=== PATIENT | male | born 1950 | race Caucasian/White ===

== ENCOUNTER 2019-02-08 12:02 | Inpatient (IN) | payer MEDICARE ==
[2019-02-08] MEDS ORDERED: SODIUM CHLORIDE 0.9% 1,000 ML IV ONE (14:36)
[2019-02-08] MEDS ORDERED: ALPRAZolam 0.25 MG TAB ONE (14:43)
[2019-02-08] MEDS ORDERED: ASPIRIN 325 MG TAB ONE (14:43)
[2019-02-08] MEDS ORDERED: ALPRAZolam 0.5 MG TAB PO PRN (14:47)
[2019-02-08] MEDS ORDERED: NITROGLYCERIN SL TABS 0.4 MG TAB SUBLINGUAL PRN (14:47)
[2019-02-08] MEDS ORDERED: ASPIRIN 325 MG TAB PO STA (14:47)
[2019-02-08] MEDS ORDERED: ATORVASTATIN 80 MG TAB PO STA (14:47)
[2019-02-08] MEDS ORDERED: ALPRAZolam 0.25 MG TAB PO PRN (14:47)
[2019-02-08 14:58] LABS: Glucose,Whole Blood 161 mg/dL (75-99)
[2019-02-08 15:13] LABS: INR 0.9 (<1.2); Prothrombin Time 10.1 sec (9.0-12.0)
[2019-02-08 15:18] LABS: Potassium 4.5 mmol/L (3.5-5.1)
[2019-02-08 15:22] LABS: Basophils # (A) 0.1 k/uL (0-0.2); Basophils % (A) 1 %; Eosinophils # (A) 0.1 k/uL (0-0.7); Eosinophils % (A) 2 %; HCT 47.2 % (39.0-53.0); HGB 15.2 gm/dL (13.0-17.5); Lymphocytes # (A) 1.7 k/uL (1.0-4.8); Lymphocytes % (A) 21 %; MCHC 32.3 g/dL (31.0-37.0); MCV 92.7 fL (80.0-100.0); Mean Platelet Volume 6.4; Monocytes # (A) 0.4 k/uL (0-1.0); Monocytes % (A) 5 %; Neutrophils # (A) 5.6 k/uL (1.3-7.7); Neutrophils % (A) 69 %; Platelet Count 294 k/uL (150-450); RBC 5.09 m/uL (4.30-5.90); RDW 12.6 % (11.5-15.5); WBC 8.1 k/uL (3.8-10.6)
[2019-02-08] MEDS ORDERED: LIDOCAINE 1% INJ 10MG/ML (20 ML MDV) ONE (15:47)
[2019-02-08] MEDS ORDERED: fentaNYL (PF) 50 MCG/ML 2 ML AMP ONE (15:47)
[2019-02-08] MEDS: MIDAZOLAM (PF) 2 MG/2 ML VIAL IV ONE ×2 (15:49→15:59)
[2019-02-08] MEDS ORDERED: fentaNYL (PF) 50 MCG/ML 2 ML AMP IV ONE (15:50)
[2019-02-08] MEDS ORDERED: LIDOCAINE 1% INJ 10MG/ML (20 ML MDV) SQ ONE (15:55)
[2019-02-08] MEDS ORDERED: IOPAMIDOL-370 50ML BTL INJ ONE (16:14)
[2019-02-08] MEDS ORDERED: IOPAMIDOL-370 125ML BTL INJ ONE (16:14)
--- NOTE | 2019-02-08 16:59 | CC ---
CARDIAC CATHETERIZATION REPORT Mr. Mi is a 68-year-old gentleman who was seen in the office. He has a history of hypertension, diabetes, hyperlipidemia. The patient has been having increasingly frequent exertional stress discomfort lately. He has been getting chest pain and shortness of breath by walking less than a block. While he was in the office and having echocardiogram, he had some episodes of resting pain, which got relieved by itself. In view of the progressively frequent exertional chest discomfort and resting pain, the patient was advised urgent cardiac catheterization. There is no definite previous history of myocardial infarction. Echocardiogram was suggestive of inferior apical hypokinesia with ejection fraction of 40%. DESCRIPTION OF PROCEDURE: The right groin was prepped and draped in the usual manner and the skin was infiltrated with 2% Xylocaine. The right femoral artery was entered using Seldinger technique. A #6-Green[place] sheath was placed in using micropuncture needle. Selective coronary angiography was then performed in multiple projections and the left ventriculography was performed in 30-degree ABEBE projection. Patient tolerated the procedure well. Sheath was removed and good hemostasis was achieved with the manual compression. Moderate sedation was used. Total sedation time is 25 minutes. His left ventricular end-diastolic pressure was 24-28 mmHg prior to angiography. Patient was given intraventricular nitroglycerin and subsequently we will and left ventriculography was performed. After the angiogram, the end-diastolic pressure was 12-14 mmHg. No gradient is noted across the aortic valve. CORONARY ANGIOGRAPHY: The patient's coronary arteries are significantly calcified. LEFT MAIN: Left main coronary artery has a distal 70% stenosis. LEFT ANTERIOR DESCENDING CORONARY ARTERY: LAD is diffusely diseased with a proximal long area of 70% stenosis after the origin of small size diagonal branch. The LAD has a 99% stenosis. Distal to that, the LAD is a good caliber blood vessel and is bypassable. CIRCUMFLEX CORONARY ARTERY: Circumflex has a ostial stenosis of 99%. Then it gives rise to a good size obtuse marginal branch. The obtuse marginal branch in its midportion has about 70% stenosis. RIGHT CORONARY ARTERY: The right coronary artery is a good caliber blood vessel and in its proximal and midportion it is a diseased. Distal RCA before its bifurcation has a 99% stenosis. There is slow filling of the retrograde filling of the LAD is noted. LEFT VENTRICULOGRAM: Left ventriculography was performed in 30-degree ABEBE projection which reveals mild degree of anterior apical hypokinesia with ejection fraction of 45%. No significant mitral regurgitation is noted. FINAL IMPRESSION: This study reveals severe triple-vessel disease. The left main coronary artery has a distal 70% stenosis. 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 There is a 99% ostial stenosis of the circumflex coronary artery. Obtuse marginal branch has 70% stenosis. The mid to distal RCA has a 90% stenosis. Left ventriculography reveals mild anterior apical hypokinesia with ejection fraction of 45%. RECOMMENDATIONS: We will get a surgical opinion for urgent coronary artery bypass surgery. MMODL / IJN: [id number] /
[2019-02-08] MEDS ORDERED: HYDROcodone/APAP 5-325MG 1 EACH TAB PO PRN (17:03)
[2019-02-08] MEDS ORDERED: MD COMMUNICATION TO PHARMACY 1 EACH MISC PO ONE (17:09)
--- NOTE | 2019-02-08 17:09 | CONS ---
CONSULTATION Mr. Mi is a 68-year-old gentleman who was seen in the office today because of the symptoms for cardiac evaluation. This patient has a history of hypertension, diabetes, and hyperlipidemia for many years. Since last May, patient has been having exertional chest discomfort and it is gradually occurring with minimal activities. At present, he gets chest discomfort and shortness of breath by walking less than 1 block. While in the office, he had an episode of resting pain. Echocardiogram shows evidence of inferior apical hypokinesia. In view of that, the patient was advised urgent cardiac catheterization. Patient's EKG does not show any definite previous history of myocardial infarction. The patient has a history of hypertension, diabetes and hyperlipidemia. PAST MEDICAL HISTORY: No history of any major surgeries. REVIEW OF THE SYSTEM: HEENT: Head and ENT unremarkable. RESPIRATORY SYSTEM: Patient has a history of prior smoking, quit many years ago. Denies any history of recurrent bronchitis or asthma. GI denies any history of peptic ulcer disease, any blood in the stool, black stool. unremarkable. 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 PHYSICAL EXAMINATION: GENERAL: At present reveals a 68-year-old obesely built gentleman who does not appear to be in any acute distress. VITAL SIGNS: Patient's blood pressure is 150/80 mmHg. HEENT: Head and ENT examination is negative. NECK is supple. There is no increase in jugular venous pressure. Both the carotid pulses are felt. There is no bruit. CHEST is symmetrical. HEART: The PMI is not felt. First and second heart sounds are normal. There is no evidence of any murmur. LUNGS are clinically clear to auscultation and percussion. ABDOMEN is negative. EXTREMITIES: Peripheral pulsations are 2+. EKG shows normal sinus rhythm with minimal ST depression noted in V5 and V6. IMPRESSION: 1. This patient has a class 3 to class 4 angina with minimal activities and symptoms of shortness of breath, rule out underlying severe coronary artery disease. 2. History of hypertension. 3. Diabetes. 4. Hyperlipidemia. RECOMMENDATIONS: Patient was advised urgent cardiac catheterization. Thank you for this consultation. MMODL / IJN: [id number] /
[2019-02-08] MEDS: SODIUM CHLORIDE 0.9% 1,000 ML IV SCH ×2 (17:34→23:52)
[2019-02-08 17:52] LABS: Glucose,Whole Blood 99 mg/dL (75-99)
--- NOTE | 2019-02-08 18:00 | US ---
EXAMINATION TYPE: US carotid duplex BILAT DATE OF EXAM: 02/08/2019 COMPARISON: NONE CLINICAL HISTORY: Pre-Op Cardiac Surgery. EXAM MEASUREMENTS: RIGHT: Peak Systolic Velocity (PSV) cm/sec ----- Right CCA: 66.2 ----- Right ICA: 79.0 ----- Right ECA: 99.5 ICA/CCA ratio: 1.2 RIGHT: End Diastole cm/sec ----- Right CCA: 13.0 ----- Right ICA: 25.2 ----- Right ECA: 0.0 LEFT: Peak Systolic Velocity (PSV) cm/sec ----- Left CCA: 96.9 ----- Left ICA: 71.1 ----- Left ECA: 103.4 ICA/CCA ratio: 0.7 LEFT: End Diastole cm/sec ----- Left CCA: 15.4 ----- Left ICA: 15.4 ----- Left ECA: 0.0 VERTEBRALS (direction of flow): Right Vertebral: Antegrade Left Vertebral: Antegrade Rhythm: Normal Mild to moderate diffuse plaque common carotid arteries is present bilaterally with more prominent fo marcio moderate to severe plaque at bilateral carotid bulb levels. Velocity measurements and ratios in v isualized portion of both internal carotid arteries is within normal limits. IMPRESSION: Moderate diffuse atherosclerotic change right greater than left without significant sten osis seen in either internal carotid artery. Criteria for Assigning % of Stenosis / Diameter reduction (Estimation based on the indirect measurements of the internal carotid artery velocities (ICA PSV). 1. Normal (no stenosis)=ICA PSV < 125 cm/s: ratio < 2.0: ICA EDV<40 cm/s. 2. Less than 50% stenosis=ICA PSV < 125 cm/s: ratio < 2.0: ICA EDV<40 cm/s. 3. 50 to 69% stenosis=ICA PSV of 125 to 230 cm/s: ration 2.0 ? 4.0: ICA EDV 40-100 cm/s. 4. Greater than 70% stenosis to near occlusion= ICA PSV > 230 cm/s: ratio > 4.0: ICA EDV > 100 cm/s. 5. Near occlusion= ICA PSV velocities may be low or undetectable: variable ratio and ICA EDV. 6. Total occlusion=unable to detect flow.
[2019-02-08] MEDS: NITROGLYCERIN OINT 1 INCH/GM PACKET TOPICAL SCH ×2 (18:54→23:47)
[2019-02-08 20:14] LABS: Appearance,Urine Clear (Clear); Bilirubin,Urine Negative (Negative); Blood,Urine Negative (Negative); Color,Urine Light Yellow; Glucose,Urine (UA) Negative (Negative); Ketones,Urine Negative (Negative); Leukocyte Esterase,Urine Negative (Negative); Nitrite,Urine Negative (Negative); PH, Urine 6.5 (5.0-8.0); Protein,Urine Negative (Negative); Urobilinogen,Urine <2.0 mg/dL (<2.0)
[2019-02-08 20:41] LABS: Glucose,Whole Blood 100 mg/dL (75-99)
[2019-02-08] MEDS: INSULIN ASPART (NovoLOG) 100 UNIT/ML VIAL SQ SCH (21:09)
[2019-02-08] MEDS: METOPROLOL TARTRATE 25 MG TAB PO SCH (21:16)
[2019-02-08] MEDS: ATORVASTATIN 80 MG TAB PO SCH (21:16)
[2019-02-08] MEDS: MUPIROCIN 2% OINT 22 GM TUBE NASAL SCH (21:18)
[2019-02-09 05:16] LABS: Basophils # (A) 0.1 k/uL (0-0.2); Basophils % (A) 1 %; Eosinophils # (A) 0.3 k/uL (0-0.7); Eosinophils % (A) 5 %; HCT 40.2 % (39.0-53.0); HGB 12.8 gm/dL (13.0-17.5); Lymphocytes # (A) 1.7 k/uL (1.0-4.8); Lymphocytes % (A) 28 %; MCH 29.3 pg (25.0-35.0); MCHC 31.8 g/dL (31.0-37.0); MCV 92.3 fL (80.0-100.0); Mean Platelet Volume 6.8; Monocytes # (A) 0.5 k/uL (0-1.0); Monocytes % (A) 8 %; Neutrophils # (A) 3.4 k/uL (1.3-7.7); Neutrophils % (A) 55 %; Platelet Count 266 k/uL (150-450); RBC 4.36 m/uL (4.30-5.90); RDW 13.3 % (11.5-15.5); WBC 6.2 k/uL (3.8-10.6)
[2019-02-09 05:24] LABS: Partial Thromboplastin Time 24.8 sec (22.0-30.0); Prothrombin Time 10.5 sec (9.0-12.0)
[2019-02-09 05:33] LABS: Potassium 4.5 mmol/L (3.5-5.1); Sodium 139 mmol/L (137-145)
[2019-02-09 05:36] LABS: ALT 44 U/L (21-72); AST 29 U/L (17-59); Albumin 3.9 g/dL (3.5-5.0); Alkaline Phosphatase 56 U/L (38-126); Anion Gap 8 mmol/L; Blood Urea Nitrogen 18 mg/dL (9-20); Carbon Dioxide 24 mmol/L (22-30); Chloride 107 mmol/L (98-107); Cholesterol 135 mg/dL (<200); Glucose 86 mg/dL (74-99); HDL Cholesterol 47 mg/dL (40-60); LDL Cholesterol,Calculated 65 mg/dL (0-99); Magnesium 2.2 mg/dL (1.6-2.3); Total Bilirubin 0.6 mg/dL (0.2-1.3); Total Protein 6.3 g/dL (6.3-8.2); Triglycerides 117 mg/dL (<150)
--- NOTE | 2019-02-09 06:06 | XR ---
EXAMINATION TYPE: XR chest 2V DATE OF EXAM: 02/09/2019 HISTORY: chest pain. REFERENCE: NONE. FINDINGS: The lungs are clear. Pleural space are clear. The heart is not enlarged. IMPRESSION: NO ACTIVE CARDIOPULMONARY ABNORMALITY.
[2019-02-09 06:32] LABS: Glucose,Whole Blood 88 mg/dL (75-99)
[2019-02-09] MEDS: INSULIN ASPART (NovoLOG) 100 UNIT/ML VIAL SQ SCH ×4 (06:36→21:26)
--- NOTE | 2019-02-09 07:00 | P.PN ---
Subjective Progress Note Date: 02/09/19 Principal diagnosis: Unstable angina This is a pleasant 68-year-old gentleman who was seen by Dr. Malloy in the office yesterday where he was experiencing chest discomfort concerning for angina. Subsequently he underwent a heart catheterization yesterday which revealed severe triple-vessel coronary artery disease was extremely calcified right and left coronary systems. The patient was referred for coronary artery bypass grafting and he is going to undergo CABG this coming to stay. On follow-up with him today, 02/09/2019, he seems to be asymptomatic from a cardiovascular standpoint overview. He is on anti-ischemic medications including aspirin, statin, and metoprolol. He has been maintaining normal sinus mechanism. An echocardiogram is in process to be done and will follow-up with that. Objective - Vital Signs Vital signs: Vital Signs Temp 97.8 F 02/09/19 04:01 Pulse 70 02/09/19 06:00 Resp 14 02/09/19 06:00 BP 111/68 02/09/19 06:00 Pulse Ox 95 02/09/19 06:00 Intake & Output 02/08/19 02/08/19 02/09/19 06:59 18:59 06:59 Intake Total 550 1200 Output Total 950 Balance 550 250 Weight 80 kg 78.7 kg Intake: IV 350 1200 Sodium Chloride 0.9% 1, 200 1200 000 ml @ 100 mls/hr IV . Q10H ALFONSO Rx#:[id number] Oral 200 Output: Urine 950 - Constitutional General appearance: Present: no acute distress - Respiratory Respiratory: bilateral: CTA - Cardiovascular Rhythm: regular Heart sounds: normal: S1, S2 - Labs CBC & Chem 7: 02/09/19 04:28 02/09/19 04:28 Labs: Abnormal Lab Results - Last 24 Hours (Table) 02/08/19 02/08/19 02/08/19 Range/Units 14:55 15:00 18:40 Hgb (13.0-17.5) gm/dL Glucose 177 H (74-99) mg/dL POC Glucose (mg/dL) 161 H (75-99) mg/dL Troponin I 0.077 H* (0.000-0.034) ng/mL Ur Specific [place] (1.001-1.035) 02/08/19 02/08/19 02/09/19 Range/Units 20:00 20:40 00:02 Hgb (13.0-17.5) gm/dL Glucose (74-99) mg/dL POC Glucose (mg/dL) 100 H (75-99) mg/dL Troponin I 0.079 H* (0.000-0.034) ng/mL Ur Specific [place] 1.050 H (1.001-1.035) 02/09/19 Range/Units 04:28 Hgb 12.8 L (13.0-17.5) gm/dL Glucose (74-99) mg/dL POC Glucose (mg/dL) (75-99) mg/dL Troponin I (0.000-0.034) ng/mL Ur Specific [place] (1.001-1.035) Microbiology - Last 24 Hours (Table) 02/08/19 20:00 Urine Culture - Preliminary Urine,Clean Catch 02/08/19 19:00 Nasal Screen MRSA/MSSA - Preliminary Nasal Swab Assessment and Plan Assessment: Assessment #1 unstable angina #2 severe triple-vessel coronary artery disease Plan #1 continue the current medical regimen #2 the patient is going to undergo open-heart this coming Monday #3 follow-up on the echocardiogram
[2019-02-09] MEDS: METOPROLOL TARTRATE 25 MG TAB PO SCH ×3 (08:57→21:26)
[2019-02-09] MEDS: ASPIRIN 81 MG PO SCH (08:57)
[2019-02-09] MEDS: MUPIROCIN 2% OINT 22 GM TUBE NASAL SCH ×2 (08:57→21:26)
[2019-02-09] MEDS: SODIUM CHLORIDE 0.9% 1,000 ML IV SCH ×2 (08:58→18:14)
[2019-02-09] MEDS: NITROGLYCERIN OINT 1 INCH/GM PACKET TOPICAL SCH ×3 (09:07→23:21)
[2019-02-09 11:50] LABS: Hepatitis A Antibody IgM Non-Reactive (Non-Reactive); Hepatitis B Core IgM Non-Reactive (Non-Reactive)
[2019-02-09 12:17] LABS: Glucose,Whole Blood 163 mg/dL (75-99)
--- NOTE | 2019-02-09 13:26 | P.GSCN ---
History of Present Illness Consult date: 02/09/19 Reason for Consult: Severe triple vessel coronary artery disease, surgical recommendations Requesting physician: Margie Malloy History of present illness: This is a 68-year-old active gentleman who previously followed with Dr. Kelvin Aguilar on an outpatient basis. He has a previous medical history of hypertension, hyperlipidemia, diabetes mellitus, and previous tobacco dependence. He has apparently been having exertional dyspnea and intermittent chest pressure for the previous several months. He presented several times to his primary care physician's office without relief. Eventually he made an appointment with [facility], an echocardiogram was completed in the office demonstrating inferior apical hypokinesia with ejection fraction 40%. He did have an episode of pain at rest while in the cardiology office. EKG was completed demonstrating no acute ischemia, however due to the patient's p rogressive symptoms and echocardiogram results the patient was sent as a direct admit to the hospital with recommendation for heart catheterization. Troponins were drawn and were positive ruling the patient in for non-STEMI. The catheterization was completed yesterday by Dr. Malloy and demonstrated a distal left main stenosis 70%, proximal LAD stenosis 70%, ostial circumflex stenosis 99% with a mid obtuse marginal branch 70%, and distal RCA stenosis 99%. LV gram was completed which revealed mild anterior apical hypokinesia with ejection fraction 45%. Dr. Coon from cardiothoracic surgery was consulted regarding surgical revascularization. Review of Systems Review of systems was completed and was negative except as noted. - Cardiovascular Reports chest pain, Reports dyspnea on exertion Past Medical History Past Medical History: Chest Pain / Angina, Diabetes Mellitus, Hyperlipidemia, Hypertension History of Any Multi-Drug Resistant Organisms: None Reported Past Surgical History: Tonsillectomy Additional Past Surgical History / Comment(s): left hand finger sewed pm 55 yrs ago Past Anesthesia/Blood Transfusion Reactions: No Reported Reaction Past Psychological History: No Psychological Hx Reported Smoking Status: Former smoker Past Alcohol Use History: Occasional Past Drug Use History: None Reported - Past Family History Father Family Medical History: Myocardial Infarction ([place]) Mother Family Medical History: Coronary Artery Disease (CAD), Dementia Medications and Allergies Home Medications Medication Instructions Recorded Confirmed Type Aspirin 81 mg PO DAILY 02/08/19 02/08/19 History Lisinopril 40 mg PO DAILY 02/08/19 02/08/19 History Multivitamins, Thera [Multivitamin 1 tab PO DAILY 02/08/19 02/08/19 History (formulary)] Simvastatin [Zocor] 20 mg PO HS 02/08/19 02/08/19 History amLODIPine [Norvasc] 10 mg PO DAILY 02/08/19 02/08/19 History glipiZIDE [Glucotrol] 10 mg PO AC-BID 02/08/19 02/08/19 History metFORMIN HCL [Glucophage] 850 mg PO BID 02/08/19 02/08/19 History Allergies Allergy/AdvReac Type Severity Reaction Status Date / Time No Known Allergies Allergy Verified 02/08/19 14:37 Surgical - Exam Vital Signs Temp Pulse Resp BP Pulse Ox 98.1 F 98 16 179/88 99 02/08/19 15:12 02/08/19 15:12 02/08/19 15:12 02/08/19 15:12 02/08/19 15:12 - General well developed, well nourished, no distress, no pain - Eyes PERRL, normal ocular movement - ENT no hearing loss - Neck no masses, no bruits, trachea midline - Respiratory Lungs sounds clear bilaterally. Respirations even, nonlabored. Currently on room air with oxygen saturation 96%. No chest wall deformities. - Cardiovascular S1, S2 present. Regular rate and rhythm, sinus rhythm on telemetry. Palpable peripheral pulses bilaterally. No edema present. No calf pain or tenderness noted. Small irregular spider veins noted to bilateral lower extremities. Negative Ge's test to left radial artery. - Abdomen Abdomen: soft, non tender, bowel sounds - Genitourinary Deferred - Rectum Deferred - Integumentary no rash, no growths, no abnormal pigmentation - Neurologic normal coordination, normal sensation - Musculoskeletal normal gait, normal posture - Psychiatric oriented to time, oriented to person, oriented to place, speech is normal, memory intact Results - Labs 02/09/19 04:28 02/09/19 04:28 Abnormal Lab Results - Last 24 Hours (Table) 02/08/19 02/08/19 02/08/19 Range/Units 14:55 15:00 18:40 Hgb (13.0-17.5) gm/dL Glucose 177 H (74-99) mg/dL POC Glucose (mg/dL) 161 H (75-99) mg/dL Troponin I 0.077 H* (0.000-0.034) ng/mL Ur Specific [place] (1.001-1.035) 02/08/19 02/08/19 02/09/19 Range/Units 20:00 20:40 00:02 Hgb (13.0-17.5) gm/dL Glucose (74-99) mg/dL POC Glucose (mg/dL) 100 H (75-99) mg/dL Troponin I 0.079 H* (0.000-0.034) ng/mL Ur Specific [place] 1.050 H (1.001-1.035) 02/09/19 02/09/19 Range/Units 04:28 12:15 Hgb 12.8 L (13.0-17.5) gm/dL Glucose (74-99) mg/dL POC Glucose (mg/dL) 163 H (75-99) mg/dL Troponin I (0.000-0.034) ng/mL Ur Specific [place] (1.001-1.035) Microbiology - Last 24 Hours (Table) 02/08/19 20:00 Urine Culture - Preliminary Urine,Clean Catch 02/08/19 19:00 Nasal Screen MRSA/MSSA - Preliminary Nasal Swab Diabetes panel 02/08/19 02/09/19 Range/Units 15:00 04:28 Sodium 141 139 (137-145) mmol/L Potassium 4.5 4.5 (3.5-5.1) mmol/L Chloride 105 107 (98-107) mmol/L Carbon Dioxide 23 24 (22-30) mmol/L BUN 20 18 (9-20) mg/dL Creatinine 1.04 0.95 (0.66-1.25) mg/dL Glucose 177 H 86 (74-99) mg/dL Calcium 10.0 9.0 (8.4-10.2) mg/dL AST 29 (17-59) U/L ALT 44 (21-72) U/L Alkaline Phosphatase 56 (38-126) U/L Total Protein 6.3 (6.3-8.2) g/dL Albumin 3.9 (3.5-5.0) g/dL Triglycerides 117 (<150) mg/dL HDL Cholesterol 47 (40-60) mg/dL Thyroid panel 02/09/19 Range/Units 04:28 TSH 2.510 (0.465-4.680) mIU/L Calcium panel 02/08/19 02/09/19 Range/Units 15:00 04:28 Calcium 10.0 9.0 (8.4-10.2) mg/dL Albumin 3.9 (3.5-5.0) g/dL Pituitary panel 02/08/19 02/09/19 Range/Units 15:00 04:28 Sodium 141 139 (137-145) mmol/L Potassium 4.5 4.5 (3.5-5.1) mmol/L Chloride 105 107 (98-107) mmol/L Carbon Dioxide 23 24 (22-30) mmol/L BUN 20 18 (9-20) mg/dL Creatinine 1.04 0.95 (0.66-1.25) mg/dL Glucose 177 H 86 (74-99) mg/dL Calcium 10.0 9.0 (8.4-10.2) mg/dL TSH 2.510 (0.465-4.680) mIU/L Adrenal panel 02/08/19 02/09/19 Range/Units 15:00 04:28 Sodium 141 139 (137-145) mmol/L Potassium 4.5 4.5 (3.5-5.1) mmol/L Chloride 105 107 (98-107) mmol/L Carbon Dioxide 23 24 (22-30) mmol/L BUN 20 18 (9-20) mg/dL Creatinine 1.04 0.95 (0.66-1.25) mg/dL Glucose 177 H 86 (74-99) mg/dL Calcium 10.0 9.0 (8.4-10.2) mg/dL Total Bilirubin 0.6 (0.2-1.3) mg/dL AST 29 (17-59) U/L ALT 44 (21-72) U/L Alkaline Phosphatase 56 (38-126) U/L Total Protein 6.3 (6.3-8.2) g/dL Albumin 3.9 (3.5-5.0) g/dL - Imaging Chest x-ray: report reviewed, image reviewed EKG: image reviewed Additional studies: Echocardiogram, vein mapping, pulmonary function test, carotid Dopplers reviewed as well as heart catheterization Assessment and Plan Assessment: 1. Severe triple-vessel coronary artery disease with left main disease 2. Non-STEMI 3. Hypertension 4. Hyperlipidemia 5. Type 2 diabetes mellitus 6. Previous tobacco dependence Plan: The patient was seen and examined at the bedside yesterday and today with Dr. Coon. Preoperative testing was initiated yesterday and mostly complete this morning, results reviewed with Dr. Coon. Our recommendation is for coronary artery bypass surgery. The usual perioperative course was discussed in detail with the patient and his family, risks and benefits were reviewed, all questions were answered, and the patient does consent to surgery. At this time our plan is for urgent coronary artery bypass graft surgery with left internal mammary artery, endovascular vein harvest, left radial artery harvest, and intraoperative transesophageal echocardiogram on 02/12/2019. This is acceptable to the patient and Dr. Malloy. We will perform 5 m walk test and calculate STS risk score and discuss with the patient. We recommend continuing to maximize medical therapy with aspirin, statin, beta nayeli therapy. We will continue to reinforce preoperative teaching. Medical management of other comorbidities per primary care service, cardiology. More recommendations to follow. Thank you Dr. Malloy for this consult. We look forward to working with you in the care of your patient. Time with Patient: Greater than 30
[2019-02-09 14:51] LABS: Hemoglobin A1C 7.1 % (4.0-6.0)
--- NOTE | 2019-02-09 15:12 | P.CNPUL ---
History of Present Illness Consult date: 02/09/19 Chief complaint: Awaiting thoracotomy and bypass surgery, coronary artery disease History of present illness: 68-year-old male patient a primary of Dr. Cuellar is known to have history of diabetes, hypertension and hyperlipidemia and a previous smoker. He has been going to his primary care physician because of chest pain and shortness of larry th for several months. Eventually was seen by cardiology and an echocardiogram was done and it showed inferior apical hypokinesis with an ejection fraction of 40%. EKG showed no acute ischemic changes. The patient had a cardiac catheterization for these symptoms and the patient was noted to have some limited elevation of the troponin consistent with non-STEMI. The cardiac catheterization was done and showed distal left main stenosis 70%, proximal LAD stenosis 70%, ostial circumflex stenosis 99% and a mid up to his marginal branch 70% lesion in addition to distal RCA stenosis of 99%. LV angiogram revealed mild anterior and apical hypokinesis with an ejection fraction of 45%. The patient is currently awaiting cardiac bypass surgery and the patient will be undergoing his surgery on Monday. This will be done next week. The patient is currently free of any chest pain. His resting comfortably in bed. He is taking aspirin.. He has no shortness of breath. No cough sputum production chest tightness or wheezing. His preop FEV1 is no other of 75% of predicted. The patient's chest x-ray shows no acute abnormalities in the lungs in the process of clear. Review of Systems Constitutional: Denies chills, Denies fever Eyes: denies as per HPI, denies blurred vision, denies bulging eye, denies decreased vision, denies diplopia, denies discharge, denies dry eye, denies irritation, denies itching, denies pain, denies photophobia, denies loss of peripheral vision, denies loss of vision, denies tunnel vision/blind spots Ears: deny: decreased hearing, ear discharge, earache, tinnitus Ears, nose, mouth and throat: Denies headache, Denies sore throat Cardiovascular: Reports chest pain, Reports dyspnea on exertion Respiratory: Reports dyspnea Gastrointestinal: Denies abdominal pain, Denies diarrhea, Denies nausea, Denies vomiting Genitourinary: Reports as per HPI Musculoskeletal: Reports as per HPI Musculoskeletal: absent: ankle pain, ankle stiffness, ankle swelling, as per HPI, elbow pain, elbow stiffness, elbow swelling, foot pain, foot stiffness, foot swelling, hand pain, hand stiffness, hand swelling, hip pain, hip stiffness, hip swelling, knee pain, knee stiffness, knee swelling, shoulder pain, shoulder stiffness, shoulder swelling, wrist pain, wrist stiffness, wrist swelling Integumentary: Reports as per HPI Neurological: Reports as per HPI Psychiatric: Reports as per HPI Endocrine: Reports as per HPI Hematologic/Lymphatic: Reports as per HPI Allergic/Immunologic: Reports as per HPI Past Medical History Past Medical History: Chest Pain / Angina, Diabetes Mellitus, Hyperlipidemia, Hypertension Additional Past Medical History / Comment(s): Multivessel coronary artery disease History of Any Multi-Drug Resistant Organisms: None Reported Past Surgical History: Tonsillectomy Additional Past Surgical History / Comment(s): left hand finger sewed pm 55 yrs ago Past Anesthesia/Blood Transfusion Reactions: No Reported Reaction Past Psychological History: No Psychological Hx Reported Smoking Status: Former smoker Past Alcohol Use History: Occasional Past Drug Use History: None Reported - Past Family History Father Family Medical History: Myocardial Infarction (HI) Mother Family Medical History: Coronary Artery Disease (CAD), Dementia Medications and Allergies Home Medications Medication Instructions Recorded Confirmed Type Aspirin 81 mg PO DAILY 02/08/19 02/08/19 History Lisinopril 40 mg PO DAILY 02/08/19 02/08/19 History Multivitamins, Thera [Multivitamin 1 tab PO DAILY 02/08/19 02/08/19 History (formulary)] Simvastatin [Zocor] 20 mg PO HS 02/08/19 02/08/19 History amLODIPine [Norvasc] 10 mg PO DAILY 02/08/19 02/08/19 History glipiZIDE [Glucotrol] 10 mg PO AC-BID 02/08/19 02/08/19 History metFORMIN HCL [Glucophage] 850 mg PO BID 02/08/19 02/08/19 History Allergies Allergy/AdvReac Type Severity Reaction Status Date / Time No Known Allergies Allergy Verified 02/08/19 14:37 Physical Exam Vitals: Vital Signs Temp Pulse Pulse Resp BP BP BP 02/09/19 14:00 70 21 122/69 02/09/19 13:00 74 18 126/75 02/09/19 12:00 98.1 F 67 20 127/67 02/09/19 11:00 68 25 H 124/82 02/09/19 10:00 78 16 115/73 02/09/19 09:00 71 13 112/64 02/09/19 08:00 98.0 F 73 35 H 108/65 02/09/19 07:00 68 14 118/70 02/09/19 06:00 70 14 111/68 02/09/19 05:00 71 10 L 108/67 02/09/19 04:01 97.8 F 70 18 114/70 02/09/19 03:00 71 13 117/70 02/09/19 02:00 67 15 110/65 02/09/19 01:00 64 13 119/76 02/09/19 00:00 65 13 123/79 02/08/19 23:00 71 5 L 124/73 02/08/19 22:00 75 18 122/75 02/08/19 21:00 79 10 L 125/78 02/08/19 20:00 97.9 F 80 7 L 129/77 02/08/19 19:00 86 8 L 128/74 02/08/19 18:30 84 8 L 128/74 02/08/19 18:00 86 16 126/77 02/08/19 17:30 87 6 L 126/77 02/08/19 17:00 98.1 F 87 7 L 134/77 02/08/19 16:54 82 35 H 02/08/19 15:12 98.1 F 98 16 179/88 172/86 Pulse Ox 02/09/19 14:00 96 02/09/19 13:00 96 02/09/19 12:00 96 02/09/19 11:00 96 02/09/19 10:00 96 02/09/19 09:00 95 02/09/19 08:00 95 02/09/19 07:00 94 L 02/09/19 06:00 95 02/09/19 05:00 94 L 02/09/19 04:01 95 02/09/19 03:00 94 L 02/09/19 02:00 94 L 02/09/19 01:00 95 02/09/19 00:00 95 02/08/19 23:00 95 02/08/19 22:00 95 02/08/19 21:00 95 02/08/19 20:00 96 02/08/19 19:00 96 02/08/19 18:30 96 02/08/19 18:00 96 02/08/19 17:30 97 02/08/19 17:00 98 02/08/19 16:54 02/08/19 15:12 99 Intake and Output 02/09/19 02/09/19 02/09/19 06:59 14:59 22:59 Intake Total 800 1200 Output Total 250 850 Balance 550 350 Intake: IV 800 700 Sodium Chloride 0.9% 1, 800 700 000 ml @ 100 mls/hr IV . Q10H ALFONSO Rx#:[id number] Oral 500 Output: Urine 250 850 Other: # Bowel Movements 1 Weight 78.7 kg - General well developed, well nourished, no distress, no pain - Eyes PERRL, normal ocular movement - ENT no hearing loss - Neck no masses, no bruits, trachea midline - Respiratory Lungs sounds clear bilaterally. Respirations even, nonlabored. Currently on room air with oxygen saturation 96%. No chest wall deformities. - Cardiovascular S1, S2 present. Regular rate and rhythm, sinus rhythm on telemetry. Palpable peripheral pulses bilaterally. No edema present. No calf pain or tenderness noted. Small irregular spider veins noted to bilateral lower extremities. Negative Ge's test to left radial artery. - Abdomen Abdomen: soft, non tender, bowel sounds - Genitourinary Deferred - Rectum Deferred - Integumentary no rash, no growths, no abnormal pigmentation - Neurologic Results - Laboratory Findings CBC and BMP: 02/09/19 04:28 02/09/19 04:28 PT/INR, D-dimer PT 10.5 sec (9.0-12.0) 02/09/19 04:28 INR 1.0 (<1.2) 02/09/19 04:28 Abnormal lab findings: Abnormal Labs 02/08/19 02/08/19 02/08/19 14:55 15:00 18:40 Hgb Glucose 177 H POC Glucose (mg/dL) 161 H Hemoglobin A1c Troponin I 0.077 H* Ur Specific [place] 02/08/19 02/08/19 02/09/19 20:00 20:40 00:02 Hgb Glucose POC Glucose (mg/dL) 100 H Hemoglobin A1c Troponin I 0.079 H* Ur Specific [place] 1.050 H 02/09/19 02/09/19 02/09/19 04:28 04:28 12:15 Hgb 12.8 L Glucose POC Glucose (mg/dL) 163 H Hemoglobin A1c 7.1 H Troponin I Ur Specific [place] - Diagnostic Findings Chest x-ray: image reviewed Assessment and Plan Plan: 1 multivessel coronary artery disease with triple-vessel involvement, symptomatic and the patient is awaiting cardiac bypass surgery 2 chest pain with an acute non-STEMI 3 hypertension 4 hyperlipidemia 5 diabetes mellitus type 2 6 moderate diffuse atherosclerotic changes in the carotid arteries right more than left without any significant stenosis in the either internal carotid arteries. Plan Proceed with cardiac bypass surgery next week. No pulmonate contraindication. FEV1 is in the order of 75% of predicted. Chest x-ray is within normal limits. Provide the patient incentive spirometer. He is a previous smoker. Continue aspirin. We'll continue to follow and I do not foresee any pulmonary complications following bypass surgery. We'll continue to follow this patient, manage the mechanical ventilator and off for any advice or interventions should there be any pulmonary issues postop. Would also assist with the critical care management this patient following the bypass surgery. Continue 0.9 saline at the rate of 100 mL an hour. He is on room air oxygen. This tolerating his diet. No other significant events or issues for now.
[2019-02-09 17:10] LABS: Glucose,Whole Blood 161 mg/dL (75-99)
--- NOTE | 2019-02-09 17:38 | ECHOF ---
Referral Reason:triple vessel dx MEASUREMENTS -------- HEIGHT: 165.1 cm WEIGHT: 79.8 kg BP: RVIDd: 3.5 cm (< 3.3) IVSd: 1.3 cm (0.6 - 1.1) LVIDd: 3.9 cm (3.9 - 5.3) LVPWd: 1.3 cm (0.6 - 1.1) IVSs: 1.5 cm LVIDs: 2.9 cm LVPWs: 1.4 cm LA Diam: 2.9 cm (2.7 - 3.8) Ao Diam: 3.1 cm (2.0 - 3.7) AV Cusp: 1.7 cm (1.5 - 2.6) LA Diam: 3.5 cm (2.7 - 3.8) MV EXCURSION: 17.701 mm (> 18.000) MV EF SLOPE: 58 mm/s (70 - 150) EPSS: 0.7 cm MV E Scotty: 0.65 m/s MV DecT: 325 ms MV A Scotty: 1.19 m/s MV E/A Ratio: 0.55 RAP: 5.00 mmHg RVSP: 10.09 mmHg FINDINGS -------- Sinus rhythm. This was a technically adequate study. The left ventricular size is normal. There is mild concentric left ventricular hypertrophy. Overa ll left ventricular systolic function is mildly impaired with, an EF between 45 - 50 %. The right ventricle is normal in size. The left atrial size is normal. The right atrial size is normal. Interatrial and interventricular septum intact. There is mild aortic valve sclerosis. Mild mitral annular calcification present. Mild mitral regurgitation is present. Mild tricuspid regurgitation present. There is no evidence of pulmonary hypertension. The right v entricular systolic pressure, as measured by Doppler, is 10.09mmHg. There is no pulmonic regurgitation present. The aortic root size is normal. There is no pericardial effusion. CONCLUSIONS -------- 1. The left ventricular size is normal. 2. There is mild concentric left ventricular hypertrophy. 3. Overall left ventricular systolic function is mildly impaired with, an EF between 45 - 50 %. 4. The right ventricle is normal in size. 5. The left atrial size is normal. 6. The right atrial size is normal. 7. Interatrial and interventricular septum intact. 8. There is mild aortic valve sclerosis. 9. Mild mitral annular calcification present. 10. Mild mitral regurgitation is present. 11. Mild tricuspid regurgitation present. 12. There is no evidence of pulmonary hypertension. 13. The right ventricular systolic pressure, as measured by Doppler, is 10.09mmHg. 14. There is no pulmonic regurgitation present. 15. The aortic root size is normal. 16. There is no pericardial effusion. CASE CHECKER: Lynne Howard RDCS
[2019-02-09 21:05] LABS: Glucose,Whole Blood 152 mg/dL (75-99)
[2019-02-09] MEDS: ATORVASTATIN 80 MG TAB PO SCH (21:25)
[2019-02-10 07:04] LABS: Glucose,Whole Blood 109 mg/dL (75-99)
--- NOTE | 2019-02-10 07:18 | P.PN ---
Subjective Progress Note Date: 02/10/19 Principal diagnosis: Unstable angina This is a pleasant 68-year-old gentleman who was seen by Dr. Malloy in the office yesterday where he was experiencing chest discomfort concerning for angina. Subsequently he underwent a heart catheterization yesterday which revealed severe triple-vessel coronary artery disease was extremely calcified right and left coronary systems. The patient was referred for coronary artery bypass grafting and he is going to undergo CABG this coming to stay. On follow-up with him today, 02/10/2019, he seems to be asymptomatic from a cardiovascular standpoint overview. He is on anti-ischemic medications including aspirin, statin, and metoprolol. He has been maintaining normal sinus mechanism. The echocardiogram revealed mildly impaired LV function was EF between 45-50% without any significant valvular abnormalities. Objective - Vital Signs Vital signs: Vital Signs Temp 97.6 F 02/10/19 04:00 Pulse 77 02/10/19 06:00 Resp 26 H 02/10/19 06:00 BP 133/75 02/10/19 06:00 Pulse Ox 93 L 02/10/19 06:00 Intake & Output 02/09/19 02/10/19 02/10/19 18:59 06:59 18:59 Intake Total 1850 1200 Output Total 900 900 Balance 950 300 Weight 79.1 kg Intake: IV 1100 1200 Sodium Chloride 0.9% 1, 1100 1200 000 ml @ 100 mls/hr IV . Q10H ALFONSO Rx#:[id number] Oral 750 Output: Urine 900 900 Other: # Bowel Movements 1 - Constitutional General appearance: Present: no acute distress - Respiratory Respiratory: bilateral: CTA - Cardiovascular Rhythm: regular Heart sounds: normal: S1, S2 - Labs CBC & Chem 7: 02/09/19 04:28 02/09/19 04:28 Labs: Abnormal Lab Results - Last 24 Hours (Table) 02/09/19 02/09/19 02/09/19 Range/Units 04:28 12:15 17:09 POC Glucose (mg/dL) 163 H 161 H (75-99) mg/dL Hemoglobin A1c 7.1 H (4.0-6.0) % 02/09/19 02/10/19 Range/Units 21:03 07:03 POC Glucose (mg/dL) 152 H 109 H (75-99) mg/dL Hemoglobin A1c (4.0-6.0) % [facility] - Last 24 Hours (Table) 02/08/19 19:00 Nasal Screen MRSA/MSSA - Final Nasal Swab 02/08/19 20:00 Urine Culture - Final Urine,Clean Catch Assessment and Plan Assessment: Assessment #1 unstable angina #2 severe triple-vessel coronary artery disease #3 mildly impaired LV function Plan #1 continue the current medical regimen #2 the patient is going to undergo open-heart this coming Monday #3 follow-up with the patient
[2019-02-10] MEDS: INSULIN ASPART (NovoLOG) 100 UNIT/ML VIAL SQ SCH ×4 (07:43→21:00)
[2019-02-10] MEDS: METOPROLOL TARTRATE 25 MG TAB PO SCH ×3 (08:40→21:01)
[2019-02-10] MEDS: ASPIRIN 81 MG PO SCH (08:40)
[2019-02-10] MEDS: NITROGLYCERIN OINT 1 INCH/GM PACKET TOPICAL SCH ×3 (08:40→23:50)
[2019-02-10] MEDS: MUPIROCIN 2% OINT 22 GM TUBE NASAL SCH ×2 (08:40→22:33)
[2019-02-10 11:41] LABS: Glucose,Whole Blood 180 mg/dL (75-99)
--- NOTE | 2019-02-10 12:39 | P.PN ---
Subjective Progress Note Date: 02/10/19 Principal diagnosis: Severe triple-vessel coronary artery disease, non-STEMI. Previous medical history of hypertension, hyperlipidemia, uncontrolled type 2 diabetes mellitus with hemoglobin A1c 7.1%, and previous tobacco dependence with FEV1 75% of predicted. The patient is currently sitting up in bed in no acute distress. Did have an episode of chest pressure this morning with activity which resolved with rest. Denies shortness of breath. No new questions at this time. Objective - Vital Signs Vital signs: Vital Signs Temp 97.8 F 02/10/19 12:00 Pulse 67 02/10/19 12:00 Resp 18 02/10/19 12:00 BP 124/80 02/10/19 12:00 Pulse Ox 97 02/10/19 12:00 Intake & Output 02/09/19 02/10/19 02/10/19 18:59 06:59 18:59 Intake Total 1850 1200 1650 Output Total 010 869 7072 Balance 950 300 300 Weight 79.1 kg Intake: IV 1100 1200 600 Sodium Chloride 0.9% 1, 1100 1200 600 000 ml @ 100 mls/hr IV . Q10H ALFONSO Rx#:[id number] Oral 750 1050 Output: Urine 172 [id number] [id number] Other: # Bowel Movements 1 - Constitutional General appearance: Present: cooperative, no acute distress - Respiratory Details: Lungs sounds clear bilaterally. Respirations even, nonlabored. Currently on room air with oxygen saturation 93%. Able to achieve 2000 mL on his incentive spirometry. Strong cough. - Cardiovascular Details: S1, S2 present. Regular rate and rhythm, sinus rhythm on telemetry. Palpable peripheral pulses bilaterally. No edema present. No calf pain or tenderness noted. - Gastrointestinal Gastrointestinal Comment(s): Abdomen soft, nontender, nondistended. Active bowel sounds 4 quadrants. Tolerating diet. - Genitourinary Genitourinary Comment(s): Continues to void clear, yellow urine. - Integumentary Integumentary Comment(s): Skin is warm and dry with evidence of good perfusion. - Neurologic Neurologic: Present: CNII-XII intact - Musculoskeletal Musculoskeletal: Present: gait normal, strength equal bilaterally - Psychiatric Psychiatric: Present: A&O x's 3, appropriate affect, intact judgment & insight - Allied health notes Allied health notes reviewed: nursing - Labs CBC & Chem 7: 02/09/19 04:28 02/09/19 04:28 Labs: Abnormal Lab Results - Last 24 Hours (Table) 02/09/19 02/09/19 02/09/19 Range/Units 04:28 17:09 21:03 POC Glucose (mg/dL) 161 H 152 H (75-99) mg/dL Hemoglobin A1c 7.1 H (4.0-6.0) % 02/10/19 02/10/19 Range/Units 07:03 11:39 POC Glucose (mg/dL) 109 H 180 H (75-99) mg/dL Hemoglobin A1c (4.0-6.0) % Microbiology - Last 24 Hours (Table) 02/08/19 19:00 Nasal Screen MRSA/MSSA - Final Nasal Swab 02/08/19 20:00 Urine Culture - Final Urine,Clean Catch - Imaging and Cardiology Chest x-ray: report reviewed, image reviewed Assessment and Plan Assessment: 1. Severe triple-vessel coronary artery disease with left main disease 2. Non-STEMI 3. Hypertension 4. Hyperlipidemia 5. Uncontrolled type 2 diabetes mellitus with preoperative hemoglobin A1c 7.1% 6. Previous tobacco dependence with FEV1 75% of predicted Plan: 1. Continue aspirin, statin, beta nayeli therapy. 2. Encourage incentive spirometry use 10 times every hour while awake. 3. Ambulate as tolerated. 4. Continue to reinforce preoperative teaching. 5. Our plan is for urgent coronary artery bypass graft surgery with left internal mammary artery, endovascular vein harvest, left radial artery harvest, and intraoperative transesophageal echocardiogram on 02/12/2019 6. Medical management by the comorbidities per primary care service, cardiology 7. More recommendations to follow Time with Patient: Greater than 30
[2019-02-10] MEDS: SODIUM CHLORIDE 0.9% 1,000 ML IV SCH ×2 (14:05→21:08)
--- NOTE | 2019-02-10 14:05 | P.CONS ---
History of Present Illness - Reason for Consult Consult date: 02/10/19 Medical management of diabetes, hypertension and hyperlipidemia - Chief Complaint Triple-vessel coronary artery disease/ CABG - History of Present Illness 68-year-old male patient a primary of Dr. Cuellar is known to have history of diabetes, hypertension and hyperlipidemia and a previous smoker. He has been going to his primary care physician because of chest pain and shortness of breath for several months. Eventually was seen by cardiology and an echocardiogram was done and it showed inferior apical hypokinesis with an ejection fraction of 40%. EKG showed no acute ischemic changes. The patient had a cardiac catheterization for these symptoms and the patient was noted to have some limited elevation of the troponin consistent with non-STEMI. The cardiac catheterization was done and showed distal left main stenosis 70%, proximal LAD stenosis 70%, ostial circumflex stenosis 99% and a mid up to his marginal branch 70% lesion in addition to distal RCA stenosis of 99%. LV angiogram revealed mild anterior and apical hypokinesis with an ejection fraction of 45%. The patient is currently awaiting cardiac bypass surgery and the patient will be undergoing his surgery on Monday. This will be done next week. The patient is currently free of any chest pain. His resting comfortably in bed. He is taking aspirin.. He has no shortness of breath. No cough sputum production chest tightness or wheezing. His preop FEV1 is no other of 75% of predicted. The patient's chest x-ray shows no acute abnormalities in the lungs in the process of clear. Review of Systems Constitutional: Denies chills, Denies fever Eyes: denies as per HPI, denies blurred vision, denies bulging eye, denies decreased vision, denies diplopia, denies discharge, denies dry eye, denies irritation, denies itching, denies pain, denies photophobia, denies loss of peripheral vision, denies loss of vision, denies tunnel vision/blind spots Ears: deny: decreased hearing, ear discharge, earache, tinnitus Ears, nose, mouth and throat: Denies headache, Denies sore throat Cardiovascular: Reports chest pain, Reports dyspnea on exertion Respiratory: Reports dyspnea Gastrointestinal: Denies abdominal pain, Denies diarrhea, Denies nausea, Denies vomiting Genitourinary: Reports as per HPI Musculoskeletal: Reports as per HPI Musculoskeletal: absent: ankle pain, ankle stiffness, ankle swelling, as per HPI, elbow pain, elbow stiffness, elbow swelling, foot pain, foot stiffness, foot swelling, hand pain, hand stiffness, hand swelling, hip pain, hip stiffness, hip swelling, knee pain, knee stiffness, knee swelling, shoulder pain, shoulder stiffness, shoulder swelling, wrist pain, wrist stiffness, wrist swelling Integumentary: Reports as per HPI Neurological: Reports as per HPI Psychiatric: Reports as per HPI Endocrine: Reports as per HPI Hematologic/Lymphatic: Reports as per HPI Allergic/Immunologic: Reports as per HPI Past Medical History Past Medical History: Chest Pain / Angina, Diabetes Mellitus, Hyperlipidemia, Hypertension Additional Past Medical History / Comment(s): Multivessel coronary artery disease History of Any Multi-Drug Resistant Organisms: None Reported Past Surgical History: Tonsillectomy Additional Past Surgical History / Comment(s): left hand finger sewed pm 55 yrs ago Past Anesthesia/Blood Transfusion Reactions: No Reported Reaction Past Psychological History: No Psychological Hx Reported Smoking Status: Former smoker Past Alcohol Use History: Occasional Past Drug Use History: None Reported - Past Family History Father Family Medical History: Myocardial Infarction ([place]) Mother Family Medical History: Coronary Artery Disease (CAD), Dementia Medications and Allergies Home Medications Medication Instructions Recorded Confirmed Type Aspirin 81 mg PO DAILY 02/08/19 02/08/19 History Lisinopril 40 mg PO DAILY 02/08/19 02/08/19 History Multivitamins, Thera [Multivitamin 1 tab PO DAILY 02/08/19 02/08/19 History (formulary)] Simvastatin [Zocor] 20 mg PO HS 02/08/19 02/08/19 History amLODIPine [Norvasc] 10 mg PO DAILY 02/08/19 02/08/19 History glipiZIDE [Glucotrol] 10 mg PO AC-BID 02/08/19 02/08/19 History metFORMIN HCL [Glucophage] 850 mg PO BID 02/08/19 02/08/19 History Allergies Allergy/AdvReac Type Severity Reaction Status Date / Time No Known Allergies Allergy Verified 02/08/19 14:37 Physical Exam Vitals: Vital Signs Temp Pulse Resp BP Pulse Ox 02/10/19 10:00 70 18 140/76 95 02/10/19 09:00 73 14 142/75 96 02/10/19 08:00 97.7 F 71 15 132/80 94 L 02/10/19 07:00 67 12 133/75 92 L 02/10/19 06:00 77 26 H 133/75 93 L 02/10/19 05:00 68 20 154/90 93 L 02/10/19 04:00 97.6 F 67 16 113/67 94 L 02/10/19 03:00 61 14 118/66 94 L 02/10/19 02:00 60 14 127/78 94 L 02/10/19 01:00 60 19 120/77 94 L 02/10/19 00:06 59 L 14 120/77 94 L 02/10/19 00:00 98.1 F 59 L 12 128/86 94 L 02/09/19 23:00 65 15 130/73 93 L 02/09/19 22:00 67 14 129/74 94 L 02/09/19 21:00 67 10 L 132/78 94 L 02/09/19 20:00 98.1 F 67 17 121/75 95 02/09/19 19:00 69 11 L 123/67 94 L 02/09/19 18:00 67 14 94 L 02/09/19 17:00 68 12 110/71 95 02/09/19 16:00 67 14 119/72 95 02/09/19 15:00 70 16 116/74 94 L 02/09/19 14:00 70 21 122/69 96 02/09/19 13:00 74 18 126/75 96 02/09/19 12:00 98.1 F 67 20 127/67 96 Intake and Output 02/09/19 02/10/19 02/10/19 22:59 06:59 14:59 Intake Total 9603 424 9915 Output Total 925 275 850 Balance 125 525 400 Intake: IV 800 800 400 Sodium Chloride 0.9% 1, 800 800 400 000 ml @ 100 mls/hr IV . Q10H [facility] Rx#:[id number] Oral 250 850 Output: Urine 925 275 850 Other: Weight 79.1 kg PHYSICAL EXAMINATION: GENERAL: The patient is alert and oriented x3, not in any acute distress. Well developed, well nourished. HEENT: Pupils are round and equally reacting to light. EOMI. No scleral icterus. No conjunctival pallor. Normocephalic, atraumatic. No pharyngeal erythema. No thyromegaly. CARDIOVASCULAR: S1 and S2 present. No murmurs, rubs, or gallops. PULMONARY: Chest is clear to auscultation, no wheezing or crackles. ABDOMEN: Soft, nontender, nondistended, normoactive bowel sounds. No palpable organomegaly. MUSCULOSKELETAL: No joint swelling or deformity. EXTREMITIES: No cyanosis, clubbing, or pedal edema. NEUROLOGICAL: Gross neurological examination did not reveal any focal deficits. SKIN: No rashes. Results CBC & Chem 7: 02/09/19 04:28 02/09/19 04:28 Labs: Abnormal Lab Results - Last 24 Hours (Table) 02/09/19 02/09/19 02/09/19 Range/Units 04:28 12:15 17:09 POC Glucose (mg/dL) 163 H 161 H (75-99) mg/dL Hemoglobin A1c 7.1 H (4.0-6.0) % 02/09/19 02/10/19 Range/Units 21:03 07:03 POC Glucose (mg/dL) 152 H 109 H (75-99) mg/dL Hemoglobin A1c (4.0-6.0) % Microbiology - Last 24 Hours (Table) 02/08/19 19:00 Nasal Screen MRSA/MSSA - Final Nasal Swab 02/08/19 20:00 Urine Culture - Final Urine,Clean Catch Assessment and Plan Assessment: 1. Chest pain/unstable angina - Patient is status post cardiac catheterization showing severe triple-vessel coronary artery disease - Cardiothoracic surgery is consulted for CABG scheduled possibly for Monday - Patient remains on aspirin, statins, beta blockers and IV heparin per protocol 2. Diabetes mellitus; we will monitor Accu-Cheks closely with insulin sliding scale protocol 3. Hypertension; stable on metoprolol 25 mg 3 times a day 4. Hyperlipidemia; continue with Lipitor; statin therapy has been escalated appropriately to 80 mg by mouth daily at bedtime 5. DVT prophylaxis; systemic anticoagulation with heparin CODE STATUS; full code Time with Patient: Greater than 30
[2019-02-10 17:02] LABS: Glucose,Whole Blood 152 mg/dL (75-99)
[2019-02-10 20:54] LABS: Glucose,Whole Blood 168 mg/dL (75-99)
[2019-02-10] MEDS: ATORVASTATIN 80 MG TAB PO SCH (21:01)
[2019-02-11 06:46] LABS: Glucose,Whole Blood 126 mg/dL (75-99)
[2019-02-11] MEDS: INSULIN ASPART (NovoLOG) 100 UNIT/ML VIAL SQ SCH ×4 (06:47→20:46)
[2019-02-11] MEDS: SODIUM CHLORIDE 0.9% 1,000 ML IV SCH ×3 (06:48→20:48)
--- NOTE | 2019-02-11 07:48 | P.PN ---
Subjective Progress Note Date: 02/11/19 Principal diagnosis: Unstable angina This is a pleasant 68-year-old gentleman who was seen by Dr. Malloy in the office yesterday where he was experiencing chest discomfort concerning for angina. Subsequently he underwent a heart catheterization yesterday which revealed severe triple-vessel coronary artery disease was extremely calcified right and left coronary systems. The patient was referred for coronary artery bypass grafting and he is going to undergo CABG this coming to stay. On follow-up with him today, 02/11/2019, he seems to be asymptomatic from a cardiovascular standpoint overview. He is on anti-ischemic medications including aspirin, statin, and metoprolol. He has been maintaining normal sinus mechanism. The echocardiogram revealed mildly impaired LV function was EF between 45-50% without any significant valvular abnormalities. Objective - Vital Signs Vital signs: Vital Signs Temp 97.6 F 02/11/19 04:00 Pulse 65 02/11/19 07:00 Resp 16 02/11/19 07:00 BP 141/75 02/11/19 07:00 Pulse Ox 96 02/11/19 07:00 Intake & Output 02/10/19 02/11/19 02/11/19 18:59 06:59 18:59 Intake Total 2450 1200 100 Output Total 1650 1925 350 Balance 800 -725 -250 Weight 77.2 kg Intake: IV 900 1200 100 Sodium Chloride 0.9% 1, 900 1200 100 000 ml @ 100 mls/hr IV . Q10H [facility] Rx#:[id number] Oral 1550 Output: Urine 1650 1925 350 - Constitutional General appearance: Present: no acute distress - Respiratory Respiratory: bilateral: CTA - Cardiovascular Rhythm: regular Heart sounds: normal: S1, S2 - Labs CBC & Chem 7: 02/09/19 04:28 02/09/19 04:28 Labs: Abnormal Lab Results - Last 24 Hours (Table) 02/10/19 02/10/19 02/10/19 Range/Units 11:39 17:01 20:52 POC Glucose (mg/dL) 180 H 152 H 168 H (75-99) mg/dL 02/11/19 Range/Units 06:44 POC Glucose (mg/dL) 126 H (75-99) mg/dL Assessment and Plan Assessment: Assessment #1 unstable angina #2 severe triple-vessel coronary artery disease #3 mildly impaired LV function Plan #1 continue the current medical regimen #2 the patient is going to undergo open-heart this coming Monday #3 follow-up with the patient
[2019-02-11] MEDS: MUPIROCIN 2% OINT 22 GM TUBE NASAL SCH ×2 (09:20→20:50)
[2019-02-11] MEDS: NITROGLYCERIN OINT 1 INCH/GM PACKET TOPICAL SCH ×3 (09:20→23:05)
[2019-02-11] MEDS: ASPIRIN 81 MG PO SCH (09:20)
[2019-02-11] MEDS: METOPROLOL TARTRATE 25 MG TAB PO SCH ×3 (09:20→20:46)
[2019-02-11 11:45] LABS: Glucose,Whole Blood 192 mg/dL (75-99)
--- NOTE | 2019-02-11 12:34 | P.PN ---
Subjective Progress Note Date: 02/11/19 Principal diagnosis: Acute non-ST elevation myocardial infarction and significant coronary artery disease, awaiting bypass surgery. 68-year-old male patient a primary of Dr. Cuellar is known to have history of diabetes, hypertension and hyperlipidemia and a previous smoker. He has been going to his primary care physician because of chest pain and shortness of breath for several months. Eventually was seen by cardiology and an echocardiogram was done and it showed inferior apical hypokinesis with an ejection fraction of 40%. EKG showed no acute ischemic changes. The patient had a cardiac catheterization for these symptoms and the patient was noted to have some limited elevation of the troponin consistent with non-STEMI. The cardiac catheterization was done and showed distal left main stenosis 70%, proximal LAD stenosis 70%, ostial circumflex stenosis 99% and a mid up to his marginal branch 70% lesion in addition to distal RCA stenosis of 99%. LV angiogram revealed mild anterior and apical hypokinesis with an ejection fraction of 45%. The patient is currently awaiting cardiac bypass surgery and the patient will be undergoing his surgery on Monday. This will be done next week. The patient is currently free of any chest pain. His resting comfortably in bed. He is taking aspirin.. He has no shortness of breath. No cough sputum production chest tightness or wheezing. His preop FEV1 is no other of 75% of predicted. The patient's chest x-ray shows no acute abnormalities in the lungs in the process of clear. Reevaluated today on 02/11/2019, patient is doing well, asymptomatic, denies any cough no wheezing no shortness of breath, no chest pain, no nausea no vomiting no abdominal pain, patient is scheduled for surgery tomorrow morning. Patient was already cleared by Dr. Harrington for surgery from the pulmonary perspective. FEV1 is 75% of the predicted. Objective - Vital Signs Vital signs: Vital Signs Temp 98.1 F 02/11/19 12:00 Pulse 61 02/11/19 12:00 Resp 18 02/11/19 12:00 BP 143/85 02/11/19 12:00 Pulse Ox 96 02/11/19 12:00 Intake & Output 02/10/19 02/11/19 02/11/19 18:59 06:59 18:59 Intake Total 2450 1200 600 Output Total 1650 1925 850 Balance 800 -725 -250 Weight 77.2 kg Intake: IV 900 1200 600 Sodium Chloride 0.9% 1, 900 1200 600 000 ml @ 100 mls/hr IV . Q10H [facility] Rx#:[id number] Oral 1550 Output: Urine 1650 1925 850 Other: Voiding Method Urinal - Exam Physical Exam: Revealed a 68-year-old white male in no distress. Head: Atraumatic, normocephalic. HEENT:[Neck is supple.] [No neck masses.] [No thyromegaly.] [No JVD.] Chest: [Clear throughout, no crackles, no rhonchi, no wheezes.] Cardiac Exam: [Normal S1 and S2, no S3 gallop, no murmur.] Abdomen: [Soft, nontender, no megaly, no rebound, no guarding, normal bowel sounds.] Extremities: [No clubbing, no edema, no cyanosis.] Neurological Exam: [No focal neurologic deficit.] - Labs CBC & Chem 7: 02/09/19 04:28 02/09/19 04:28 Labs: Abnormal Lab Results - Last 24 Hours (Table) 02/10/19 02/10/19 02/11/19 Range/Units 17:01 20:52 04:43 POC Glucose (mg/dL) 152 H 168 H (75-99) mg/dL Crossmatch See Detail 02/11/19 02/11/19 Range/Units 06:44 11:43 POC Glucose (mg/dL) 126 H 192 H (75-99) mg/dL Crossmatch Assessment and Plan Assessment: 1 multivessel coronary artery disease with triple-vessel involvement, symptomatic and the patient is awaiting cardiac bypass surgery 2 chest pain with an acute non-STEMI 3 hypertension 4 hyperlipidemia 5 diabetes mellitus type 2 6 moderate diffuse atherosclerotic changes in the carotid arteries right more than left without any significant stenosis in the either internal carotid arteries. Recommendation: Fully agree with the present treatment plan, patient is scheduled for surgery tomorrow, we'll continue to follow. In the meantime the patient was instructed on the use of his incentive spirometry, no pulmonary contraindication to surgery as scheduled. We'll continue to follow Time with Patient: Less than 30
--- NOTE | 2019-02-11 16:15 | P.PN ---
Subjective Progress Note Date: 02/11/19 Principal diagnosis: Severe triple-vessel coronary artery disease, non-STEMI. Previous medical history of hypertension, hyperlipidemia, uncontrolled type 2 diabetes mellitus with hemoglobin A1c 7.1%, and previous tobacco dependence with FEV1 75% of predicted. The patient is currently sitting up in bed in no acute distress. Denies any episodes of chest pain last night, denies shortness of breath. No new questions at this time. Objective - Vital Signs Vital signs: Vital Signs Temp 98.1 F 02/11/19 12:00 Pulse 75 02/11/19 13:00 Resp 20 02/11/19 13:00 BP 136/82 02/11/19 13:00 Pulse Ox 96 02/11/19 13:00 Intake & Output 02/10/19 02/11/19 02/11/19 18:59 06:59 18:59 Intake Total 2450 1200 700 Output Total 1650 1925 850 Balance 800 -725 -150 Weight 77.2 kg Intake: IV 900 1200 700 Sodium Chloride 0.9% 1, 900 1200 700 000 ml @ 100 mls/hr IV . Q10H [facility] Rx#:[id number] Oral 1550 Output: Urine 1650 1925 850 Other: Voiding Method Urinal - Constitutional General appearance: Present: cooperative, no acute distress - Respiratory Details: Lungs sounds clear bilaterally. Respirations even, nonlabored. Currently on room air with oxygen saturation 96%. Able to achieve 2000 mL on his incentive spirometry. Strong cough. - Cardiovascular Details: S1, S2 present. Regular rate and rhythm, sinus rhythm on telemetry. Palpable peripheral pulses bilaterally. No edema present. No calf pain or tenderness noted. - Gastrointestinal Gastrointestinal Comment(s): Abdomen soft, nontender, nondistended. Active bowel sounds 4 quadrants. Tolerating diet. - Genitourinary Genitourinary Comment(s): Continues to void clear, yellow urine. - Integumentary Integumentary Comment(s): Skin is warm and dry with evidence of good perfusion. - Neurologic Neurologic: Present: CNII-XII intact - Musculoskeletal Musculoskeletal: Present: gait normal, strength equal bilaterally - Psychiatric Psychiatric: Present: A&O x's 3, appropriate affect, intact judgment & insight - Allied health notes Allied health notes reviewed: nursing - Labs CBC & Chem 7: 02/09/19 04:28 02/09/19 04:28 Labs: Abnormal Lab Results - Last 24 Hours (Table) 02/10/19 02/10/19 02/11/19 Range/Units 17:01 20:52 04:43 POC Glucose (mg/dL) 152 H 168 H (75-99) mg/dL Crossmatch See Detail 02/11/19 02/11/19 Range/Units 06:44 11:43 POC Glucose (mg/dL) 126 H 192 H (75-99) mg/dL Crossmatch - Imaging and Cardiology Chest x-ray: image reviewed Assessment and Plan Assessment: 1. Severe triple-vessel coronary artery disease with left main disease 2. Non-STEMI 3. Hypertension 4. Hyperlipidemia 5. Uncontrolled type 2 diabetes mellitus with preoperative hemoglobin A1c 7.1% 6. Previous tobacco dependence with FEV1 75% of predicted Plan: 1. Continue aspirin, statin, beta nayeli therapy. 2. Encourage incentive spirometry use 10 times every hour while awake. 3. Ambulate as tolerated. 4. Continue to reinforce preoperative teaching. 5. Our plan is for urgent coronary artery bypass graft surgery with left internal mammary artery, endovascular vein harvest, left radial artery harvest, and intraoperative transesophageal echocardiogram on 02/12/2019 6. 5 m walk test completed,#1 3.95 seconds, #2 5.06 seconds, #3 4.22 seconds 7. Medical management by the comorbidities per primary care service, cardiology 8. More recommendations to follow Time with Patient: Greater than 30
[2019-02-11 17:02] LABS: Glucose,Whole Blood 247 mg/dL (75-99)
[2019-02-11 20:42] LABS: Glucose,Whole Blood 156 mg/dL (75-99)
[2019-02-11] MEDS: ATORVASTATIN 80 MG TAB PO SCH (20:46)
--- NOTE | 2019-02-11 21:08 | PN ---
PROGRESS NOTE DATE OF SERVICE: 02/11/2019 This 68-year-old gentleman who was admitted with previous coronary artery disease also had multiple medical issues, including hypertension, diabetes and hyperlipidemia. The patient is being closely monitored. The patient is being planned for CABG tomorrow. No chest pain. No palpitations. No fever. On exam, alert and oriented x3. Pulse 68, blood pressure 139/80, respiration 12, temperature 97.2, pulse ox 96% on room air. HEENT: Conjunctivae normal. NECK: No jugular venous distention. CARDIOVASCULAR SYSTEM: S1, S2 muffled. RESPIRATORY SYSTEM: Breath sounds diminished at the bases. Bilateral scattered rhonchi and crackles. ABDOMEN: Soft, non-tender. LEGS: No edema. No swelling. NERVOUS SYSTEM: No focal deficit. LABS: WBC 6.2, hemoglobin 12.8. Accu-Cheks noted. Troponin is noted. ASSESSMENT: 1. Coronary artery disease, status post cardiac catheterization; three-vessel coronary artery disease. 2. Diabetes mellitus, type 2. 3. Hypertension. 4. Hyperlipidemia. 5. History of tonsillectomy. 6. Remote history of nicotine dependence. RECOMMENDATIONS AND DISCUSSION: In this 68-year-old gentleman who presented with multiple medical issues, I would recommend to continue current management, continue symptomatic treatment. Currently hemoglobin A1c is 7.1. The patient was taking a combination of glipizide and metformin. The patient will need insulin for better diabetic control. He is on NovoLog protocol at this time. Insulin drip is also initiated. Postoperatively patient may be transitioned to three-shot protocol and we will continue to monitor. Otherwise, continue the rest of medications. Further recommendations to follow. MMODL / IJN: [id number] /
[2019-02-12] MEDS: METOPROLOL TARTRATE 25 MG TAB PO SCH (04:49)
[2019-02-12] MEDS: ASPIRIN 81 MG PO SCH (04:51)
[2019-02-12] MEDS: NITROGLYCERIN OINT 1 INCH/GM PACKET TOPICAL SCH (04:51)
[2019-02-12] MEDS ORDERED: NITROGLYCERIN-D5W PMX 25 MG/250 ML BTL IV ONE (05:00)
[2019-02-12] MEDS ORDERED: NOREPINEPHRINE 4 MG in SODIUM CHLORIDE 0.9% 250 ML IV SCH (05:00)
[2019-02-12] MEDS ORDERED: PHENYLEPHRINE 10 MG/ML VIAL IV ONE (05:00)
[2019-02-12] MEDS ORDERED: PROTAMINE SULFATE 10 MG/ML 25 ML VIAL IV ONE ×2 (05:00→07:44)
[2019-02-12] MEDS ORDERED: ceFAZolin 1,000 MG in SODIUM CHLORIDE 0.9% IRRIGATIO 1,000 ML IRRIGATION ONE (05:00)
[2019-02-12] MEDS ORDERED: LACTATED RINGERS 1,000 ML IV SCH ×2 (05:00→14:51)
[2019-02-12] MEDS ORDERED: ALBUMIN HUMAN 5% 500 ML in EMPTY BAG 1 BAG IVPB ONE ×6 (05:00)
[2019-02-12] MEDS ORDERED: ALBUMIN HUMAN 25% 50 ML in EMPTY BAG 1 BAG IVPB ONE (05:00)
[2019-02-12] MEDS ORDERED: HEPARIN SODIUM,PORCINE 5,000 UNIT in SODIUM CHLORIDE 0.9% 500 ML 500 ML IV ONE (05:00)
[2019-02-12] MEDS ORDERED: DEXTROSE 5% IN WATER 1,000 ML with POTASSIUM CHLORIDE 110 MEQ, MAGNESIUM SULFATE 16 MEQ... IV SCH ×5 (05:00)
[2019-02-12] MEDS ORDERED: MAGNESIUM SULFATE SYG 4.06 MEQ/ML SYRINGE IV ONE (05:00)
[2019-02-12] MEDS ORDERED: DILTIAZEM 125 MG in SODIUM CHLORIDE 0.9% 100 ML IV SCH (05:00)
[2019-02-12] MEDS ORDERED: ASPIRIN 325 MG TAB PO ONE (05:00)
[2019-02-12] MEDS ORDERED: ATORVASTATIN 10 MG TAB PO ONE (05:00)
[2019-02-12] MEDS ORDERED: METOPROLOL TARTRATE 12.5 MG TAB PO ONE (05:00)
[2019-02-12] MEDS ORDERED: TRANEXAMIC ACID 2,000 MG in SODIUM CHLORIDE 0.9% 80 ML IV ONE (05:00)
[2019-02-12] MEDS ORDERED: PROTAMINE SULFATE 250 MG in EMPTY BAG 1 BAG IV ONE (05:00)
[2019-02-12] MEDS ORDERED: CHLORHEXIDINE GLUCONATE 15 ML CUP MUCOUS MEM ONE (05:00)
[2019-02-12] MEDS ORDERED: HEPARIN SODIUM 1,000 UN/ML (10ML VL) IV ONE (05:00)
[2019-02-12] MEDS ORDERED: PROPOFOL 1,000 MG in EMPTY BAG 1 BAG IV PRN (05:00)
[2019-02-12] MEDS ORDERED: ceFAZolin 2,000 MG in SODIUM CHLORIDE 0.9% 30 ML IVPB ONE (05:00)
[2019-02-12] MEDS ORDERED: DEXTROSE 5% IN WATER 1,000 ML with POTASSIUM CHLORIDE 25 MEQ, SODIUM CHLORIDE 2.5MEQ/ML... IV SCH ×6 (05:00)
[2019-02-12] MEDS ORDERED: CALCIUM CHLORIDE 100 MG/ML 10 ML SYRINGE IVP ONE (05:00)
[2019-02-12] MEDS ORDERED: INSULIN REGULAR 100 UNIT in SODIUM CHLORIDE 0.9% 100 ML IV SCH (05:00)
[2019-02-12] MEDS ORDERED: MANNITOL 25% 12.5 GM/50 ML VIAL IV ONE ×2 (05:00)
[2019-02-12] MEDS ORDERED: PAPAVERINE 360 MG in SODIUM CHLORIDE 0.9% 90 ML IV ONE (05:00)
[2019-02-12] MEDS ORDERED: ceFAZolin 2 GM in SODIUM CHLORIDE 0.9% 30 ML IVPB ONE (05:00)
[2019-02-12] MEDS ORDERED: CLEVIDIPINE BUTYRATE 25 MG in EMPTY BAG 1 BAG IV SCH (05:00)
[2019-02-12] MEDS ORDERED: SODIUM BICARB 8.4% 50 ML SYR (1 MEQ/ML) IV ONE (05:00)
[2019-02-12] MEDS ORDERED: PHENYLEPHRINE 40 MG in SODIUM CHLORIDE 0.9% 250 ML IV ONE (05:00)
[2019-02-12 05:59] LABS: Glucose,Whole Blood 131 mg/dL (75-99)
[2019-02-12] MEDS: INSULIN ASPART (NovoLOG) 100 UNIT/ML VIAL SQ SCH (06:03)
--- NOTE | 2019-02-12 07:39 | P.PN ---
Subjective Progress Note Date: 02/12/19 Principal diagnosis: Unstable angina This is a pleasant 68-year-old gentleman who was seen by Dr. Malloy in the office yesterday where he was experiencing chest discomfort concerning for angina. Subsequently he underwent a heart catheterization yesterday which revealed severe triple-vessel coronary artery disease was extremely calcified right and left coronary systems. The patient was referred for coronary artery bypass grafting and he is going to undergo CABG this coming to stay. On follow-up with the patient today, February 122018, the patient did have some chest discomfort while he was taking a shower before surgery today. Currently is chest pain-free. Hemodynamically he continues to be stable. He was seen today at the preop area. He is going to undergo coronary artery that was grafting later on today. Objective - Vital Signs Vital signs: Vital Signs Temp 98 F 02/12/19 05:00 Pulse 68 02/12/19 06:00 Resp 24 02/12/19 06:00 BP 148/77 02/12/19 06:00 Pulse Ox 98 02/12/19 06:00 Intake & Output 02/11/19 02/12/19 02/12/19 18:59 06:59 18:59 Intake Total 1200 1100 Output Total 1100 1350 Balance 100 -250 Weight 77.8 kg Intake: IV 1200 1100 Sodium Chloride 0.9% 1, 1200 1100 000 ml @ 100 mls/hr IV . Q10H [facility] Rx#:[id number] Output: Urine 1100 1350 Other: Voiding Method Urinal Urinal - Constitutional General appearance: Present: no acute distress - Labs CBC & Chem 7: 02/09/19 04:28 02/09/19 04:28 Labs: Abnormal Lab Results - Last 24 Hours (Table) 02/11/19 02/11/19 02/11/19 Range/Units 04:43 11:43 17:01 POC Glucose (mg/dL) 192 H 247 H (75-99) mg/dL Crossmatch See Detail 02/11/19 02/12/19 Range/Units 20:41 05:58 POC Glucose (mg/dL) 156 H 131 H (75-99) mg/dL Crossmatch Assessment and Plan Assessment: Assessment #1 unstable angina #2 severe triple-vessel coronary artery disease #3 mildly impaired LV function Plan #1 continue the current medical regimen #2 the patient is going to undergo open-heart this coming Monday #3 follow-up with the patient
[2019-02-12] MEDS ORDERED: ALBUMIN HUMAN 5% (12.5gm) 250 ML BOTTLE IVPB ONE (07:44)
[2019-02-12] MEDS ORDERED: HEPARIN SODIUM,PORCINE 10,000 UNIT/ML 1 ML VIAL ONE (07:44)
[2019-02-12] MEDS ORDERED: CALCIUM CHLORIDE 100 MG/ML 10 ML SYRINGE ONE (07:44)
[2019-02-12] MEDS ORDERED: fentaNYL (PF) 50 MCG/ML 50 ML VIAL ONE (07:44)
[2019-02-12] MEDS ORDERED: ePHEDrine SULFATE/0.9% NACL/PF 50 MG/5 ML SYRINGE IV ONE (07:44)
[2019-02-12] MEDS ORDERED: MIDAZOLAM 2 MG/2 ML VIAL ONE (07:44)
[2019-02-12] MEDS ORDERED: SODIUM CHLORIDE 0.9% 250 ML BAG ONE (07:44)
[2019-02-12] MEDS ORDERED: MAGNESIUM SULFATE 4 MEQ/ML 10ML VIAL ONE (07:44)
[2019-02-12] MEDS ORDERED: fentaNYL (PF) 50 MCG/ML 2 ML AMP ONE (07:44)
[2019-02-12] MEDS ORDERED: PHENYLEPHRINE-0.9% NACL SYG 1 MG/10 ML SYRINGE ONE (07:44)
[2019-02-12] MEDS ORDERED: INSULIN REGULAR 100 UNIT/ML VIAL ONE (07:44)
[2019-02-12] MEDS ORDERED: LIDOCAINE 1% INJ 10MG/ML (20 ML MDV) ONE (07:44)
[2019-02-12] MEDS ORDERED: LACTATED RINGERS 1,000 ML BAG IV ONE (07:44)
[2019-02-12] MEDS ORDERED: PROPOFOL 10 MG/ML 20 ML VIAL IV ONE (07:44)
[2019-02-12] MEDS ORDERED: ELECTROLYTE-R (PH 7.4) 1,000 ML IV.SOLN IV ONE (07:44)
[2019-02-12] MEDS ORDERED: VECURONIUM 10 MG VIAL IV ONE (07:44)
[2019-02-12] MEDS ORDERED: TRANEXAMIC ACID 1,000 MG/10 ML VIAL ONE (07:44)
[2019-02-12 08:50] LABS: ABG Base Excess -1.4 mmol/L; ABG HCO3 24 mmol/L (21-25); ABG Oxygen Saturation 99.6 % (94-97); ABG PCO2 39 mmHg (35-45); ABG PH 7.38 (7.35-7.45); ABG PO2 192 mmHg (83-108); ABG Potassium Whole Blood 3.9 mmol/L (3.4-4.5); ABG Sodium Whole Blood 140 mmol/L (135-146); ABG TCO2 25 mmol/L (19-24)
[2019-02-12 11:31] LABS: ABG Base Excess -2.1 mmol/L; ABG HCO3 24 mmol/L (21-25); ABG Oxygen Saturation 99.6 % (94-97); ABG PCO2 44 mmHg (35-45); ABG PH 7.34 (7.35-7.45); ABG PO2 193 mmHg (83-108); ABG Potassium Whole Blood 4.2 mmol/L (3.4-4.5); ABG Sodium Whole Blood 140 mmol/L (135-146); ABG TCO2 25 mmol/L (19-24)
[2019-02-12 12:19] LABS: ABG Base Excess -2.7 mmol/L; ABG HCO3 23 mmol/L (21-25); ABG PCO2 43 mmHg (35-45); ABG PH 7.34 (7.35-7.45); ABG PO2 270 mmHg (83-108); ABG Potassium Whole Blood 5.1 mmol/L (3.4-4.5); ABG Sodium Whole Blood 135 mmol/L (135-146); ABG TCO2 24 mmol/L (19-24)
[2019-02-12 12:50] LABS: ABG Base Excess -2.5 mmol/L; ABG HCO3 23 mmol/L (21-25); ABG Oxygen Saturation 99.8 % (94-97); ABG PCO2 41 mmHg (35-45); ABG PH 7.36 (7.35-7.45); ABG PO2 227 mmHg (83-108); ABG Potassium Whole Blood 4.2 mmol/L (3.4-4.5); ABG Sodium Whole Blood 138 mmol/L (135-146); ABG TCO2 24 mmol/L (19-24)
[2019-02-12 12:53] LABS: ABG Base Excess -2.6 mmol/L; ABG HCO3 23 mmol/L (21-25); ABG Oxygen Saturation 83.5 % (94-97); ABG PCO2 44 mmHg (35-45); ABG PH 7.33 (7.35-7.45); ABG Potassium Whole Blood 4.1 mmol/L (3.4-4.5); ABG Sodium Whole Blood 138 mmol/L (135-146); ABG TCO2 25 mmol/L (19-24)
[2019-02-12 13:28] LABS: ABG Base Excess -2.2 mmol/L; ABG HCO3 23 mmol/L (21-25); ABG PCO2 41 mmHg (35-45); ABG PH 7.36 (7.35-7.45); ABG Potassium Whole Blood 4.3 mmol/L (3.4-4.5); ABG Sodium Whole Blood 139 mmol/L (135-146); ABG TCO2 24 mmol/L (19-24)
[2019-02-12 13:56] LABS: ABG Base Excess -2.5 mmol/L; ABG HCO3 23 mmol/L (21-25); ABG Oxygen Saturation 99.7 % (94-97); ABG PCO2 42 mmHg (35-45); ABG PH 7.34 (7.35-7.45); ABG PO2 208 mmHg (83-108); ABG Sodium Whole Blood 139 mmol/L (135-146); ABG TCO2 24 mmol/L (19-24)
[2019-02-12 14:33] LABS: ABG PO2 47 mmHg (83-108)
[2019-02-12 14:34] LABS: ABG PO2 >420 mmHg (83-108)
[2019-02-12] MEDS ORDERED: MIDAZOLAM (PF) 2 MG/2 ML VIAL IV PRN (14:51)
[2019-02-12 15:39] LABS: Glucose,Whole Blood 109 mg/dL (75-99)
[2019-02-12] MEDS: NITROGLYCERIN-D5W PMX 50 MG in DEXTROSE/WATER 1 250ML.BAG IV SCH (15:45)
[2019-02-12] MEDS: ALBUMIN HUMAN 5% 250 ML in EMPTY BAG 1 BAG IVPB PRN ×4 (15:50→23:09)
[2019-02-12] MEDS ORDERED: METOCLOPRAMIDE 5 MG/ML 2 ML VIAL IVP PRN (15:52)
[2019-02-12] MEDS ORDERED: BENZOCAINE/MENTHOL LOZENG 1 EACH LOZENGE MUCOUS MEM PRN (15:52)
[2019-02-12] MEDS ORDERED: ONDANSETRON 4 MG/2 ML VIAL IVP PRN (15:52)
[2019-02-12] MEDS ORDERED: Phosphorus Replacement Protoco 1 EACH MISC MISCELLANE PRN (15:52)
[2019-02-12] MEDS ORDERED: PROPOFOL 1,000 MG in EMPTY BAG 1 BAG IV SCH (15:52)
[2019-02-12] MEDS ORDERED: Potassium Replacement Protocol 1 EACH MISC MISCELLANE PRN (15:52)
[2019-02-12] MEDS ORDERED: IPRATROPIUM-ALBUTEROL 3 ML NEB INHALATION PRN (15:52)
[2019-02-12] MEDS ORDERED: AMIODARONE 300 MG in DEXTROSE 5% IN WATER 250 ML IV PRN ×2 (15:52)
[2019-02-12] MEDS ORDERED: DEXTROSE 5% IN WATER 100 ML with AMIODARONE 150 MG IV PRN (15:52)
[2019-02-12] MEDS ORDERED: AMIODARONE 360 MG in DEXTROSE 5% IN WATER 200 ML IV PRN ×2 (15:52)
[2019-02-12] MEDS ORDERED: Magnesium Replacement Protocol 1 EACH MISC MISCELLANE PRN (15:52)
[2019-02-12 16:04] LABS: ABG Base Excess -1.6 mmol/L; ABG HCO3 24 mmol/L (21-25); ABG Oxygen Saturation 99.6 % (94-97); ABG PCO2 41 mmHg (35-45); ABG PH 7.37 (7.35-7.45); ABG PO2 393 mmHg (83-108); ABG TCO2 25 mmol/L (19-24)
[2019-02-12] MEDS: LACTATED RINGERS 1,000 ML IV SCH (16:15)
[2019-02-12 16:18] LABS: Basophils % (A) 0 %; Eosinophils # (A) 0.2 k/uL (0-0.7); Eosinophils % (A) 3 %; HGB 10.3 gm/dL (13.0-17.5); Lymphocytes # (A) 1.1 k/uL (1.0-4.8); Lymphocytes % (A) 17 %; MCH 30.9 pg (25.0-35.0); MCHC 33.2 g/dL (31.0-37.0); MCV 93.2 fL (80.0-100.0); Mean Platelet Volume 6.5; Monocytes # (A) 0.3 k/uL (0-1.0); Monocytes % (A) 5 %; Neutrophils # (A) 4.7 k/uL (1.3-7.7); Neutrophils % (A) 75 %; Platelet Count 148 k/uL (150-450); RBC 3.32 m/uL (4.30-5.90); RDW 12.9 % (11.5-15.5); WBC 6.4 k/uL (3.8-10.6)
[2019-02-12] MEDS: IPRATROPIUM-ALBUTEROL 3 ML NEB INHALATION SCH ×2 (16:18→19:29)
[2019-02-12 16:22] LABS: INR 1.2 (<1.2); Partial Thromboplastin Time 30.4 sec (22.0-30.0)
[2019-02-12 16:24] LABS: Ionized Calcium 5.4 mg/dL (4.5-5.3)
--- NOTE | 2019-02-12 16:24 | XR ---
EXAMINATION TYPE: XR chest 1V portable DATE OF EXAM: 02/12/2019 Comparison: 02/09/2019 Clinical History: 68-year-old male Post Operative Cardiac Surgery Findings: ET tube is in position though low, 1.1 cm from the ivan. Pull back 2 cm and reassess at follow-up. NG tube courses below the diaphragm. Mediastinal drains are present as well as left basilar chest tub e. Some subcutaneous emphysema along the left chest wall. Heart upper limits of normal in size. Mild interstitial prominence. No consolidation or pleural effus ion. No appreciable pneumothorax. Median sternotomy wires and post-CABG clips. Right IJ [place] catheter with tip in the expected pro ximal right main pulmonary artery. Impression: 1. Low ET tube approximately 1.1 cm from the ivan. Pull back 2 cm and reassess at follow-up. 2. Possible mild pulmonary vascular congestion. Otherwise, no acute process seen.
--- NOTE | 2019-02-12 16:27 | P.PN ---
Subjective Progress Note Date: 02/12/19 Principal diagnosis: Coronary artery disease 68-year-old male patient a primary of Dr. Cuellar is known to have history of diabetes, hypertension and hyperlipidemia and a previous smoker. He has been going to his primary care physician because of chest pain and shortness of breat h for several months. Eventually was seen by cardiology and an echocardiogram was done and it showed inferior apical hypokinesis with an ejection fraction of 40%. EKG showed no acute ischemic changes. The patient had a cardiac catheterization for these symptoms and the patient was noted to have some limited elevation of the troponin consistent with non-STEMI. The cardiac catheterization was done and showed distal left main stenosis 70%, proximal LAD stenosis 70%, ostial circumflex stenosis 99% and a mid up to his marginal branch 70% lesion in addition to distal RCA stenosis of 99%. LV angiogram revealed mild anterior and apical hypokinesis with an ejection fraction of 45%. The patient is currently awaiting cardiac bypass surgery and the patient will be undergoing his surgery on Monday. This will be done next week. The patient is currently free of any chest pain. His resting comfortably in bed. He is taking aspirin.. He has no shortness of breath. No cough sputum production chest tightness or wheezing. His preop FEV1 is no other of 75% of predicted. The patient's chest x-ray shows no acute abnormalities in the lungs in the process of clear. 02/12/2019 The patient did undergo coronary artery bypass grafting surgery today utilizing a PLUMMER to the LAD, radial artery graft to the OM1, saphenous vein graft to the PDA. He is seen in the immediate postoperative period in the intensive care unit. He is intubated and on the mechanical ventilator. Current settings are SIMV mode at a rate of 12, tidal volume 500, FiO2 100% and a PEEP of 5. Arterial blood gases reveal a P O2 of 393, pCO2 41, pH 7.37. FiO2 decreased to 50%. Right-sided Martell-Ashu catheter in place. Cardiac output 3.4. Cardiac index 1.8. CVP 14. PA pressures 30/23. Mean 25. Currently sedated with propofol at 20 mcg/kg/m. Nitroglycerin drip at 5 mg/m. Insulin drip at 1 unit per hour. Lactated Ringer's at 50 MLS per hour. Chest x-ray reviewed. Endotracheal tube will be pulled back 1.5 cm. Chest tubes in place. Initial labs are pending. 2 units of packed red blood cells are available. One unit of platelets are available. Objective - Vital Signs Vital signs: Vital Signs Temp 98 F 02/12/19 05:00 Pulse 80 02/12/19 16:00 Resp 12 02/12/19 16:00 BP 148/77 02/12/19 06:00 Pulse Ox 100 02/12/19 16:00 Intake & Output 02/11/19 02/12/19 02/12/19 18:59 06:59 18:59 Intake Total 1200 1100 34 Output Total 1100 1350 2372 Balance 100 -250 -2338 Weight 77.8 kg Intake: IV 1200 1100 34 Sodium Chloride 0.9% 1, 1200 1100 000 ml @ 100 mls/hr IV . Q10H ALFONSO Rx#:[id number] Output: Urine 1100 1350 1172 Estimated Blood Loss 1200 Other: Voiding Method Urinal Urinal ABP, PAP, CO, CI - Last Documented Arterial Blood Pressure 134/65 Pulmonary Artery Pressure 30/23 Cardiac Output 3.4 Cardiac Index 1.8 - Exam GENERAL EXAM: Intubated, sedated, comfortable in no apparent distress. HEAD: Normocephalic. EYES: Sluggish reaction of pupils, equal size. NOSE: Clear with pink turbinates. THROAT: No tracheal gastric tube secured in place No erythema or exudates. NECK: No masses, no JVD. CHEST: Sternal dressing dry and intact. Heart however in place. Chest tubes in place. LUNGS: Equal air entry with faint crackles in posterior bases left greater than right. CVS: S1 and S2 normal with no audible murmur, regular rhythm. ABDOMEN: Soft. SPINE: No scoliosis or deformity SKIN: No rashes CENTRAL NERVOUS SYSTEM: Sedated. EXTREMITIES: ARIANE in place to the left lower extremity. SCDs in place. There is trace peripheral edema. No clubbing, no cyanosis. Peripheral pulses are intact . - Labs CBC & Chem 7: 02/09/19 04:28 02/09/19 04:28 Labs: Abnormal Lab Results - Last 24 Hours (Table) 02/11/19 02/11/19 02/11/19 Range/Units 04:43 17:01 20:41 ABG pH (7.35-7.45) ABG pO2 (83-108) mmHg ABG Total CO2 (19-24) mmol/L ABG O2 Saturation (94-97) % ABG Hematocrit (34.0-46.0) % ABG Potassium (3.4-4.5) mmol/L ABG Ionized Calcium (4.5-5.3) mg/dL ABG Glucose (75-99) mg/dL ABG Lactic Acid (0.5-1.6) mmol/L Hemoglobin (13.0-17.5) gm/dL POC Glucose (mg/dL) 247 H 156 H (75-99) mg/dL Arterial Blood Potassium (3.4-4.5) mmol/L Arterial Blood Glucose (75-99) mg/dL Crossmatch See Detail 02/12/19 02/12/19 02/12/19 Range/Units 05:58 08:50 11:31 ABG pH 7.34 L (7.35-7.45) ABG pO2 192 H 193 H (83-108) mmHg ABG Total CO2 25 H 25 H (19-24) mmol/L ABG O2 Saturation 99.6 H 99.6 H (94-97) % ABG Hematocrit (34.0-46.0) % ABG Potassium (3.4-4.5) mmol/L ABG Ionized Calcium (4.5-5.3) mg/dL ABG Glucose 142 H 162 H (75-99) mg/dL ABG Lactic Acid (0.5-1.6) mmol/L Hemoglobin 11.9 L (13.0-17.5) gm/dL POC Glucose (mg/dL) 131 H (75-99) mg/dL Arterial Blood Potassium (3.4-4.5) mmol/L Arterial Blood Glucose 142 H 162 H (75-99) mg/dL Crossmatch 02/12/19 02/12/19 02/12/19 Range/Units 12:19 12:50 12:53 ABG pH 7.34 L 7.33 L (7.35-7.45) ABG pO2 270 H 227 H 47 L* (83-108) mmHg ABG Total CO2 25 H (19-24) mmol/L ABG O2 Saturation 100.0 H 99.8 H 83.5 L (94-97) % ABG Hematocrit 28 L 29 L 28 L (34.0-46.0) % ABG Potassium 5.1 H (3.4-4.5) mmol/L ABG Ionized Calcium 4.1 L 4.3 L 4.1 L (4.5-5.3) mg/dL ABG Glucose 236 H 198 H 198 H (75-99) mg/dL ABG Lactic Acid (0.5-1.6) mmol/L Hemoglobin 9.1 L 9.4 L 9.1 L (13.0-17.5) gm/dL POC Glucose (mg/dL) (75-99) mg/dL Arterial Blood Potassium 5.1 H (3.4-4.5) mmol/L Arterial Blood Glucose 236 H 198 H 198 H (75-99) mg/dL Crossmatch 02/12/19 02/12/19 02/12/19 Range/Units 13:29 13:56 15:35 ABG pH 7.34 L (7.35-7.45) ABG pO2 >420 H 208 H (83-108) mmHg ABG Total CO2 (19-24) mmol/L ABG O2 Saturation 100.0 H 99.7 H (94-97) % ABG Hematocrit 28 L 27 L (34.0-46.0) % ABG Potassium (3.4-4.5) mmol/L ABG Ionized Calcium 4.3 L 4.4 L (4.5-5.3) mg/dL ABG Glucose 217 H 190 H (75-99) mg/dL ABG Lactic Acid 1.8 H 2.0 H (0.5-1.6) mmol/L Hemoglobin 9.2 L 8.7 L (13.0-17.5) gm/dL POC Glucose (mg/dL) 109 H (75-99) mg/dL Arterial Blood Potassium (3.4-4.5) mmol/L Arterial Blood Glucose 217 H 190 H (75-99) mg/dL Crossmatch 02/12/19 Range/Units 16:02 ABG pH (7.35-7.45) ABG pO2 393 H (83-108) mmHg ABG Total CO2 25 H (19-24) mmol/L ABG O2 Saturation 99.6 H (94-97) % ABG Hematocrit (34.0-46.0) % ABG Potassium (3.4-4.5) mmol/L ABG Ionized Calcium (4.5-5.3) mg/dL ABG Glucose (75-99) mg/dL ABG Lactic Acid (0.5-1.6) mmol/L Hemoglobin (13.0-17.5) gm/dL POC Glucose (mg/dL) (75-99) mg/dL Arterial Blood Potassium (3.4-4.5) mmol/L Arterial Blood Glucose (75-99) mg/dL Crossmatch Assessment and Plan Assessment: Impression: #1 Coronary artery disease status post coronary artery bypass grafting utilizing a PLUMMER to the LAD, left radial artery to the OM1, saphenous vein graft to the PDA. Postoperative day #0. #2 Mechanical ventilator support as an expected outcome of surgery. #3 Diabetes mellitus. #4 Hypertension, history of. #5 Hyperlipidemia. #6 Previous history of chronic tobacco dependence. Plan: The patient was seen and evaluated by Dr. Chahal. Chest x-ray, ABGs reviewed. Endotracheal tube will be repositioned. FiO2 decreased to 50%. Continue SIMV of 12, tidal volume 500, PEEP of 5. Plan for probable extubation within 6 hours. Continue the current medications. We will continue to monitor him here closely in the intensive care unit. We'll continue to follow and make further recommendations based on his clinical status. Critical care time 38 minutes. I, the cosigning physician, performed a history & physical examination of the patient. Lungs sounds with faint crackles in posterior bases left greater than right. Maintaining good O2 saturations in the 90s on 30% FiO2 per mechanical ventilator. I discussed the assessment and plan of care with my nurse practitioner, Ana Trujillo. I attest to the above note as dictated by her. Time with Patient: Greater than 30
[2019-02-12 16:31] LABS: ALT 34 U/L (21-72); AST 40 U/L (17-59); Albumin 2.5 g/dL (3.5-5.0); Alkaline Phosphatase 30 U/L (38-126); Anion Gap 3 mmol/L; Blood Urea Nitrogen 13 mg/dL (9-20); Calcium 8.5 mg/dL (8.4-10.2); Carbon Dioxide 24 mmol/L (22-30); Chloride 112 mmol/L (98-107); Glucose 103 mg/dL (74-99); Magnesium 2.6 mg/dL (1.6-2.3); Sodium 139 mmol/L (137-145); Total Bilirubin 0.5 mg/dL (0.2-1.3); Total Protein 4.2 g/dL (6.3-8.2)
[2019-02-12] MEDS ORDERED: CALCIUM GLUCONATE 2 GM in SODIUM CHLORIDE 0.9% 100 ML IVPB PRN (17:00)
[2019-02-12 17:06] LABS: Glucose,Whole Blood 81 mg/dL (75-99)
[2019-02-12] MEDS: CLEVIDIPINE BUTYRATE 25 MG in EMPTY BAG 1 BAG IV SCH ×2 (17:10→23:31)
[2019-02-12] MEDS: SODIUM CHLORIDE 0.9% 1,000 ML IV SCH (17:29)
[2019-02-12] MEDS: ceFAZolin IN SWFI 2 GM/20 ML SYRINGE IVP SCH (18:07)
[2019-02-12] MEDS: ACETAMINOPHEN IV (For NPO) 1,000 MG in EMPTY BAG 1 BAG IVPB SCH ×2 (18:09→23:11)
[2019-02-12 18:35] LABS: Glucose,Whole Blood 115 mg/dL (75-99)
[2019-02-12 18:57] LABS: Basophils % (A) 0 %; Eosinophils # (A) 0.1 k/uL (0-0.7); Eosinophils % (A) 1 %; HCT 32.7 % (39.0-53.0); HGB 10.9 gm/dL (13.0-17.5); Lymphocytes # (A) 0.8 k/uL (1.0-4.8); Lymphocytes % (A) 12 %; MCH 30.8 pg (25.0-35.0); MCHC 33.2 g/dL (31.0-37.0); MCV 92.7 fL (80.0-100.0); Mean Platelet Volume 7.2; Monocytes # (A) 0.5 k/uL (0-1.0); Monocytes % (A) 7 %; Neutrophils % (A) 77 %; Platelet Count 147 k/uL (150-450); RBC 3.53 m/uL (4.30-5.90); RDW 13.7 % (11.5-15.5); WBC 6.5 k/uL (3.8-10.6)
[2019-02-12 19:12] LABS: Glucose,Whole Blood 136 mg/dL (75-99)
[2019-02-12 20:07] LABS: Glucose,Whole Blood 191 mg/dL (75-99)
[2019-02-12] MEDS: MORPHINE SULFATE 2 MG/ML SYRINGE IVP PRN (21:18)
[2019-02-12 21:26] LABS: Glucose,Whole Blood 191 mg/dL (75-99)
[2019-02-12 21:29] LABS: Basophils % (A) 0 %; Eosinophils % (A) 1 %; HCT 33.7 % (39.0-53.0); HGB 11.6 gm/dL (13.0-17.5); Lymphocytes # (A) 0.9 k/uL (1.0-4.8); Lymphocytes % (A) 10 %; MCH 31.5 pg (25.0-35.0); MCHC 34.4 g/dL (31.0-37.0); MCV 91.7 fL (80.0-100.0); Mean Platelet Volume 7.1; Monocytes # (A) 0.6 k/uL (0-1.0); Monocytes % (A) 6 %; Neutrophils % (A) 83 %; Platelet Count 165 k/uL (150-450); RBC 3.68 m/uL (4.30-5.90); RDW 13.2 % (11.5-15.5); WBC 9.7 k/uL (3.8-10.6)
[2019-02-12] MEDS: CLOPIDOGREL 75 MG TAB PO SCH (21:32)
[2019-02-12] MEDS: METOPROLOL TARTRATE 12.5 MG TAB PO SCH (21:32)
[2019-02-12] MEDS: ASPIRIN 325 MG TAB PO SCH (21:32)
[2019-02-12] MEDS: MUPIROCIN 2% OINT 22 GM TUBE NASAL SCH (22:09)
[2019-02-12 22:22] LABS: Glucose,Whole Blood 171 mg/dL (75-99)
--- NOTE | 2019-02-12 22:24 | PN ---
PROGRESS NOTE DATE OF SERVICE: 02/12/2019 This 68-year-old gentleman who was admitted with CAD underwent CABG. The patient underwent CABG using PLUMMER to LAD, left radial artery to OM1 and SVG to PDA. The patient is mechanically ventilated postoperatively as expected. The patient is being closely monitored at this time. On exam, pulse 89, blood pressure 148/64, respiration 12, temperature normal, pulse ox 96% on 50% FiO2, 5 of PEEP. Vent settings noted. HEENT: Conjunctivae normal. Oral mucosa moist. NECK: No jugular venous distention. No carotid bruit. No lymph node enlargement. CARDIOVASCULAR SYSTEM: S1, S2 muffled. RESPIRATORY SYSTEM: Breath sounds diminished at the bases. A few scattered rhonchi. ABDOMEN: Soft. NERVOUS SYSTEM: Patient is sedated. LABS: WBC 6.5, hemoglobin 10.9. ASSESSMENT: 1. Coronary artery disease, status post coronary artery bypass grafting for 3-vessel coronary artery disease, status post PLUMMER to LAD, left radial artery to the OM1, SVG to PDA. 2. Diabetes mellitus, type 2. 3. Hypertension. 4. Hyperlipidemia. 5. History of tonsillectomy. 6. Remote history of nicotine dependence. RECOMMENDATIONS AND DISCUSSION: I recommend to continue current medications, continue with the monitoring, symptomatic treatment. Continue with the mechanical ventilation, as expected. Monitor blood sugars closely. The patient is currently on 1 unit of insulin drip, which may be titrated for blood sugar control. Otherwise, we will closely monitor. Once the patient is p.o., 3- shot regimen may be used. We will follow the patient closely. Further recommendations to follow. MMODL / IJN: [id number] /
[2019-02-12 23:00] LABS: Glucose,Whole Blood 159 mg/dL (75-99)
[2019-02-12] MEDS: HEPARIN SODIUM,PORCINE 5,000 UNIT/ML 1 ML VIAL SQ SCH (23:24)
--- NOTE | 2019-02-12 23:55 | OP ---
OPERATIVE REPORT DATE OF SERVICE: 02/12/2019. SURGEON: Dr. Carolina Coon. PEN OR PENCIL ASSEMBLY MACHINE OPERATOR: Jayme Lomeli and Elroy Biggs PREOPERATIVE DIAGNOSIS: [id number] myocardial infarction, preserved left ventricular function, triple- vessel coronary disease, hypertension, diabetes, hyperlipidemia. POSTOPERATIVE DIAGNOSIS: [id number] myocardial infarction, preserved left ventricular function, triple- vessel coronary disease, hypertension, diabetes, hyperlipidemia with diffuse coronary artery disease. PROCEDURE: 1. Triple coronary artery bypass grafting using the left internal mammary artery to the left anterior descending artery, the left radial artery from the aorta to the first obtuse marginal artery, reverse saphenous vein graft from the aorta to the posterior descending artery. 2. Endoscopic harvesting of the left radial artery. 3. Endoscopic harvesting of the left greater saphenous vein. 4. Intraoperative transesophageal echocardiogram and epiaortic scanning. 5. Intraoperative graft flow measurements using the Go Dishim system. INDICATION FOR SURGERY: Patient is a 68-year-old gentleman with the above risk factors, who presented to the cardiology office with history of very accelerated and recent onset unstable angina. Patient was sent into the hospital where he underwent cardiac catheterization that showed diffuse triple-vessel coronary artery disease. The patient is brought in at this point as an inpatient for coronary artery bypass grafting. The SDS risk was discussed with him. He understood it and agreed to proceed. DESCRIPTION OF THE PROCEDURE: The patient in supine position. Right internal jugular Raleigh-Ashu catheter and right radial arterial line were placed. The patient had normal PA pressure and good cardiac index. Subsequently general endotracheal anesthesia was induced uneventfully. Li catheter was inserted. The patient received 2 g of cefazolin intravenously. The chest, abdomen, both lower extremities and left upper extremities were prepped and draped using ChloraPrep. Ioban was used to cover the skin. Transesophageal echocardiogram confirmed the presence of a preserved systolic function and no significant valvular abnormality. There was mild aortic valve regurgitation. Midline sternotomy was performed and the bone was reasonably dense. The left hemisternum was elevated and the left internal mammary artery was harvested in a somewhat skeletonized fashion. The left pleura was intentionally opened in this process and was drained with a 19-[place] Maciel drain. I made a small opening in the right pleura at the end of the case to decompress potential pneumothorax and the right pleura was not drained. In the same setting the left radial artery was harvested endoscopically after initially exposing it at the wrist and performing a clamping trial that revealed preserved O2 saturation approach signal in the left index finger. The radial artery had an early bifurcation and we took it up to the 2/3 proximal forearm and preserved the recurrent branch. The forearm incision was closed over a drain. The radial artery was of good quality around 3 mm in diameter and it was prepared by incising the fascia all along its volar aspect and clipping all the branches. We had enough length to reach the obtuse marginal artery with that. Also in the same setting and after administration of 2500 units of heparin, the left greater saphenous vein was harvested endoscopically from groin to mid lower leg level. The branches were tied. The leg incisions were closed over a drain. The vein appeared to be of reasonable quality around 3.5 mm in diameter. Mediastinal fat was transected between 2 ties and epiaortic scanning revealed normal ascending aorta. Some concentric intimal thickening but no protruding atheroma. The pericardium was opened in an inverted T-fashion and a pericardial cradle was created. Findings included normal soft aorta and a normal-sized heart with evidence of diffuse calcific coronary artery disease. After systemic heparinization, after placement of respective pledgeted pursestring, aortic cannulation with a 21-[place] soft flow cannula and right atrial appendage cannulation with a 3-stage 29-[place] cannula was performed. Antegrade as well as retrograde cardioplegia catheters were placed. Cardiopulmonary bypass was initiated. The patient's temperature was allowed to drift down to 34 degrees Celsius. With the heart warm and empty and beating, we looked at the target. The coronaries had diffuse disease as mentioned above. There was a soft spot anteriorly in the mid aspect of the left anterior descending artery. The proximal obtuse marginal artery was actually soft, but distally it was calcific diffusely diseased. We found the posterior descending artery which also had diffuse disease in it. The left ventricular branches were small and multiple non-bypassable. Aorta was clamped and during aortic clamping myocardial protection was achieved. An initial dose of antegrade cold blood cardioplegia with adequate arrest at 200 mL followed by retrograde cold blood cardioplegia. All subsequent doses were given retrograde at 15 minute interval. The first distal anastomosis was between reverse saphenous vein graft segment and the proximal posterior descending artery which was opened was around 1.5 mm in diameter using Prolene 7-0 in continuous fashion. The second distal anastomosis was between the left radial artery and the proximal aspect of the first obtuse marginal artery which was around 1.75 mm in diameter with somewhat thickened wall, using Prolene 7-0 in continuous fashion. The third and last distal anastomosis was between the left internal mammary artery and the mid aspect of the left anterior descending artery which was around 1.5 mm in diameter with thickened wall, using Prolene 7-0 in continuous fashion. Rewarming was started at this point, and we punched out 2 buttons of 4 mm each of the ascending aorta and the 2 proximal anastomosis of the radial artery and the vein graft completed using running Prolene. The patient was given lidocaine and magnesium. De- airing maneuvers were followed. The aorta was unclamped. We initially had to initiate V-pacing as the patient did not have conduction, however, that resolved eventually. We had placed 2 monopolar atrial pacing wires to the respective pursing of the right atrium and 1 bipolar ventricular pacing wire was driven via the inferior aspect of the right ventricle. After period of reperfusion and satisfied with the quality of the anastomosis, we were able to wean off cardioplegia bypass without the need of any inotropic or vasopressor support. We had used nitroglycerin as anti spastic for the radial artery. Echo showed preserved function. Graft flow measurements performed at this point revealed excellent flows in all 3 grafts. With that test was then full dose protamine was given. Decannulation followed. The antegrade cardioplegia site and the venous cannulation site were reinforced with a running Prolene. Next two 19-[place] Maciel drains were placed, 1 in the posterior pericardium, 1 substernally. The pericardial fat was loosely approximated over the heart and all the grafts. After ensuring adequate hemostasis and hemodynamic and after correct sponge, instrument, and needle count, the sternum was closed using 5 [id number] pionneer cable after interposing fibrillar between the sternal edges. Thorough irrigation of cefazolin followed. The rest of the closure proceeded in layers. Skin glue was applied. Patient did not receive any blood bank product but received 550 mL of Cell Saver blood. He was transferred to the ICU in stable condition on low-dose nitroglycerin with excellent hemodynamics and a cardiac index of 2.8. MMODL / IJN: [id number] / [facility]
[2019-02-13] MEDS: MORPHINE SULFATE 2 MG/ML SYRINGE IVP PRN (00:04)
[2019-02-13 00:16] LABS: Glucose,Whole Blood 130 mg/dL (75-99)
[2019-02-13 01:11] LABS: Glucose,Whole Blood 114 mg/dL (75-99)
[2019-02-13] MEDS: IPRATROPIUM-ALBUTEROL 3 ML NEB INHALATION SCH ×5 (01:28→20:09)
[2019-02-13] MEDS ORDERED: DEXMEDETOMIDINE/0.9% NACL(PMX) 400 MCG in EMPTY BAG 1 BAG IV SCH (01:30)
[2019-02-13 02:14] LABS: Glucose,Whole Blood 123 mg/dL (75-99)
[2019-02-13] MEDS: ceFAZolin IN SWFI 2 GM/20 ML SYRINGE IVP SCH ×2 (02:17→11:00)
[2019-02-13 03:20] LABS: Glucose,Whole Blood 142 mg/dL (75-99)
[2019-02-13 04:21] LABS: Glucose,Whole Blood 160 mg/dL (75-99)
[2019-02-13 04:32] LABS: Basophils % (A) 0 %; Eosinophils % (A) 0 %; HCT 28.4 % (39.0-53.0); Lymphocytes # (A) 0.6 k/uL (1.0-4.8); Lymphocytes % (A) 11 %; MCH 30.6 pg (25.0-35.0); MCHC 32.9 g/dL (31.0-37.0); MCV 93.1 fL (80.0-100.0); Mean Platelet Volume 7.3; Monocytes # (A) 0.4 k/uL (0-1.0); Monocytes % (A) 8 %; Neutrophils # (A) 4.2 k/uL (1.3-7.7); Neutrophils % (A) 78 %; Platelet Count 136 k/uL (150-450); RBC 3.05 m/uL (4.30-5.90); WBC 5.4 k/uL (3.8-10.6)
[2019-02-13 04:36] LABS: HGB 9.3 gm/dL (13.0-17.5)
[2019-02-13 04:41] LABS: Ionized Calcium 4.9 mg/dL (4.5-5.3)
[2019-02-13 04:47] LABS: ALT 30 U/L (21-72); AST 37 U/L (17-59); Albumin 3.3 g/dL (3.5-5.0); Alkaline Phosphatase 34 U/L (38-126); Anion Gap 8 mmol/L; Blood Urea Nitrogen 14 mg/dL (9-20); Calcium 8.2 mg/dL (8.4-10.2); Carbon Dioxide 22 mmol/L (22-30); Chloride 110 mmol/L (98-107); Glucose 146 mg/dL (74-99); Potassium 4.4 mmol/L (3.5-5.1); Sodium 140 mmol/L (137-145); Total Bilirubin 0.5 mg/dL (0.2-1.3); Total Protein 4.9 g/dL (6.3-8.2)
[2019-02-13 05:16] LABS: Glucose,Whole Blood 163 mg/dL (75-99)
[2019-02-13] MEDS: ALBUMIN HUMAN 5% 250 ML in EMPTY BAG 1 BAG IVPB PRN ×4 (06:00→12:27)
[2019-02-13 06:28] LABS: Glucose,Whole Blood 144 mg/dL (75-99)
[2019-02-13] MEDS: NITROGLYCERIN-D5W PMX 50 MG in DEXTROSE/WATER 1 250ML.BAG IV SCH ×2 (06:38→23:37)
[2019-02-13 07:27] LABS: Glucose,Whole Blood 119 mg/dL (75-99)
--- NOTE | 2019-02-13 08:04 | P.PN ---
Subjective Progress Note Date: 02/13/19 Principal diagnosis: Unstable angina This is a pleasant 68-year-old gentleman who was seen by Dr. Malloy in the office yesterday where he was experiencing chest discomfort concerning for angina. Subsequently he underwent a heart catheterization yesterday which revealed severe triple-vessel coronary artery disease was extremely calcified right and left coronary systems. The patient was referred for coronary artery bypass grafting and he is going to undergo CABG this coming to stay. On follow-up with the patient today, February [id number], the patient did undergo coronary artery bypass grafting 3 yesterday where he received PLUMMER to LAD, left radial artery to OM, and SVG to PDA. This is his post op day #1. He was extubated last night. Hemodynamically he is stable. He has been maintaining normal sinus mechanism. He has been making good urine. And he is on dual anti platelet therapy along with a statin. I would suggest increasing the dose of Lipitor to 80 mg by mouth daily. Objective - Vital Signs Vital signs: Vital Signs Temp 36.5 F L 02/12/19 19:00 Pulse 76 02/13/19 07:00 Resp 14 02/13/19 07:00 BP 103/64 02/13/19 07:00 Pulse Ox 98 02/13/19 07:00 Intake & Output 02/12/19 02/13/19 02/13/19 18:59 06:59 18:59 Intake Total 962.310 6755.466 346.083 Output Total 3332 1328 55 Balance -2452.807 500.466 291.083 Weight 87.4 kg Intake: IV 865.5 1666.0 340.5 ACETAMINOPHEN IV (For NPO 100 100 ) 1,000 mg In Empty Bag 1 bag @ 400 mls/hr IVPB Q6HR [facility] Rx#:[id number] Albumin Human 5% 250 ml 500 500 250 In Empty Bag 1 bag @ 250 mls/hr IVPB Q1HR PRN Rx#: [id number] CO/CI Injectate 50 340 30 Lactated Ringers 1,000 ml 150 600 50 @ 20 mls/hr IV .Q24H ALFONSO Rx#:[id number] Nitro 1.5 Nitroglycerin-D5w Pmx 50 4.5 18.0 mg In Dextrose/Water 1 250ml.bag @ 5 MCG/MIN 1.5 mls/hr IV .Q24H AL[facility]ONSO Rx#: [id number] Pressure Bag 27 108 9 Intake, IV Titration 13.693 162.466 5.583 Amount Clevidipine Butyrate 25 2.267 89.533 mg In Empty Bag 1 bag @ 1 MG/HR 2 mls/hr IV .Q24H AL[facility]SO Rx#:[id number] Insulin Regular 100 unit 0.067 50.608 5.583 In Sodium Chloride 0.9% 100 ml @ Titrate IV .Q0M AL[facility]SO Rx#:[id number] Nitroglycerin-D5w Pmx 50 22.325 mg In Dextrose/Water 1 250ml.bag @ 5 MCG/MIN 1.5 mls/hr IV .Q24H [facility]SO Rx#: [id number] Propofol 1,000 mg In 11.359 Empty Bag 1 bag @ Titrate IV .Q0M ALFONSO Rx#: [id number] Output: Chest Tube Drainage 300 279 30 Bilateral Mediastinal 120 137 20 Chest Tube Left Lateral 180 142 10 Chest Gastric Drainage 325 Drainage 70 Left Calf 30 Left Wrist 40 Urine 1832 654 25 Estimated Blood Loss 1200 Other: Voiding Method Urinal Indwelling Catheter ABP, PAP, CO, CI - Last Documented Arterial Blood Pressure 100/43 Pulmonary Artery Pressure 16/8 Cardiac Output 3.6 Cardiac Index 1.9 - Constitutional General appearance: Present: no acute distress - Respiratory Respiratory: bilateral: CTA - Cardiovascular Rhythm: regular Heart sounds: normal: S1, S2 - Labs CBC & Chem 7: 02/13/19 04:18 02/13/19 04:18 Labs: Abnormal Lab Results - Last 24 Hours (Table) 02/11/19 02/12/19 02/12/19 Range/Units 04:43 08:50 11:31 RBC (4.30-5.90) m/uL Hgb (13.0-17.5) gm/dL Hct (39.0-53.0) % Plt Count (150-450) k/uL Neutrophils # (1.3-7.7) k/uL Lymphocytes # (1.0-4.8) k/uL INR (<1.2) APTT (22.0-30.0) sec ABG pH 7.34 L (7.35-7.45) ABG pO2 192 H 193 H (83-108) mmHg ABG Total CO2 25 H 25 H (19-24) mmol/L ABG O2 Saturation 99.6 H 99.6 H (94-97) % ABG Hematocrit (34.0-46.0) % ABG Potassium (3.4-4.5) mmol/L ABG Ionized Calcium (4.5-5.3) mg/dL ABG Glucose 142 H 162 H (75-99) mg/dL ABG Lactic Acid (0.5-1.6) mmol/L Hemoglobin 11.9 L (13.0-17.5) gm/dL Chloride (98-107) mmol/L Glucose (74-99) mg/dL POC Glucose (mg/dL) (75-99) mg/dL Calcium (8.4-10.2) mg/dL Ionized Calcium Aleyda (4.5-5.3) mg/dL Magnesium (1.6-2.3) mg/dL Alkaline Phosphatase (38-126) U/L Total Protein (6.3-8.2) g/dL Albumin (3.5-5.0) g/dL Arterial Blood Potassium (3.4-4.5) mmol/L Arterial Blood Glucose 142 H 162 H (75-99) mg/dL Crossmatch See Detail 02/12/19 02/12/19 02/12/19 Range/Units 12:19 12:50 12:53 RBC (4.30-5.90) m/uL Hgb (13.0-17.5) gm/dL Hct (39.0-53.0) % Plt Count (150-450) k/uL Neutrophils # (1.3-7.7) k/uL Lymphocytes # (1.0-4.8) k/uL INR (<1.2) APTT (22.0-30.0) sec ABG pH 7.34 L 7.33 L (7.35-7.45) ABG pO2 270 H 227 H 47 L* (83-108) mmHg ABG Total CO2 25 H (19-24) mmol/L ABG O2 Saturation 100.0 H 99.8 H 83.5 L (94-97) % ABG Hematocrit 28 L 29 L 28 L (34.0-46.0) % ABG Potassium 5.1 H (3.4-4.5) mmol/L ABG Ionized Calcium 4.1 L 4.3 L 4.1 L (4.5-5.3) mg/dL ABG Glucose 236 H 198 H 198 H (75-99) mg/dL ABG Lactic Acid (0.5-1.6) mmol/L Hemoglobin 9.1 L 9.4 L 9.1 L (13.0-17.5) gm/dL Chloride (98-107) mmol/L Glucose (74-99) mg/dL POC Glucose (mg/dL) (75-99) mg/dL Calcium (8.4-10.2) mg/dL Ionized Calcium Aleyda (4.5-5.3) mg/dL Magnesium (1.6-2.3) mg/dL Alkaline Phosphatase (38-126) U/L Total Protein (6.3-8.2) g/dL Albumin (3.5-5.0) g/dL Arterial Blood Potassium 5.1 H (3.4-4.5) mmol/L Arterial Blood Glucose 236 H 198 H 198 H (75-99) mg/dL Crossmatch 02/12/19 02/12/19 02/12/19 Range/Units 13:29 13:56 15:30 RBC 3.32 L (4.30-5.90) m/uL Hgb 10.3 L (13.0-17.5) gm/dL Hct 31.0 L (39.0-53.0) % Plt Count 148 L (150-450) k/uL Neutrophils # (1.3-7.7) k/uL Lymphocytes # (1.0-4.8) k/uL INR (<1.2) APTT (22.0-30.0) sec ABG pH 7.34 L (7.35-7.45) ABG pO2 >420 H 208 H (83-108) mmHg ABG Total CO2 (19-24) mmol/L ABG O2 Saturation 100.0 H 99.7 H (94-97) % ABG Hematocrit 28 L 27 L (34.0-46.0) % ABG Potassium (3.4-4.5) mmol/L ABG Ionized Calcium 4.3 L 4.4 L (4.5-5.3) mg/dL ABG Glucose 217 H 190 H (75-99) mg/dL ABG Lactic Acid 1.8 H 2.0 H (0.5-1.6) mmol/L Hemoglobin 9.2 L 8.7 L (13.0-17.5) gm/dL Chloride (98-107) mmol/L Glucose (74-99) mg/dL POC Glucose (mg/dL) (75-99) mg/dL Calcium (8.4-10.2) mg/dL Ionized Calcium Aleyda (4.5-5.3) mg/dL Magnesium (1.6-2.3) mg/dL Alkaline Phosphatase (38-126) U/L Total Protein (6.3-8.2) g/dL Albumin (3.5-5.0) g/dL Arterial Blood Potassium (3.4-4.5) mmol/L Arterial Blood Glucose 217 H 190 H (75-99) mg/dL Crossmatch 02/12/19 02/12/19 02/12/19 Range/Units 15:30 15:30 15:35 RBC (4.30-5.90) m/uL Hgb (13.0-17.5) gm/dL Hct (39.0-53.0) % Plt Count (150-450) k/uL Neutrophils # (1.3-7.7) k/uL Lymphocytes # (1.0-4.8) k/uL INR 1.2 H (<1.2) APTT 30.4 H (22.0-30.0) sec ABG pH (7.35-7.45) ABG pO2 (83-108) mmHg ABG Total CO2 (19-24) mmol/L ABG O2 Saturation (94-97) % ABG Hematocrit (34.0-46.0) % ABG Potassium (3.4-4.5) mmol/L ABG Ionized Calcium (4.5-5.3) mg/dL ABG Glucose (75-99) mg/dL ABG Lactic Acid (0.5-1.6) mmol/L Hemoglobin (13.0-17.5) gm/dL Chloride 112 H (98-107) mmol/L Glucose 103 H (74-99) mg/dL POC Glucose (mg/dL) 109 H (75-99) mg/dL Calcium (8.4-10.2) mg/dL Ionized Calcium Aleyda 5.4 H (4.5-5.3) mg/dL Magnesium 2.6 H (1.6-2.3) mg/dL Alkaline Phosphatase 30 L (38-126) U/L Total Protein 4.2 L (6.3-8.2) g/dL Albumin 2.5 L (3.5-5.0) g/dL Arterial Blood Potassium (3.4-4.5) mmol/L Arterial Blood Glucose (75-99) mg/dL Crossmatch 02/12/19 02/12/19 02/12/19 Range/Units 16:02 18:14 18:26 RBC 3.53 L (4.30-5.90) m/uL Hgb 10.9 L (13.0-17.5) gm/dL Hct 32.7 L (39.0-53.0) % Plt Count 147 L (150-450) k/uL Neutrophils # (1.3-7.7) k/uL Lymphocytes # 0.8 L (1.0-4.8) k/uL INR (<1.2) APTT (22.0-30.0) sec ABG pH (7.35-7.45) ABG pO2 393 H (83-108) mmHg ABG Total CO2 25 H (19-24) mmol/L ABG O2 Saturation 99.6 H (94-97) % ABG Hematocrit (34.0-46.0) % ABG Potassium (3.4-4.5) mmol/L ABG Ionized Calcium (4.5-5.3) mg/dL ABG Glucose (75-99) mg/dL ABG Lactic Acid (0.5-1.6) mmol/L Hemoglobin (13.0-17.5) gm/dL Chloride (98-107) mmol/L Glucose (74-99) mg/dL POC Glucose (mg/dL) 115 H (75-99) mg/dL Calcium (8.4-10.2) mg/dL Ionized Calcium Aleyda (4.5-5.3) mg/dL Magnesium (1.6-2.3) mg/dL Alkaline Phosphatase (38-126) U/L Total Protein (6.3-8.2) g/dL Albumin (3.5-5.0) g/dL Arterial Blood Potassium (3.4-4.5) mmol/L Arterial Blood Glucose (75-99) mg/dL Crossmatch 02/12/19 02/12/19 02/12/19 Range/Units 19:08 20:04 20:57 RBC 3.68 L (4.30-5.90) m/uL Hgb 11.6 L (13.0-17.5) gm/dL Hct 33.7 L (39.0-53.0) % Plt Count (150-450) k/uL Neutrophils # 8.0 H (1.3-7.7) k/uL Lymphocytes # 0.9 L (1.0-4.8) k/uL INR (<1.2) APTT (22.0-30.0) sec ABG pH (7.35-7.45) ABG pO2 (83-108) mmHg ABG Total CO2 (19-24) mmol/L ABG O2 Saturation (94-97) % ABG Hematocrit (34.0-46.0) % ABG Potassium (3.4-4.5) mmol/L ABG Ionized Calcium (4.5-5.3) mg/dL ABG Glucose (75-99) mg/dL ABG Lactic Acid (0.5-1.6) mmol/L Hemoglobin (13.0-17.5) gm/dL Chloride (98-107) mmol/L Glucose (74-99) mg/dL POC Glucose (mg/dL) 136 H 191 H (75-99) mg/dL Calcium (8.4-10.2) mg/dL Ionized Calcium Aleyda (4.5-5.3) mg/dL Magnesium (1.6-2.3) mg/dL Alkaline Phosphatase (38-126) U/L Total Protein (6.3-8.2) g/dL Albumin (3.5-5.0) g/dL Arterial Blood Potassium (3.4-4.5) mmol/L Arterial Blood Glucose (75-99) mg/dL Crossmatch 02/12/19 02/12/19 02/12/19 Range/Units 20:58 22:07 22:55 RBC (4.30-5.90) m/uL Hgb (13.0-17.5) gm/dL Hct (39.0-53.0) % Plt Count (150-450) k/uL Neutrophils # (1.3-7.7) k/uL Lymphocytes # (1.0-4.8) k/uL INR (<1.2) APTT (22.0-30.0) sec ABG pH (7.35-7.45) ABG pO2 (83-108) mmHg ABG Total CO2 (19-24) mmol/L ABG O2 Saturation (94-97) % ABG Hematocrit (34.0-46.0) % ABG Potassium (3.4-4.5) mmol/L ABG Ionized Calcium (4.5-5.3) mg/dL ABG Glucose (75-99) mg/dL ABG Lactic Acid (0.5-1.6) mmol/L Hemoglobin (13.0-17.5) gm/dL Chloride (98-107) mmol/L Glucose (74-99) mg/dL POC Glucose (mg/dL) 191 H 171 H 159 H (75-99) mg/dL Calcium (8.4-10.2) mg/dL Ionized Calcium Aleyda (4.5-5.3) mg/dL Magnesium (1.6-2.3) mg/dL Alkaline Phosphatase (38-126) U/L Total Protein (6.3-8.2) g/dL Albumin (3.5-5.0) g/dL Arterial Blood Potassium (3.4-4.5) mmol/L Arterial Blood Glucose (75-99) mg/dL Crossmatch 02/13/19 02/13/19 02/13/19 Range/Units 00:11 01:10 02:12 RBC (4.30-5.90) m/uL Hgb (13.0-17.5) gm/dL Hct (39.0-53.0) % Plt Count (150-450) k/uL Neutrophils # (1.3-7.7) k/uL Lymphocytes # (1.0-4.8) k/uL INR (<1.2) APTT (22.0-30.0) sec ABG pH (7.35-7.45) ABG pO2 (83-108) mmHg ABG Total CO2 (19-24) mmol/L ABG O2 Saturation (94-97) % ABG Hematocrit (34.0-46.0) % ABG Potassium (3.4-4.5) mmol/L ABG Ionized Calcium (4.5-5.3) mg/dL ABG Glucose (75-99) mg/dL ABG Lactic Acid (0.5-1.6) mmol/L Hemoglobin (13.0-17.5) gm/dL Chloride (98-107) mmol/L Glucose (74-99) mg/dL POC Glucose (mg/dL) 130 H 114 H 123 H (75-99) mg/dL Calcium (8.4-10.2) mg/dL Ionized Calcium Aleyda (4.5-5.3) mg/dL Magnesium (1.6-2.3) mg/dL Alkaline Phosphatase (38-126) U/L Total Protein (6.3-8.2) g/dL Albumin (3.5-5.0) g/dL Arterial Blood Potassium (3.4-4.5) mmol/L Arterial Blood Glucose (75-99) mg/dL Crossmatch 02/13/19 02/13/19 02/13/19 Range/Units 03:16 04:16 04:18 RBC 3.05 L (4.30-5.90) m/uL Hgb 9.3 L D (13.0-17.5) gm/dL Hct 28.4 L (39.0-53.0) % Plt Count 136 L (150-450) k/uL Neutrophils # (1.3-7.7) k/uL Lymphocytes # 0.6 L (1.0-4.8) k/uL INR (<1.2) APTT (22.0-30.0) sec ABG pH (7.35-7.45) ABG pO2 (83-108) mmHg ABG Total CO2 (19-24) mmol/L ABG O2 Saturation (94-97) % ABG Hematocrit (34.0-46.0) % ABG Potassium (3.4-4.5) mmol/L ABG Ionized Calcium (4.5-5.3) mg/dL ABG Glucose (75-99) mg/dL ABG Lactic Acid (0.5-1.6) mmol/L Hemoglobin (13.0-17.5) gm/dL Chloride (98-107) mmol/L Glucose (74-99) mg/dL POC Glucose (mg/dL) 142 H 160 H (75-99) mg/dL Calcium (8.4-10.2) mg/dL Ionized Calcium Aleyda (4.5-5.3) mg/dL Magnesium (1.6-2.3) mg/dL Alkaline Phosphatase (38-126) U/L Total Protein (6.3-8.2) g/dL Albumin (3.5-5.0) g/dL Arterial Blood Potassium (3.4-4.5) mmol/L Arterial Blood Glucose (75-99) mg/dL Crossmatch 02/13/19 02/13/19 02/13/19 Range/Units 04:18 05:14 06:16 RBC (4.30-5.90) m/uL Hgb (13.0-17.5) gm/dL Hct (39.0-53.0) % Plt Count (150-450) k/uL Neutrophils # (1.3-7.7) k/uL Lymphocytes # (1.0-4.8) k/uL INR (<1.2) APTT (22.0-30.0) sec ABG pH (7.35-7.45) ABG pO2 (83-108) mmHg ABG Total CO2 (19-24) mmol/L ABG O2 Saturation (94-97) % ABG Hematocrit (34.0-46.0) % ABG Potassium (3.4-4.5) mmol/L ABG Ionized Calcium (4.5-5.3) mg/dL ABG Glucose (75-99) mg/dL ABG Lactic Acid (0.5-1.6) mmol/L Hemoglobin (13.0-17.5) gm/dL Chloride 110 H (98-107) mmol/L Glucose 146 H (74-99) mg/dL POC Glucose (mg/dL) 163 H 144 H (75-99) mg/dL Calcium 8.2 L (8.4-10.2) mg/dL Ionized Calcium Aleyda (4.5-5.3) mg/dL Magnesium (1.6-2.3) mg/dL Alkaline Phosphatase 34 L (38-126) U/L Total Protein 4.9 L (6.3-8.2) g/dL Albumin 3.3 L (3.5-5.0) g/dL Arterial Blood Potassium (3.4-4.5) mmol/L Arterial Blood Glucose (75-99) mg/dL Crossmatch 02/13/19 Range/Units 07:25 RBC (4.30-5.90) m/uL Hgb (13.0-17.5) gm/dL Hct (39.0-53.0) % Plt Count (150-450) k/uL Neutrophils # (1.3-7.7) k/uL Lymphocytes # (1.0-4.8) k/uL INR (<1.2) APTT (22.0-30.0) sec ABG pH (7.35-7.45) ABG pO2 (83-108) mmHg ABG Total CO2 (19-24) mmol/L ABG O2 Saturation (94-97) % ABG Hematocrit (34.0-46.0) % ABG Potassium (3.4-4.5) mmol/L ABG Ionized Calcium (4.5-5.3) mg/dL ABG Glucose (75-99) mg/dL ABG Lactic Acid (0.5-1.6) mmol/L Hemoglobin (13.0-17.5) gm/dL Chloride (98-107) mmol/L Glucose (74-99) mg/dL POC Glucose (mg/dL) 119 H (75-99) mg/dL Calcium (8.4-10.2) mg/dL Ionized Calcium Aleyda (4.5-5.3) mg/dL Magnesium (1.6-2.3) mg/dL Alkaline Phosphatase (38-126) U/L Total Protein (6.3-8.2) g/dL Albumin (3.5-5.0) g/dL Arterial Blood Potassium (3.4-4.5) mmol/L Arterial Blood Glucose (75-99) mg/dL Crossmatch Assessment and Plan Assessment: Assessment #1 unstable angina #2 severe triple-vessel coronary artery disease and status post CABG #3 mildly impaired LV function Plan #1 continue the current medical regimen #2 continue monitor the hemoglobin and kidney function #3 follow-up with the patient
--- NOTE | 2019-02-13 08:17 | XR ---
EXAMINATION TYPE: XR chest 1V portable DATE OF EXAM: 02/13/2019 COMPARISON: 02/12/2019 HISTORY: SOB, Follow Up FINDINGS: Endotracheal and NG tubes have been removed. De Beque-Ashu catheter, mediastinal drain and left-sided sherman st tube remain in place. No evidence of pneumothorax. No change in bibasilar opacities. Stable appearance of the cardio-mediastinal structures at this time. Pleural effusion unchanged. IMPRESSION: 1. Stable portable chest. Clinical correlation and follow up until resolution is recommended. Remov al of endotracheal and NG tubes as noted.
--- NOTE | 2019-02-13 08:30 | P.PN ---
Subjective Progress Note Date: 02/13/19 Principal diagnosis: Severe triple-vessel diffuse coronary artery disease, non-STEMI, preserved left ventricular dysfunction. Previous medical history of hypertension, hyperlipide jelena, uncontrolled type 2 diabetes mellitus with hemoglobin A1c 7.1%, and previous tobacco dependence with FEV1 75% of predicted. POD #1 triple coronary artery bypass grafting using the left internal mammary artery to the left anterior descending artery, left radial artery from the aorta to the first obtuse marginal artery, reverse saphenous vein graft from the aorta to the posterior descending artery. Endoscopic harvesting of the left radial artery. Endoscopic harvesting of the left greater saphenous vein from the groin to the mid lower leg level. Intraoperative transesophageal echocardiogram and epi-aortic scanning. Intraoperative graft flow measurements using the [employer] system. The patient's currently sitting up in a recliner in the intensive care unit in no acute distress. Was successfully extubated this morning at 2:31 AM. Does complain of post surgical pain but states it is well controlled on current medication regimen, denies shortness of breath. Remains in normal sinus rhythm. Hemodynamically stable on no inotropes or pressors. Currently on IV nitro to prevent arterial spasm. No new complaints. Objective - Vital Signs Vital signs: Vital Signs Temp 36.5 F L 02/12/19 19:00 Pulse 76 02/13/19 07:00 Resp 14 02/13/19 07:00 BP 103/64 02/13/19 07:00 Pulse Ox 98 02/13/19 07:00 Intake & Output 02/12/19 02/13/19 02/13/19 18:59 06:59 18:59 Intake Total 878.331 0492.466 346.083 Output Total 3332 1328 55 Balance -2452.807 500.466 291.083 Weight 87.4 kg Intake: IV 865.5 1666.0 340.5 ACETAMINOPHEN IV (For NPO 100 100 ) 1,000 mg In Empty Bag 1 bag @ 400 mls/hr IVPB Q6HR ALFONSO Rx#:[id number] Albumin Human 5% 250 ml 500 500 250 In Empty Bag 1 bag @ 250 mls/hr IVPB Q1HR PRN Rx#: [id number] CO/CI Injectate 50 340 30 Lactated Ringers 1,000 ml 150 600 50 @ 20 mls/hr IV .Q24H ALFONSO Rx#:[id number] Nitro 1.5 Nitroglycerin-D5w Pmx 50 4.5 18.0 mg In Dextrose/Water 1 250ml.bag @ 5 MCG/MIN 1.5 mls/hr IV .Q24H ALFONSO Rx#: [id number] Pressure Bag 27 108 9 Intake, IV Titration 13.693 162.466 5.583 Amount Clevidipine Butyrate 25 2.267 89.533 mg In Empty Bag 1 bag @ 1 MG/HR 2 mls/hr IV .Q24H ALFONSO Rx#:[id number] Insulin Regular 100 unit 0.067 50.608 5.583 In Sodium Chloride 0.9% 100 ml @ Titrate IV .Q0M ALFONSO Rx#:[id number] Nitroglycerin-D5w Pmx 50 22.325 mg In Dextrose/Water 1 250ml.bag @ 5 MCG/MIN 1.5 mls/hr IV .Q24H ALFONSO Rx#: [id number] Propofol 1,000 mg In 11.359 Empty Bag 1 bag @ Titrate IV .Q0M ALFONSO Rx#: [id number] Output: Chest Tube Drainage 300 279 30 Bilateral Mediastinal 120 137 20 Chest Tube Left Lateral 180 142 10 Chest Gastric Drainage 325 Drainage 70 Left Calf 30 Left Wrist 40 Urine 1832 654 25 Estimated Blood Loss 1200 Other: Voiding Method Urinal Indwelling Catheter ABP, PAP, CO, CI - Last Documented Arterial Blood Pressure 100/43 Pulmonary Artery Pressure 16/8 Cardiac Output 3.6 Cardiac Index 1.9 - Constitutional General appearance: Present: cooperative, no acute distress, obese - Respiratory Details: Lungs sounds diminished bilaterally. Respirations even, nonlabored. Currently on 3 L nasal cannula with oxygen saturation 98%. Able to achieve 1000 mL on his incentive spirometry. Strong cough. Mediastinal chest tube to continuous wall suction, 125 mL serosanguineous drainage overnight, 300 mL since surgery. Left pleural chest tube to continuous wall suction, 60 mL serosanguineous drainage overnight, 250 mL since surgery. No air leaks present. - Cardiovascular Details: S1, S2 present. Regular rate and rhythm, sinus rhythm on telemetry. Sternum stable. A/V epicardial epicardial pacemaker wires present, connected to generator, VVI mode with backup rate 60 bpm. Palpable peripheral pulses bilaterally. No edema present. No calf pain or tenderness noted. Right internal jugular [place]ordis, right radial arterial line present. Last CO/CI 4.0/2.1 on no inotropes or pressors. Heart hugger in place with patient demonstrating appropriate use. Antiembolism stockings, SCDs present. - Gastrointestinal Gastrointestinal Comment(s): Abdomen soft, nontender, nondistended. Hypoactive bowel sounds present 4 quadrants. Tolerating ice chips and clear liquids. Positive belching, negative flatus. - Genitourinary Genitourinary Comment(s): Li present draining clear, yellow urine. Output 25-45 mL per hour overnight. - Integumentary Integumentary Comment(s): Skin is warm and dry with evidence of good perfusion. Anterior chest incision well approximated and covered with dry intact dressing. Left radial arterial harvest site well approximated, ARIANE drain present with minimal drainage. Left lower extremity EVH site well approximated, ARIANE drain present with minimal drainage. - Neurologic Neurologic: Present: CNII-XII intact - Musculoskeletal Musculoskeletal: Present: strength equal bilaterally - Psychiatric Psychiatric: Present: A&O x's 3, appropriate affect, intact judgment & insight - Allied health notes Allied health notes reviewed: nursing - Labs CBC & Chem 7: 02/13/19 04:18 02/13/19 04:18 Labs: Abnormal Lab Results - Last 24 Hours (Table) 02/11/19 02/12/19 02/12/19 Range/Units 04:43 08:50 11:31 RBC (4.30-5.90) m/uL Hgb (13.0-17.5) gm/dL Hct (39.0-53.0) % Plt Count (150-450) k/uL Neutrophils # (1.3-7.7) k/uL Lymphocytes # (1.0-4.8) k/uL INR (<1.2) APTT (22.0-30.0) sec ABG pH 7.34 L (7.35-7.45) ABG pO2 192 H 193 H (83-108) mmHg ABG Total CO2 25 H 25 H (19-24) mmol/L ABG O2 Saturation 99.6 H 99.6 H (94-97) % ABG Hematocrit (34.0-46.0) % ABG Potassium (3.4-4.5) mmol/L ABG Ionized Calcium (4.5-5.3) mg/dL ABG Glucose 142 H 162 H (75-99) mg/dL ABG Lactic Acid (0.5-1.6) mmol/L Hemoglobin 11.9 L (13.0-17.5) gm/dL Chloride (98-107) mmol/L Glucose (74-99) mg/dL POC Glucose (mg/dL) (75-99) mg/dL Calcium (8.4-10.2) mg/dL Ionized Calcium Aleyda (4.5-5.3) mg/dL Magnesium (1.6-2.3) mg/dL Alkaline Phosphatase (38-126) U/L Total Protein (6.3-8.2) g/dL Albumin (3.5-5.0) g/dL Arterial Blood Potassium (3.4-4.5) mmol/L Arterial Blood Glucose 142 H 162 H (75-99) mg/dL Crossmatch See Detail 02/12/19 02/12/19 02/12/19 Range/Units 12:19 12:50 12:53 RBC (4.30-5.90) m/uL Hgb (13.0-17.5) gm/dL Hct (39.0-53.0) % Plt Count (150-450) k/uL Neutrophils # (1.3-7.7) k/uL Lymphocytes # (1.0-4.8) k/uL INR (<1.2) APTT (22.0-30.0) sec ABG pH 7.34 L 7.33 L (7.35-7.45) ABG pO2 270 H 227 H 47 L* (83-108) mmHg ABG Total CO2 25 H (19-24) mmol/L ABG O2 Saturation 100.0 H 99.8 H 83.5 L (94-97) % ABG Hematocrit 28 L 29 L 28 L (34.0-46.0) % ABG Potassium 5.1 H (3.4-4.5) mmol/L ABG Ionized Calcium 4.1 L 4.3 L 4.1 L (4.5-5.3) mg/dL ABG Glucose 236 H 198 H 198 H (75-99) mg/dL ABG Lactic Acid (0.5-1.6) mmol/L Hemoglobin 9.1 L 9.4 L 9.1 L (13.0-17.5) gm/dL Chloride (98-107) mmol/L Glucose (74-99) mg/dL POC Glucose (mg/dL) (75-99) mg/dL Calcium (8.4-10.2) mg/dL Ionized Calcium Aleyda (4.5-5.3) mg/dL Magnesium (1.6-2.3) mg/dL Alkaline Phosphatase (38-126) U/L Total Protein (6.3-8.2) g/dL Albumin (3.5-5.0) g/dL Arterial Blood Potassium 5.1 H (3.4-4.5) mmol/L Arterial Blood Glucose 236 H 198 H 198 H (75-99) mg/dL Crossmatch 02/12/19 02/12/19 02/12/19 Range/Units 13:29 13:56 15:30 RBC 3.32 L (4.30-5.90) m/uL Hgb 10.3 L (13.0-17.5) gm/dL Hct 31.0 L (39.0-53.0) % Plt Count 148 L (150-450) k/uL Neutrophils # (1.3-7.7) k/uL Lymphocytes # (1.0-4.8) k/uL INR (<1.2) APTT (22.0-30.0) sec ABG pH 7.34 L (7.35-7.45) ABG pO2 >420 H 208 H (83-108) mmHg ABG Total CO2 (19-24) mmol/L ABG O2 Saturation 100.0 H 99.7 H (94-97) % ABG Hematocrit 28 L 27 L (34.0-46.0) % ABG Potassium (3.4-4.5) mmol/L ABG Ionized Calcium 4.3 L 4.4 L (4.5-5.3) mg/dL ABG Glucose 217 H 190 H (75-99) mg/dL ABG Lactic Acid 1.8 H 2.0 H (0.5-1.6) mmol/L Hemoglobin 9.2 L 8.7 L (13.0-17.5) gm/dL Chloride (98-107) mmol/L Glucose (74-99) mg/dL POC Glucose (mg/dL) (75-99) mg/dL Calcium (8.4-10.2) mg/dL Ionized Calcium Aleyda (4.5-5.3) mg/dL Magnesium (1.6-2.3) mg/dL Alkaline Phosphatase (38-126) U/L Total Protein (6.3-8.2) g/dL Albumin (3.5-5.0) g/dL Arterial Blood Potassium (3.4-4.5) mmol/L Arterial Blood Glucose 217 H 190 H (75-99) mg/dL Crossmatch 02/12/19 02/12/19 02/12/19 Range/Units 15:30 15:30 15:35 RBC (4.30-5.90) m/uL Hgb (13.0-17.5) gm/dL Hct (39.0-53.0) % Plt Count (150-450) k/uL Neutrophils # (1.3-7.7) k/uL Lymphocytes # (1.0-4.8) k/uL INR 1.2 H (<1.2) APTT 30.4 H (22.0-30.0) sec ABG pH (7.35-7.45) ABG pO2 (83-108) mmHg ABG Total CO2 (19-24) mmol/L ABG O2 Saturation (94-97) % ABG Hematocrit (34.0-46.0) % ABG Potassium (3.4-4.5) mmol/L ABG Ionized Calcium (4.5-5.3) mg/dL ABG Glucose (75-99) mg/dL ABG Lactic Acid (0.5-1.6) mmol/L Hemoglobin (13.0-17.5) gm/dL Chloride 112 H (98-107) mmol/L Glucose 103 H (74-99) mg/dL POC Glucose (mg/dL) 109 H (75-99) mg/dL Calcium (8.4-10.2) mg/dL Ionized Calcium Aleyda 5.4 H (4.5-5.3) mg/dL Magnesium 2.6 H (1.6-2.3) mg/dL Alkaline Phosphatase 30 L (38-126) U/L Total Protein 4.2 L (6.3-8.2) g/dL Albumin 2.5 L (3.5-5.0) g/dL Arterial Blood Potassium (3.4-4.5) mmol/L Arterial Blood Glucose (75-99) mg/dL Crossmatch 02/12/19 02/12/19 02/12/19 Range/Units 16:02 18:14 18:26 RBC 3.53 L (4.30-5.90) m/uL Hgb 10.9 L (13.0-17.5) gm/dL Hct 32.7 L (39.0-53.0) % Plt Count 147 L (150-450) k/uL Neutrophils # (1.3-7.7) k/uL Lymphocytes # 0.8 L (1.0-4.8) k/uL INR (<1.2) APTT (22.0-30.0) sec ABG pH (7.35-7.45) ABG pO2 393 H (83-108) mmHg ABG Total CO2 25 H (19-24) mmol/L ABG O2 Saturation 99.6 H (94-97) % ABG Hematocrit (34.0-46.0) % ABG Potassium (3.4-4.5) mmol/L ABG Ionized Calcium (4.5-5.3) mg/dL ABG Glucose (75-99) mg/dL ABG Lactic Acid (0.5-1.6) mmol/L Hemoglobin (13.0-17.5) gm/dL Chloride (98-107) mmol/L Glucose (74-99) mg/dL POC Glucose (mg/dL) 115 H (75-99) mg/dL Calcium (8.4-10.2) mg/dL Ionized Calcium Aleyda (4.5-5.3) mg/dL Magnesium (1.6-2.3) mg/dL Alkaline Phosphatase (38-126) U/L Total Protein (6.3-8.2) g/dL Albumin (3.5-5.0) g/dL Arterial Blood Potassium (3.4-4.5) mmol/L Arterial Blood Glucose (75-99) mg/dL Crossmatch 02/12/19 02/12/19 02/12/19 Range/Units 19:08 20:04 20:57 RBC 3.68 L (4.30-5.90) m/uL Hgb 11.6 L (13.0-17.5) gm/dL Hct 33.7 L (39.0-53.0) % Plt Count (150-450) k/uL Neutrophils # 8.0 H (1.3-7.7) k/uL Lymphocytes # 0.9 L (1.0-4.8) k/uL INR (<1.2) APTT (22.0-30.0) sec ABG pH (7.35-7.45) ABG pO2 (83-108) mmHg ABG Total CO2 (19-24) mmol/L ABG O2 Saturation (94-97) % ABG Hematocrit (34.0-46.0) % ABG Potassium (3.4-4.5) mmol/L ABG Ionized Calcium (4.5-5.3) mg/dL ABG Glucose (75-99) mg/dL ABG Lactic Acid (0.5-1.6) mmol/L Hemoglobin (13.0-17.5) gm/dL Chloride (98-107) mmol/L Glucose (74-99) mg/dL POC Glucose (mg/dL) 136 H 191 H (75-99) mg/dL Calcium (8.4-10.2) mg/dL Ionized Calcium Aleyda (4.5-5.3) mg/dL Magnesium (1.6-2.3) mg/dL Alkaline Phosphatase (38-126) U/L Total Protein (6.3-8.2) g/dL Albumin (3.5-5.0) g/dL Arterial Blood Potassium (3.4-4.5) mmol/L Arterial Blood Glucose (75-99) mg/dL Crossmatch 02/12/19 02/12/19 02/12/19 Range/Units 20:58 22:07 22:55 RBC (4.30-5.90) m/uL Hgb (13.0-17.5) gm/dL Hct (39.0-53.0) % Plt Count (150-450) k/uL Neutrophils # (1.3-7.7) k/uL Lymphocytes # (1.0-4.8) k/uL INR (<1.2) APTT (22.0-30.0) sec ABG pH (7.35-7.45) ABG pO2 (83-108) mmHg ABG Total CO2 (19-24) mmol/L ABG O2 Saturation (94-97) % ABG Hematocrit (34.0-46.0) % ABG Potassium (3.4-4.5) mmol/L ABG Ionized Calcium (4.5-5.3) mg/dL ABG Glucose (75-99) mg/dL ABG Lactic Acid (0.5-1.6) mmol/L Hemoglobin (13.0-17.5) gm/dL Chloride (98-107) mmol/L Glucose (74-99) mg/dL POC Glucose (mg/dL) 191 H 171 H 159 H (75-99) mg/dL Calcium (8.4-10.2) mg/dL Ionized Calcium Aleyda (4.5-5.3) mg/dL Magnesium (1.6-2.3) mg/dL Alkaline Phosphatase (38-126) U/L Total Protein (6.3-8.2) g/dL Albumin (3.5-5.0) g/dL Arterial Blood Potassium (3.4-4.5) mmol/L Arterial Blood Glucose (75-99) mg/dL Crossmatch 02/13/19 02/13/19 02/13/19 Range/Units 00:11 01:10 02:12 RBC (4.30-5.90) m/uL Hgb (13.0-17.5) gm/dL Hct (39.0-53.0) % Plt Count (150-450) k/uL Neutrophils # (1.3-7.7) k/uL Lymphocytes # (1.0-4.8) k/uL INR (<1.2) APTT (22.0-30.0) sec ABG pH (7.35-7.45) ABG pO2 (83-108) mmHg ABG Total CO2 (19-24) mmol/L ABG O2 Saturation (94-97) % ABG Hematocrit (34.0-46.0) % ABG Potassium (3.4-4.5) mmol/L ABG Ionized Calcium (4.5-5.3) mg/dL ABG Glucose (75-99) mg/dL ABG Lactic Acid (0.5-1.6) mmol/L Hemoglobin (13.0-17.5) gm/dL Chloride (98-107) mmol/L Glucose (74-99) mg/dL POC Glucose (mg/dL) 130 H 114 H 123 H (75-99) mg/dL Calcium (8.4-10.2) mg/dL Ionized Calcium Aleyda (4.5-5.3) mg/dL Magnesium (1.6-2.3) mg/dL Alkaline Phosphatase (38-126) U/L Total Protein (6.3-8.2) g/dL Albumin (3.5-5.0) g/dL Arterial Blood Potassium (3.4-4.5) mmol/L Arterial Blood Glucose (75-99) mg/dL Crossmatch 02/13/19 02/13/19 02/13/19 Range/Units 03:16 04:16 04:18 RBC 3.05 L (4.30-5.90) m/uL Hgb 9.3 L D (13.0-17.5) gm/dL Hct 28.4 L (39.0-53.0) % Plt Count 136 L (150-450) k/uL Neutrophils # (1.3-7.7) k/uL Lymphocytes # 0.6 L (1.0-4.8) k/uL INR (<1.2) APTT (22.0-30.0) sec ABG pH (7.35-7.45) ABG pO2 (83-108) mmHg ABG Total CO2 (19-24) mmol/L ABG O2 Saturation (94-97) % ABG Hematocrit (34.0-46.0) % ABG Potassium (3.4-4.5) mmol/L ABG Ionized Calcium (4.5-5.3) mg/dL ABG Glucose (75-99) mg/dL ABG Lactic Acid (0.5-1.6) mmol/L Hemoglobin (13.0-17.5) gm/dL Chloride (98-107) mmol/L Glucose (74-99) mg/dL POC Glucose (mg/dL) 142 H 160 H (75-99) mg/dL Calcium (8.4-10.2) mg/dL Ionized Calcium Aleyda (4.5-5.3) mg/dL Magnesium (1.6-2.3) mg/dL Alkaline Phosphatase (38-126) U/L Total Protein (6.3-8.2) g/dL Albumin (3.5-5.0) g/dL Arterial Blood Potassium (3.4-4.5) mmol/L Arterial Blood Glucose (75-99) mg/dL Crossmatch 02/13/19 02/13/19 02/13/19 Range/Units 04:18 05:14 06:16 RBC (4.30-5.90) m/uL Hgb (13.0-17.5) gm/dL Hct (39.0-53.0) % Plt Count (150-450) k/uL Neutrophils # (1.3-7.7) k/uL Lymphocytes # (1.0-4.8) k/uL INR (<1.2) APTT (22.0-30.0) sec ABG pH (7.35-7.45) ABG pO2 (83-108) mmHg ABG Total CO2 (19-24) mmol/L ABG O2 Saturation (94-97) % ABG Hematocrit (34.0-46.0) % ABG Potassium (3.4-4.5) mmol/L ABG Ionized Calcium (4.5-5.3) mg/dL ABG Glucose (75-99) mg/dL ABG Lactic Acid (0.5-1.6) mmol/L Hemoglobin (13.0-17.5) gm/dL Chloride 110 H (98-107) mmol/L Glucose 146 H (74-99) mg/dL POC Glucose (mg/dL) 163 H 144 H (75-99) mg/dL Calcium 8.2 L (8.4-10.2) mg/dL Ionized Calcium Aleyda (4.5-5.3) mg/dL Magnesium (1.6-2.3) mg/dL Alkaline Phosphatase 34 L (38-126) U/L Total Protein 4.9 L (6.3-8.2) g/dL Albumin 3.3 L (3.5-5.0) g/dL Arterial Blood Potassium (3.4-4.5) mmol/L Arterial Blood Glucose (75-99) mg/dL Crossmatch 05/08/19 Range/Units 07:25 RBC (4.30-5.90) m/uL Hgb (13.0-17.5) gm/dL Hct (39.0-53.0) % Plt Count (150-450) k/uL Neutrophils # (1.3-7.7) k/uL Lymphocytes # (1.0-4.8) k/uL INR (<1.2) APTT (22.0-30.0) sec ABG pH (7.35-7.45) ABG pO2 (83-108) mmHg ABG Total CO2 (19-24) mmol/L ABG O2 Saturation (94-97) % ABG Hematocrit (34.0-46.0) % ABG Potassium (3.4-4.5) mmol/L ABG Ionized Calcium (4.5-5.3) mg/dL ABG Glucose (75-99) mg/dL ABG Lactic Acid (0.5-1.6) mmol/L Hemoglobin (13.0-17.5) gm/dL Chloride (98-107) mmol/L Glucose (74-99) mg/dL POC Glucose (mg/dL) 119 H (75-99) mg/dL Calcium (8.4-10.2) mg/dL Ionized Calcium Aleyda (4.5-5.3) mg/dL Magnesium (1.6-2.3) mg/dL Alkaline Phosphatase (38-126) U/L Total Protein (6.3-8.2) g/dL Albumin (3.5-5.0) g/dL Arterial Blood Potassium (3.4-4.5) mmol/L Arterial Blood Glucose (75-99) mg/dL Crossmatch - Imaging and Cardiology Chest x-ray: report reviewed, image reviewed Assessment and Plan Assessment: 1. Severe diffusely calcified triple-vessel coronary artery disease with left main disease, status post coronary artery bypass surgery 2. Non-STEMI 3. Hypertension 4. Hyperlipidemia 5. Uncontrolled type 2 diabetes mellitus with preoperative hemoglobin A1c 7.1% 6. Previous tobacco dependence with FEV1 75% of predicted Plan: 1. Continue aspirin, statin, Plavix, beta nayeli therapy. Will increase beta nayeli therapy as tolerated. 2. Will start Norvasc for radial artery spasm. May discontinue IV nitro after initiation of Norvasc. 3. Wean O2 as tolerated. Encourage incentive spirometry use 10 times every hour while awake. 4. Increase activity as tolerated. PT/OT/cardiac rehab following. 5. Will monitor daily labs and x-rays. Electrolyte replacement per protocol. No transfusion. 6. Pain control with current medication regimen. Will add Toradol. 7. Insulin management per primary care service. 8. GI/DVT prophylaxis. 9. Bronchodilators per pulmonology. 10. Discontinue [place] catheter. Connect Cordis to continue CVP monitoring. 11. More recommendations to follow Time with Patient: Greater than 30
[2019-02-13 08:36] LABS: Glucose,Whole Blood 101 mg/dL (75-99)
[2019-02-13] MEDS: KETOROLAC 30 MG/ML 1 ML VIAL IVP SCH ×4 (08:46→23:22)
[2019-02-13] MEDS: ASPIRIN 325 MG TAB PO SCH (08:47)
[2019-02-13] MEDS: HEPARIN SODIUM,PORCINE 5,000 UNIT/ML 1 ML VIAL SQ SCH ×3 (08:47→23:22)
[2019-02-13] MEDS: METOPROLOL TARTRATE 12.5 MG TAB PO SCH ×2 (08:47→20:23)
[2019-02-13] MEDS: MUPIROCIN 2% OINT 22 GM TUBE NASAL SCH ×2 (08:48→20:24)
[2019-02-13] MEDS: CLOPIDOGREL 75 MG TAB PO SCH (08:48)
[2019-02-13] MEDS ORDERED: ASPIRIN 325 MG TAB PO SCH (09:00)
[2019-02-13] MEDS ORDERED: CLOPIDOGREL 75 MG TAB PO SCH (09:00)
[2019-02-13] MEDS ORDERED: amLODIPine 2.5 MG TAB PO SCH (09:00)
[2019-02-13] MEDS ORDERED: ATORVASTATIN 40 MG TAB PO SCH (09:00)
[2019-02-13] MEDS ORDERED: METOPROLOL TARTRATE 12.5 MG TAB PO SCH (09:00)
[2019-02-13] MEDS ORDERED: PANTOPRAZOLE 40 MG/10 ML VIAL IVP SCH (09:00)
[2019-02-13 09:33] VITALS: BMI 31.1
[2019-02-13] MEDS: ATORVASTATIN 80 MG TAB PO SCH (09:51)
[2019-02-13] MEDS ORDERED: amLODIPine 5 MG TAB PO SCH (10:00)
[2019-02-13 10:12] LABS: Glucose,Whole Blood 112 mg/dL (75-99)
--- NOTE | 2019-02-13 10:48 | P.PN ---
Subjective Progress Note Date: 02/13/19 Principal diagnosis: Status post CABG, postoperative day #1 68-year-old male patient a primary of Dr. Cuellar is known to have history of diabetes, hypertension and hyperlipidemia and a previous smoker. He has been going to his primary care physician because of chest pain and shortness of breath for several months. Eventually was seen by cardiology and an echocardiogram was done and it showed inferior apical hypokinesis with an ejection fraction of 40%. EKG showed no acute ischemic changes. The patient had a cardiac catheterization for these symptoms and the patient was noted to have some limited elevation of the troponin consistent with non-STEMI. The cardiac catheterization was done and showed distal left main stenosis 70%, proximal LAD stenosis 70%, ostial circumflex stenosis 99% and a mid up to his marginal branch 70% lesion in addition to distal RCA stenosis of 99%. LV angiogram revealed mild anterior and apical hypokinesis with an ejection fraction of 45%. The patient is currently awaiting cardiac bypass surgery and the patient will be undergoing his surgery on Monday. This will be done next week. The patient is currently free of any chest pain. His resting comfortably in bed. He is taking aspirin.. He has no shortness of breath. No cough sputum production chest tightness or wheezing. His preop FEV1 is no other of 75% of predicted. The patient's chest x-ray shows no acute abnormalities in the lungs in the process of clear. 02/12/2019 The patient did undergo coronary artery bypass grafting surgery today utilizing a PLUMMER to the LAD, radial artery graft to the OM1, saphenous vein graft to the PDA. He is seen in the immediate postoperative period in the intensive care unit. He is intubated and on the mechanical ventilator. Current settings are SIMV mode at a rate of 12, tidal volume 500, FiO2 100% and a PEEP of 5. Arterial blood gases reveal a P O2 of 393, pCO2 41, pH 7.37. FiO2 decreased to 50%. Right-sided Marcus-Ashu catheter in place. Cardiac output 3.4. Cardiac index 1.8. CVP 14. PA pressures 30/23. Mean 25. Currently sedated with propofol at 20 mcg/kg/m. Nitroglycerin drip at 5 mg/m. Insulin drip at 1 unit per hour. Lactated Ringer's at 50 MLS per hour. Chest x-ray reviewed. Endotracheal tube will be pulled back 1.5 cm. Chest tubes in place. Initial labs are pending. 2 units of packed red blood cells are available. One unit of platelets are available. On 02/13/2019, patient is postoperative day #1. I saw this patient around 3 AM in the morning because I happened to be in the ICU, he was on Precedex, he was weaning, reviewed his weaning parameters, reviewed his tidal volumes on pressure support of 8 and CPAP, his rate was reasonable, patient was awake and responsive, hence recommended extubating the patient early this morning. Patient tolerated the extubation well, presently asymptomatic, doing fairly well with incentive spirometry. Chest x-ray showed postoperative changes, no evidence of effusions, minimal atelectasis of the left base. Hemoglobin is 9.3 all his labs were reviewed, noted to have normal electrolytes are normal renal profile Objective - Vital Signs Vital signs: Vital Signs Temp 37.5 F L 02/13/19 08:00 Pulse 92 02/13/19 10:00 Resp 18 02/13/19 10:00 BP 103/64 02/13/19 07:00 Pulse Ox 97 02/13/19 10:00 Intake & Output 02/12/19 02/13/19 02/13/19 18:59 06:59 18:59 Intake Total 457.482 5758.466 737.083 Output Total 3332 1328 180 Balance -2452.807 500.466 557.083 Weight 87.4 kg 87.4 kg Intake: IV 865.5 1666.0 731.5 ACETAMINOPHEN IV (For NPO 100 100 ) 1,000 mg In Empty Bag 1 bag @ 400 mls/hr IVPB Q6HR [facility] Rx#:[id number] Albumin Human 5% 250 ml 500 500 500 In Empty Bag 1 bag @ 250 mls/hr IVPB Q1HR PRN Rx#: [id number] CO/CI Injectate 50 340 50 Lactated Ringers 1,000 ml 150 600 150 @ 20 mls/hr IV .Q24H [facility]SO Rx#:[id number] Nitro 4.5 Nitroglycerin-D5w Pmx 50 4.5 18.0 mg In Dextrose/Water 1 250ml.bag @ 5 MCG/MIN 1.5 mls/hr IV .Q24H AL[facility]ONSO Rx#: [id number] Pressure Bag 27 108 27 Intake, IV Titration 13.693 162.466 5.583 Amount Clevidipine Butyrate 25 2.267 89.533 mg In Empty Bag 1 bag @ 1 MG/HR 2 mls/hr IV .Q24H [facility]SO Rx#:[id number] Insulin Regular 100 unit 0.067 50.608 5.583 In Sodium Chloride 0.9% 100 ml @ Titrate IV .Q0M [facility]SO Rx#:[id number] Nitroglycerin-D5w Pmx 50 22.325 mg In Dextrose/Water 1 250ml.bag @ 5 MCG/MIN 1.5 mls/hr IV .Q24H [facility] Rx#: [id number] Propofol 1,000 mg In 11.359 Empty Bag 1 bag @ Titrate IV .Q0M ALFONSO Rx#: [id number] Output: Chest Tube Drainage 300 279 90 Bilateral Mediastinal 120 137 60 Chest Tube Left Lateral 180 142 30 Chest Gastric Drainage 325 Drainage 70 Left Calf 30 Left Wrist 40 Urine 1832 654 90 Estimated Blood Loss 1200 Other: Voiding Method Urinal Indwelling Catheter ABP, PAP, CO, CI - Last Documented Arterial Blood Pressure 145/53 Pulmonary Artery Pressure 25/18 Cardiac Output 4.2 Cardiac Index 2.2 - Exam GENERAL EXAM: Revealed a 68-year-old white male in no distress, on 2 L nasal cannula. Sitting in a bedside chair HEAD: Normocephalic. EYES: PERRLA, EOMI. NOSE: Clear with pink turbinates. THROAT: Clear, no exudates.. NECK: No masses, no JVD. CHEST: Sternal dressing dry and intact. Heart however in place. Chest tubes in place. LUNGS: Diminished breath sounds at the bases no crackles or rhonchi or wheezes.. CVS: S1 and S2 normal with no audible murmur, regular rhythm. ABDOMEN: Soft. SPINE: No scoliosis or deformity SKIN: No rashes CENTRAL NERVOUS SYSTEM: Alert oriented 3, no gross focal neurologic deficit. EXTREMITIES: ARIANE in place to the left lower extremity. SCDs in place. There is trace peripheral edema. No clubbing, no cyanosis. Peripheral pulses are intact. - Labs CBC & Chem 7: 02/13/19 04:18 02/13/19 04:18 Labs: Abnormal Lab Results - Last 24 Hours (Table) 02/11/19 02/12/19 02/12/19 Range/Units 04:43 08:50 11:31 RBC (4.30-5.90) m/uL Hgb (13.0-17.5) gm/dL Hct (39.0-53.0) % Plt Count (150-450) k/uL Neutrophils # (1.3-7.7) k/uL Lymphocytes # (1.0-4.8) k/uL INR (<1.2) APTT (22.0-30.0) sec ABG pH 7.34 L (7.35-7.45) ABG pO2 192 H 193 H (83-108) mmHg ABG Total CO2 25 H 25 H (19-24) mmol/L ABG O2 Saturation 99.6 H 99.6 H (94-97) % ABG Hematocrit (34.0-46.0) % ABG Potassium (3.4-4.5) mmol/L ABG Ionized Calcium (4.5-5.3) mg/dL ABG Glucose 142 H 162 H (75-99) mg/dL ABG Lactic Acid (0.5-1.6) mmol/L Hemoglobin 11.9 L (13.0-17.5) gm/dL Chloride (98-107) mmol/L Glucose (74-99) mg/dL POC Glucose (mg/dL) (75-99) mg/dL Calcium (8.4-10.2) mg/dL Ionized Calcium Aleyda (4.5-5.3) mg/dL Magnesium (1.6-2.3) mg/dL Alkaline Phosphatase (38-126) U/L Total Protein (6.3-8.2) g/dL Albumin (3.5-5.0) g/dL Arterial Blood Potassium (3.4-4.5) mmol/L Arterial Blood Glucose 142 H 162 H (75-99) mg/dL Crossmatch See Detail 02/12/19 02/12/19 02/12/19 Range/Units 12:19 12:50 12:53 RBC (4.30-5.90) m/uL Hgb (13.0-17.5) gm/dL Hct (39.0-53.0) % Plt Count (150-450) k/uL Neutrophils # (1.3-7.7) k/uL Lymphocytes # (1.0-4.8) k/uL INR (<1.2) APTT (22.0-30.0) sec ABG pH 7.34 L 7.33 L (7.35-7.45) ABG pO2 270 H 227 H 47 L* (83-108) mmHg ABG Total CO2 25 H (19-24) mmol/L ABG O2 Saturation 100.0 H 99.8 H 83.5 L (94-97) % ABG Hematocrit 28 L 29 L 28 L (34.0-46.0) % ABG Potassium 5.1 H (3.4-4.5) mmol/L ABG Ionized Calcium 4.1 L 4.3 L 4.1 L (4.5-5.3) mg/dL ABG Glucose 236 H 198 H 198 H (75-99) mg/dL ABG Lactic Acid (0.5-1.6) mmol/L Hemoglobin 9.1 L 9.4 L 9.1 L (13.0-17.5) gm/dL Chloride (98-107) mmol/L Glucose (74-99) mg/dL POC Glucose (mg/dL) (75-99) mg/dL Calcium (8.4-10.2) mg/dL Ionized Calcium Aleyda (4.5-5.3) mg/dL Magnesium (1.6-2.3) mg/dL Alkaline Phosphatase (38-126) U/L Total Protein (6.3-8.2) g/dL Albumin (3.5-5.0) g/dL Arterial Blood Potassium 5.1 H (3.4-4.5) mmol/L Arterial Blood Glucose 236 H 198 H 198 H (75-99) mg/dL Crossmatch 02/12/19 02/12/19 02/12/19 Range/Units 13:29 13:56 15:30 RBC 3.32 L (4.30-5.90) m/uL Hgb 10.3 L (13.0-17.5) gm/dL Hct 31.0 L (39.0-53.0) % Plt Count 148 L (150-450) k/uL Neutrophils # (1.3-7.7) k/uL Lymphocytes # (1.0-4.8) k/uL INR (<1.2) APTT (22.0-30.0) sec ABG pH 7.34 L (7.35-7.45) ABG pO2 >420 H 208 H (83-108) mmHg ABG Total CO2 (19-24) mmol/L ABG O2 Saturation 100.0 H 99.7 H (94-97) % ABG Hematocrit 28 L 27 L (34.0-46.0) % ABG Potassium (3.4-4.5) mmol/L ABG Ionized Calcium 4.3 L 4.4 L (4.5-5.3) mg/dL ABG Glucose 217 H 190 H (75-99) mg/dL ABG Lactic Acid 1.8 H 2.0 H (0.5-1.6) mmol/L Hemoglobin 9.2 L 8.7 L (13.0-17.5) gm/dL Chloride (98-107) mmol/L Glucose (74-99) mg/dL POC Glucose (mg/dL) (75-99) mg/dL Calcium (8.4-10.2) mg/dL Ionized Calcium Aleyda (4.5-5.3) mg/dL Magnesium (1.6-2.3) mg/dL Alkaline Phosphatase (38-126) U/L Total Protein (6.3-8.2) g/dL Albumin (3.5-5.0) g/dL Arterial Blood Potassium (3.4-4.5) mmol/L Arterial Blood Glucose 217 H 190 H (75-99) mg/dL Crossmatch 02/12/19 02/12/19 02/12/19 Range/Units 15:30 15:30 15:35 RBC (4.30-5.90) m/uL Hgb (13.0-17.5) gm/dL Hct (39.0-53.0) % Plt Count (150-450) k/uL Neutrophils # (1.3-7.7) k/uL Lymphocytes # (1.0-4.8) k/uL INR 1.2 H (<1.2) APTT 30.4 H (22.0-30.0) sec ABG pH (7.35-7.45) ABG pO2 (83-108) mmHg ABG Total CO2 (19-24) mmol/L ABG O2 Saturation (94-97) % ABG Hematocrit (34.0-46.0) % ABG Potassium (3.4-4.5) mmol/L ABG Ionized Calcium (4.5-5.3) mg/dL ABG Glucose (75-99) mg/dL ABG Lactic Acid (0.5-1.6) mmol/L Hemoglobin (13.0-17.5) gm/dL Chloride 112 H (98-107) mmol/L Glucose 103 H (74-99) mg/dL POC Glucose (mg/dL) 109 H (75-99) mg/dL Calcium (8.4-10.2) mg/dL Ionized Calcium Aleyda 5.4 H (4.5-5.3) mg/dL Magnesium 2.6 H (1.6-2.3) mg/dL Alkaline Phosphatase 30 L (38-126) U/L Total Protein 4.2 L (6.3-8.2) g/dL Albumin 2.5 L (3.5-5.0) g/dL Arterial Blood Potassium (3.4-4.5) mmol/L Arterial Blood Glucose (75-99) mg/dL Crossmatch 02/12/19 02/12/19 02/12/19 Range/Units 16:02 18:14 18:26 RBC 3.53 L (4.30-5.90) m/uL Hgb 10.9 L (13.0-17.5) gm/dL Hct 32.7 L (39.0-53.0) % Plt Count 147 L (150-450) k/uL Neutrophils # (1.3-7.7) k/uL Lymphocytes # 0.8 L (1.0-4.8) k/uL INR (<1.2) APTT (22.0-30.0) sec ABG pH (7.35-7.45) ABG pO2 393 H (83-108) mmHg ABG Total CO2 25 H (19-24) mmol/L ABG O2 Saturation 99.6 H (94-97) % ABG Hematocrit (34.0-46.0) % ABG Potassium (3.4-4.5) mmol/L ABG Ionized Calcium (4.5-5.3) mg/dL ABG Glucose (75-99) mg/dL ABG Lactic Acid (0.5-1.6) mmol/L Hemoglobin (13.0-17.5) gm/dL Chloride (98-107) mmol/L Glucose (74-99) mg/dL POC Glucose (mg/dL) 115 H (75-99) mg/dL Calcium (8.4-10.2) mg/dL Ionized Calcium Aleyda (4.5-5.3) mg/dL Magnesium (1.6-2.3) mg/dL Alkaline Phosphatase (38-126) U/L Total Protein (6.3-8.2) g/dL Albumin (3.5-5.0) g/dL Arterial Blood Potassium (3.4-4.5) mmol/L Arterial Blood Glucose (75-99) mg/dL Crossmatch 02/12/19 02/12/19 02/12/19 Range/Units 19:08 20:04 20:57 RBC 3.68 L (4.30-5.90) m/uL Hgb 11.6 L (13.0-17.5) gm/dL Hct 33.7 L (39.0-53.0) % Plt Count (150-450) k/uL Neutrophils # 8.0 H (1.3-7.7) k/uL Lymphocytes # 0.9 L (1.0-4.8) k/uL INR (<1.2) APTT (22.0-30.0) sec ABG pH (7.35-7.45) ABG pO2 (83-108) mmHg ABG Total CO2 (19-24) mmol/L ABG O2 Saturation (94-97) % ABG Hematocrit (34.0-46.0) % ABG Potassium (3.4-4.5) mmol/L ABG Ionized Calcium (4.5-5.3) mg/dL ABG Glucose (75-99) mg/dL ABG Lactic Acid (0.5-1.6) mmol/L Hemoglobin (13.0-17.5) gm/dL Chloride (98-107) mmol/L Glucose (74-99) mg/dL POC Glucose (mg/dL) 136 H 191 H (75-99) mg/dL Calcium (8.4-10.2) mg/dL Ionized Calcium Aleyda (4.5-5.3) mg/dL Magnesium (1.6-2.3) mg/dL Alkaline Phosphatase (38-126) U/L Total Protein (6.3-8.2) g/dL Albumin (3.5-5.0) g/dL Arterial Blood Potassium (3.4-4.5) mmol/L Arterial Blood Glucose (75-99) mg/dL Crossmatch 02/12/19 02/12/19 02/12/19 Range/Units 20:58 22:07 22:55 RBC (4.30-5.90) m/uL Hgb (13.0-17.5) gm/dL Hct (39.0-53.0) % Plt Count (150-450) k/uL Neutrophils # (1.3-7.7) k/uL Lymphocytes # (1.0-4.8) k/uL INR (<1.2) APTT (22.0-30.0) sec ABG pH (7.35-7.45) ABG pO2 (83-108) mmHg ABG Total CO2 (19-24) mmol/L ABG O2 Saturation (94-97) % ABG Hematocrit (34.0-46.0) % ABG Potassium (3.4-4.5) mmol/L ABG Ionized Calcium (4.5-5.3) mg/dL ABG Glucose (75-99) mg/dL ABG Lactic Acid (0.5-1.6) mmol/L Hemoglobin (13.0-17.5) gm/dL Chloride (98-107) mmol/L Glucose (74-99) mg/dL POC Glucose (mg/dL) 191 H 171 H 159 H (75-99) mg/dL Calcium (8.4-10.2) mg/dL Ionized Calcium Aleyda (4.5-5.3) mg/dL Magnesium (1.6-2.3) mg/dL Alkaline Phosphatase (38-126) U/L Total Protein (6.3-8.2) g/dL Albumin (3.5-5.0) g/dL Arterial Blood Potassium (3.4-4.5) mmol/L Arterial Blood Glucose (75-99) mg/dL Crossmatch 02/13/19 02/13/19 02/13/19 Range/Units 00:11 01:10 02:12 RBC (4.30-5.90) m/uL Hgb (13.0-17.5) gm/dL Hct (39.0-53.0) % Plt Count (150-450) k/uL Neutrophils # (1.3-7.7) k/uL Lymphocytes # (1.0-4.8) k/uL INR (<1.2) APTT (22.0-30.0) sec ABG pH (7.35-7.45) ABG pO2 (83-108) mmHg ABG Total CO2 (19-24) mmol/L ABG O2 Saturation (94-97) % ABG Hematocrit (34.0-46.0) % ABG Potassium (3.4-4.5) mmol/L ABG Ionized Calcium (4.5-5.3) mg/dL ABG Glucose (75-99) mg/dL ABG Lactic Acid (0.5-1.6) mmol/L Hemoglobin (13.0-17.5) gm/dL Chloride (98-107) mmol/L Glucose (74-99) mg/dL POC Glucose (mg/dL) 130 H 114 H 123 H (75-99) mg/dL Calcium (8.4-10.2) mg/dL Ionized Calcium Aleyda (4.5-5.3) mg/dL Magnesium (1.6-2.3) mg/dL Alkaline Phosphatase (38-126) U/L Total Protein (6.3-8.2) g/dL Albumin (3.5-5.0) g/dL Arterial Blood Potassium (3.4-4.5) mmol/L Arterial Blood Glucose (75-99) mg/dL Crossmatch 02/13/19 02/13/19 02/13/19 Range/Units 03:16 04:16 04:18 RBC 3.05 L (4.30-5.90) m/uL Hgb 9.3 L D (13.0-17.5) gm/dL Hct 28.4 L (39.0-53.0) % Plt Count 136 L (150-450) k/uL Neutrophils # (1.3-7.7) k/uL Lymphocytes # 0.6 L (1.0-4.8) k/uL INR (<1.2) APTT (22.0-30.0) sec ABG pH (7.35-7.45) ABG pO2 (83-108) mmHg ABG Total CO2 (19-24) mmol/L ABG O2 Saturation (94-97) % ABG Hematocrit (34.0-46.0) % ABG Potassium (3.4-4.5) mmol/L ABG Ionized Calcium (4.5-5.3) mg/dL ABG Glucose (75-99) mg/dL ABG Lactic Acid (0.5-1.6) mmol/L Hemoglobin (13.0-17.5) gm/dL Chloride (98-107) mmol/L Glucose (74-99) mg/dL POC Glucose (mg/dL) 142 H 160 H (75-99) mg/dL Calcium (8.4-10.2) mg/dL Ionized Calcium Aleyda (4.5-5.3) mg/dL Magnesium (1.6-2.3) mg/dL Alkaline Phosphatase (38-126) U/L Total Protein (6.3-8.2) g/dL Albumin (3.5-5.0) g/dL Arterial Blood Potassium (3.4-4.5) mmol/L Arterial Blood Glucose (75-99) mg/dL Crossmatch 02/13/19 02/13/19 02/13/19 Range/Units 04:18 05:14 06:16 RBC (4.30-5.90) m/uL Hgb (13.0-17.5) gm/dL Hct (39.0-53.0) % Plt Count (150-450) k/uL Neutrophils # (1.3-7.7) k/uL Lymphocytes # (1.0-4.8) k/uL INR (<1.2) APTT (22.0-30.0) sec ABG pH (7.35-7.45) ABG pO2 (83-108) mmHg ABG Total CO2 (19-24) mmol/L ABG O2 Saturation (94-97) % ABG Hematocrit (34.0-46.0) % ABG Potassium (3.4-4.5) mmol/L ABG Ionized Calcium (4.5-5.3) mg/dL ABG Glucose (75-99) mg/dL ABG Lactic Acid (0.5-1.6) mmol/L Hemoglobin (13.0-17.5) gm/dL Chloride 110 H (98-107) mmol/L Glucose 146 H (74-99) mg/dL POC Glucose (mg/dL) 163 H 144 H (75-99) mg/dL Calcium 8.2 L (8.4-10.2) mg/dL Ionized Calcium Aleyda (4.5-5.3) mg/dL Magnesium (1.6-2.3) mg/dL Alkaline Phosphatase 34 L (38-126) U/L Total Protein 4.9 L (6.3-8.2) g/dL Albumin 3.3 L (3.5-5.0) g/dL Arterial Blood Potassium (3.4-4.5) mmol/L Arterial Blood Glucose (75-99) mg/dL Crossmatch 02/13/19 02/13/19 02/13/19 Range/Units 07:25 08:31 10:10 RBC (4.30-5.90) m/uL Hgb (13.0-17.5) gm/dL Hct (39.0-53.0) % Plt Count (150-450) k/uL Neutrophils # (1.3-7.7) k/uL Lymphocytes # (1.0-4.8) k/uL INR (<1.2) APTT (22.0-30.0) sec ABG pH (7.35-7.45) ABG pO2 (83-108) mmHg ABG Total CO2 (19-24) mmol/L ABG O2 Saturation (94-97) % ABG Hematocrit (34.0-46.0) % ABG Potassium (3.4-4.5) mmol/L ABG Ionized Calcium (4.5-5.3) mg/dL ABG Glucose (75-99) mg/dL ABG Lactic Acid (0.5-1.6) mmol/L Hemoglobin (13.0-17.5) gm/dL Chloride (98-107) mmol/L Glucose (74-99) mg/dL POC Glucose (mg/dL) 119 H 101 H 112 H (75-99) mg/dL Calcium (8.4-10.2) mg/dL Ionized Calcium Aleyda (4.5-5.3) mg/dL Magnesium (1.6-2.3) mg/dL Alkaline Phosphatase (38-126) U/L Total Protein (6.3-8.2) g/dL Albumin (3.5-5.0) g/dL Arterial Blood Potassium (3.4-4.5) mmol/L Arterial Blood Glucose (75-99) mg/dL Crossmatch Assessment and Plan Assessment: #1 Coronary artery disease status post coronary artery bypass grafting utilizing a PLUMMER to the LAD, left radial artery to the OM1, saphenous vein graft to the PDA. Postoperative day #1 #2 extubated early this morning and tolerated the extubation well. #3 Diabetes mellitus. #4 Hypertension, history of. #5 Hyperlipidemia. #6 Previous history of chronic tobacco dependence. Plan: Continue aspirin statins and Plavix beta blockers Wean O2 as tolerated. Continue incentive spirometry. Continue bronchodilators. Increase activity as tolerated Monitor daily x-rays and labs Continue to monitor sugars and address accordingly with insulin Discontinue Marcus-Ashu catheter We'll continue to follow. Time with Patient: Less than 30
[2019-02-13 11:58] LABS: Glucose,Whole Blood 138 mg/dL (75-99)
[2019-02-13] MEDS: INSULIN ASPART (NovoLOG) 100 UNIT/ML VIAL SQ SCH ×3 (12:16→21:04)
--- NOTE | 2019-02-13 15:05 | P.ARTDOP ---
Arterial Doppler LOWER EXTREMITY ARTERIAL DOPPLER: DATE OF SERVICE: 02/09/2019 Reason for study: Preop CABG. Doppler waveforms: Multiphasic bilaterally throughout. Pulse volume recording: []. Pressure gradients: None. Ankle-brachial indices: Greater than 1 bilaterally. Toe pressures: [] on the right, [] on the left Impression: Normal study.
[2019-02-13] MEDS ORDERED: HYDROcodone/APAP 5-325MG 1 EACH TAB PO PRN (15:08)
--- NOTE | 2019-02-13 15:08 | P.ARTDOP ---
Arterial Doppler Bilateral radial artery studies: Date of study: 02/09/2019 Reason for study: Preop CABG Doppler assessment with segmental pressures shows no significant right to left or segmental pressure gradient Digital plethysmography with radial artery compression shows no significant pressure change Imaging shows the right radial to very between 5.8 x 3.6 distally and 6.6 x 5.2 proximally. The left radial is 3.6 x 3.6 distally and 3.6 x 3.5 proximally. Impression: Both radial arteries are usable. Left is probably the most suitable size.
[2019-02-13] MEDS ORDERED: MAGNESIUM HYDROXIDE 2,400 MG/10 ML CUP PO PRN (15:09)
[2019-02-13] MEDS ORDERED: BISACODYL 10 MG SUPP RECTAL PRN (15:09)
--- NOTE | 2019-02-13 15:10 | P.VSCSTY ---
Greater Saphenous Vein Mapping This is bilateral lower extremity greater saphenous vein mapping. Date of service 02/09/2019 Vein quality and ultrasound appearance no endoluminal thrombus or wall changes are seen. Vein size groin right 7.7 x 7.3 groin left 5.6 x 6.1 High thigh right 3.2 x 3.7 high thigh left 3.6 x 3.2 Mid thigh right 2.5 x 2.5 mid thigh left 3.8 x 3.9 Above-knee right 2.2 x 2.2 above- knee left 3.4 x 2.7 Below knee right 2.8 x 2.6 below-knee left 2.8 x 2.1 Mid calf right 2.6 x 1.9 mid calf left 2.2 x 1.5 Ankle right 2.4 x 1.7 ankle left 3.4 x 2.8 Impression usable bilateral greater saphenous vein. The left is probably more consistent usable size..
[2019-02-13] MEDS ORDERED: SIMETHICONE 80 MG CHEWABLE PO PRN (17:22)
[2019-02-13 17:46] LABS: Glucose,Whole Blood 181 mg/dL (75-99)
--- NOTE | 2019-02-13 17:49 | PN ---
PROGRESS NOTE DATE OF SERVICE: 02/13/2019 This 68-year-old gentleman who was admitted after CAD, CABG, has improved significantly. The blood sugar is well controlled. Insulin drip has been discontinued. No chest pain. No palpitations. No fever. On exam, alert and oriented x3. Pulse is 87, blood pressure 124/64, respiration 12, temperature normal, pulse ox 93% on room air. HEENT: Conjunctivae normal. NECK: No jugular venous distention. CARDIOVASCULAR SYSTEM: S1, S2 muffled. RESPIRATORY SYSTEM: Breath sounds diminished at the bases. A few scattered rhonchi. ABDOMEN: Soft, non-tender. Chest tubes in situ. LEGS: No edema. No swelling. NERVOUS SYSTEM: No focal deficit. LABS: Accu-Cheks 112, 138. ASSESSMENT: 1. Coronary artery disease, status post coronary artery bypass grafting for 3-vessel coronary artery disease with PLUMMER to LAD, left radial artery to OM and SVG to PDA. 2. Diabetes mellitus, type 2. 3. Hypertension. 4. Hyperlipidemia. 5. History of tonsillectomy. 6. Remote history of nicotine dependence. RECOMMENDATIONS AND DISCUSSION: I recommend to continue current medications, continue with the monitoring, symptomatic treatment. Continue with insulin scale and DVT prophylaxis. Closely follow. Incentive spirometry. Further recommendations to follow. MMODL / IJN: [id number] /
[2019-02-13] MEDS: LACTATED RINGERS 1,000 ML IV SCH (17:52)
[2019-02-13] MEDS: SENNOSIDES-DOCUSATE SODIUM 1 EACH TAB PO SCH (20:24)
[2019-02-13] MEDS: HYDROcodone/APAP 5-325MG 1 EACH TAB PO PRN (20:24)
[2019-02-13 21:26] LABS: Glucose,Whole Blood 282 mg/dL (75-99)
[2019-02-13 23:32] LABS: Glucose,Whole Blood 223 mg/dL (75-99)
[2019-02-14 01:34] LABS: Glucose,Whole Blood 192 mg/dL (75-99)
[2019-02-14] MEDS: INSULIN ASPART (NovoLOG) 100 UNIT/ML VIAL SQ SCH ×5 (01:36→20:55)
[2019-02-14] MEDS: HYDROcodone/APAP 5-325MG 1 EACH TAB PO PRN (04:07)
[2019-02-14 05:26] LABS: Basophils % (A) 0 %; Eosinophils % (A) 1 %; HCT 28.5 % (39.0-53.0); HGB 9.6 gm/dL (13.0-17.5); Lymphocytes % (A) 16 %; MCH 31.2 pg (25.0-35.0); MCHC 33.7 g/dL (31.0-37.0); MCV 92.7 fL (80.0-100.0); Mean Platelet Volume 8.2; Monocytes # (A) 0.5 k/uL (0-1.0); Monocytes % (A) 8 %; Neutrophils # (A) 4.5 k/uL (1.3-7.7); Neutrophils % (A) 73 %; Platelet Count 145 k/uL (150-450); RBC 3.07 m/uL (4.30-5.90); RDW 13.8 % (11.5-15.5); WBC 6.2 k/uL (3.8-10.6)
[2019-02-14] MEDS: KETOROLAC 30 MG/ML 1 ML VIAL IVP SCH ×3 (05:52→17:36)
[2019-02-14 05:55] LABS: ALT 26 U/L (21-72); AST 24 U/L (17-59); Albumin 3.4 g/dL (3.5-5.0); Alkaline Phosphatase 41 U/L (38-126); Anion Gap 5 mmol/L; Blood Urea Nitrogen 20 mg/dL (9-20); Calcium 8.7 mg/dL (8.4-10.2); Carbon Dioxide 24 mmol/L (22-30); Chloride 108 mmol/L (98-107); Glucose 147 mg/dL (74-99); Potassium 4.1 mmol/L (3.5-5.1); Sodium 137 mmol/L (137-145); Total Bilirubin 0.6 mg/dL (0.2-1.3); Total Protein 5.3 g/dL (6.3-8.2)
[2019-02-14 06:01] LABS: Glucose,Whole Blood 163 mg/dL (75-99)
[2019-02-14] MEDS: PANTOPRAZOLE 40 MG TABLET PO SCH (06:07)
--- NOTE | 2019-02-14 07:18 | P.PN ---
Subjective Progress Note Date: 02/14/19 Principal diagnosis: Unstable angina This is a pleasant 68-year-old gentleman who was seen by Dr. Malloy in the office yesterday where he was experiencing chest discomfort concerning for angina. Subsequently he underwent a heart catheterization yesterday which revealed severe triple-vessel coronary artery disease was extremely calcified right and left coronary systems. The patient underwent coronary artery bypass grafting where he received PLUMMER to LAD, left radial artery to OM, and SVG to PDA. On follow-up with him today, February 142018, overall clinically he is doing good. He continues to be in normal sinus mechanism. He is hypertensive and tachycardic and I suggested increasing the dose of metoprolol. Beside that she continues to be on dual antiplatelet therapy as well as a statin. He is also on calcium channel nayeli with amlodipine for the radial graft. Objective - Vital Signs Vital signs: Vital Signs Temp 98.3 F 02/14/19 04:00 Pulse 109 H 02/14/19 07:00 Resp 12 02/14/19 07:00 BP 145/80 02/14/19 07:00 Pulse Ox 93 L 02/14/19 07:00 Intake & Output 02/13/19 02/14/19 02/14/19 18:59 06:59 18:59 Intake Total 1512.583 512 26 Output Total 535 560 140 Balance 977.583 -48 -114 Weight 87.4 kg 89.8 kg Intake: IV 1257.0 312 26 Albumin Human 5% 250 ml 750 In Empty Bag 1 bag @ 250 mls/hr IVPB Q1HR PRN Rx#: [id number] CO/CI Injectate 50 Lactated Ringers 1,000 ml 370 240 20 @ 20 mls/hr IV .Q24H ALFONSO Rx#:[id number] Nitro 6.0 Pressure Bag 81 72 6 Intake, IV Titration 5.583 Amount Insulin Regular 100 unit 5.583 In Sodium Chloride 0.9% 100 ml @ Titrate IV .Q0M ALFONSO Rx#:[id number] Oral 250 200 Output: Chest Tube Drainage 170 105 65 Bilateral Mediastinal 130 80 20 Chest Tube Left Lateral 40 25 45 Chest Drainage 25 25 Left Calf 15 10 Left Wrist 10 15 Urine 340 430 75 Other: Voiding Method Indwelling Catheter Indwelling Catheter ABP, PAP, CO, CI - Last Documented Arterial Blood Pressure 154/61 Pulmonary Artery Pressure 28/18 Cardiac Output 4.2 Cardiac Index 2.2 - Constitutional General appearance: Present: no acute distress - Respiratory Respiratory: bilateral: CTA - Cardiovascular Rhythm: regular Heart sounds: normal: S1, S2 - Labs CBC & Chem 7: 02/14/19 05:10 02/14/19 05:10 Labs: Abnormal Lab Results - Last 24 Hours (Table) 02/13/19 02/13/19 02/13/19 Range/Units 07:25 08:31 10:10 RBC (4.30-5.90) m/uL Hgb (13.0-17.5) gm/dL Hct (39.0-53.0) % Plt Count (150-450) k/uL Chloride (98-107) mmol/L Glucose (74-99) mg/dL POC Glucose (mg/dL) 119 H 101 H 112 H (75-99) mg/dL Total Protein (6.3-8.2) g/dL Albumin (3.5-5.0) g/dL 02/13/19 02/13/19 02/13/19 Range/Units 11:55 17:42 21:00 RBC (4.30-5.90) m/uL Hgb (13.0-17.5) gm/dL Hct (39.0-53.0) % Plt Count (150-450) k/uL Chloride (98-107) mmol/L Glucose (74-99) mg/dL POC Glucose (mg/dL) 138 H 181 H 282 H (75-99) mg/dL Total Protein (6.3-8.2) g/dL Albumin (3.5-5.0) g/dL 02/13/19 02/14/19 02/14/19 Range/Units 23:29 01:30 05:10 RBC 3.07 L (4.30-5.90) m/uL Hgb 9.6 L (13.0-17.5) gm/dL Hct 28.5 L (39.0-53.0) % Plt Count 145 L (150-450) k/uL Chloride (98-107) mmol/L Glucose (74-99) mg/dL POC Glucose (mg/dL) 223 H 192 H (75-99) mg/dL Total Protein (6.3-8.2) g/dL Albumin (3.5-5.0) g/dL 02/14/19 02/14/19 Range/Units 05:10 05:57 RBC (4.30-5.90) m/uL Hgb (13.0-17.5) gm/dL Hct (39.0-53.0) % Plt Count (150-450) k/uL Chloride 108 H (98-107) mmol/L Glucose 147 H (74-99) mg/dL POC Glucose (mg/dL) 163 H (75-99) mg/dL Total Protein 5.3 L (6.3-8.2) g/dL Albumin 3.4 L (3.5-5.0) g/dL Assessment and Plan Assessment: Assessment #1 unstable angina #2 severe triple-vessel coronary artery disease and status post CABG #3 mildly impaired LV function Plan #1 continue the current medical regimen including dual antiplatelet therapy and statin #2 I suggested increase the dose of metoprolol for better control of blood pressure and heart rate #3 follow-up with the patient
[2019-02-14] MEDS ORDERED: HYDROcodone/APAP 7.5-325MG 1 EACH TAB PO PRN (07:34)
[2019-02-14] MEDS: ATORVASTATIN 80 MG TAB PO SCH (08:10)
[2019-02-14] MEDS: HYDROcodone/APAP 7.5-325MG 1 EACH TAB PO PRN ×3 (08:10→17:43)
[2019-02-14] MEDS: ASPIRIN 325 MG TAB PO SCH (08:10)
[2019-02-14] MEDS: HEPARIN SODIUM,PORCINE 5,000 UNIT/ML 1 ML VIAL SQ SCH ×2 (08:11→17:37)
[2019-02-14] MEDS: METOPROLOL TARTRATE 25 MG TAB PO SCH ×2 (08:11→20:55)
[2019-02-14] MEDS: MUPIROCIN 2% OINT 22 GM TUBE NASAL SCH ×2 (08:11→20:56)
[2019-02-14] MEDS: CLOPIDOGREL 75 MG TAB PO SCH (08:11)
--- NOTE | 2019-02-14 08:18 | XR ---
EXAMINATION TYPE: XR chest 1V portable DATE OF EXAM: 02/14/2019 Comparison: 02/13/2019 Clinical History: 68-year-old male Post Operative Cardiac Surgery Findings: Median sternotomy wires and post-CABG clips in the mediastinum. Right IJ sheath remains in place. Med iastinal drains and left basilar chest tube are present. No appreciable pneumothorax. Heart remains b orderline enlarged. Patchy bibasilar densities remain. Trace left pleural effusion. Impression: Patchy bibasilar atelectasis and a trace left effusion persists.
[2019-02-14] MEDS: IPRATROPIUM-ALBUTEROL 3 ML NEB INHALATION SCH ×4 (08:46→19:21)
--- NOTE | 2019-02-14 11:09 | P.PN ---
Subjective Progress Note Date: 02/14/19 Principal diagnosis: Status post CABG, postoperative day #2 68-year-old male patient a primary of Dr. Cuellar is known to have history of diabetes, hypertension and hyperlipidemia and a previous smoker. He has been going to his primary care physician because of chest pain and shortness of breath for several months. Eventually was seen by cardiology and an echocardiogram was done and it showed inferior apical hypokinesis with an ejection fraction of 40%. EKG showed no acute ischemic changes. The patient had a cardiac catheterization for these symptoms and the patient was noted to have some limited elevation of the troponin consistent with non-STEMI. The cardiac catheterization was done and showed distal left main stenosis 70%, proximal LAD stenosis 70%, ostial circumflex stenosis 99% and a mid up to his marginal branch 70% lesion in addition to distal RCA stenosis of 99%. LV angiogram revealed mild anterior and apical hypokinesis with an ejection fraction of 45%. The patient is currently awaiting cardiac bypass surgery and the patient will be undergoing his surgery on Monday. This will be done next week. The patient is currently free of any chest pain. His resting comfortably in bed. He is taking aspirin.. He has no shortness of breath. No cough sputum production chest tightness or wheezing. His preop FEV1 is no other of 75% of predicted. The patient's chest x-ray shows no acute abnormalities in the lungs in the process of clear. 02/12/2019 The patient did undergo coronary artery bypass grafting surgery today utilizing a PLUMMER to the LAD, radial artery graft to the OM1, saphenous vein graft to the PDA. He is seen in the immediate postoperative period in the intensive care unit. He is intubated and on the mechanical ventilator. Current settings are SIMV mode at a rate of 12, tidal volume 500, FiO2 100% and a PEEP of 5. Arterial blood gases reveal a P O2 of 393, pCO2 41, pH 7.37. FiO2 decreased to 50%. Right-sided Davenport-Ashu catheter in place. Cardiac output 3.4. Cardiac index 1.8. CVP 14. PA pressures 30/23. Mean 25. Currently sedated with propofol at 20 mcg/kg/m. Nitroglycerin drip at 5 mg/m. Insulin drip at 1 unit per hour. Lactated Ringer's at 50 MLS per hour. Chest x-ray reviewed. Endotracheal tube will be pulled back 1.5 cm. Chest tubes in place. Initial labs are pending. 2 units of packed red blood cells are available. One unit of platelets are available. On 02/13/2019, patient is postoperative day #1. I saw this patient around 3 AM in the morning because I happened to be in the ICU, he was on Precedex, he was weaning, reviewed his weaning parameters, reviewed his tidal volumes on pressure support of 8 and CPAP, his rate was reasonable, patient was awake and responsive, hence recommended extubating the patient early this morning. Patient tolerated the extubation well, presently asymptomatic, doing fairly well with incentive spirometry. Chest x-ray showed postoperative changes, no evidence of effusions, minimal atelectasis of the left base. Hemoglobin is 9.3 all his labs were reviewed, noted to have normal electrolytes are normal renal profile On 02/14/2019, patient is postoperative day #2. Patient remains on nasal cannula, doing quite well, pulling at least 1000 mL on his incentive spirometry. Asymptomatic, chest x-ray is reassuring. Patient denies any cough wheezing or shortness of breath, he feels generally weak, and some vague chest discomfort, musculoskeletal. His metoprolol was increased for tachycardia and hypertension, remains on dual antiplatelet therapy as well as statin. He is also on amlodipine. Chest x-ray showed minimal bibasilar atelectasis and trace of left pleural effusion. Labs were reviewed relatively normal electrolytes, normal renal profile, normal CBC hemoglobin is 9.6 Objective - Vital Signs Vital signs: Vital Signs Temp 99.2 F 02/14/19 08:00 Pulse 89 02/14/19 10:00 Resp 17 02/14/19 10:00 BP 150/84 02/14/19 10:00 Pulse Ox 93 L 02/14/19 10:00 Intake & Output 02/13/19 02/14/19 02/14/19 18:59 06:59 18:59 Intake Total 1512.583 512 104 Output Total 535 560 270 Balance 977.583 -48 -166 Weight 87.4 kg 89.8 kg Intake: IV 1257.0 312 104 Albumin Human 5% 250 ml 750 In Empty Bag 1 bag @ 250 mls/hr IVPB Q1HR PRN Rx#: [id number] CO/CI Injectate 50 Lactated Ringers 1,000 ml 370 240 80 @ 20 mls/hr IV .Q24H [facility] Rx#:[id number] Nitro 6.0 Pressure Bag 81 72 24 Intake, IV Titration 5.583 Amount Insulin Regular 100 unit 5.583 In Sodium Chloride 0.9% 100 ml @ Titrate IV .Q0M [facility] Rx#:[id number] Oral 250 200 Output: Chest Tube Drainage 170 105 65 Bilateral Mediastinal 130 80 20 Chest Tube Left Lateral 40 25 45 Chest Drainage 25 25 0 Left Calf 15 10 0 Left Wrist 10 15 0 Urine 340 430 205 Other: Voiding Method Indwelling Catheter Indwelling Catheter Indwelling Catheter ABP, PAP, CO, CI - Last Documented Arterial Blood Pressure 154/61 Pulmonary Artery Pressure 28/18 Cardiac Output 4.2 Cardiac Index 2.2 - Exam GENERAL EXAM: Revealed a 68-year-old white male in no distress, on 2 L nasal cannula. HEAD: Normocephalic. EYES: PERRLA, EOMI. NOSE: Clear with pink turbinates. THROAT: Clear, no exudates.. NECK: No masses, no JVD. CHEST: Sternal dressing dry and intact. Heart however in place. Chest tubes in place. LUNGS: Diminished breath sounds at the bases no crackles or rhonchi or wheezes.. CVS: S1 and S2 normal with no audible murmur, regular rhythm. ABDOMEN: Soft. SPINE: No scoliosis or deformity SKIN: No rashes CENTRAL NERVOUS SYSTEM: Alert oriented 3, no gross focal neurologic deficit. EXTREMITIES: SCDs in place. There is trace peripheral edema. No clubbing, no cyanosis. Peripheral pulses are intact. - Labs CBC & Chem 7: 02/14/19 05:10 02/14/19 05:10 Labs: Abnormal Lab Results - Last 24 Hours (Table) 02/13/19 02/13/19 02/13/19 Range/Units 11:55 17:42 21:00 RBC (4.30-5.90) m/uL Hgb (13.0-17.5) gm/dL Hct (39.0-53.0) % Plt Count (150-450) k/uL Chloride (98-107) mmol/L Glucose (74-99) mg/dL POC Glucose (mg/dL) 138 H 181 H 282 H (75-99) mg/dL Total Protein (6.3-8.2) g/dL Albumin (3.5-5.0) g/dL 02/13/19 02/14/19 02/14/19 Range/Units 23:29 01:30 05:10 RBC 3.07 L (4.30-5.90) m/uL Hgb 9.6 L (13.0-17.5) gm/dL Hct 28.5 L (39.0-53.0) % Plt Count 145 L (150-450) k/uL Chloride (98-107) mmol/L Glucose (74-99) mg/dL POC Glucose (mg/dL) 223 H 192 H (75-99) mg/dL Total Protein (6.3-8.2) g/dL Albumin (3.5-5.0) g/dL 02/14/19 02/14/19 Range/Units 05:10 05:57 RBC (4.30-5.90) m/uL Hgb (13.0-17.5) gm/dL Hct (39.0-53.0) % Plt Count (150-450) k/uL Chloride 108 H (98-107) mmol/L Glucose 147 H (74-99) mg/dL POC Glucose (mg/dL) 163 H (75-99) mg/dL Total Protein 5.3 L (6.3-8.2) g/dL Albumin 3.4 L (3.5-5.0) g/dL Assessment and Plan Assessment: #1 Coronary artery disease status post coronary artery bypass grafting utilizing a PLUMMER to the LAD, left radial artery to the OM1, saphenous vein graft to the PDA. Postoperative day #2 #2 uneventful extubation few hours after his surgery #3 Diabetes mellitus. #4 Hypertension, history of. #5 Hyperlipidemia. #6 Previous history of chronic tobacco dependence. Plan: Continue aspirin statins and Plavix beta blockers, dose of beta blockers was increased. Wean O2 as tolerated. Continue incentive spirometry. Continue bronchodilators. Increase activity as tolerated Monitor daily x-rays and labs Continue to monitor sugars and address accordingly with insulin We'll continue to follow. Significant improvement in the last couple of days noted. Time with Patient: Less than 30
--- NOTE | 2019-02-14 12:03 | P.PN ---
Subjective Progress Note Date: 02/14/19 Principal diagnosis: Severe triple-vessel diffuse coronary artery disease, non-STEMI, preserved left ventricular dysfunction. Previous medical history of hypertension, hyperlipide jelena, uncontrolled type 2 diabetes mellitus with hemoglobin A1c 7.1%, and previous tobacco dependence with FEV1 75% of predicted. POD #2 triple coronary artery bypass grafting using the left internal mammary artery to the left anterior descending artery, left radial artery from the aorta to the first obtuse marginal artery, reverse saphenous vein graft from the aorta to the posterior descending artery. Endoscopic harvesting of the left radial artery. Endoscopic harvesting of the left greater saphenous vein from the groin to the mid lower leg level. Intraoperative transesophageal echocardiogram and epi-aortic scanning. Intraoperative graft flow measurements using the [employer] system. Postoperative acute blood loss anemia, expected outcome given cardiopulmonary bypass pump and hemodilution The patient's currently sitting up in a recliner in the intensive care unit in no acute distress. Does complain of post surgical pain, not quite controlled on current medication regimen, denies shortness of breath. Remains in normal sinus rhythm. Hemodynamically stable on no inotropes or pressors. No other complaints. Objective - Vital Signs Vital signs: Vital Signs Temp 99.2 F 02/14/19 08:00 Pulse 89 02/14/19 10:00 Resp 17 02/14/19 10:00 BP 150/84 02/14/19 10:00 Pulse Ox 93 L 02/14/19 10:00 Intake & Output 02/13/19 02/14/19 02/14/19 18:59 06:59 18:59 Intake Total 1512.583 512 104 Output Total 535 560 270 Balance 977.583 -48 -166 Weight 87.4 kg 89.8 kg Intake: IV 1257.0 312 104 Albumin Human 5% 250 ml 750 In Empty Bag 1 bag @ 250 mls/hr IVPB Q1HR PRN Rx#: [id number] CO/CI Injectate 50 Lactated Ringers 1,000 ml 370 240 80 @ 20 mls/hr IV .Q24H [facility] Rx#:[id number] Nitro 6.0 Pressure Bag 81 72 24 Intake, IV Titration 5.583 Amount Insulin Regular 100 unit 5.583 In Sodium Chloride 0.9% 100 ml @ Titrate IV .Q0M [facility] Rx#:[id number] Oral 250 200 Output: Chest Tube Drainage 170 105 65 Bilateral Mediastinal 130 80 20 Chest Tube Left Lateral 40 25 45 Chest Drainage 25 25 0 Left Calf 15 10 0 Left Wrist 10 15 0 Urine 340 430 205 Other: Voiding Method Indwelling Catheter Indwelling Catheter Indwelling Catheter ABP, PAP, CO, CI - Last Documented Arterial Blood Pressure 154/61 Pulmonary Artery Pressure 28/18 Cardiac Output 4.2 Cardiac Index 2.2 - Constitutional General appearance: Present: cooperative, no acute distress, obese - Respiratory Details: Lungs sounds diminished bilaterally. Respirations even, nonlabored. Currently on room air with oxygen saturation 93%. Able to achieve 500 mL on his incentive spirometry. Strong cough. Mediastinal chest tube to continuous wall suction, 80 mL serous drainage overnight 250mL in the last 24 hours. Left pleural chest tube to continuous wall suction, 25 mL serous drainage overnight, 150 mL in the last 24 hours. No air leaks present. - Cardiovascular Details: S1, S2 present. Regular rate and rhythm, sinus rhythm on telemetry. Sternum stable. A/V epicardial epicardial pacemaker wires present, connected to generator, VVI mode with backup rate 60 bpm. Palpable peripheral pulses bilaterally. No edema present. No calf pain or tenderness noted. Right internal jugular Cordis, right radial arterial line present. Heart hugger in place with patient demonstrating appropriate use. Antiembolism stockings, SCDs present. - Gastrointestinal Gastrointestinal Comment(s): Abdomen soft, nontender, nondistended. Active bowel sounds present 4 quadrants. Tolerating diet. Positive flatus, negative bowel movement. - Genitourinary Genitourinary Comment(s): Li present draining clear, yellow urine. Output 30-50 mL per hour overnight. - Integumentary Integumentary Comment(s): Skin is warm and dry with evidence of good perfusion. Anterior chest incision well approximated and covered with dry intact dressing. Left radial arterial harvest site well approximated, ARIANE drain present with minimal drainage. Left lower extremity EVH site well approximated, ARIANE drain present with minimal drainage. - Neurologic Neurologic: Present: CNII-XII intact - Musculoskeletal Musculoskeletal: Present: gait normal, strength equal bilaterally - Psychiatric Psychiatric: Present: A&O x's 3, appropriate affect, intact judgment & insight - Allied health notes Allied health notes reviewed: nursing - Labs CBC & Chem 7: 02/14/19 05:10 02/14/19 05:10 Labs: Abnormal Lab Results - Last 24 Hours (Table) 02/13/19 02/13/19 02/13/19 Range/Units 11:55 17:42 21:00 RBC (4.30-5.90) m/uL Hgb (13.0-17.5) gm/dL Hct (39.0-53.0) % Plt Count (150-450) k/uL Chloride (98-107) mmol/L Glucose (74-99) mg/dL POC Glucose (mg/dL) 138 H 181 H 282 H (75-99) mg/dL Total Protein (6.3-8.2) g/dL Albumin (3.5-5.0) g/dL 02/13/19 02/14/19 02/14/19 Range/Units 23:29 01:30 05:10 RBC 3.07 L (4.30-5.90) m/uL Hgb 9.6 L (13.0-17.5) gm/dL Hct 28.5 L (39.0-53.0) % Plt Count 145 L (150-450) k/uL Chloride (98-107) mmol/L Glucose (74-99) mg/dL POC Glucose (mg/dL) 223 H 192 H (75-99) mg/dL Total Protein (6.3-8.2) g/dL Albumin (3.5-5.0) g/dL 02/14/19 02/14/19 Range/Units 05:10 05:57 RBC (4.30-5.90) m/uL Hgb (13.0-17.5) gm/dL Hct (39.0-53.0) % Plt Count (150-450) k/uL Chloride 108 H (98-107) mmol/L Glucose 147 H (74-99) mg/dL POC Glucose (mg/dL) 163 H (75-99) mg/dL Total Protein 5.3 L (6.3-8.2) g/dL Albumin 3.4 L (3.5-5.0) g/dL - Imaging and Cardiology Chest x-ray: report reviewed, image reviewed Assessment and Plan Assessment: 1. Severe diffusely calcified triple-vessel coronary artery disease with left main disease, status post coronary artery bypass surgery 2. Non-STEMI 3. Hypertension 4. Hyperlipidemia 5. Uncontrolled type 2 diabetes mellitus with preoperative hemoglobin A1c 7.1% 6. Previous tobacco dependence with FEV1 75% of predicted 7. Postoperative acute blood loss anemia, expected Plan: 1. Continue aspirin, statin, Plavix, beta nayeli therapy. Will increase beta nayeli therapy as tolerated, increased to 25 mg twice daily today. 2. Continue Norvasc for radial artery spasm. 3. Encourage incentive spirometry use 10 times every hour while awake. 4. Increase activity as tolerated. PT/OT/cardiac rehab following. 5. Will monitor daily labs and x-rays. Electrolyte replacement per protocol. No transfusion. 6. Pain control with current medication regimen. 7. Insulin management per primary care service. 8. GI/DVT prophylaxis. 9. Bronchodilators per pulmonology. 10. Mediastinal, left pleural chest tube discontinued without incident. Left radial and left EVH ARIANE drains discontinued. Epicardial pacemaker wires crowded. 11. Discontinue arterial line, Cordis, Li catheter. May straight cath for greater than 300 [address] residual[address] transfer orders for 3 S. cardiac stepdown unit. May transfer when bed available. 13. Discharge planning in progress. Anticipate discharge to home with home care in the next 48 hours. 14. More recommendations to follow Time with Patient: Greater than 30
[2019-02-14 12:22] LABS: Glucose,Whole Blood 199 mg/dL (75-99)
[2019-02-14] MEDS: amLODIPine 10 MG TAB PO SCH (13:26)
[2019-02-14 17:29] LABS: Glucose,Whole Blood 262 mg/dL (75-99)
[2019-02-14 20:49] LABS: Glucose,Whole Blood 259 mg/dL (75-99)
[2019-02-14] MEDS: SENNOSIDES-DOCUSATE SODIUM 1 EACH TAB PO SCH (20:55)
[2019-02-14] MEDS ORDERED: INSULIN DETEMIR (LEVEMIR) 100 UNIT/ML SYR SQ SCH (21:00)
[2019-02-15] MEDS: KETOROLAC 30 MG/ML 1 ML VIAL IVP SCH ×4 (00:15→17:34)
[2019-02-15] MEDS: HEPARIN SODIUM,PORCINE 5,000 UNIT/ML 1 ML VIAL SQ SCH ×3 (00:15→16:35)
[2019-02-15 04:49] LABS: HCT 28.3 % (39.0-53.0); HGB 9.4 gm/dL (13.0-17.5); MCH 30.8 pg (25.0-35.0); MCHC 33.1 g/dL (31.0-37.0); Mean Platelet Volume 7.2; Platelet Count 166 k/uL (150-450); RBC 3.04 m/uL (4.30-5.90); RDW 13.3 % (11.5-15.5); WBC 5.8 k/uL (3.8-10.6)
[2019-02-15 05:01] LABS: Anion Gap 6 mmol/L; Blood Urea Nitrogen 19 mg/dL (9-20); Calcium 8.4 mg/dL (8.4-10.2); Carbon Dioxide 25 mmol/L (22-30); Chloride 108 mmol/L (98-107); Glucose 120 mg/dL (74-99); Sodium 139 mmol/L (137-145)
--- NOTE | 2019-02-15 06:50 | P.PN ---
Subjective Progress Note Date: 02/15/19 Principal diagnosis: Unstable angina This is a pleasant 68-year-old gentleman who was seen by Dr. Malloy in the office yesterday where he was experiencing chest discomfort concerning for angina. Subsequently he underwent a heart catheterization yesterday which revealed severe triple-vessel coronary artery disease was extremely calcified right and left coronary systems. The patient underwent coronary artery bypass grafting where he received PLUMMER to LAD, left radial artery to OM, and SVG to PDA. On follow-up with the patient today, 02/15/2019, the patient is doing well cl inically. He is hemodynamically stable and as a matter of fact he is slightly tachycardic. The dose of metoprolol was increased which I would agree with. The patient possibly can be going home in the next 24 hours. He continues to be on dual antiplatelet therapy along with a statin as well as Norvasc. Objective - Vital Signs Vital signs: Vital Signs Temp 98.6 F 02/15/19 04:00 Pulse 92 02/15/19 04:00 Resp 14 02/15/19 04:00 BP 130/77 02/15/19 04:00 Pulse Ox 96 02/15/19 04:00 Intake & Output 02/14/19 02/14/19 02/15/19 06:59 18:59 06:59 Intake Total 512 444 Output Total 560 520 225 Balance -48 -76 -225 Weight 89.8 kg Intake: IV 312 144 Lactated Ringers 1,000 ml 240 120 @ 20 mls/hr IV .Q24H [facility] Rx#:[id number] Pressure Bag 72 24 Oral 200 300 Output: Chest Tube Drainage 105 65 Bilateral Mediastinal 80 20 Chest Tube Left Lateral 25 45 Chest Drainage 25 0 Left Calf 10 0 Left Wrist 15 0 Urine 430 455 225 Other: Voiding Method Indwelling Catheter Indwelling Catheter Urinal # Voids 1 ABP, PAP, CO, CI - Last Documented Arterial Blood Pressure 154/61 Pulmonary Artery Pressure 28/18 Cardiac Output 4.2 Cardiac Index 2.2 - Constitutional General appearance: Present: no acute distress - Respiratory Respiratory: bilateral: diminished - Cardiovascular Rhythm: regular Heart sounds: normal: S1, S2 - Labs CBC & Chem 7: 02/15/19 04:28 02/15/19 04:28 Labs: Abnormal Lab Results - Last 24 Hours (Table) 02/14/19 02/14/1919 Range/Units 12:18 17:27 20:45 RBC (4.30-5.90) m/uL Hgb (13.0-17.5) gm/dL Hct (39.0-53.0) % Chloride (98-107) mmol/L Glucose (74-99) mg/dL POC Glucose (mg/dL) 199 H 262 H 259 H (75-99) mg/dL 02/15/19 02/15/19 Range/Units 04:28 04:28 RBC 3.04 L (4.30-5.90) m/uL Hgb 9.4 L (13.0-17.5) gm/dL Hct 28.3 L (39.0-53.0) % Chloride 108 H (98-107) mmol/L Glucose 120 H (74-99) mg/dL POC Glucose (mg/dL) (75-99) mg/dL Assessment and Plan Assessment: Assessment #1 unstable angina #2 severe triple-vessel coronary artery disease and status post CABG #3 mildly impaired LV function Plan #1 continue the current medical regimen including dual antiplatelet therapy and statin #2 I will agree with increasing the dose of metoprolol #3 follow-up with the patient
[2019-02-15 07:03] LABS: Glucose,Whole Blood 163 mg/dL (75-99)
[2019-02-15] MEDS: IPRATROPIUM-ALBUTEROL 3 ML NEB INHALATION SCH ×4 (07:13→19:25)
[2019-02-15] MEDS: INSULIN ASPART (NovoLOG) 100 UNIT/ML VIAL SQ SCH ×7 (08:03→21:17)
--- NOTE | 2019-02-15 08:13 | XR ---
EXAMINATION TYPE: XR chest 2V DATE OF EXAM: 02/15/2019 COMPARISON: Chest x-ray from yesterday and older studies. HISTORY: Post open cardiac surgery. TECHNIQUE: Frontal and lateral views of the chest are obtained. FINDINGS: Post-CABG changes with mediastinal clips and sternal wires is redemonstrated. There is inte rval removal of right internal jugular cordis sheath. There is interval removal of left basilar chest tube. There is chronic parenchymal changes with patchy left basilar atelectasis and/or infiltrate. Right jordy ng is clear. Small bilateral pleural effusions are seen best on lateral view. The cardiac silhouette size remains enlarged. The osseous structures are intact. IMPRESSION: Interval removal of left basilar chest tube without pneumothorax. Cardiomegaly and chron ic parenchymal changes with small bilateral pleural effusions and patchy left basilar atelectasis and /or infiltrate is noted.
[2019-02-15] MEDS: HYDROcodone/APAP 7.5-325MG 1 EACH TAB PO PRN (08:32)
[2019-02-15] MEDS: ATORVASTATIN 80 MG TAB PO SCH (08:32)
[2019-02-15] MEDS: PANTOPRAZOLE 40 MG TABLET PO SCH (08:32)
[2019-02-15] MEDS: CLOPIDOGREL 75 MG TAB PO SCH (08:33)
[2019-02-15] MEDS: ASPIRIN 325 MG TAB PO SCH (08:33)
[2019-02-15] MEDS: amLODIPine 10 MG TAB PO SCH (08:33)
[2019-02-15] MEDS: METOPROLOL TARTRATE 25 MG TAB PO SCH ×3 (08:37→21:15)
[2019-02-15] MEDS: MUPIROCIN 2% OINT 22 GM TUBE NASAL SCH ×2 (08:39→21:16)
[2019-02-15] MEDS ORDERED: FUROSEMIDE 10 MG/ML 4 ML VIAL IV STA (09:02)
--- NOTE | 2019-02-15 09:17 | P.PN ---
Subjective Progress Note Date: 02/15/19 Principal diagnosis: Severe triple-vessel diffuse coronary artery disease, non-STEMI, preserved left ventricular dysfunction. Previous medical history of hypertension, hyperlipide jelena, uncontrolled type 2 diabetes mellitus with hemoglobin A1c 7.1%, and previous tobacco dependence with FEV1 75% of predicted. POD #3 triple coronary artery bypass grafting using the left internal mammary artery to the left anterior descending artery, left radial artery from the aorta to the first obtuse marginal artery, reverse saphenous vein graft from the aorta to the posterior descending artery. Endoscopic harvesting of the left radial artery. Endoscopic harvesting of the left greater saphenous vein from the groin to the mid lower leg level. Intraoperative transesophageal echocardiogram and epi-aortic scanning. Intraoperative graft flow measurements using the Nova Ratio system. Postoperative acute blood loss anemia, expected outcome given cardiopulmonary bypass pump and hemodilution The patient's currently sitting up in a recliner in the intensive care unit in no acute distress. States pain is better controlled on current medication regimen, denies shortness of breath. Remains in normal sinus rhythm. Hemodynamically stable. No other complaints. Objective - Vital Signs Vital signs: Vital Signs Temp 98 F 02/15/19 08:00 Pulse 95 02/15/19 08:00 Resp 16 02/15/19 08:00 BP 133/73 02/15/19 08:00 Pulse Ox 98 02/15/19 08:00 Intake & Output 02/14/19 02/15/19 02/15/19 18:59 06:59 18:59 Intake Total 444 Output Total 520 225 Balance -76 -225 Weight 90.2 kg Intake: IV 144 Lactated Ringers 1,000 ml 120 @ 20 mls/hr IV .Q24H [facility] Rx#:[id number] Pressure Bag 24 Oral 300 Output: Chest Tube Drainage 65 Bilateral Mediastinal 20 Chest Tube Left Lateral 45 Chest Drainage 0 Left Calf 0 Left Wrist 0 Urine 455 225 Other: Voiding Method Indwelling Catheter Urinal # Voids 1 1 ABP, PAP, CO, CI - Last Documented Arterial Blood Pressure 154/61 Pulmonary Artery Pressure 28/18 Cardiac Output 4.2 Cardiac Index 2.2 - Constitutional General appearance: Present: cooperative, no acute distress - Respiratory Details: Lungs sounds diminished bilaterally. Respirations even, nonlabored. Currently on room air with oxygen saturation 96%. Able to achieve 1250 mL on his incentive spirometry. Strong cough. - Cardiovascular Details: S1, S2 present. Regular rate and rhythm, sinus rhythm on telemetry. Sternum stable. A/V epicardial epicardial pacemaker wires present, grounded. Palpable peripheral pulses bilaterally. No edema present. No calf pain or tenderness noted. Heart hugger in place with patient demonstrating appropriate use. Antiembolism stockings, SCDs present. - Gastrointestinal Gastrointestinal Comment(s): Abdomen soft, nontender, nondistended. Active bowel sounds present 4 quadrants. Tolerating diet. Positive flatus, negative bowel movement. - Genitourinary Genitourinary Comment(s): Li discontinued yesterday. Voiding clear yellow urine, 225-250 mL at a time. - Integumentary Integumentary Comment(s): Skin is warm and dry with evidence of good perfusion. Anterior chest incision well approximated and covered with dry intact dressing. Left radial arterial harvest site well approximated. Left lower extremity EVH site well approximate d. Left hand without numbness or tingling, patient able to move fingers without difficulty, able to renewable energy consultant objects. - Neurologic Neurologic: Present: CNII-XII intact - Musculoskeletal Musculoskeletal: Present: gait normal, strength equal bilaterally - Psychiatric Psychiatric: Present: A&O x's 3, appropriate affect, intact judgment & insight - Allied health notes Allied health notes reviewed: nursing - Labs CBC & Chem 7: 02/15/19 04:28 02/15/19 04:28 Labs: Abnormal Lab Results - Last 24 Hours (Table) 02/14/19 02/14/19 02/14/19 Range/Units 12:18 17:27 20:45 RBC (4.30-5.90) m/uL Hgb (13.0-17.5) gm/dL Hct (39.0-53.0) % Chloride (98-107) mmol/L Glucose (74-99) mg/dL POC Glucose (mg/dL) 199 H 262 H 259 H (75-99) mg/dL 02/15/19 02/15/19 02/15/19 Range/Units 04:28 04:28 07:00 RBC 3.04 L (4.30-5.90) m/uL Hgb 9.4 L (13.0-17.5) gm/dL Hct 28.3 L (39.0-53.0) % Chloride 108 H (98-107) mmol/L Glucose 120 H (74-99) mg/dL POC Glucose (mg/dL) 163 H (75-99) mg/dL - Imaging and Cardiology Chest x-ray: report reviewed, image reviewed Assessment and Plan Assessment: 1. Severe diffusely calcified triple-vessel coronary artery disease with left main disease, status post coronary artery bypass surgery 2. Non-STEMI 3. Hypertension 4. Hyperlipidemia 5. Uncontrolled type 2 diabetes mellitus with preoperative hemoglobin A1c 7.1% 6. Previous tobacco dependence with FEV1 75% of predicted 7. Postoperative acute blood loss anemia, expected Plan: 1. Continue aspirin, statin, Plavix, beta nayeli therapy. Will increase beta nayeli therapy as tolerated, increased to 25 mg 3 times daily. 2. Continue Norvasc for radial artery spasm. 3. Encourage incentive spirometry use 10 times every hour while awake. 4. Increase activity as tolerated. PT/OT/cardiac rehab following. 5. Will monitor daily labs and x-rays. Electrolyte replacement per protocol. No transfusion. 6. Pain control with current medication regimen. 7. Insulin management per primary care service. 8. GI/DVT prophylaxis. 9. Bronchodilators per pulmonology. 10. Will give IV Lasix today. 11. Transfer orders placed yesterday for 3 S. cardiac stepdown unit. May transfer when bed available. 12. Discharge planning in progress. Anticipate discharge to home with home care in the next 24-48 hours. 13. More recommendations to follow Time with Patient: Greater than 30
[2019-02-15 12:02] LABS: Glucose,Whole Blood 211 mg/dL (75-99)
--- NOTE | 2019-02-15 12:14 | P.PN ---
Subjective Progress Note Date: 02/15/19 Principal diagnosis: Status post CABG, postoperative day #3 68-year-old male patient a primary of Dr. Cuellar is known to have history of diabetes, hypertension and hyperlipidemia and a previous smoker. He has been going to his primary care physician because of chest pain and shortness of breath for several months. Eventually was seen by cardiology and an echocardiogram was done and it showed inferior apical hypokinesis with an ejection fraction of 40%. EKG showed no acute ischemic changes. The patient had a cardiac catheterization for these symptoms and the patient was noted to have some limited elevation of the troponin consistent with non-STEMI. The cardiac catheterization was done and showed distal left main stenosis 70%, proximal LAD stenosis 70%, ostial circumflex stenosis 99% and a mid up to his marginal branch 70% lesion in addition to distal RCA stenosis of 99%. LV angiogram revealed mild anterior and apical hypokinesis with an ejection fraction of 45%. The patient is currently awaiting cardiac bypass surgery and the patient will be undergoing his surgery on Monday. This will be done next week. The patient is currently free of any chest pain. His resting comfortably in bed. He is taking aspirin.. He has no shortness of breath. No cough sputum production chest tightness or wheezing. His preop FEV1 is no other of 75% of predicted. The patient's chest x-ray shows no acute abnormalities in the lungs in the process of clear. 02/12/2019 The patient did undergo coronary artery bypass grafting surgery today utilizing a PLUMMER to the LAD, radial artery graft to the OM1, saphenous vein graft to the PDA. He is seen in the immediate postoperative period in the intensive care unit. He is intubated and on the mechanical ventilator. Current settings are SIMV mode at a rate of 12, tidal volume 500, FiO2 100% and a PEEP of 5. Arterial blood gases reveal a P O2 of 393, pCO2 41, pH 7.37. FiO2 decreased to 50%. Right-sided [place] catheter in place. Cardiac output 3.4. Cardiac index 1.8. CVP 14. PA pressures 30/23. Mean 25. Currently sedated with propofol at 20 mcg/kg/m. Nitroglycerin drip at 5 mg/m. Insulin drip at 1 unit per hour. Lactated Ringer's at 50 MLS per hour. Chest x-ray reviewed. Endotracheal tube will be pulled back 1.5 cm. Chest tubes in place. Initial labs are pending. 2 units of packed red blood cells are available. One unit of platelets are available. On 02/13/2019, patient is postoperative day #1. I saw this patient around 3 AM in the morning because I happened to be in the ICU, he was on Precedex, he was weaning, reviewed his weaning parameters, reviewed his tidal volumes on pressure support of 8 and CPAP, his rate was reasonable, patient was awake and responsive, hence recommended extubating the patient early this morning. Patient tolerated the extubation well, presently asymptomatic, doing fairly well with incentive spirometry. Chest x-ray showed postoperative changes, no evidence of effusions, minimal atelectasis of the left base. Hemoglobin is 9.3 all his labs were reviewed, noted to have normal electrolytes are normal renal profile On 02/14/2019, patient is postoperative day #2. Patient remains on nasal cannula, doing quite well, pulling at least 1000 mL on his incentive spirometry. Asymptomatic, chest x-ray is reassuring. Patient denies any cough wheezing or shortness of breath, he feels generally weak, and some vague chest discomfort, musculoskeletal. His metoprolol was increased for tachycardia and hypertension, remains on dual antiplatelet therapy as well as statin. He is also on amlodipine. Chest x-ray showed minimal bibasilar atelectasis and trace of left pleural effusion. Labs were reviewed relatively normal electrolytes, normal renal profile, normal CBC hemoglobin is 9.6 Reevaluated today on 02/15/2019, patient is doing well, remains in the ICU, asymptomatic, sitting at a bedside chair, doing well with incentive spirometry, and he is hemodynamically stable. Chest x-ray showed cardiomegaly, basilar atelectasis, and small pleural effusions. Objective - Vital Signs Vital signs: Vital Signs Temp 98 F 02/15/19 08:00 Pulse 92 02/15/19 11:57 Resp 16 02/15/19 08:00 BP 133/73 02/15/19 08:00 Pulse Ox 98 02/15/19 08:00 Intake & Output 02/14/19 02/15/19 02/15/19 18:59 06:59 18:59 Intake Total 444 Output Total 520 225 Balance -76 -225 Weight 90.2 kg Intake: IV 144 Lactated Ringers 1,000 ml 120 @ 20 mls/hr IV [facility] Rx#:[id number] Pressure Bag 24 Oral 300 Output: Chest Tube Drainage 65 Bilateral Mediastinal 20 Chest Tube Left Lateral 45 Chest Drainage 0 Left Calf 0 Left Wrist 0 Urine 455 225 Other: Voiding Method Indwelling Catheter Urinal Urinal # Voids 1 1 ABP, PAP, CO, CI - Last Documented Arterial Blood Pressure 154/61 Pulmonary Artery Pressure 28/18 Cardiac Output 4.2 Cardiac Index 2.2 - Exam GENERAL EXAM: Revealed a 68-year-old white male in no distress, on room air HEAD: Normocephalic. EYES: PERRLA, EOMI. NOSE: Clear with pink turbinates. THROAT: Clear, no exudates.. NECK: No masses, no JVD. CHEST: Sternal dressing dry and intact. Heart however in place. Chest tubes in place. LUNGS: Diminished breath sounds at the bases no crackles or rhonchi or wheezes.. CVS: S1 and S2 normal with no audible murmur, regular rhythm. ABDOMEN: Soft. SPINE: No scoliosis or deformity SKIN: No rashes CENTRAL NERVOUS SYSTEM: Alert oriented 3, no gross focal neurologic deficit. EXTREMITIES: SCDs in place. No clubbing edema or cyanosis - Labs CBC & Chem 7: 02/15/19 04:28 02/15/19 04:28 Labs: Abnormal Lab Results - Last 24 Hours (Table) 02/14/19 02/14/19 02/14/19 Range/Units 12:18 17:27 20:45 RBC (4.30-5.90) m/uL Hgb (13.0-17.5) gm/dL Hct (39.0-53.0) % Chloride (98-107) mmol/L Glucose (74-99) mg/dL POC Glucose (mg/dL) 199 H 262 H 259 H (75-99) mg/dL 02/15/19 02/15/19 02/15/19 Range/Units 04:28 04:28 07:00 RBC 3.04 L (4.30-5.90) m/uL Hgb 9.4 L (13.0-17.5) gm/dL Hct 28.3 L (39.0-53.0) % Chloride 108 H (98-107) mmol/L Glucose 120 H (74-99) mg/dL POC Glucose (mg/dL) 163 H (75-99) mg/dL 02/15/19 Range/Units 11:48 RBC (4.30-5.90) m/uL Hgb (13.0-17.5) gm/dL Hct (39.0-53.0) % Chloride (98-107) mmol/L Glucose (74-99) mg/dL POC Glucose (mg/dL) 211 H (75-99) mg/dL Assessment and Plan Assessment: #1 Coronary artery disease status post coronary artery bypass grafting utilizing a PLUMMER to the LAD, left radial artery to the OM1, saphenous vein graft to the PDA. Postoperative day #3 #2 uneventful extubation few hours after his surgery #3 Diabetes mellitus. #4 Hypertension, history of. #5 Hyperlipidemia. #6 Previous history of chronic tobacco dependence. Plan: Continue aspirin statins and Plavix beta blockers, dose of beta blockers was increased. Oxygen was weaned off, patient is maintained on incentive spirometry and on bronchodilators. Continue bronchodilators. Increase activity as tolerated Monitor daily x-rays and labs Continue to monitor sugars and address accordingly with insulin We'll continue to follow. Consider transfer out of the ICU today. And possible discharge in the next 24 hours. Time with Patient: Less than 30
--- NOTE | 2019-02-15 14:39 | P.PN ---
Subjective 68-year-old status post a coronary artery bypass grafting clinically doing well, no significant overnight events. Constitutional: Denied any fatigue denied any fever. Cardio vascular: denied any chest pain, palpitations Gastrointestinal denied any nausea vomiting Pulmonary: Denied any shortness of breath cough Neurologic denied any new focal deficits All inpatient medications were reviewed and appropriate changes in these medications as dictated in the interval history and assessment and plan. Objective - Vital Signs Vital signs: Vital Signs Temp 98.5 F 02/15/19 12:00 Pulse 97 02/15/19 12:00 Resp 15 02/15/19 12:00 BP 130/73 02/15/19 12:00 Pulse Ox 94 L 02/15/19 12:00 Intake & Output 02/14/19 02/15/19 02/15/19 18:59 06:59 18:59 Intake Total 444 Output Total 520 225 450 Balance -76 -225 -450 Weight 90.2 kg Intake: IV 144 Lactated Ringers 1,000 ml 120 @ 20 mls/hr IV .Q24H [facility] Rx#:[id number] Pressure Bag 24 Oral 300 Output: Chest Tube Drainage 65 Bilateral Mediastinal 20 Chest Tube Left Lateral 45 Chest Drainage 0 Left Calf 0 Left Wrist 0 Urine 455 225 450 Other: Voiding Method Indwelling Catheter Urinal Urinal # Voids 1 1 2 # Bowel Movements 1 ABP, PAP, CO, CI - Last Documented Arterial Blood Pressure 154/61 Pulmonary Artery Pressure 28/18 Cardiac Output 4.2 Cardiac Index 2.2 - Exam PHYSICAL EXAMINATION: GENERAL: The patient is alert and oriented x3, not in any acute distress. Well developed, well nourished. HEENT: Pupils are round and equally reacting to light. EOMI. No scleral icterus. No conjunctival pallor. Normocephalic, atraumatic. No pharyngeal erythema. No thyromegaly. CARDIOVASCULAR: S1 and S2 present. No murmurs, rubs, or gallops. PULMONARY: Chest is clear to auscultation, no wheezing or crackles. patient does have sternal dressing chest were removed ABDOMEN: Soft, nontender, nondistended, normoactive bowel sounds. No palpable organomegaly. MUSCULOSKELETAL: No joint swelling or deformity. EXTREMITIES: No cyanosis, clubbing, or pedal edema. NEUROLOGICAL: Gross neurological examination did not reveal any focal deficits. SKIN: No rashes. - Labs CBC & Chem 7: 02/15/19 04:28 02/15/19 04:28 Labs: Abnormal Lab Results - Last 24 Hours (Table) 02/14/19 02/14/19 02/15/19 Range/Units 17:27 20:45 04:28 RBC 3.04 L (4.30-5.90) m/uL Hgb 9.4 L (13.0-17.5) gm/dL Hct 28.3 L (39.0-53.0) % Chloride (98-107) mmol/L Glucose (74-99) mg/dL POC Glucose (mg/dL) 262 H 259 H (75-99) mg/dL 02/15/19 02/15/19 02/15/19 Range/Units 04:28 07:00 11:48 RBC (4.30-5.90) m/uL Hgb (13.0-17.5) gm/dL Hct (39.0-53.0) % Chloride 108 H (98-107) mmol/L Glucose 120 H (74-99) mg/dL POC Glucose (mg/dL) 163 H 211 H (75-99) mg/dL Assessment and Plan Plan: -coronary artery disease status post CABG with PLUMMER to LAD left radial to OM1, saphenous venous graft to PDA -Type 2 diabetes mellitus patient's long-acting insulin will be decreased increased to 15 units continue with sliding scale -Hypertension -Hyperlipidemia -nicotine dependence continue with present medications as, we can you to follow.
[2019-02-15 16:45] LABS: Glucose,Whole Blood 152 mg/dL (75-99)
[2019-02-15 21:00] LABS: Glucose,Whole Blood 229 mg/dL (75-99)
[2019-02-15] MEDS ORDERED: INSULIN DETEMIR (LEVEMIR) 100 UNIT/ML SYR SQ SCH (21:00)
[2019-02-15] MEDS: SENNOSIDES-DOCUSATE SODIUM 1 EACH TAB PO SCH (21:15)
[2019-02-16] MEDS: HEPARIN SODIUM,PORCINE 5,000 UNIT/ML 1 ML VIAL SQ SCH ×2 (00:26→09:12)
[2019-02-16] MEDS: KETOROLAC 30 MG/ML 1 ML VIAL IVP SCH ×3 (00:26→12:16)
[2019-02-16 02:21] LABS: Glucose,Whole Blood 184 mg/dL (75-99)
[2019-02-16] MEDS: INSULIN ASPART (NovoLOG) 100 UNIT/ML VIAL SQ SCH ×5 (02:32→12:17)
[2019-02-16 04:44] LABS: HCT 29.8 % (39.0-53.0); HGB 9.8 gm/dL (13.0-17.5); MCH 30.2 pg (25.0-35.0); MCHC 32.7 g/dL (31.0-37.0); MCV 92.5 fL (80.0-100.0); Mean Platelet Volume 7.2; Platelet Count 204 k/uL (150-450); RBC 3.22 m/uL (4.30-5.90); RDW 13.2 % (11.5-15.5); WBC 5.3 k/uL (3.8-10.6)
[2019-02-16 04:53] LABS: Anion Gap 6 mmol/L; Blood Urea Nitrogen 19 mg/dL (9-20); Calcium 8.8 mg/dL (8.4-10.2); Carbon Dioxide 28 mmol/L (22-30); Chloride 105 mmol/L (98-107); Glucose 139 mg/dL (74-99); Potassium 3.7 mmol/L (3.5-5.1); Sodium 139 mmol/L (137-145)
[2019-02-16] MEDS ORDERED: Potassium Replacement Protocol 1 EACH MISC MISCELLANE PRN (05:10)
[2019-02-16] MEDS ORDERED: POTASSIUM CHLORIDE ER 20 MEQ TAB.ER PO SCH (06:00)
--- NOTE | 2019-02-16 07:07 | XR ---
EXAMINATION TYPE: XR chest 2V DATE OF EXAM: 02/16/2019 HISTORY: Post cardiac surgery. REFERENCE: Previous study dated 02/15/2019. FINDINGS: There has been a midline sternotomy. Heart size upper limits of normal. There are bilateral effusions. There is no evidence of pneumonia o r edema. IMPRESSION: 1. CARDIOMEGALY. 2. SMALL, BILATERAL EFFUSIONS.
[2019-02-16 07:12] LABS: Glucose,Whole Blood 113 mg/dL (75-99)
[2019-02-16] MEDS: PANTOPRAZOLE 40 MG TABLET PO SCH (07:14)
--- NOTE | 2019-02-16 07:22 | P.PN ---
Subjective Progress Note Date: 02/16/19 Principal diagnosis: Unstable angina This is a pleasant 68-year-old gentleman who was seen by Dr. Malloy in the office yesterday where he was experiencing chest discomfort concerning for angina. Subsequently he underwent a heart catheterization yesterday which revealed severe triple-vessel coronary artery disease was extremely calcified right and left coronary systems. The patient underwent coronary artery bypass grafting where he received PLUMMER to LAD, left radial artery to OM, and SVG to PDA. On follow-up with the patient today, 02/16/2019, the patient is doing good cl inically. He is hemodynamically stable. The blood pressure and heart rate are under good control. He was on [facility] medical treatment. He is going to be discharged home in the next 24-48 hours. Objective - Vital Signs Vital signs: Vital Signs Temp 98.4 F 02/16/19 04:00 Pulse 87 02/16/19 04:00 Resp 15 02/16/19 04:00 BP 129/74 02/16/19 04:00 Pulse Ox 97 02/16/19 04:00 Intake & Output 02/15/19 02/16/19 02/16/19 18:59 06:59 18:59 Output Total 450 610 Balance -450 -610 Weight 86.9 kg Output: Urine 450 610 Other: Voiding Method Urinal Urinal # Voids 2 # Bowel Movements 1 ABP, PAP, CO, CI - Last Documented Arterial Blood Pressure 154/61 Pulmonary Artery Pressure 28/18 Cardiac Output 4.2 Cardiac Index 2.2 - Constitutional General appearance: Present: no acute distress - Respiratory Respiratory: bilateral: CTA - Cardiovascular Rhythm: regular Heart sounds: normal: S1, S2 - Labs CBC & Chem 7: 02/16/19 04:16 02/16/19 04:16 Labs: Abnormal Lab Results - Last 24 Hours (Table) 02/15/19 02/15/19 02/15/19 Range/Units 11:48 16:41 20:57 RBC (4.30-5.90) m/uL Hgb (13.0-17.5) gm/dL Hct (39.0-53.0) % Glucose (74-99) mg/dL POC Glucose (mg/dL) 211 H 152 H 229 H (75-99) mg/dL 02/16/19 02/16/19 02/16/19 Range/Units 02:18 04:16 04:16 RBC 3.22 L (4.30-5.90) m/uL Hgb 9.8 L (13.0-17.5) gm/dL Hct 29.8 L (39.0-53.0) % Glucose 139 H (74-99) mg/dL POC Glucose (mg/dL) 184 H (75-99) mg/dL 02/16/19 Range/Units 07:09 RBC (4.30-5.90) m/uL Hgb (13.0-17.5) gm/dL Hct (39.0-53.0) % Glucose (74-99) mg/dL POC Glucose (mg/dL) 113 H (75-99) mg/dL Assessment and Plan Assessment: Assessment #1 unstable angina #2 severe triple-vessel coronary artery disease and status post CABG #3 mildly impaired LV function Plan #1 continue the current medical regimen including dual antiplatelet therapy and statin #2 discharged home in the next 24 hours.
[2019-02-16] MEDS: IPRATROPIUM-ALBUTEROL 3 ML NEB INHALATION SCH ×4 (07:37→19:49)
[2019-02-16] MEDS ORDERED: METOPROLOL TARTRATE 50 MG TAB PO SCH (09:00)
[2019-02-16 09:09] VITALS: BP 134/66
[2019-02-16] MEDS: amLODIPine 10 MG TAB PO SCH (09:12)
[2019-02-16] MEDS: CLOPIDOGREL 75 MG TAB PO SCH (09:12)
[2019-02-16] MEDS: ASPIRIN 325 MG TAB PO SCH (09:12)
[2019-02-16] MEDS: ATORVASTATIN 80 MG TAB PO SCH (09:12)
[2019-02-16] MEDS ORDERED: FUROSEMIDE 20 MG TAB PO SCH (09:15)
--- NOTE | 2019-02-16 11:16 | P.PN ---
Subjective Progress Note Date: 02/16/19 Principal diagnosis: Status post CABG, postoperative day # 4 68-year-old male patient a primary of Dr. Cuellar is known to have history of diabetes, hypertension and hyperlipidemia and a previous smoker. He has been going to his primary care physician because of chest pain and shortness of breath for several months. Eventually was seen by cardiology and an echocardiogram was done and it showed inferior apical hypokinesis with an ejection fraction of 40%. EKG showed no acute ischemic changes. The patient had a cardiac catheterization for these symptoms and the patient was noted to have some limited elevation of the troponin consistent with non-STEMI. The cardiac catheterization was done and showed distal left main stenosis 70%, proximal LAD stenosis 70%, ostial circumflex stenosis 99% and a mid up to his marginal branch 70% lesion in addition to distal RCA stenosis of 99%. LV angiogram revealed mild anterior and apical hypokinesis with an ejection fraction of 45%. The patient is currently awaiting cardiac bypass surgery and the patient will be undergoing his surgery on Monday. This will be done next week. The patient is currently free of any chest pain. His resting comfortably in bed. He is taking aspirin.. He has no shortness of breath. No cough sputum production chest tightness or wheezing. His preop FEV1 is no other of 75% of predicted. The patient's chest x-ray shows no acute abnormalities in the lungs in the process of clear. 02/12/2019 The patient did undergo coronary artery bypass grafting surgery today utilizing a PLUMMER to the LAD, radial artery graft to the OM1, saphenous vein graft to the PDA. He is seen in the immediate postoperative period in the intensive care unit. He is intubated and on the mechanical ventilator. Current settings are SIMV mode at a rate of 12, tidal volume 500, FiO2 100% and a PEEP of 5. Arterial blood gases reveal a P O2 of 393, pCO2 41, pH 7.37. FiO2 decreased to 50%. Right-sided Sophia-Ashu catheter in place. Cardiac output 3.4. Cardiac index 1.8. CVP 14. PA pressures 30/23. Mean 25. Currently sedated with propofol at 20 mcg/kg/m. Nitroglycerin drip at 5 mg/m. Insulin drip at 1 unit per hour. Lactated Ringer's at 50 MLS per hour. Chest x-ray reviewed. Endotracheal tube will be pulled back 1.5 cm. Chest tubes in place. Initial labs are pending. 2 units of packed red blood cells are available. One unit of platelets are available. On 02/13/2019, patient is postoperative day #1. I saw this patient around 3 AM in the morning because I happened to be in the ICU, he was on Precedex, he was weaning, reviewed his weaning parameters, reviewed his tidal volumes on pressure support of 8 and CPAP, his rate was reasonable, patient was awake and responsive, hence recommended extubating the patient early this morning. Patient tolerated the extubation well, presently asymptomatic, doing fairly well with incentive spirometry. Chest x-ray showed postoperative changes, no evidence of effusions, minimal atelectasis of the left base. Hemoglobin is 9.3 all his labs were reviewed, noted to have normal electrolytes are normal renal profile On 02/14/2019, patient is postoperative day #2. Patient remains on nasal cannula, doing quite well, pulling at least 1000 mL on his incentive spirometry. Asymptomatic, chest x-ray is reassuring. Patient denies any cough wheezing or shortness of breath, he feels generally weak, and some vague chest discomfort, musculoskeletal. His metoprolol was increased for tachycardia and hypertension, remains on dual antiplatelet therapy as well as statin. He is also on amlodipine. Chest x-ray showed minimal bibasilar atelectasis and trace of left pleural effusion. Labs were reviewed relatively normal electrolytes, normal renal profile, normal CBC hemoglobin is 9.6 Reevaluated today on 02/15/2019, patient is doing well, remains in the ICU, asymptomatic, sitting at a bedside chair, doing well with incentive spirometry, and he is hemodynamically stable. Chest x-ray showed cardiomegaly, basilar atelectasis, and small pleural effusions. Reevaluated today on 02/16/2019, patient is doing great, asymptomatic, on room air, hemodynamically stable, no cough no wheezing no shortness of breath, all his catheters and tubes have been removed. Patient is presently an overflow in the ICU. Objective - Vital Signs Vital signs: Vital Signs Temp 98.9 F 02/16/19 08:00 Pulse 111 H 02/16/19 08:00 Resp 15 02/16/19 08:00 BP 134/66 02/16/19 08:00 Pulse Ox 96 02/16/19 08:00 Intake & Output 02/15/19 02/16/19 02/16/19 18:59 06:59 18:59 Output Total 450 610 Balance -450 -610 Weight 86.9 kg Output: Urine 450 610 Other: Voiding Method Urinal Urinal Urinal # Voids 2 # Bowel Movements 1 ABP, PAP, CO, CI - Last Documented Arterial Blood Pressure 154/61 Pulmonary Artery Pressure 28/18 Cardiac Output 4.2 Cardiac Index 2.2 - Exam GENERAL EXAM: Revealed a 68-year-old white male in no distress, on room air HEAD: Normocephalic. EYES: PERRLA, EOMI. NOSE: Clear with pink turbinates. THROAT: Clear, no exudates.. NECK: No masses, no JVD. CHEST: Sternal dressing dry and intact. Heart however in place. All chest tubes have been removed LUNGS: Clear breath sounds bilaterally no wheezes, no rhonchi, no chest wall tenderness CVS: S1 and S2 normal with no audible murmur, regular rhythm. ABDOMEN: Soft. SPINE: No scoliosis or deformity SKIN: No rashes CENTRAL NERVOUS SYSTEM: Alert oriented 3, no gross focal neurologic deficit. EXTREMITIES: No clubbing edema or cyanosis. - Labs CBC & Chem 7: 02/16/19 04:16 02/16/19 04:16 Labs: Abnormal Lab Results - Last 24 Hours (Table) 02/15/19 02/15/19 02/15/19 Range/Units 11:48 16:41 20:57 RBC (4.30-5.90) m/uL Hgb (13.0-17.5) gm/dL Hct (39.0-53.0) % Glucose (74-99) mg/dL POC Glucose (mg/dL) 211 H 152 H 229 H (75-99) mg/dL 02/16/19 02/16/19 02/16/19 Range/Units 02:18 04:16 04:16 RBC 3.22 L (4.30-5.90) m/uL Hgb 9.8 L (13.0-17.5) gm/dL Hct 29.8 L (39.0-53.0) % Glucose 139 H (74-99) mg/dL POC Glucose (mg/dL) 184 H (75-99) mg/dL 02/16/19 Range/Units 07:09 RBC (4.30-5.90) m/uL Hgb (13.0-17.5) gm/dL Hct (39.0-53.0) % Glucose (74-99) mg/dL POC Glucose (mg/dL) 113 H (75-99) mg/dL Assessment and Plan Assessment: #1 Coronary artery disease status post coronary artery bypass grafting utilizing a PLUMMER to the LAD, left radial artery to the OM1, saphenous vein graft to the PDA. Postoperative day #4 #2 uneventful extubation few hours after his surgery #3 Diabetes mellitus. #4 Hypertension, history of. #5 Hyperlipidemia. #6 Previous history of chronic tobacco dependence. Plan: Continue aspirin statins and Plavix beta blockers, dose of beta blockers was increased. Oxygen was weaned off, presently on room air. Continue bronchodilators. Increase activity as tolerated Consider discharging the patient home today. Or in the next 24 hours at most Time with Patient: Less than 30
[2019-02-16 11:49] LABS: Glucose,Whole Blood 231 mg/dL (75-99)
[2019-02-16 12:16] VITALS: PULSE 87; RESP 19; TEMP 97.9
--- NOTE | 2019-02-16 13:22 | P.DS ---
Providers Date of admission: 02/08/19 17:02 Expected date of discharge: 02/16/19 Attending physician: Carolina Coon Consults: 02/08/19 17:09 Consult Physician Routine Consulting Provider: Samanta Harrington Consult Reason/Comments: pre op cabg Do you want consulting provider notified?: Yes Consult to Anesthesia Routine Consulting Provider: Anesthesia,Services Consult Reason/Comments: Cardiac Surgery Pre-Op 02/09/19 11:24 Consult Physician Routine Consulting Provider: Carolina Coon Consult Reason/Comments: CABG consult Do you want consulting provider notified?: Already Contacted 02/09/19 11:27 Consult Physician Routine Consulting Provider: Nellie Ortega Consult Reason/Comments: medical management Do you want consulting provider notified?: Yes 02/12/19 15:52 Consult Physician Routine Consulting Provider: Margie Malloy Consult Reason/Comments: Pharmacy Resident Consult: post cardiac surgery Do you want consulting provider notified?: Already Contacted Primary care physician: [facility] Course: FINAL DIAGNOSIS: 1. Severe diffusely calcified triple-vessel coronary artery disease with left main disease, status post coronary artery bypass surgery 2. Non-ST elevated myocardial infarction 3. Hypertension 4. Hyperlipidemia 5. Uncontrolled type 2 diabetes mellitus with preoperative hemoglobin A1c 7.1% 6. Previous tobacco dependence with a preoperative FEV1 75% of predicted 7. Postoperative acute blood loss anemia, expected PRINCIPAL PROCEDURE: 1. Selective left coronary angiography with a left ventriculography performed by Dr. VC Malloy 2. Triple vessel coronary artery bypass grafting using the left internal mammary artery to left anterior descending coronary artery, the left radial artery from the aorta to the first obtuse marginal coronary artery, a reverse greater saphenous vein graft from the aorta to the posterior descending coronary artery. 3. Endoscopic harvesting of the left radial artery. 4. Endoscopic harvesting of the left greater saphenous vein. 5. Intraoperative transesophageal echocardiogram and epi-aortic scanning. 6. Intraoperative graft flow measurements using the LIFE INTERACTIONstim system. HISTORY OF PRESENT ILLNESS: This is a 68-year-old active gentleman who followed with Dr. Kelvin Aguilar on an outpatient basis. He has a past medical history significant for hypertension, hyperlipidemia, diabetes mellitus type 2 and history of previous tobacco dependence. Recently, he had been having progressive exertional shortness of breath with episodes of chest pressure which has been going on for several months. The chest pain was followed by his primary care physician and he was subsequently seen by Dr. VC Malloy from [facility]. He underwent a 2-D echocardiogram and cardiology office which showed inferior apical hypokinesia with an ejection fraction of 40%. Subsequently, while at the cardiology office he did have an episode of rest p ain. A 12-lead EKG was completed demonstrating no acute ischemia, although despite the 12-lead EKG results due to the patient's chest pain and 2-D echocardiogram results he was recommended to go to [facility] for urgent heart catheterization. Upon admission to the hospital labs were drawn which showed positive troponins which ruled the patient in for a non- STEMI. The heart catheterization was completed which revealed severe triple vessel disease. The heart catheterization results were reviewed with the patient by Dr. Carolina Coon and an urgent coronary artery bypass grafting surgery was recommended. Risks and benefits of the surgery including the STS risk score were discussed with the patient by Dr. Coon and the patient wished to proceed with myocardial vascularization surgery. HOSPITAL COURSE: The patient was admitted to the hospital and after obtaining consent was taken to the operating room where Dr. Carolina Coon performed an urgent triple vessel coronary artery bypass grafting using the left internal mammary artery to left anterior descending coronary artery, the left radial artery from the aorta to the first obtuse marginal coronary artery, a reverse greater saphenous vein graft from the aorta to the posterior descending coronary artery, endoscopic harvesting of the left radial artery, endoscopic harvesting of the left greater saphenous vein, intraoperative transesophageal echocardiogram, epi-aortic scanning and intraoperative graft flow measurements using the LIFE INTERACTIONstim system. Upon completion of the surgery the patient was transferred to the cardiovascular intensive care unit where he was recovered, monitored hemodynamically and where he progressed to cardiac rehabilitation phase 1. He was extubated, all lines, tubes and supportive drips were discontinued when appropriate. Transfer orders were placed for 3 S. cardiac stepdown unit but due to lack of bed availability he was kept in the intensive care unit. His oxygen was titrated down, he continued to work with physical and occupational therapy, was tolerating a normal diet, his pain was well controlled and he was ready to be discharged home with [facility] care on pos toperative day #4. He has received written and verbal instructions regarding his medications, activity restrictions, signs and symptoms requiring physician notification and his follow-up appointments. COMPLICATIONS: There were no postoperative complications. CONSULTATIONS: 1. Dr. VC Malloy for cardiology management. 2. Dr. Harrington for pulmonary and ventilator management. 3. Dr. Jackson for medical management. DISCHARGE INSTRUCTIONS: 1. No driving for 4 weeks, or until physician gives their ok. 2. The patient should sleep in their own bed, no medical bed needed. 3. Stairs are not an issue. If the bedroom is upstairs, it is advised that the patient go up at night and down in the morning for the first week. Go slowly, using handrail and take 1 step at a time. 4. EAMON hose are to be worn for 30 days or until physician discontinues. 5. Heart hugger is to be worn 100% of the time until physician discontinues.(except when showering) 6. No lifting, pushing, or pulling more than 10 pounds for 12 weeks. The physician will advise of any restriction changes. 7. The patient is expected to continue the prescribed walking program. 8. Continue pain control per as needed orders. 9. Continue with incentive spirometry and splinting/heart hugger until otherwise directed by the physician. 10. Must shower daily using liquid antibacterial soap and a separate white washcloth for each individual incision. 11. Routine sternal incision care, no ointments, lotions or powders on the incisions. 12. Please notify surgeon/nurse practitioner for temperature greater than 101F or purulent drainage from incisions 13. Prescriptions for first 30 days given per cardiac surgery service. After 30 days, all prescription refills obtained through cardiology/primary care physician. 14. A red arm and has been placed on this patient it should be worn for 30 days post surgery and will be removed by the cardiothoracic surgeons. If an ER visit is necessary, please make sure the number on the red arm band is called. HOME HEALTH SERVICES TO PROVIDE: RN SKILLED HOME CARE SERVICES FOR POST-OP SURGICAL PATIENTS WITH THE FOLLOWING: Coronary Artery Bypass Surgery (CABG), Mitral Valve Replacement/Repair ( MVR), Aortic Valve Replacement/Repair (AVR) RN TO CONTINUE EDUCATION FROM ``ROAD TO A HEALTH HEART PATIENT EDUCATION MANUAL" (GIVEN TO PATIENT IN THE HOSPITAL) MEDICATION RECONCILIATION WITH EDUCATION NEEDED ON FIRST HOME VISIT EMPHASIZE IMPORTANCE OF WEARING BREAST SUPPORT/HEART HUGGER ENCOURAGE USE OF INCENTIVE SPIROMETER 10 X EVERY HOUR WHILE AWAKE ENCOURAGE UTILIZATION OF LOWER EXTREMITY COMPRESSION STOCKINGS/EAMON HOSE and ELEVATE LEGS ABOVE LEVEL OF HEART WHILE AT REST. ENCOURAGE AMBULATION 3-5x/day INCREASING TOLERATES, WHILE AVOID EXTREMES IN TEMPERATURE FREQUENCY: RN TO OPEN THE PATIENT WITHIN 24 HOURS OF DISCHARGE FROM THE HOSPITAL WITH TELEHEALTH INSTALLED AT [facility] [place], RN TO VISIT 2-3 X A WEEK FOR 4 WEEKS ESTABLISHED BY PATIENT NEEDS. REMOVAL OF SUTURES: NURSING SERVICES TO REMOVE SUTURES TWO WEEKS POST SURGICAL DATE [ default ]. If any questions regarding suture removal please call the office at [phone]. LABORATORY: CBC, CMP TO BE DRAWN ON THE THIRD DAY HOME, 02/19/2019 (RAN STAT) FAX RESULTS TO [phone]. TELEHEALTH PARAMETERS: WEIGHT: NOTIFY MD OF WEIGHT GAIN OF 2 LBS IN 24 HOURS OR 5 LBS IN ONE WEEK HR: NOTIFY MD OF HR <55 BPM OR HR>100 BPM BP: NOTIFY MD IF BP <90/55 OR BP>140/100 O2 SAT: NOTIFY MD IF PO2<93% ON ROOM AIR SEND TELEHEALTH REPORT TO CUSTOMER SALES SERVICE MANAGER AND CARDIOVASCULAR SURGEON THE FIRST WEEK OF CARE AND THEN BI-WEEKLY. PLEASE ADDITIONALLY COMMUNICATE ANY ABNORMALS AND NEW FINDINGS TO THE SURGEONS OFFICE. Medications: He will be discharged home on amlodipine 10 mg by mouth daily for radial artery harvest spasm prevention. Please do not discontinue without checking with Dr. Coon. The patient is also been instructed to check his blood sugars before breakfast and before bedtime, medical record of his blood sugar results and bring to his follow-up appointment with his primary care doctor. Plan - Discharge Summary Discharge Rx Participant: Yes New Discharge Prescriptions: New Aspirin 325 mg PO DAILY #30 tab Furosemide [Lasix] 20 mg PO DAILY #5 tab Atorvastatin [Lipitor] 80 mg PO DAILY #30 tab Metoprolol Tartrate [Lopressor] 50 mg PO BID #60 tab HYDROcodone/APAP 7.5-325MG [[place] 7.5-325] 1 each PO Q4H PRN 3 Days tab PRN Reason: Pain 1-5 amLODIPine [Norvasc] 10 mg PO DAILY #30 tab Clopidogrel [Plavix] 75 mg PO DAILY #30 tab Pantoprazole [Protonix] 40 mg PO AC-BRKFST #[address] tablet[address] Mcnulty-Docusate Sodium [Senokot-S] 2 each PO HS #14 tab Continue Multivitamins, Thera [Multivitamin (formulary)] 1 tab PO DAILY metFORMIN HCL [Glucophage] 850 mg PO BID glipiZIDE [Glucotrol] 10 mg PO AC-BID Discontinued Aspirin 81 mg PO DAILY amLODIPine [Norvasc] 10 mg PO DAILY Simvastatin [Zocor] 20 mg PO HS Lisinopril 40 mg PO DAILY Discharge Medication List Multivitamins, Thera [Multivitamin (formulary)] 1 tab PO DAILY 02/08/19 [History] glipiZIDE [Glucotrol] 10 mg PO AC-BID 02/08/19 [History] metFORMIN HCL [Glucophage] 850 mg PO BID 02/08/19 [History] Aspirin 325 mg PO DAILY #30 tab 02/16/19 [Rx] Atorvastatin [Lipitor] 80 mg PO DAILY #30 tab 02/16/19 [Rx] Clopidogrel [Plavix] 75 mg PO DAILY #30 tab 02/16/19 [Rx] Furosemide [Lasix] 20 mg PO DAILY #5 tab 02/16/19 [Rx] HYDROcodone/APAP 7.5-325MG [[place] 7.5-325] 1 each PO Q4H PRN 3 Days tab 02/16/19 [Rx] Metoprolol Tartrate [Lopressor] 50 mg PO BID #60 tab 02/16/19 [Rx] Pantoprazole [Protonix] 40 mg PO AC-BRKFST #30 tablet. 02/16/19 [Rx] Sennosides-Docusate Sodium [Senokot-S] 2 each PO HS #14 tab 02/16/19 [Rx] amLODIPine [Norvasc] 10 mg PO DAILY #30 tab 02/16/19 [Rx] Follow up Appointment(s)/Referral(s): Carolina Coon MD [STAFF PHYSICIAN] - 03/15/19 10:30 am Hugo Lomeli NPC [Nurse Practitioner] - 02/21/19 10:00 am [facility], [NON-STAFF] - 1-2 Days Brannon Meraz MD [Primary Care Provider] - 2 Weeks Samanta Harrington MD [STAFF PHYSICIAN] - 2 Weeks Margie Malloy MD [STAFF PHYSICIAN] - 2 Weeks Ambulatory/Diagnostic Orders: Complete Blood Count w/diff [LAB.AMB] Time Frame: 02/19/19, Facility: [facility], Location: Laboratory [facility] Comprehensive Metabolic Panel [LAB.AMB] Time Frame: 02/19/19, Facility: [facility], Location: Laboratory [facility] Activity/Diet/Wound Care/Special Instructions: DISCHARGE INSTRUCTIONS: 1. No driving for 4 weeks, or until physician gives their ok. 2. The patient should sleep in their own bed, no medical bed needed. 3. Stairs are not an issue. If the bedroom is upstairs, it is advised that the patient go up at night and down in the morning for the first week. Go slowly, using handrail and take 1 step at a time. 4. EAMON hose are to be worn for 30 days or until physician discontinues. 5. Heart hugger is to be worn 100% of the time until physician discontinues.(except when showering) 6. No lifting, pushing, or pulling more than 10 pounds for 12 weeks. The physician will advise of any restriction changes. 7. The patient is expected to continue the prescribed walking program. 8. Continue pain control per as needed orders. 9. Continue with incentive spirometry and splinting/heart hugger until otherwise directed by the physician. 10. Must shower daily using liquid antibacterial soap and a separate white washcloth for each individual incision. 11. Routine sternal incision care, no ointments, lotions or powders on the incisions. 12. Please notify surgeon/nurse practitioner for temperature greater than 101F or purulent drainage from incisions 13. Prescriptions for first 30 days given per cardiac surgery service. After 30 days, all prescription refills obtained through cardiology/primary care physician. 14. A red arm and has been placed on this patient it should be worn for 30 days post surgery and will be removed by the cardiothoracic surgeons. If an ER visit is necessary, please make sure the number on the red arm band is called. HOME HEALTH SERVICES TO PROVIDE: RN SKILLED HOME CARE SERVICES FOR POST-OP SURGICAL PATIENTS WITH THE FOLLOWING: Coronary Artery Bypass Surgery (CABG), Mitral Valve Replacement/Repair ( MVR), Aortic Valve Replacement/Repair (AVR) RN TO CONTINUE EDUCATION FROM ``ROAD TO A HEALTH HEART PATIENT EDUCATION MANUAL" (GIVEN TO PATIENT IN THE HOSPITAL) MEDICATION RECONCILIATION WITH EDUCATION NEEDED ON FIRST HOME VISIT EMPHASIZE IMPORTANCE OF WEARING BREAST SUPPORT/HEART HUGGER ENCOURAGE USE OF INCENTIVE SPIROMETER 10 X EVERY HOUR WHILE AWAKE ENCOURAGE UTILIZATION OF LOWER EXTREMITY COMPRESSION STOCKINGS/EAMON HOSE and ELEVATE LEGS ABOVE LEVEL OF HEART WHILE AT REST. ENCOURAGE AMBULATION 3-5x/day INCREASING TOLERATES, WHILE AVOID EXTREMES IN TEMPERATURE FREQUENCY: RN TO OPEN THE PATIENT WITHIN 24 HOURS OF DISCHARGE FROM THE HOSPITAL WITH TELEHEALTH INSTALLED AT [facility] [place], RN TO VISIT 2-3 X A WEEK FOR 4 WEEKS ESTABLISHED BY PATIENT NEEDS. REMOVAL OF SUTURES: NURSING SERVICES TO REMOVE SUTURES TWO WEEKS POST SURGICAL DATE [ default ]. If any questions regarding suture removal please call the office at [phone]. LABORATORY: CBC, CMP TO BE DRAWN ON THE THIRD DAY HOME, 02/19/2019 (RAN STAT) FAX RESULTS TO [phone]. TELEHEALTH PARAMETERS: WEIGHT: NOTIFY MD OF WEIGHT GAIN OF 2 LBS IN 24 HOURS OR 5 LBS IN ONE WEEK HR: NOTIFY MD OF HR <55 BPM OR HR>100 BPM BP: NOTIFY MD IF BP <90/55 OR BP>140/100 O2 SAT: NOTIFY MD IF PO2<93% ON ROOM AIR SEND TELEHEALTH REPORT TO CUSTOMER SALES SERVICE MANAGER AND CARDIOVASCULAR SURGEON THE FIRST WEEK OF CARE AND THEN BI-WEEKLY. PLEASE ADDITIONALLY COMMUNICATE ANY ABNORMALS AND NEW FINDINGS TO THE SURGEONS OFFICE. Discharge Disposition: HOME WITH HOME HEALTH SERVICES
--- NOTE | 2019-02-16 13:37 | P.PN ---
Subjective 68-year-old status post a coronary artery bypass grafting clinically doing well, no significant overnight events. 02/16/2019 patient is being discharged today patient can be resumed on his diabetic medications and asked him to check blood sugars twice a day admitted the briefly review his bike and discharge medication reconciliation patient is otherwise clinically doing well Constitutional: Denied any fatigue denied any fever. Cardio vascular: denied any chest pain, palpitations Gastrointestinal denied any nausea vomiting Pulmonary: Denied any shortness of breath cough Neurologic denied any new focal deficits All inpatient medications were reviewed and appropriate changes in these medications as dictated in the interval history and assessment and plan. Objective - Vital Signs Vital signs: Vital Signs Temp 97.9 F 02/16/19 12:00 Pulse 87 02/16/19 12:00 Resp 19 02/16/19 12:00 BP 134/66 02/16/19 12:00 Pulse Ox 94 L 02/16/19 12:00 Intake & Output 02/15/19 02/16/19 02/16/19 18:59 06:59 18:59 Output Total 450 610 Balance -450 -610 Weight 86.9 kg Output: Urine 450 610 Other: Voiding Method Urinal Urinal Urinal # Voids 2 # Bowel Movements 1 ABP, PAP, CO, CI - Last Documented Arterial Blood Pressure 154/61 Pulmonary Artery Pressure 28/18 Cardiac Output 4.2 Cardiac Index 2.2 - Exam PHYSICAL EXAMINATION: GENERAL: The patient is alert and oriented x3, not in any acute distress. Well developed, well nourished. HEENT: Pupils are round and equally reacting to light. EOMI. No scleral icterus. No conjunctival pallor. Normocephalic, atraumatic. No pharyngeal erythema. No thyromegaly. CARDIOVASCULAR: S1 and S2 present. No murmurs, rubs, or gallops. PULMONARY: Chest is clear to auscultation, no wheezing or crackles. patient does have sternal dressing chest were removed ABDOMEN: Soft, nontender, nondistended, normoactive bowel sounds. No palpable organomegaly. MUSCULOSKELETAL: No joint swelling or deformity. EXTREMITIES: No cyanosis, clubbing, or pedal edema. NEUROLOGICAL: Gross neurological examination did not reveal any focal deficits. SKIN: No rashes. - Labs CBC & Chem 7: 02/16/19 04:16 02/16/19 04:16 Labs: Abnormal Lab Results - Last 24 Hours (Table) 02/15/19 02/15/19 02/16/19 Range/Units 16:41 20:57 02:18 RBC (4.30-5.90) m/uL Hgb (13.0-17.5) gm/dL Hct (39.0-53.0) % Glucose (74-99) mg/dL POC Glucose (mg/dL) 152 H 229 H 184 H (75-99) mg/dL 02/16/19 02/16/19 02/16/19 Range/Units 04:16 04:16 07:09 RBC 3.22 L (4.30-5.90) m/uL Hgb 9.8 L (13.0-17.5) gm/dL Hct 29.8 L (39.0-53.0) % Glucose 139 H (74-99) mg/dL POC Glucose (mg/dL) 113 H (75-99) mg/dL 02/16/19 Range/Units 11:46 RBC (4.30-5.90) m/uL Hgb (13.0-17.5) gm/dL Hct (39.0-53.0) % Glucose (74-99) mg/dL POC Glucose (mg/dL) 231 H (75-99) mg/dL Assessment and Plan Plan: -coronary artery disease status post CABG with PLUMMER to LAD left radial to OM1, saphenous venous graft to PDA -Type 2 diabetes mellitus patient can be resumed on his oral hyperglycemic agents check blood sugars twice a day can be discharged from medical perspective -Hypertension -Hyperlipidemia -nicotine dependence
[2019-02-17] MEDS: IPRATROPIUM-ALBUTEROL 3 ML NEB INHALATION SCH (07:42)
== END 2019-02-16 15:30 | disposition home health service (06) | DRG 234 ==
LOC: CATHCVL 12:02 → 2SICU 16:17 → CATHCVL 17:02 → 2SICU 17:02
PROVIDERS: ADMIT Internal Medicine Cardiovascular Disease; ATTEND Surgery
PROC: 4A023N7 Measurement of Cardiac Sampling and Pressure, Left Heart, Percutaneous Approach (ICD-10-PCS; 2019-02-08)
PROC: B2111ZZ Fluoroscopy of Multiple Coronary Arteries using Low Osmolar Contrast (ICD-10-PCS; 2019-02-08)
PROC: B2151ZZ Fluoroscopy of Left Heart using Low Osmolar Contrast (ICD-10-PCS; 2019-02-08)
PROC: B54DZZZ Ultrasonography of Bilateral Lower Extremity Veins (ICD-10-PCS; 2019-02-09)
PROC: 021009W Bypass Coronary Artery, One Artery from Aorta with Autologous Venous Tissue, Open Approach (ICD-10-PCS; 2019-02-12)
PROC: 06BQ4ZZ Excision of Left Saphenous Vein, Percutaneous Endoscopic Approach (ICD-10-PCS; 2019-02-12)
PROC: 03BC4ZZ Excision of Left Radial Artery, Percutaneous Endoscopic Approach (ICD-10-PCS; 2019-02-12)
PROC: 5A1221Z Performance of Cardiac Output, Continuous (ICD-10-PCS; 2019-02-12)
PROC: 4A033BC Measurement of Arterial Pressure, Coronary, Percutaneous Approach (ICD-10-PCS; 2019-02-12)
PROC: B24BZZ4 Ultrasonography of Heart with Aorta, Transesophageal (ICD-10-PCS; 2019-02-12)
PROC: 30233N0 Transfusion of Autologous Red Blood Cells into Peripheral Vein, Percutaneous Approach (ICD-10-PCS; 2019-02-12)
PROC: 02100Z9 Bypass Coronary Artery, One Artery from Left Internal Mammary, Open Approach (ICD-10-PCS; principal; 2019-02-12 08:00)
PROC: 02100AW Bypass Coronary Artery, One Artery from Aorta with Autologous Arterial Tissue, Open Approach (ICD-10-PCS; 2019-02-12 08:00)
DX: I21.4 Non-ST elevation (NSTEMI) myocardial infarction (principal); D62 Acute posthemorrhagic anemia; J98.11 Atelectasis; E11.65 Type 2 diabetes mellitus with hyperglycemia; I11.9 Hypertensive heart disease without heart failure; I25.10 Atherosclerotic heart disease of native coronary artery without angina pectoris; E78.5 Hyperlipidemia, unspecified; R00.0 Tachycardia, unspecified; E66.9 Obesity, unspecified; Z68.30 Body mass index [BMI] 30.0-30.9, adult; Z87.891 Personal history of nicotine dependence; Z79.82 Long term (current) use of aspirin; Z79.84 Long term (current) use of oral hypoglycemic drugs; Z79.899 Other long term (current) drug therapy; Z82.49 Family history of ischemic heart disease and other diseases of the circulatory system
CPT/HCPCS: 71045; 71046; 80048; 80053; 80061; 80074; 81003; 82330; 82805; 83036; 83735; 84443; 84484; 85025; 85027; 85520; 85610; 85730; 86850; 86891; 86900; 86901; 86920; 87070; 87086; 93306; 93458; 93880; 93922; 93923; 93930; 93970; 94002; 94003; 94150; 94640

== ENCOUNTER 2019-05-27 16:16 | Inpatient (IN) | payer MEDICARE ==
[2019-05-27] MEDS ORDERED: ONDANSETRON 4 MG/2 ML VIAL IVP STA (16:53)
[2019-05-27] MEDS ORDERED: SODIUM CHLORIDE 0.9% 1,000 ML IV STA (16:53)
[2019-05-27] MEDS ORDERED: PANTOPRAZOLE 40 MG/10 ML VIAL IVP STA (16:53)
[2019-05-27 17:16] LABS: Basophils # (A) 0.1 k/uL (0-0.2); Basophils % (A) 1 %; Eosinophils # (A) 0.1 k/uL (0-0.7); Eosinophils % (A) 1 %; HCT 36.3 % (39.0-53.0); HGB 11.8 gm/dL (13.0-17.5); Lymphocytes # (A) 1.3 k/uL (1.0-4.8); Lymphocytes % (A) 16 %; MCH 28.6 pg (25.0-35.0); MCHC 32.4 g/dL (31.0-37.0); MCV 88.4 fL (80.0-100.0); Mean Platelet Volume 6.8; Monocytes # (A) 0.4 k/uL (0-1.0); Monocytes % (A) 5 %; Neutrophils # (A) 6.6 k/uL (1.3-7.7); Neutrophils % (A) 77 %; Platelet Count 315 k/uL (150-450); RBC 4.11 m/uL (4.30-5.90); WBC 8.6 k/uL (3.8-10.6)
[2019-05-27 17:24] LABS: Partial Thromboplastin Time 22.2 sec (22.0-30.0); Prothrombin Time 10.3 sec (9.0-12.0)
[2019-05-27 17:26] LABS: ALT 23 U/L (21-72); AST 21 U/L (17-59); African American GFR (CKD) >90 (>60 ml/min/1.73 sqM); Albumin 3.9 g/dL (3.5-5.0); Alkaline Phosphatase 83 U/L (38-126); Anion Gap 7 mmol/L; Blood Urea Nitrogen 25 mg/dL (9-20); Calcium 8.9 mg/dL (8.4-10.2); Carbon Dioxide 22 mmol/L (22-30); Chloride 111 mmol/L (98-107); Glucose 182 mg/dL (74-99); Magnesium 2.1 mg/dL (1.6-2.3); Potassium 5.3 mmol/L (3.5-5.1); Sodium 140 mmol/L (137-145); Total Bilirubin 0.4 mg/dL (0.2-1.3); Total Protein 6.5 g/dL (6.3-8.2)
--- NOTE | 2019-05-27 17:37 | ED ---
GI Bleed HPI - General Chief complaint: GI Bleed Stated complaint: GI Bleed Time Seen by Provider: 05/27/19 16:23 Source: patient, EMS, RN notes reviewed, old records reviewed Mode of arrival: EMS Limitations: no limitations - History of Present Illness Initial comments: This is a 60-year-old male the ER for evaluation. Patient except in transfer for known GI bleed. Patient on aspirin Plavix no other significant blood thinners feels lightheaded and dizzy, patient having active bloody bowel movement here in the ER by a bowel movement is bright red blood. No significant current abdominal pain is still lightheaded and dizzy occasionally weeks. No prior history of same no recent colonoscopy MD complaint: blood on toilet paper, blood streaked stool -: days(s) Radiation: none Severity scale (1-10): 7 Quality: painless Consistency: constant Improves with: none Worsens with: bowel movement Context: history of GI bleed Associated Symptoms: denies other symptoms - Related Data Home Medications Medication Instructions Recorded Confirmed Multivitamins, Thera [Multivitamin 1 tab PO DAILY 02/08/19 05/27/19 (formulary)] glipiZIDE [Glucotrol] 10 mg PO AC-BID 02/08/19 05/27/19 metFORMIN HCL [Glucophage] 850 mg PO BID 02/08/19 05/27/19 Atorvastatin [Lipitor] 80 mg PO HS 05/27/19 05/27/19 Previous Rx's Medication Instructions Recorded Aspirin 325 mg PO DAILY #30 tab 02/16/19 Clopidogrel [Plavix] 75 mg PO DAILY #30 tab 02/16/19 Furosemide [Lasix] 20 mg PO DAILY #5 tab 02/16/19 Metoprolol Tartrate [Lopressor] 50 mg PO BID #60 tab 02/16/19 Allergies Allergy/AdvReac Type Severity Reaction Status Date / Time No Known Allergies Allergy Verified 05/27/19 16:41 Review of Systems ROS Statement: Those systems with pertinent positive or pertinent negative responses have been documented in the HPI. ROS Other: All systems not noted in ROS Statement are negative. Past Medical History Past Medical History: Coronary Artery Disease (CAD), Chest Pain / Angina, Diabetes Mellitus, Hyperlipidemia, Hypertension Additional Past Medical History / Comment(s): Multivessel coronary artery disease History of Any Multi-Drug Resistant Organisms: None Reported Past Surgical History: Coronary Bypass/CABG, Tonsillectomy Additional Past Surgical History / Comment(s): left hand finger sewed pm 55 yrs ago Past Anesthesia/Blood Transfusion Reactions: No Reported Reaction Past Psychological History: No Psychological Hx Reported Smoking Status: Former smoker Past Alcohol Use History: Occasional Past Drug Use History: None Reported - Past Family History Father Family Medical History: Myocardial Infarction ([place]) Mother Family Medical History: Coronary Artery Disease (CAD), Dementia General Exam - General Exam Comments Initial Comments: Patient is having active bright red bloody bowel movement here in the Limitations: no limitations General appearance: alert, in no apparent distress Head exam: Present: atraumatic, normocephalic, normal inspection Eye exam: Present: normal appearance, PERRL, EOMI. Absent: scleral icterus, conjunctival injection, periorbital swelling ENT exam: Present: normal exam, mucous membranes moist Neck exam: Present: normal inspection. Absent: tenderness, meningismus, lymphadenopathy Respiratory exam: Present: normal lung sounds bilaterally. Absent: respiratory distress, wheezes, rales, rhonchi, stridor Cardiovascular Exam: Present: regular rate, normal rhythm, normal heart sounds. Absent: systolic murmur, diastolic murmur, rubs, gallop, clicks GI/Abdominal exam: Present: soft, normal bowel sounds. Absent: distended, tenderness, guarding, rebound, rigid Extremities exam: Present: normal inspection, full ROM, normal capillary refill. Absent: tenderness, pedal edema, joint swelling, calf tenderness Back exam: Present: normal inspection Neurological exam: Present: alert, oriented X3, CN II-XII intact Psychiatric exam: Present: normal affect, normal mood Skin exam: Present: warm, dry, intact, normal color. Absent: rash Course Vital Signs 05/27/19 05/27/19 05/27/19 16:30 17:34 17:52 Temperature 98.1 F Pulse Rate 87 84 93 Respiratory 20 20 16 Rate Blood Pressure 121/74 121/74 117/64 O2 Sat by Pulse 99 99 99 Oximetry - Reevaluation(s) Reevaluation #1: 05/27/19 17:36 Medical and transfer paperwork is reviewed hemoglobin 11 Reevaluation #2: 05/27/19 18:27 Patient having bowel movement did have syncopal event Reevaluation #3: 05/27/19 18:27 Symptoms improved currently with hydration in Trendelenburg, patient denies headache chest pain shortness of breath or current abdominal pain does feel weak and dizzy so Medical Decision Making - Medical Decision Making 60 male the ER for evaluation of GI bleeding is at 7 transfer, patient has had multiple bright red blood bowel to the ER did have a syncopal event, no longer allowed to get out of bed, patient was put in Trendelenburg given IV fluid bolus and blood pressure did improve. Patient be transfused - Lab Data Result diagrams: 05/27/19 17:05 05/27/19 17:05 Lab Results 05/27/19 05/27/19 05/27/19 Range/Units 17:00 17:05 17:05 WBC 8.6 (3.8-10.6) k/uL RBC 4.11 L (4.30-5.90) m/uL Hgb 11.8 L (13.0-17.5) gm/dL Hct 36.3 L (39.0-53.0) % MCV 88.4 (80.0-100.0) fL MCH 28.6 (25.0-35.0) pg MCHC 32.4 (31.0-37.0) g/dL RDW 16.0 H (11.5-15.5) % Plt Count 315 (150-450) k/uL Neutrophils % 77 % Lymphocytes % 16 % Monocytes % 5 % Eosinophils % 1 % Basophils % 1 % Neutrophils # 6.6 (1.3-7.7) k/uL Lymphocytes # 1.3 (1.0-4.8) k/uL Monocytes # 0.4 (0-1.0) k/uL Eosinophils # 0.1 (0-0.7) k/uL Basophils # 0.1 (0-0.2) k/uL PT (9.0-12.0) sec INR (<1.2) APTT (22.0-30.0) sec Sodium 140 (137-145) mmol/L Potassium 5.3 H (3.5-5.1) mmol/L Chloride 111 H (98-107) mmol/L Carbon Dioxide 22 (22-30) mmol/L Anion Gap 7 mmol/L BUN 25 H (9-20) mg/dL Creatinine 0.92 (0.66-1.25) mg/dL Est GFR (CKD-EPI)AfAm >90 (>60 ml/min/1.73 sqM) Est GFR (CKD-EPI)NonAf 85 (>60 ml/min/1.73 sqM) Glucose 182 H (74-99) mg/dL Calcium 8.9 (8.4-10.2) mg/dL Magnesium 2.1 (1.6-2.3) mg/dL Total Bilirubin 0.4 (0.2-1.3) mg/dL AST 21 (17-59) U/L ALT 23 (21-72) U/L Alkaline Phosphatase 83 (38-126) U/L Total Protein 6.5 (6.3-8.2) g/dL Albumin 3.9 (3.5-5.0) g/dL Lipase 120 (23-300) U/L Stool Occult Blood (Negative) Blood Type A Positive Blood Type Recheck No Antibody Screen NEGATIVE Crossmatch See Detail Spec Expiration Date 05/30/2019 - 230405/27/19 05/27/19 Range/Units 17:05 17:45 WBC (3.8-10.6) k/uL RBC (4.30-5.90) m/uL Hgb (13.0-17.5) gm/dL Hct (39.0-53.0) % MCV (80.0-100.0) fL MCH (25.0-35.0) pg MCHC (31.0-37.0) g/dL RDW (11.5-15.5) % Plt Count (150-450) k/uL Neutrophils % % Lymphocytes % % Monocytes % % Eosinophils % % Basophils % % Neutrophils # (1.3-7.7) k/uL Lymphocytes # (1.0-4.8) k/uL Monocytes # (0-1.0) k/uL Eosinophils # (0-0.7) k/uL Basophils # (0-0.2) k/uL PT 10.3 (9.0-12.0) sec INR 1.0 (<1.2) APTT 22.2 (22.0-30.0) sec Sodium (137-145) mmol/L Potassium (3.5-5.1) mmol/L Chloride (98-107) mmol/L Carbon Dioxide (22-30) mmol/L Anion Gap mmol/L BUN (9-20) mg/dL Creatinine (0.66-1.25) mg/dL Est GFR (CKD-EPI)AfAm (>60 ml/min/1.73 sqM) Est GFR (CKD-EPI)NonAf (>60 ml/min/1.73 sqM) Glucose (74-99) mg/dL Calcium (8.4-10.2) mg/dL Magnesium (1.6-2.3) mg/dL Total Bilirubin (0.2-1.3) mg/dL AST (17-59) U/L ALT (21-72) U/L Alkaline Phosphatase (38-126) U/L Total Protein (6.3-8.2) g/dL Albumin (3.5-5.0) g/dL Lipase (23-300) U/L Stool Occult Blood Positive (Negative) Blood Type Blood Type Recheck Antibody Screen Crossmatch Spec Expiration Date Critical Care Time Critical Care Time: Yes Total Critical Care Time: 31 Disposition Clinical Impression: GI bleed, Syncope Disposition: ADMITTED IP TO THIS [facility] Condition: Fair Is patient prescribed a controlled substance at d/c from ED?: No Referrals: Brannon Meraz MD [Primary Care Provider] - 1-2 days
[2019-05-27] MEDS ORDERED: SODIUM CHLORIDE 0.9% 500 ML 500 ML IV STA (17:49)
[2019-05-27] MEDS ORDERED: NALOXONE 0.4 MG/ML 1 ML VIAL IV PRN (19:37)
[2019-05-27 19:39] LABS: Glucose,Whole Blood 140 mg/dL (75-99)
[2019-05-27 22:32] LABS: Glucose,Whole Blood 133 mg/dL (75-99)
[2019-05-27] MEDS ORDERED: ATORVASTATIN 80 MG TAB PO SCH (22:45)
[2019-05-27] MEDS: METOPROLOL TARTRATE 50 MG TAB PO SCH (22:49)
[2019-05-27] MEDS: PANTOPRAZOLE 40 MG/10 ML VIAL IV SCH (22:49)
[2019-05-28 05:04] LABS: Basophils % (A) 1 %; Eosinophils # (A) 0.1 k/uL (0-0.7); Eosinophils % (A) 1 %; HCT 35.5 % (39.0-53.0); HGB 11.6 gm/dL (13.0-17.5); Lymphocytes % (A) 36 %; MCH 29.3 pg (25.0-35.0); MCHC 32.7 g/dL (31.0-37.0); MCV 89.8 fL (80.0-100.0); Mean Platelet Volume 6.8; Monocytes # (A) 0.5 k/uL (0-1.0); Monocytes % (A) 9 %; Neutrophils # (A) 2.9 k/uL (1.3-7.7); Neutrophils % (A) 51 %; Platelet Count 220 k/uL (150-450); RBC 3.96 m/uL (4.30-5.90); RDW 15.7 % (11.5-15.5); WBC 5.7 k/uL (3.8-10.6)
[2019-05-28 05:11] LABS: African American GFR (CKD) >90 (>60 ml/min/1.73 sqM); Anion Gap 4 mmol/L; Blood Urea Nitrogen 24 mg/dL (9-20); Calcium 8.3 mg/dL (8.4-10.2); Carbon Dioxide 25 mmol/L (22-30); Chloride 110 mmol/L (98-107); Glucose 71 mg/dL (74-99); Potassium 4.6 mmol/L (3.5-5.1); Sodium 139 mmol/L (137-145)
[2019-05-28] MEDS ORDERED: DEXTROSE 10 % IN WATER 250 ML IV ONE (06:27)
[2019-05-28] MEDS: INSULIN ASPART (NovoLOG) 100 UNIT/ML VIAL SQ SCH ×4 (06:31→20:16)
[2019-05-28 06:37] LABS: Glucose,Whole Blood 68 mg/dL (75-99)
[2019-05-28 07:19] LABS: Glucose,Whole Blood 123 mg/dL (75-99)
--- NOTE | 2019-05-28 07:53 | CONS ---
CONSULTATION Mr. Mi is a 68-year-old male who was transferred from [facility] for lower GI bleeding. The patient has been followed by Dr. Olga Malloy and presented in early February of this year with symptoms of unstable angina and non-STEMI, underwent cardiac catheterization, was found to have severe triple-vessel coronary artery disease and underwent coronary artery bypass grafting with PLUMMER to the LAD, saphenous vein graft to the right coronary artery and radial artery to the OM. He has done well and his activity level has improved. He walks a half an hour and uses bike without any symptoms of chest pain, dyspnea, or dizziness. Yesterday, he had a bowel movement, saw red blood per rectum that recurred at home and subsequently occurred in the emergency room at [facility] and he had another episode down in the emergency room in [facility]. In the emergency room in [facility], he had mild dizziness and a syncopal episode for a few seconds. He had no associated chest discomfort. No palpitations. He is feeling well this morning. He denies any nausea or vomiting. He had minimal abdominal pain. He denies any PND, orthopnea, or peripheral edema. His coronary risk factors remarkable for history of diabetes, hyperlipidemia. He is a nonsmoker. MEDICATION: His medications include aspirin, Lipitor 80 mg daily, Plavix 75 mg daily, Lasix 20 mg daily, metoprolol tartrate 50 mg twice a day, Glucotrol 10 mg twice a day, metformin 850 mg twice a day. REVIEW OF SYSTEMS: RESPIRATORY SYSTEM: He has no recent wheezing. No cough. No history of documented obstructive lung disease. GI SYSTEM: He has no prior history of peptic ulcer disease or GI bleeding. SYSTEM: No dysuria or hematuria. NERVOUS SYSTEM: No stroke or seizure. PHYSICAL EXAMINATION: A 68-year-old male, alert, oriented, in no apparent distress. Blood pressure 132/60 with the heart rate in the 70s. HEAD: Normocephalic. EYES: Sclerae nonicteric. NECK: Good carotid upstroke. No bruit. No jugular venous distention. LUNGS: Clear to auscultation. HEART: Regular rate and rhythm. S1, S2. No S3. No S4. No murmur or rub. ABDOMEN: Soft, nontender. Positive bowel sounds. No organomegaly. EXTREMITIES: No edema. Intact distal pulses. LAB DATA: Lab data revealed a hemoglobin of 11.8 yesterday, 11.6 today, platelet count of 220. BUN and creatinine 24 and 0.98. Potassium 4.6. He is heme positive. IMPRESSION: 1. Lower gastrointestinal bleeding, could be related to hemorrhoids or fissure. Patient has occasional constipation and straining. 2. Status post coronary artery bypass grafting stable. 3. Diabetes. 4. Hyperlipidemia. RECOMMENDATION: I agree with your plan of stopping the aspirin and Plavix at this time. We will await the input of the GI service. If stable, I will resume the aspirin at 81 mg daily. The Plavix can be held at this point. I will obtain an EKG. Otherwise, from the cardiac standpoint, we will continue on the present therapy. Thank you for this consult. We will follow with you. CORBIN / KATHY: [id number] /
[2019-05-28] MEDS: METOPROLOL TARTRATE 50 MG TAB PO SCH ×2 (08:23→20:10)
[2019-05-28] MEDS: MULTIVITAMINS, THERA 1 EACH TAB PO SCH (08:23)
[2019-05-28] MEDS: PANTOPRAZOLE 40 MG/10 ML VIAL IV SCH ×2 (08:24→20:09)
[2019-05-28 11:39] LABS: Glucose,Whole Blood 122 mg/dL (75-99)
--- NOTE | 2019-05-28 11:50 | P.CNPUL ---
History of Present Illness Consult date: 05/28/19 Requesting physician: Nellie Ortega Reason for consult: dyspnea Chief complaint: Bright red bowel movement History of present illness: This is a very pleasant 68-year-old gentleman who follows with Dr. Dutton as his primary care physician. He has a history of diabetes mellitus, hypertension, hyperlipidemia, previous tobacco dependence. FEV1 value 75% of predicted. He is recently diagnosed with a non-STEMI back in February 2019 and had undergone coronary artery bypass grafting on 02/12/2019 at which time he received a PLUMMER to the LAD, left radial artery graft to the obtuse marginal, reverse saphenous vein graft to the posterior descending artery. He had been discharged on aspirin and Plavix. He presented here yesterday with complaints of bright red bowel movements. He did have a syncopal episode in the emergency room. He was hydrated and placed in Trendelenburg and subsequently transferred here to the intensive care unit. He is seen today in consultation. Did receive 2 units of packed blood cells. His current hemoglobin is 11.6. He is awake and alert in no acute distress. No chest discomfort. No worsening shortness of breath, cough or congestion. No further syncope. He has been hemodynamically stable not requiring any pressors at this time. Placed on IV Protonix. White count 5.7. Hemoglobin 11.6. Sodium 139. Potassium 4.6. Chloride 110. Creatinine 0.98. GI consult is pending. Review of Systems REVIEW OF SYSTEMS: CONSTITUTIONAL: Denies any recent significant weight loss or weight gain. EYES: Denies change in vision. EARS, NOSE, MOUTH, THROAT: Denies headaches, denies sore throat. CARDIOVASCULAR: Positive for syncopal episode. RESPIRATORY: Denies shortness of breath, cough, congestion or hemoptysis. GASTROINTESTINAL: Positive bright red blood per rectum. GENITOURINARY: Denies hematuria, denies infections. MUSKULOSKELETAL: Denies pain, denies swelling. INTEGUMENTARY: Denies rash, denies eczema. NEUROLOGICAL: Denies recent memory loss, no recent seizure activity. PSYCHIATRIC: Denies anxiety, denies depression. HEMATOLOGIC/LYMPHATIC: Denies anemia, denies enlarged lymph nodes. Past Medical History Past Medical History: Coronary Artery Disease (CAD), Chest Pain / Angina, Diabe leny Mellitus, Hyperlipidemia, Hypertension Additional Past Medical History / Comment(s): Multivessel coronary artery disease History of Any Multi-Drug Resistant Organisms: None Reported Past Surgical History: Coronary Bypass/CABG, Tonsillectomy Additional Past Surgical History / Comment(s): left hand finger sewed pm 55 yrs ago Past Anesthesia/Blood Transfusion Reactions: No Reported Reaction Past Psychological History: No Psychological Hx Reported Smoking Status: Former smoker Past Alcohol Use History: Occasional Past Drug Use History: None Reported - Past Family History Father Family Medical History: Myocardial Infarction ([place]) Mother Family Medical History: Coronary Artery Disease (CAD), Dementia Medications and Allergies Home Medications Medication Instructions Recorded Confirmed Type Multivitamins, Thera [Multivitamin 1 tab PO DAILY 02/08/19 05/27/19 History (formulary)] glipiZIDE [Glucotrol] 10 mg PO AC-BID 02/08/19 05/27/19 History metFORMIN HCL [Glucophage] 850 mg PO BID 02/08/19 05/27/19 History Aspirin 325 mg PO DAILY #30 tab 02/16/19 05/27/19 Rx Clopidogrel [Plavix] 75 mg PO DAILY #30 tab 02/16/19 05/27/19 Rx Furosemide [Lasix] 20 mg PO DAILY #5 tab 02/16/19 05/27/19 Rx Metoprolol Tartrate [Lopressor] 50 mg PO BID #60 tab 02/16/19 05/27/19 Rx Atorvastatin [Lipitor] 80 mg PO HS 05/27/19 05/27/19 History Allergies Allergy/AdvReac Type Severity Reaction Status Date / Time No Known Allergies Allergy Verified 05/27/19 16:41 Physical Exam Vitals: Vital Signs Temp Pulse Resp BP Pulse Ox 05/28/19 10:00 71 13 116/71 98 05/28/19 09:00 75 7 L 131/65 98 05/28/19 08:00 98.4 F 89 7 L 126/72 98 05/28/19 07:00 77 16 132/69 98 05/28/19 06:00 72 16 123/64 97 05/28/19 05:00 73 16 126/63 97 05/28/19 04:00 97.5 F L 78 16 128/91 98 05/28/19 03:00 71 14 123/69 96 05/28/19 02:00 73 17 133/69 95 05/28/19 01:30 98 F 85 18 127/79 05/28/19 01:00 71 18 123/66 98 05/28/19 00:00 98 F 74 18 120/67 97 05/27/19 23:12 98.3 F 85 18 131/79 97 05/27/19 23:02 89 16 131/79 98 05/27/19 23:00 90 15 121/72 98 05/27/19 22:42 97.8 F 87 16 121/72 97 05/27/19 22:32 98.1 F 87 18 126/66 97 05/27/19 22:30 87 18 133/68 97 05/27/19 22:27 98 F 86 18 126/66 98 05/27/19 22:00 85 18 113/62 98 05/27/19 21:30 89 16 113/67 97 05/27/19 21:00 89 18 124/78 97 05/27/19 20:59 98.4 F 89 18 124/78 97 05/27/19 20:30 87 18 117/68 97 05/27/19 20:29 97.8 F 85 18 115/64 98 05/27/19 20:19 98 F 89 16 117/68 05/27/19 20:00 98 F 89 16 118/64 96 05/27/19 19:30 93 12 123/77 97 05/27/19 19:10 98.1 F 88 18 109/61 99 05/27/19 18:30 98.1 F 82 18 116/63 99 05/27/19 17:52 93 16 117/64 99 05/27/19 17:34 84 20 121/74 99 05/27/19 16:30 98.1 F 87 20 121/74 99 Intake and Output 05/27/19 05/28/19 05/28/19 22:59 06:59 14:59 Intake Total 1330 970 230 Output Total 0 450 1500 Balance 1330 520 -1270 Intake: IV 400 660 230 .9 60 80 Dextrose 10 % in Water 150 250 ml @ 999 mls/hr IV ONCE ONE Rx#:[id number] Sodium Chloride 0.9% 1, 400 600 000 ml @ 100 mls/hr IV . Q10H STA Rx#:[id number] Blood Product 930 310 Rc As-3 Unit 310 [id number] Rc As-3 Unit 0 310 [id number] Output: Urine 0 450 0 Stool 1500 Other: Voiding Method Urinal Urinal Urinal # Voids 1 # Bowel Movements 1 1 Weight 74.661 kg 78.1 kg GENERAL EXAM: Alert, active, pleasant 68-year-old gentleman, comfortable in no apparent distress. On room air. HEAD: Normocephalic. EYES: Normal reaction of pupils, equal size. NOSE: Clear with pink turbinates. THROAT: No erythema or exudates. NECK: No masses, no JVD. CHEST: Sternum stable. Heart hugger in place. LUNGS: Equal air entry with no crackles, wheeze, rhonchi or dullness. CVS: S1 and S2 normal with no audible murmur, regular rhythm. ABDOMEN: No hepatosplenomegaly, normal bowel sounds, no guarding or rigidity. SPINE: No scoliosis or deformity SKIN: No rashes CENTRAL NERVOUS SYSTEM: No focal deficits, tone is normal in all 4 extremities. EXTREMITIES: There is no peripheral edema. No clubbing, no cyanosis. Peripheral pulses are intact. Results - Laboratory Findings CBC and BMP: 05/28/19 04:14 05/28/19 04:14 PT/INR, D-dimer PT 10.3 sec (9.0-12.0) 05/27/19 17:05 INR 1.0 (<1.2) 05/27/19 17:05 Abnormal lab findings: Abnormal Labs 05/27/19 05/27/19 05/27/19 17:00 17:05 17:05 RBC 4.11 L Hgb 11.8 L Hct 36.3 L RDW 16.0 H Potassium 5.3 H Chloride 111 H BUN 25 H Glucose 182 H POC Glucose (mg/dL) Calcium Crossmatch See Detail 05/27/19 05/27/19 05/28/19 19:27 22:10 04:14 RBC 3.96 L Hgb 11.6 L Hct 35.5 L RDW 15.7 H Potassium Chloride BUN Glucose POC Glucose (mg/dL) 140 H 133 H Calcium Crossmatch 05/28/19 05/28/19 05/28/19 04:14 06:25 06:57 RBC Hgb Hct RDW Potassium Chloride 110 H BUN 24 H Glucose 71 L POC Glucose (mg/dL) 68 L 123 H Calcium 8.3 L Crossmatch Assessment and Plan Assessment: Impression: #1 Acute gastrointestinal bleeding with syncope. Status post 2 units packed red blood cells. Current hemoglobin 11.6. #2 Coronary artery disease with recent non-STEMI and coronary artery bypass grafting in February 2019. Had been on Plavix and aspirin in the outpatient setting. #3 Previous smoker. FEV1 value 75% of predicted. #4 Hyperlipidemia. #5 Hypertension. #6 Diabetes mellitus. Plan: The patient was seen and evaluated by Dr. Chahal. He is currently stable from the critical care standpoint. We're waiting GI recommendations for possible investigation/intervention. Continue to monitor hemoglobin. We will continue to follow and make further recommendations based on his clinical status. I, the cosigning physician, performed a history & physical examination of the patient. Lungs sounds are clear. Maintaining good O2 saturations in the 90s on room air. I discussed the assessment and plan of care with my nurse practitioner, Ana Trujillo. I attest to the above note as dictated by her. Time with Patient: Greater than 30
--- NOTE | 2019-05-28 12:16 | P.HPIM ---
History of Present Illness 68-year-old pleasant gentleman came in with compensative lower GI bleed has been going on since yesterday multiple stools with blood in the stools hemoglobin is 711.4. Patient had a recent coronary artery bypass grafting and patient is on aspirin and Plavix. Patient is also receiving Lasix his EF was around modified to 50% at the time. Patient denied any fever chills patient denied any abdominal pain patient denied any hematemesis or hematochezia Review of Systems REVIEW OF SYSTEMS: CONSTITUTIONAL: No fever, no malaise, no fatigue. HEENT: No recent visual problems or hearing problems. Denied any sore throat. CARDIOVASCULAR: No chest pain, orthopnea, PND, no palpitations, no syncope. PULMONARY: No shortness of breath, no cough, no hemoptysis. GASTROINTESTINAL:as mentioned in HPI NEUROLOGICAL: No headaches, no weakness, no numbness. HEMATOLOGICAL: Denies any bleeding or petechiae. GENITOURINARY: Denies any burning micturition, frequency, or urgency. MUSCULOSKELETAL/RHEUMATOLOGICAL: Denies any joint pain, swelling, or any muscle pain. ENDOCRINE: Denies any polyuria or polydipsia. The rest of the 14-point review of systems is negative. Past Medical History Past Medical History: Coronary Artery Disease (CAD), Chest Pain / Angina, Catalina betes Mellitus, Hyperlipidemia, Hypertension Additional Past Medical History / Comment(s): Multivessel coronary artery disease History of Any Multi-Drug Resistant Organisms: None Reported Past Surgical History: Coronary Bypass/CABG, Tonsillectomy Additional Past Surgical History / Comment(s): left hand finger sewed pm 55 yrs ago Past Anesthesia/Blood Transfusion Reactions: No Reported Reaction Past Psychological History: No Psychological Hx Reported Smoking Status: Former smoker Past Alcohol Use History: Occasional Past Drug Use History: None Reported - Past Family History Father Family Medical History: Myocardial Infarction ([place]) Mother Family Medical History: Coronary Artery Disease (CAD), Dementia Medications and Allergies Home Medications Medication Instructions Recorded Confirmed Type Multivitamins, Thera [Multivitamin 1 tab PO DAILY 02/08/19 05/27/19 History (formulary)] glipiZIDE [Glucotrol] 10 mg PO AC-BID 02/08/19 05/27/19 History metFORMIN HCL [Glucophage] 850 mg PO BID 02/08/19 05/27/19 History Aspirin 325 mg PO DAILY #30 tab 02/16/19 05/27/19 Rx Clopidogrel [Plavix] 75 mg PO DAILY #30 tab 02/16/19 05/27/19 Rx Furosemide [Lasix] 20 mg PO DAILY #5 tab 02/16/19 05/27/19 Rx Metoprolol Tartrate [Lopressor] 50 mg PO BID #60 tab 02/16/19 05/27/19 Rx Atorvastatin [Lipitor] 80 mg PO HS 05/27/19 05/27/19 History Allergies Allergy/AdvReac Type Severity Reaction Status Date / Time No Known Allergies Allergy Verified 05/27/19 16:41 Physical Exam Vitals: Vital Signs Temp Pulse Resp BP Pulse Ox 05/28/19 11:00 72 13 131/75 97 05/28/19 10:00 71 13 116/71 98 05/28/19 09:00 75 7 L 131/65 98 05/28/19 08:00 98.4 F 89 7 L 126/72 98 05/28/19 07:00 77 16 132/69 98 05/28/19 06:00 72 16 123/64 97 05/28/19 05:00 73 16 126/63 97 05/28/19 04:00 97.5 F L 78 16 128/91 98 05/28/19 03:00 71 14 123/69 96 05/28/19 02:00 73 17 133/69 95 05/28/19 01:30 98 F 85 18 127/79 05/28/19 01:00 71 18 123/66 98 05/28/19 00:00 98 F 74 18 120/67 97 05/27/19 23:12 98.3 F 85 18 131/79 97 05/27/19 23:02 89 16 131/79 98 05/27/19 23:00 90 15 121/72 98 05/27/19 22:42 97.8 F 87 16 121/72 97 05/27/19 22:32 98.1 F 87 18 126/66 97 05/27/19 22:30 87 18 133/68 97 05/27/19 22:27 98 F 86 18 126/66 98 05/27/19 22:00 85 18 113/62 98 05/27/19 21:30 89 16 113/67 97 05/27/19 21:00 89 18 124/78 97 05/27/19 20:59 98.4 F 89 18 124/78 97 05/27/19 20:30 87 18 117/68 97 05/27/19 20:29 97.8 F 85 18 115/64 98 05/27/19 20:19 98 F 89 16 117/68 05/27/19 20:00 98 F 89 16 118/64 96 05/27/19 19:30 93 12 123/77 97 05/27/19 19:10 98.1 F 88 18 109/61 99 05/27/19 18:30 98.1 F 82 18 116/63 99 05/27/19 17:52 93 16 117/64 99 05/27/19 17:34 84 20 121/74 99 05/27/19 16:30 98.1 F 87 20 121/74 99 Intake and Output 05/27/19 05/28/19 05/28/19 22:59 06:59 14:59 Intake Total 1330 970 250 Output Total 0 450 1500 Balance 1330 520 -1250 Intake: IV 400 660 250 .9 60 100 Dextrose 10 % in Water 150 250 ml @ 999 mls/hr IV ONCE ONE Rx#:[id number] Sodium Chloride 0.9% 1, 400 600 000 ml @ 100 mls/hr IV . Q10H STA Rx#:[id number] Blood Product 930 310 Rc As-3 Unit 310 [id number] Rc As-3 Unit 0 310 [id number] Output: Urine 0 450 0 Stool 1500 Other: Voiding Method Urinal Urinal Urinal # Voids 1 # Bowel Movements 1 1 Weight 74.661 kg 78.1 kg REVIEW OF SYSTEMS: CONSTITUTIONAL: No fever, no malaise, no fatigue. HEENT: No recent visual problems or hearing problems. Denied any sore throat. CARDIOVASCULAR: No chest pain, orthopnea, PND, no palpitations, no syncope. PULMONARY: No shortness of breath, no cough, no hemoptysis. GASTROINTESTINAL: No diarrhea, no nausea, no vomiting, no abdominal pain. NEUROLOGICAL: No headaches, no weakness, no numbness. HEMATOLOGICAL: Denies any bleeding or petechiae. GENITOURINARY: Denies any burning micturition, frequency, or urgency. MUSCULOSKELETAL/RHEUMATOLOGICAL: Denies any joint pain, swelling, or any muscle pain. ENDOCRINE: Denies any polyuria or polydipsia. The rest of the 14-point review of systems is negative. Results CBC & Chem 7: 05/28/19 04:14 05/28/19 04:14 Labs: Abnormal Lab Results - Last 24 Hours (Table) 05/27/19 05/27/19 05/27/19 Range/Units 17:00 17:05 17:05 RBC 4.11 L (4.30-5.90) m/uL Hgb 11.8 L (13.0-17.5) gm/dL Hct 36.3 L (39.0-53.0) % RDW 16.0 H (11.5-15.5) % Potassium 5.3 H (3.5-5.1) mmol/L Chloride 111 H (98-107) mmol/L BUN 25 H (9-20) mg/dL Glucose 182 H (74-99) mg/dL POC Glucose (mg/dL) (75-99) mg/dL Calcium (8.4-10.2) mg/dL Crossmatch See Detail 05/27/19 05/27/19 05/28/19 Range/Units 19:27 22:10 04:14 RBC 3.96 L (4.30-5.90) m/uL Hgb 11.6 L (13.0-17.5) gm/dL Hct 35.5 L (39.0-53.0) % RDW 15.7 H (11.5-15.5) % Potassium (3.5-5.1) mmol/L Chloride (98-107) mmol/L BUN (9-20) mg/dL Glucose (74-99) mg/dL POC Glucose (mg/dL) 140 H 133 H (75-99) mg/dL Calcium (8.4-10.2) mg/dL Crossmatch 05/28/19 05/28/19 05/28/19 Range/Units 04:14 06:25 06:57 RBC (4.30-5.90) m/uL Hgb (13.0-17.5) gm/dL Hct (39.0-53.0) % RDW (11.5-15.5) % Potassium (3.5-5.1) mmol/L Chloride 110 H (98-107) mmol/L BUN 24 H (9-20) mg/dL Glucose 71 L (74-99) mg/dL POC Glucose (mg/dL) 68 L 123 H (75-99) mg/dL Calcium 8.3 L (8.4-10.2) mg/dL Crossmatch 05/28/19 Range/Units 11:28 RBC (4.30-5.90) m/uL Hgb (13.0-17.5) gm/dL Hct (39.0-53.0) % RDW (11.5-15.5) % Potassium (3.5-5.1) mmol/L Chloride (98-107) mmol/L BUN (9-20) mg/dL Glucose (74-99) mg/dL POC Glucose (mg/dL) 122 H (75-99) mg/dL Calcium (8.4-10.2) mg/dL Crossmatch Thrombosis Risk Factor Assmnt - Choose All That Apply Any of the Below Risk Factors Present?: No Each Risk Factor Represents 2 Points: Age 61-74 years Each Risk Factor Represents 5 Points: Major surgery lasting over 3 hours Thrombosis Risk Factor Assessment Total Risk Factor Score: 7 Thrombosis Risk Factor Assessment Level: High Risk Assessment and Plan Plan: -acute blood blood loss anemia from lower GI bleed most probably diverticular bleed will hold off on antiplatelet therapy patient denied any NSAID use. Patient may need a colonoscopy gastric body was consulted -coronary artery disease with recent CABG: Patient will continue her metoprolol and statin hold off on antiplatelet therapy because of above-mentioned reasons -Congestive heart failure mildly depressed ejection fraction in the immediate postoperative period after CABG. Patient is not in heart failure exacerbation patient is receiving IV fluids because of which will hold off on Lasix. -type 2 diabetes mellitus: Hold off on oral hyperuricemic agents as patient is nothing by mouth at this time can use sliding scale -Hyperlipidemia -Hypertension
[2019-05-28 12:26] LABS: Basophils % (A) 1 %; Eosinophils # (A) 0.1 k/uL (0-0.7); Eosinophils % (A) 2 %; HCT 30.9 % (39.0-53.0); HGB 10.1 gm/dL (13.0-17.5); Lymphocytes # (A) 1.5 k/uL (1.0-4.8); Lymphocytes % (A) 29 %; MCH 29.2 pg (25.0-35.0); MCHC 32.6 g/dL (31.0-37.0); MCV 89.6 fL (80.0-100.0); Mean Platelet Volume 6.9; Monocytes # (A) 0.4 k/uL (0-1.0); Monocytes % (A) 7 %; Neutrophils % (A) 59 %; Platelet Count 214 k/uL (150-450); RBC 3.45 m/uL (4.30-5.90); RDW 15.9 % (11.5-15.5); WBC 5.1 k/uL (3.8-10.6)
[2019-05-28 12:51] VITALS: BMI 28.6
[2019-05-28] MEDS ORDERED: PEG 3350-NA SULF,BICARB,CL/KCL 4,000 ML BOTTLE PO ONE (16:00)
[2019-05-28 16:37] LABS: Basophils % (A) 1 %; Eosinophils # (A) 0.1 k/uL (0-0.7); Eosinophils % (A) 1 %; HCT 29.8 % (39.0-53.0); HGB 9.9 gm/dL (13.0-17.5); Lymphocytes # (A) 1.6 k/uL (1.0-4.8); Lymphocytes % (A) 34 %; MCH 29.8 pg (25.0-35.0); MCHC 33.3 g/dL (31.0-37.0); MCV 89.4 fL (80.0-100.0); Mean Platelet Volume 7.3; Monocytes # (A) 0.3 k/uL (0-1.0); Monocytes % (A) 6 %; Neutrophils # (A) 2.6 k/uL (1.3-7.7); Neutrophils % (A) 55 %; Platelet Count 221 k/uL (150-450); RBC 3.33 m/uL (4.30-5.90); RDW 15.3 % (11.5-15.5); WBC 4.7 k/uL (3.8-10.6)
[2019-05-28 17:38] LABS: Glucose,Whole Blood 104 mg/dL (75-99)
[2019-05-28] MEDS: ATORVASTATIN 80 MG TAB PO SCH (20:10)
[2019-05-28 20:27] LABS: Glucose,Whole Blood 119 mg/dL (75-99)
--- NOTE | 2019-05-28 22:13 | P.CONS ---
History of Present Illness - Reason for Consult Consult date: 05/28/19 Rectal bleeding Requesting physician: Nellie Ortega - Chief Complaint Rectal bleeding - History of Present Illness 68-year-old male with a medical history significant for diabetes mellitus, hypertension, dyslipidemia, and prior coronary artery bypass graft in February 2019 on aspirin and Plavix therapy who presented with complaints of bright red blood per rectum. Patient reports rectal bleeding occurring on Monday morning prior to taking his medications. He reports 4 bloody bowel movements prior to arrival of EMS, with a subsequent 4 bowel movements at the hospital and a episode of passing out. He does report some mild right-sided abdominal pain with the episode which has been intermittently. No associated nausea or vomiting, no melena reported. He is been off his Plavix therapy, with last dose taken Monday. He has received 2 units of packed red blood cells. He denies any prior history of GI bleeding. No prior EGD or colonoscopy. No upper abdominal or epigastric pain reported. On presentation to the hospital patient's hemoglobin was 11.8 and is subsequently trended to 10.1. Total bilirubin 0.4, alkaline phosphatase 81, AST 21 and ALTs 23. Patient reports 7 further episodes of blood per rectum today. Currently on a liquid diet. Review of Systems REVIEW OF SYSTEMS: CONSTITUTIONAL: Denies any fevers, chills, weight change or fatigue. CARDIOVASCULAR: Denies any chest pain, palpitations high or low blood pressures RESPIRATORY: Denies any shortness of breath, hemoptysis or cough. GENITOURINARY: No dysuria or hematuria. MUSCULOSKELETAL: No weakness reported. SKIN: Denies any new rashes or lesions, jaundice or pallor. PSYCHIATRIC: Denies any depression or anxiety. NEUROLOGY: Denies headache, denies any new focal deficits. EARS/NOSE/THROAT: No recent hearing change, congestion, nasal discharge or sore throat. EYES: No pain in eyes, discharge or change in vision. GASTROINTESTINAL: As per HPI. Past Medical History Past Medical History: Coronary Artery Disease (CAD), Chest Pain / Angina, Diabetes Mellitus, Hyperlipidemia, Hypertension Additional Past Medical History / Comment(s): Multivessel coronary artery disease History of Any Multi-Drug Resistant Organisms: None Reported Past Surgical History: Coronary Bypass/CABG, Tonsillectomy Additional Past Surgical History / Comment(s): left hand finger sewed pm 55 yrs ago Past Anesthesia/Blood Transfusion Reactions: No Reported Reaction Past Psychological History: No Psychological Hx Reported Smoking Status: Former smoker Past Alcohol Use History: Occasional Past Drug Use History: None Reported - Past Family History Father Family Medical History: Myocardial Infarction ([place]) Mother Family Medical History: Coronary Artery Disease (CAD), Dementia Medications and Allergies Home Medications Medication Instructions Recorded Confirmed Type Multivitamins, Thera [Multivitamin 1 tab PO DAILY 02/08/19 05/27/19 History (formulary)] glipiZIDE [Glucotrol] 10 mg PO AC-BID 02/08/19 05/27/19 History metFORMIN HCL [Glucophage] 850 mg PO BID 02/08/19 05/27/19 History Aspirin 325 mg PO DAILY #30 tab 02/16/19 05/27/19 Rx Clopidogrel [Plavix] 75 mg PO DAILY #30 tab 02/16/19 05/27/19 Rx Furosemide [Lasix] 20 mg PO DAILY #5 tab 02/16/19 05/27/19 Rx Metoprolol Tartrate [Lopressor] 50 mg PO BID #60 tab 02/16/19 05/27/19 Rx Atorvastatin [Lipitor] 80 mg PO HS 05/27/19 05/27/19 History Allergies Allergy/AdvReac Type Severity Reaction Status Date / Time No Known Allergies Allergy Verified 05/27/19 16:41 Physical Exam Vitals: Vital Signs Temp Pulse Resp BP Pulse Ox 05/28/19 14:00 79 6 L 123/57 98 05/28/19 13:00 73 15 124/65 97 05/28/19 12:00 98.5 F 72 9 L 124/63 97 05/28/19 11:00 72 13 131/75 97 05/28/19 10:00 71 13 116/71 98 05/28/19 09:00 75 7 L 131/65 98 05/28/19 08:00 98.4 F 89 7 L 126/72 98 05/28/19 07:00 77 16 132/69 98 05/28/19 06:00 72 16 123/64 97 05/28/19 05:00 73 16 126/63 97 05/28/19 04:00 97.5 F L 78 16 128/91 98 05/28/19 03:00 71 14 123/69 96 05/28/19 02:00 73 17 133/69 95 05/28/19 01:30 98 F 85 18 127/79 05/28/19 01:00 71 18 123/66 98 05/28/19 00:00 98 F 74 18 120/67 97 05/27/19 23:12 98.3 F 85 18 131/79 97 05/27/19 23:02 89 16 131/79 98 05/27/19 23:00 90 15 121/72 98 05/27/19 22:42 97.8 F 87 16 121/72 97 05/27/19 22:32 98.1 F 87 18 126/66 97 05/27/19 22:30 87 18 133/68 97 05/27/19 22:27 98 F 86 18 126/66 98 05/27/19 22:00 85 18 113/62 98 05/27/19 21:30 89 16 113/67 97 05/27/19 21:00 89 18 124/78 97 05/27/19 20:59 98.4 F 89 18 124/78 97 05/27/19 20:30 87 18 117/68 97 05/27/19 20:29 97.8 F 85 18 115/64 98 05/27/19 20:19 98 F 89 16 117/68 05/27/19 20:00 98 F 89 16 118/64 96 05/27/19 19:30 93 12 123/77 97 05/27/19 19:10 98.1 F 88 18 109/61 99 05/27/19 18:30 98.1 F 82 18 116/63 99 05/27/19 17:52 93 16 117/64 99 05/27/19 17:34 84 20 121/74 99 05/27/19 16:30 98.1 F 87 20 121/74 99 Intake and Output 05/28/19 05/28/19 05/28/19 06:59 14:59 22:59 Intake Total 970 310 Output Total 450 2075 Balance 520 -1765 Intake: IV 660 310 .9 60 160 Dextrose 10 % in Water 150 250 ml @ 999 mls/hr IV ONCE ONE Rx#:[id number] Sodium Chloride 0.9% 1, 600 000 ml @ 100 mls/hr IV . Q10H STA Rx#:[id number] Blood Product 310 Rc As-3 Unit 310 [id number] Output: Urine 450 0 Stool 2075 Other: Voiding Method Urinal Urinal # Voids 1 # Bowel Movements 1 1 Weight 78.1 kg 78.1 kg On physical examination, patient appears comfortable in no apparent distress. HEAD: Normocephalic, atraumatic. EYES: No scleral icterus. No conjunctival injection. MOUTH: No lesions, tongue midline. NECK: Trachea midline, no gross abnormalities. CHEST: Clear to auscultation with no wheezing or rhonchi appreciated. HEART: Regular rate and rhythm. ABDOMEN: Soft, obese. Bowel sounds are positive. No organomegaly. No guarding or rigidity. EXTREMITIES: No pedal edema. SKIN: No rashes, no jaundice. NEUROLOGIC: Alert and oriented x3. No focal deficits. Results CBC & Chem 7: 05/28/19 16:26 05/28/19 04:14 Labs: Abnormal Lab Results - Last 24 Hours (Table) 05/27/19 05/27/19 05/27/19 Range/Units 17:00 17:05 17:05 RBC 4.11 L (4.30-5.90) m/uL Hgb 11.8 L (13.0-17.5) gm/dL Hct 36.3 L (39.0-53.0) % RDW 16.0 H (11.5-15.5) % Potassium 5.3 H (3.5-5.1) mmol/L Chloride 111 H (98-107) mmol/L BUN 25 H (9-20) mg/dL Glucose 182 H (74-99) mg/dL POC Glucose (mg/dL) (75-99) mg/dL Calcium (8.4-10.2) mg/dL Crossmatch See Detail 05/27/19 05/27/19 05/28/19 Range/Units 19:27 22:10 04:14 RBC 3.96 L (4.30-5.90) m/uL Hgb 11.6 L (13.0-17.5) gm/dL Hct 35.5 L (39.0-53.0) % RDW 15.7 H (11.5-15.5) % Potassium (3.5-5.1) mmol/L Chloride (98-107) mmol/L BUN (9-20) mg/dL Glucose (74-99) mg/dL POC Glucose (mg/dL) 140 H 133 H (75-99) mg/dL Calcium (8.4-10.2) mg/dL Crossmatch 05/28/19 05/28/19 05/28/19 Range/Units 04:14 06:25 06:57 RBC (4.30-5.90) m/uL Hgb (13.0-17.5) gm/dL Hct (39.0-53.0) % RDW (11.5-15.5) % Potassium (3.5-5.1) mmol/L Chloride 110 H (98-107) mmol/L BUN 24 H (9-20) mg/dL Glucose 71 L (74-99) mg/dL POC Glucose (mg/dL) 68 L 123 H (75-99) mg/dL Calcium 8.3 L (8.4-10.2) mg/dL Crossmatch 05/28/19 05/28/19 Range/Units 11:28 12:07 RBC 3.45 L (4.30-5.90) m/uL Hgb 10.1 L (13.0-17.5) gm/dL Hct 30.9 L (39.0-53.0) % RDW 15.9 H (11.5-15.5) % Potassium (3.5-5.1) mmol/L Chloride (98-107) mmol/L BUN (9-20) mg/dL Glucose (74-99) mg/dL POC Glucose (mg/dL) 122 H (75-99) mg/dL Calcium (8.4-10.2) mg/dL Crossmatch Assessment and Plan (1) GI bleed Narrative/Plan: 68-year-old male with a medical history significant for hypertension, dyslipidemia, diabetes mellitus and recent coronary artery bypass graft in February who presented with painless bright red blood per rectum. Patient does report some right-sided abdominal discomfort, but overall has not been suffering from abdominal pain. He reports multiple episodes of gross blood per rectum. No prior episodes, no history of peptic ulcer disease, no prior EGD or colonoscopy reported. Patient has continued to have bleeding per rectum. Differential inc ludes diverticular bleed, hemorrhoidal bleed, bleeding AVM, upper GI bleed or other etiology. Current Visit: Yes Status: Acute Code(s): K92.2 - GASTROINTESTINAL HEMORRHAGE, UNSPECIFIED SNOMED Code(s): 78137648 (2) Anemia associated with acute blood loss Current Visit: Yes Status: Acute Code(s): D62 - ACUTE POSTHEMORRHAGIC ANEMIA SNOMED Code(s): 206447329 Plan: Supportive care Okay for liquid diet Continue to monitor hemoglobin every 8 hours and changes as needed Continue Protonix therapy Continue to hold Plavix therapy Continue to hold aspirin therapy We'll plan for diagnostic EGD and colonoscopy in the morning, patient informed that endoscopy will be for diagnostic purposes only given Plavix use Thank you for allowing us to participate in the care of this patient, we will continue to follow
[2019-05-29 00:56] LABS: Basophils % (A) 1 %; Eosinophils # (A) 0.1 k/uL (0-0.7); Eosinophils % (A) 2 %; HCT 26.8 % (39.0-53.0); Lymphocytes # (A) 1.3 k/uL (1.0-4.8); Lymphocytes % (A) 25 %; MCH 30.1 pg (25.0-35.0); MCHC 33.7 g/dL (31.0-37.0); MCV 89.1 fL (80.0-100.0); Mean Platelet Volume 6.4; Monocytes # (A) 0.4 k/uL (0-1.0); Monocytes % (A) 8 %; Neutrophils # (A) 3.3 k/uL (1.3-7.7); Neutrophils % (A) 61 %; Platelet Count 207 k/uL (150-450); RDW 15.3 % (11.5-15.5); WBC 5.4 k/uL (3.8-10.6)
[2019-05-29 05:02] LABS: Basophils % (A) 1 %; Eosinophils # (A) 0.1 k/uL (0-0.7); Eosinophils % (A) 3 %; HCT 26.7 % (39.0-53.0); HGB 8.7 gm/dL (13.0-17.5); Lymphocytes # (A) 1.5 k/uL (1.0-4.8); Lymphocytes % (A) 31 %; MCHC 32.5 g/dL (31.0-37.0); MCV 89.2 fL (80.0-100.0); Mean Platelet Volume 6.5; Monocytes # (A) 0.4 k/uL (0-1.0); Monocytes % (A) 8 %; Neutrophils # (A) 2.6 k/uL (1.3-7.7); Neutrophils % (A) 55 %; Platelet Count 213 k/uL (150-450); RDW 15.2 % (11.5-15.5); WBC 4.8 k/uL (3.8-10.6)
[2019-05-29 05:11] LABS: African American GFR (CKD) >90 (>60 ml/min/1.73 sqM); Anion Gap 6 mmol/L; Blood Urea Nitrogen 18 mg/dL (9-20); Calcium 8.2 mg/dL (8.4-10.2); Carbon Dioxide 25 mmol/L (22-30); Chloride 109 mmol/L (98-107); Glucose 92 mg/dL (74-99); Potassium 4.2 mmol/L (3.5-5.1); Sodium 140 mmol/L (137-145)
[2019-05-29] MEDS: INSULIN ASPART (NovoLOG) 100 UNIT/ML VIAL SQ SCH ×4 (06:41→20:07)
[2019-05-29 06:50] LABS: Glucose,Whole Blood 95 mg/dL (75-99)
--- NOTE | 2019-05-29 08:30 | PN ---
PROGRESS NOTE Mr. Mi is a 68-year-old male status post coronary artery bypass grafting in February, who presented with GI bleeding requiring 2 units of packed red blood cells. He still has some maroon stool. He was evaluated by the GI Service, scheduled to undergo endoscopy today. He is doing well. He is denying any chest pain. His breathing has been stable. He denies any dizziness or palpitation. He denies any nausea. Hemodynamically, he is stable. He continued to be on Lipitor 40 mg daily, metoprolol tartrate 50 mg twice a day, and Protonix IV. PHYSICAL EXAMINATION: Blood pressure 115/70 with the heart rate in the 90s. LUNGS: Clear. HEART: Regular rate and rhythm. S1, S2. No S3. No rub. ABDOMEN: Soft, nontender. EXTREMITIES: No edema. LAB DATA: Lab data revealed hemoglobin of 8.7, BUN and creatinine of 18 and 0.97, potassium 4.2. IMPRESSION: 1. Active gastrointestinal bleeding requiring 2 units of packed red blood cell. The patient was on aspirin and Plavix. 2. Status post coronary artery bypass grafting performed in February. 3. History of hyperlipidemia. 4. Diabetes mellitus. RECOMMENDATION: From the cardiac standpoint, we will continue present therapy. We will await the input of the GI service and once he is stable, aspirin at 81 mg daily can be resumed. MMODL / IJN: [id number] /
[2019-05-29] MEDS: PANTOPRAZOLE 40 MG/10 ML VIAL IV SCH ×2 (09:30→20:00)
[2019-05-29] MEDS: METOPROLOL TARTRATE 50 MG TAB PO SCH ×3 (10:19→20:00)
[2019-05-29] MEDS: MULTIVITAMINS, THERA 1 EACH TAB PO SCH ×2 (10:19→17:03)
--- NOTE | 2019-05-29 11:11 | P.PN ---
Subjective Progress Note Date: 05/29/19 Principal diagnosis: Acute GI bleeding This is a very pleasant 68-year-old gentleman who follows with Dr. Dutton as his primary care physician. He has a history of diabetes mellitus, hypertension, hyperlipidemia, previous tobacco dependence. FEV1 value 75% of predicted. He is recently diagnosed with a non-STEMI back in February 2019 and had undergone coronary artery bypass grafting on 02/12/2019 at which time he received a PLUMMER to the LAD, left radial artery graft to the obtuse marginal, reverse saphenous vein graft to the posterior descending artery. He had been discharged on aspirin and Plavix. He presented here yesterday with complaints of bright red bowel movements. He did have a syncopal episode in the emergency room. He was hydrated and placed in Trendelenburg and subsequently transferred here to the intensive care unit. He is seen today in consultation. Did receive 2 units of packed blood cells. His current hemoglobin is 11.6. He is awake and alert in no acute distress. No chest discomfort. No worsening shortness of breath, cough or congestion. No further syncope. He has been hemodynamically stable not requiring any pressors at this time. Placed on IV Protonix. White count 5.7. Hemoglobin 11.6. Sodium 139. Potassium 4.6. Chloride 110. Creatinine 0.98. GI consult is pending. Patient was reevaluated today on 05/29/2019, remains in the ICU, continues to have intermittent episodes of bright red blood per rectum. Patient received a total of 2 units of packed RBCs since admission. His hemoglobin today is 8.7, his electrolytes are normal renal profile is normal patient is hemodynamically stable. He was seen by GI on consultation, and he is scheduled to undergo upper endoscopy and colonoscopy sometime today. Patient is otherwise asymptomatic. Objective - Vital Signs Vital signs: Vital Signs Temp 98.0 F 05/29/19 08:00 Pulse 90 05/29/19 10:00 Resp 10 L 05/29/19 10:00 BP 137/73 05/29/19 10:00 Pulse Ox 97 05/29/19 10:00 Intake & Output 05/28/19 05/29/19 05/29/19 18:59 06:59 18:59 Intake Total 390 2260 60 Output Total 1505 1675 851 Balance -2285 585 -791 Weight 78.1 kg 76.8 kg Intake: IV 390 260 60 .9 240 260 60 Dextrose 10 % in Water 150 250 ml @ 999 mls/hr IV ONCE ONE Rx#:[id number] Oral 2000 Output: Urine 0 0 850 Stool 2675 975 1 Urine/Stool Mix 700 Other: Voiding Method Urinal Urinal Urinal # Voids 1 1 # Bowel Movements 1 - Exam Physical Exam: Revealed 68-year-old white male in no distress. Head: Atraumatic, normocephalic. HEENT:[Neck is supple.] [No neck masses.] [No thyromegaly.] [No JVD.] Chest: [Clear throughout, no crackles, no rhonchi, no wheezes.] Cardiac Exam: [Normal S1 and S2, no S3 gallop, no murmur.] Abdomen: [Soft, nontender, no megaly, no rebound, no guarding, normal bowel sounds.] Extremities: [No clubbing, no edema, no cyanosis.] Neurological Exam: [No focal neurologic deficit.] Lymphatics: No lymphadenopathy. Skin: No rashes. - Labs CBC & Chem 7: 05/29/19 04:46 05/29/19 04:46 Labs: Abnormal Lab Results - Last 24 Hours (Table) 05/28/19 05/28/19 05/28/19 Range/Units 11:28 12:07 16:26 RBC 3.45 L 3.33 L (4.30-5.90) m/uL Hgb 10.1 L 9.9 L (13.0-17.5) gm/dL Hct 30.9 L 29.8 L (39.0-53.0) % RDW 15.9 H (11.5-15.5) % Chloride (98-107) mmol/L POC Glucose (mg/dL) 122 H (75-99) mg/dL Calcium (8.4-10.2) mg/dL 05/28/19 05/28/19 05/29/19 Range/Units 17:24 20:15 00:13 RBC 3.00 L (4.30-5.90) m/uL Hgb 9.0 L (13.0-17.5) gm/dL Hct 26.8 L (39.0-53.0) % RDW (11.5-15.5) % Chloride (98-107) mmol/L POC Glucose (mg/dL) 104 H 119 H (75-99) mg/dL Calcium (8.4-10.2) mg/dL 05/29/19 05/29/19 Range/Units 04:46 04:46 RBC 3.00 L (4.30-5.90) m/uL Hgb 8.7 L (13.0-17.5) gm/dL Hct 26.7 L (39.0-53.0) % RDW (11.5-15.5) % Chloride 109 H (98-107) mmol/L POC Glucose (mg/dL) (75-99) mg/dL Calcium 8.2 L (8.4-10.2) mg/dL Assessment and Plan Assessment: #1 Acute gastrointestinal bleeding with syncope. Status post 2 units packed red blood cells. Patient is still having ongoing GI bleeding, and he scheduled for EGD and colonoscopy today. #2 Coronary artery disease with recent non-STEMI and coronary artery bypass grafting in February 2019. Had been on Plavix and aspirin in the outpatient setting. #3 Previous smoker. FEV1 value 75% of predicted. #4 Hyperlipidemia. #5 Hypertension. #6 Diabetes mellitus. Recommendation: Continue present supportive care measures, continue to monitor in the ICU at least for the next 24 hours, patient is to come back to the ICU after his EGD and colonoscopy, and based on the findings further recommendations will follow. Time with Patient: Less than 30
[2019-05-29 11:43] LABS: Glucose,Whole Blood 86 mg/dL (75-99)
[2019-05-29] MEDS ORDERED: IV FLUID CONTINUATION 500 ML IV ONE (12:06)
[2019-05-29] MEDS ORDERED: PROPOFOL 10 MG/ML 20 ML VIAL IV ONE (12:09)
--- NOTE | 2019-05-29 12:11 | P.PN ---
Subjective Patient received recent CABG and deal antiplatelet therapy came in with lower GI bleed patient will undergo colonoscopy today. Depending on the colonoscopy addition regarding re-initiation of antiplatelet therapy. Patient may not require dual antiplatelet therapy. continues to have bloody stools about couple today Constitutional: Denied any fatigue denied any fever. Cardio vascular: denied any chest pain, palpitations Gastrointestinal denied any nausea vomiting Pulmonary: Denied any shortness of breath cough Neurologic denied any new focal deficits All inpatient medications were reviewed and appropriate changes in these medications as dictated in the interval history and assessment and plan. Objective - Vital Signs Vital signs: Vital Signs Temp 98.0 F 05/29/19 08:00 Pulse 91 05/29/19 11:00 Resp 12 05/29/19 11:00 BP 122/95 05/29/19 11:00 Pulse Ox 97 05/29/19 10:00 Intake & Output 05/28/19 05/29/19 05/29/19 18:59 06:59 18:59 Intake Total 390 2260 80 Output Total 2675 1675 851 Balance -2285 585 -771 Weight 78.1 kg 76.8 kg Intake: IV 390 260 80 .9 240 260 80 Dextrose 10 % in Water 150 250 ml @ 999 mls/hr IV ONCE ONE Rx#:[id number] Oral 2000 Output: Urine 0 0 850 Stool 2675 975 1 Urine/Stool Mix 700 Other: Voiding Method Urinal Urinal Urinal # Voids 1 1 # Bowel Movements 1 - Exam PHYSICAL EXAMINATION: GENERAL: The patient is alert and oriented x3, not in any acute distress. Well developed, well nourished. HEENT: Pupils are round and equally reacting to light. EOMI. No scleral icterus. No conjunctival pallor. Normocephalic, atraumatic. No pharyngeal erythema. No thyromegaly. CARDIOVASCULAR: S1 and S2 present. No murmurs, rubs, or gallops. PULMONARY: Chest is clear to auscultation, no wheezing or crackles. ABDOMEN: Soft, nontender, nondistended, normoactive bowel sounds. No palpable organomegaly. MUSCULOSKELETAL: No joint swelling or deformity. EXTREMITIES: No cyanosis, clubbing, or pedal edema. NEUROLOGICAL: Gross neurological examination did not reveal any focal deficits. SKIN: No rashes. - Labs CBC & Chem 7: 05/29/19 04:46 05/29/19 04:46 Labs: Abnormal Lab Results - Last 24 Hours (Table) 05/28/19 05/28/19 05/28/19 Range/Units 12:07 16:26 17:24 RBC 3.45 L 3.33 L (4.30-5.90) m/uL Hgb 10.1 L 9.9 L (13.0-17.5) gm/dL Hct 30.9 L 29.8 L (39.0-53.0) % RDW 15.9 H (11.5-15.5) % Chloride (98-107) mmol/L POC Glucose (mg/dL) 104 H (75-99) mg/dL Calcium (8.4-10.2) mg/dL 05/28/19 05/29/19 05/29/19 Range/Units 20:15 00:13 04:46 RBC 3.00 L 3.00 L (4.30-5.90) m/uL Hgb 9.0 L 8.7 L (13.0-17.5) gm/dL Hct 26.8 L 26.7 L (39.0-53.0) % RDW (11.5-15.5) % Chloride (98-107) mmol/L POC Glucose (mg/dL) 119 H (75-99) mg/dL Calcium (8.4-10.2) mg/dL 05/29/19 Range/Units 04:46 RBC (4.30-5.90) m/uL Hgb (13.0-17.5) gm/dL Hct (39.0-53.0) % RDW (11.5-15.5) % Chloride 109 H (98-107) mmol/L POC Glucose (mg/dL) (75-99) mg/dL Calcium 8.2 L (8.4-10.2) mg/dL Assessment and Plan Plan: -acute blood blood loss anemia from lower GI bleed most probably diverticular bleed will hold off on antiplatelet therapy patient denied any NSAID use. Patient will undergo colonoscopy today -coronary artery disease with recent CABG: Patient will continue her metoprolol and statin hold off on antiplatelet therapy because of above-mentioned reasons -Congestive heart failure mildly depressed ejection fraction in the immediate postoperative period after CABG. Patient is not in heart failure exacerbation patient is receiving IV fluids because of which will hold off on Lasix. -type 2 diabetes mellitus: Hold off on oral hyperuricemic agents as patient is nothing by mouth at this time can use sliding scale -Hyperlipidemia -Hypertension
--- NOTE | 2019-05-29 12:33 | P.PCN ---
Date of Procedure: 05/29/19 Procedure(s) Performed: Brief history: Patient is a pleasant 68-year-old white male, admitted to the hospital with acute GI bleed. He had multiple episodes of bright red blood per rectum for the last 2 days' duration. Has been on aspirin and Plavix the last dose was 2 days ago. He dropped his hemoglobin from 11.8-9.3 g/dL. He is hence scheduled for an upper endoscopy as well as colonoscopy as a part of evaluation of acute GI bleed Procedure performed: Esophagogastroduodenoscopy Colonoscopy Preoperative diagnosis: Acute GI bleed Anesthesia: MAC Procedure: After informed consent was obtained from the patient was brought into the endoscopy unit and IV sedation was administered by anesthesia under continuous monitoring. Initially upper endoscopy was done. The Olympus GF 160 video endoscope was inserted inserted into the mouth and esophagus intubated without any difficulty and was gradually advanced into the stomach and duodenum and carefully examined. The bulb and second part of the duodenum had multiple scattered erosions but no active bleeding. The scope was then withdrawn into the stomach adequately insufflated with air and upon careful examination the antrum had linear erosions but no active bleeding. The body, cardia and fundus appeared normal. The scope was then withdrawn into the esophagus. The GE junction was located at 40 cm to the incisors. It appeared regular with no erythema erosions or ulcerations. Rest of the esophagus appeared normal. Patient tolerated the procedure well. At this time the patient continued to remain sedation. Initial digital rectal examination was normal. Olympus CF 160 video colonoscope was then inserted into the rectum and gradually advanced to the cecum without any difficulty. Careful examination was performed as the scope was gradually being withdrawn. The prep was excellent. There was some fresh diluted blood noted in the left colon but none in the right colon. In the base of the cecum there was a 1 cm polyp that was not removed. In the ascending colon there was a 3-4 cm submucosal polyp possibility presently, lipoma. In the transverse colon and descending colon there were at least 3 polyps measuring 7 mm to 1 cm in size that were not removed. In the sigmoid colon there was a 1 cm polyp that was not removed. There were scattered left sided diverticulosis seen. The distal sigmoid colon and rectum appeared normal. Retroflexion was performed in the rectum and no lesions were noted. Patient tolerated the procedure well. Impression: 1. Upper endoscopy revealed antral erosive gastritis as well as duodenitis 2. Colonoscopy revealed: a) multiple polyps in the cecum, transverse colon, descending colon and sigmoid colon measuring around 7 mm to 1 cm in size that could not remove as the patient remains on Plavix. b)Left-sided scattered diverticulosis which appears to be the source of bleed ing. C) large 3-4 cm submucosal polyp in the ascending colon possibly a lipoma. Recommendations: Findings of this examination were discussed with the patient as well as his family. He will remain on a clear liquid diet. CBC will be monitored on a daily basis. Continue to hold aspirin and Plavix for 3-4 days. Recommend repeat colonoscopy in 3-6 months for polyp removal.
[2019-05-29 16:44] LABS: Basophils % (A) 1 %; Eosinophils # (A) 0.1 k/uL (0-0.7); Eosinophils % (A) 2 %; HCT 25.8 % (39.0-53.0); HGB 8.3 gm/dL (13.0-17.5); Lymphocytes # (A) 1.2 k/uL (1.0-4.8); Lymphocytes % (A) 29 %; MCH 28.6 pg (25.0-35.0); MCHC 32.1 g/dL (31.0-37.0); MCV 89.1 fL (80.0-100.0); Mean Platelet Volume 6.3; Monocytes # (A) 0.4 k/uL (0-1.0); Monocytes % (A) 9 %; Neutrophils # (A) 2.3 k/uL (1.3-7.7); Neutrophils % (A) 56 %; Platelet Count 219 k/uL (150-450); RBC 2.89 m/uL (4.30-5.90); RDW 15.5 % (11.5-15.5)
[2019-05-29 17:10] LABS: Glucose,Whole Blood 81 mg/dL (75-99)
[2019-05-29] MEDS: ATORVASTATIN 80 MG TAB PO SCH (20:00)
[2019-05-29 20:29] LABS: Glucose,Whole Blood 89 mg/dL (75-99)
[2019-05-30 05:19] LABS: Basophils % (A) 1 %; Eosinophils # (A) 0.2 k/uL (0-0.7); Eosinophils % (A) 3 %; HGB 8.8 gm/dL (13.0-17.5); Lymphocytes # (A) 1.4 k/uL (1.0-4.8); Lymphocytes % (A) 28 %; MCH 29.8 pg (25.0-35.0); MCHC 33.8 g/dL (31.0-37.0); MCV 88.2 fL (80.0-100.0); Mean Platelet Volume 6.7; Monocytes # (A) 0.4 k/uL (0-1.0); Monocytes % (A) 8 %; Neutrophils # (A) 2.7 k/uL (1.3-7.7); Neutrophils % (A) 57 %; Platelet Count 240 k/uL (150-450); RBC 2.95 m/uL (4.30-5.90); RDW 15.8 % (11.5-15.5); WBC 4.8 k/uL (3.8-10.6)
[2019-05-30 05:47] LABS: African American GFR (CKD) >90 (>60 ml/min/1.73 sqM); Anion Gap 6 mmol/L; Blood Urea Nitrogen 12 mg/dL (9-20); Calcium 8.6 mg/dL (8.4-10.2); Carbon Dioxide 24 mmol/L (22-30); Chloride 110 mmol/L (98-107); Glucose 74 mg/dL (74-99); Potassium 3.9 mmol/L (3.5-5.1); Sodium 140 mmol/L (137-145)
[2019-05-30] MEDS ORDERED: Potassium Replacement Protocol 1 EACH MISC MISCELLANE PRN (05:49)
[2019-05-30] MEDS ORDERED: POTASSIUM CHLORIDE ER 20 MEQ TAB.ER PO SCH (06:00)
[2019-05-30] MEDS: INSULIN ASPART (NovoLOG) 100 UNIT/ML VIAL SQ SCH (06:10)
[2019-05-30 06:14] LABS: Glucose,Whole Blood 75 mg/dL (75-99)
--- NOTE | 2019-05-30 07:43 | PN ---
PROGRESS NOTE Mr. Mi is a 68-year-old male status post coronary artery bypass grafting in February, who presented with GI bleeding requiring 2 units of packed red blood cells. He underwent endoscopy yesterday by Dr. Alexandre and was found to have antral erosive gastritis and duodenitis and had multiple polyps in the cecum with evident diverticulosis which most likely was the source of bleeding. He is doing well this morning. He denying any chest pain. His breathing has been stable. He denies any dizziness or palpitation. He denies any nausea or vomiting. He continues to be on atorvastatin 80 mg daily, metoprolol tartrate 50 mg twice a day and Protonix. PHYSICAL EXAMINATION: Blood pressure 134/60 with the heart rate in 70s. LUNGS: Clear. HEART: Regular rate and rhythm. S1, S2. No S3. No rub. ABDOMEN: Soft, nontender. EXTREMITIES: No edema. LAB DATA: Lab data revealed a hemoglobin of 8.8, BUN and creatinine 12 and 0.92. IMPRESSION: 1. Gastrointestinal bleeding with diverticulosis. 2. Erosive gastritis. 3. Status post coronary artery bypass grafting. 4. Hyperlipidemia. RECOMMENDATION: From the cardiac standpoint, he is stable. He should be able to be discharged home soon. I will start the aspirin in 3 to 4 days and continue to hold the Plavix for now until he is re-evaluated in the office. According to Dr. Alexandre's note, he would require repeat colonoscopy in few months to undergo polypectomy. MMODL / IJN: [id number] /
[2019-05-30] MEDS: METOPROLOL TARTRATE 50 MG TAB PO SCH (08:07)
[2019-05-30] MEDS: MULTIVITAMINS, THERA 1 EACH TAB PO SCH (08:07)
[2019-05-30] MEDS: PANTOPRAZOLE 40 MG/10 ML VIAL IV SCH (08:07)
[2019-05-30 08:19] VITALS: RESP 10; TEMP 97.5
[2019-05-30 10:02] VITALS: BP 112/60; PULSE 73
[2019-05-30 11:08] LABS: Glucose,Whole Blood 113 mg/dL (75-99)
--- NOTE | 2019-05-30 12:33 | P.DS ---
Providers Date of admission: 05/27/19 18:25 Attending physician: Nellie Ortega Consults: 05/27/19 18:25 Consult Physician Routine Consulting Provider: Samanta Harrington Consult Reason/Comments: gib Do you want consulting provider notified?: Yes Consult Physician Routine Consulting Provider: Haylee Alexandre Consult Reason/Comments: gib Do you want consulting provider notified?: Yes Primary care physician: [facility] Course: Patient received recent CABG and deal antiplatelet therapy came in with lower GI bleed patient will undergo colonoscopy today. Depending on the colonoscopy addition regarding re-initiation of antiplatelet therapy. Patient may not require dual antiplatelet therapy. Patient continues to have bloody stools about couple today 05/30/2019 Patient or JVD resolved and patient underwent upper GI endoscopy and colonoscopy colonoscopy showed multiple polyps although polyps were not removed as patient was on aspirin and Plavix in the repeat colonoscopy will be done in about 3-6 months. Patient does have Wernicke's aphasia days and gastritis for which patient will be discharged Prilosec. Patient will not require dual antiplatelet therapy because of which Plavix will be discontinued patient can start his aspirin about 3 days as recommended by gastroenterology PHYSICAL EXAMINATION: GENERAL: The patient is alert and oriented x3, not in any acute distress. Well developed, well nourished. HEENT: Pupils are round and equally reacting to light. EOMI. No scleral icterus. No conjunctival pallor. Normocephalic, atraumatic. No pharyngeal erythema. No thyromegaly. CARDIOVASCULAR: S1 and S2 present. No murmurs, rubs, or gallops. PULMONARY: Chest is clear to auscultation, no wheezing or crackles. ABDOMEN: Soft, nontender, nondistended, normoactive bowel sounds. No palpable organomegaly. MUSCULOSKELETAL: No joint swelling or deformity. EXTREMITIES: No cyanosis, clubbing, or pedal edema. NEUROLOGICAL: Gross neurological examination did not reveal any focal deficits. SKIN: No rashes. Assessment and Plan Plan: -acute blood blood loss anemia from lower GI bleed due to above-mentioned reasons, patient does have esophagitis as well as gastritis as well -coronary artery disease with recent CABG: -Congestive heart failure mildly depressed ejection fraction in the immediate postoperative period after CABG. Patient is not in heart failure exacerbation, did not require any Lasix Lasix will be discontinued -type 2 diabetes mellitus: Patient blood sugars are on the low side although was not eating well here patient will be started back on metformin and a patient blood sugars are very high then can start his sulfonylurea after talking to the PCP. -Hyperlipidemia -Hypertension Patient Condition at Discharge: Fair Plan - Discharge Summary Discharge Rx Participant: No New Discharge Prescriptions: New Aspirin 81 mg PO DAILY #30 chewable Continue Multivitamins, Thera [Multivitamin (formulary)] 1 tab PO DAILY metFORMIN HCL [Glucophage] 850 mg PO BID Metoprolol Tartrate [Lopressor] 50 mg PO BID #60 tab Atorvastatin [Lipitor] 80 mg PO HS Discontinued glipiZIDE [Glucotrol] 10 mg PO AC-BID Aspirin 325 mg PO DAILY #30 tab Furosemide [Lasix] 20 mg PO DAILY #5 tab Clopidogrel [Plavix] 75 mg PO DAILY #30 tab Discharge Medication List Multivitamins, Thera [Multivitamin (formulary)] 1 tab PO DAILY 02/08/19 [History] metFORMIN HCL [Glucophage] 850 mg PO BID 02/08/19 [History] Metoprolol Tartrate [Lopressor] 50 mg PO BID #60 tab 02/16/19 [Rx] Atorvastatin [Lipitor] 80 mg PO HS 05/27/19 [History] Aspirin 81 mg PO DAILY #30 chewable 05/30/19 [Rx] Follow up Appointment(s)/Referral(s): Haylee Alexandre MD [STAFF PHYSICIAN] - 06/06/19 4:15 pm Brannon Meraz MD [Primary Care Provider] - 06/04/19 10:00 am Margie Malloy MD [Family Provider] - 1 Week Patient Instructions/Handouts: Gastrointestinal Bleeding (DC) Discharge Disposition: HOME SELF-CARE
--- NOTE | 2019-05-30 12:46 | P.PN ---
Subjective Progress Note Date: 05/30/19 Principal diagnosis: Acute GI bleeding This is a very pleasant 68-year-old gentleman who follows with Dr. Dutton as his primary care physician. He has a history of diabetes mellitus, hypertension, hyperlipidemia, previous tobacco dependence. FEV1 value 75% of predicted. He is recently diagnosed with a non-STEMI back in February 2019 and had undergone coronary artery bypass grafting on 02/12/2019 at which time he received a PLUMMER to the LAD, left radial artery graft to the obtuse marginal, reverse saphenous vein graft to the posterior descending artery. He had been discharged on aspirin and Plavix. He presented here yesterday with complaints of bright red bowel movements. He did have a syncopal episode in the emergency room. He was hydrated and placed in Trendelenburg and subsequently transferred here to the intensive care unit. He is seen today in consultation. Did receive 2 units of packed blood cells. His current hemoglobin is 11.6. He is awake and alert in no acute distress. No chest discomfort. No worsening shortness of breath, cough or congestion. No further syncope. He has been hemodynamically stable not requiring any pressors at this time. Placed on IV Protonix. White count 5.7. Hemoglobin 11.6. Sodium 139. Potassium 4.6. Chloride 110. Creatinine 0.98. GI consult is pending. Patient was reevaluated today on 05/29/2019, remains in the ICU, continues to have intermittent episodes of bright red blood per rectum. Patient received a total of 2 units of packed RBCs since admission. His hemoglobin today is 8.7, his electrolytes are normal renal profile is normal patient is hemodynamically stable. He was seen by GI on consultation, and he is scheduled to undergo upper endoscopy and colonoscopy sometime today. Patient is otherwise asymptomatic. Patient was reevaluated today on 05/30/2019, patient underwent EGD and colonoscopy, felt that his bleeding was related to diverticulosis. At the same time the patient was noted to have multiple polyps, and these will need to be removed on outpatient basis and he will require a repeat colonoscopy in the near future for polypectomies. Today the patient is doing well, asymptomatic, no further episodes of bleeding, hemoglobin is 8.8, he was cleared to be discharged home by many consultants. Patient is still in the ICU, and considering his overall stability and overall clinical status, I have cleared the patient to be discharged home also. Objective - Vital Signs Vital signs: Vital Signs Temp 97.5 F L 05/30/19 08:00 Pulse 73 05/30/19 10:00 Resp 10 L 05/30/19 10:00 BP 112/60 05/30/19 10:00 Pulse Ox 100 05/30/19 10:00 Intake & Output 05/29/19 05/30/19 05/30/19 18:59 06:59 18:59 Intake Total 1220 707 620 Output Total 2527 1875 200 Balance -1307 -1168 420 Weight 74.6 kg Intake: IV 420 240 20 .9 220 240 20 Oral 800 467 600 Output: Urine 2525 1875 200 Stool 2 Other: Voiding Method Urinal Bedside Commode Bedside Commode Urinal Urinal # Voids 1 - Exam Physical Exam: Revealed 68-year-old white male in no distress. Head: Atraumatic, normocephalic. HEENT:[Neck is supple.] [No neck masses.] [No thyromegaly.] [No JVD.] Chest: [Clear throughout, no crackles, no rhonchi, no wheezes.] Cardiac Exam: [Normal S1 and S2, no S3 gallop, no murmur.] Abdomen: [Soft, nontender, no megaly, no rebound, no guarding, normal bowel sounds.] Extremities: [No clubbing, no edema, no cyanosis.] Neurological Exam: [No focal neurologic deficit.] Lymphatics: No lymphadenopathy. Skin: No rashes. - Labs CBC & Chem 7: 05/30/19 04:24 05/30/19 04:24 Labs: Abnormal Lab Results - Last 24 Hours (Table) 05/29/19 05/30/19 05/30/19 Range/Units 16:30 04:24 04:24 RBC 2.89 L 2.95 L (4.30-5.90) m/uL Hgb 8.3 L 8.8 L (13.0-17.5) gm/dL Hct 25.8 L 26.0 L (39.0-53.0) % RDW 15.8 H (11.5-15.5) % Chloride 110 H (98-107) mmol/L POC Glucose (mg/dL) (75-99) mg/dL 05/30/19 Range/Units 10:55 RBC (4.30-5.90) m/uL Hgb (13.0-17.5) gm/dL Hct (39.0-53.0) % RDW (11.5-15.5) % Chloride (98-107) mmol/L POC Glucose (mg/dL) 113 H (75-99) mg/dL Assessment and Plan Assessment: #1 Acute gastrointestinal bleeding with syncope. Resolved. Most likely secondary to diverticular disease. Status post EGD and colonoscopy. #2 Coronary artery disease with recent non-STEMI and coronary artery bypass grafting in February 2019. Had been on Plavix and aspirin in the outpatient setting. #3 Previous smoker. FEV1 value 75% of predicted. #4 Hyperlipidemia. #5 Hypertension. #6 Diabetes mellitus. #7 multiple colonic polyps will eventually require polypectomy of his multiple polyps noted on his colonoscopy on this admission. Recommendation: Agree with discharge planning, follow-up on outpatient basis as needed. Time with Patient: Less than 30
== END 2019-05-30 12:48 | disposition home or self-care (01) | DRG 378 ==
LOC: EC 16:16 → 2SICU 18:25
PROVIDERS: ADMIT Hospitalist; ATTEND Hospitalist
PROC: 30233N1 Transfusion of Nonautologous Red Blood Cells into Peripheral Vein, Percutaneous Approach (ICD-10-PCS; 2019-05-27)
PROC: 0DJD8ZZ Inspection of Lower Intestinal Tract, Via Natural or Artificial Opening Endoscopic (ICD-10-PCS; principal; 2019-05-29 08:00)
PROC: 0DJ08ZZ Inspection of Upper Intestinal Tract, Via Natural or Artificial Opening Endoscopic (ICD-10-PCS; 2019-05-29 08:00)
DX: K57.31 Diverticulosis of large intestine without perforation or abscess with bleeding (principal); D62 Acute posthemorrhagic anemia; D12.0 Benign neoplasm of cecum; D12.4 Benign neoplasm of descending colon; D12.2 Benign neoplasm of ascending colon; D12.5 Benign neoplasm of sigmoid colon; D12.3 Benign neoplasm of transverse colon; E11.9 Type 2 diabetes mellitus without complications; E78.5 Hyperlipidemia, unspecified; I11.0 Hypertensive heart disease with heart failure; I25.10 Atherosclerotic heart disease of native coronary artery without angina pectoris; I25.2 Old myocardial infarction; I50.9 Heart failure, unspecified; K20.9 Esophagitis, unspecified; K29.60 Other gastritis without bleeding; K29.80 Duodenitis without bleeding; K59.00 Constipation, unspecified; Z79.02 Long term (current) use of antithrombotics/antiplatelets; Z79.82 Long term (current) use of aspirin; Z79.84 Long term (current) use of oral hypoglycemic drugs; Z79.899 Other long term (current) drug therapy; Z82.49 Family history of ischemic heart disease and other diseases of the circulatory system; Z87.891 Personal history of nicotine dependence; Z95.1 Presence of aortocoronary bypass graft; Z82.0 Family history of epilepsy and other diseases of the nervous system
CPT/HCPCS: 36415; 43235; 45378; 80048; 80053; 82272; 83690; 83735; 85025; 85610; 85730; 86850; 86900; 86901; 86920; 96361; 96374; 96375; 99291

== ENCOUNTER 2019-06-03 15:55 | Emergency (ER) | payer MEDICARE ==
[2019-06-03 16:58] LABS: Anisocytosis Slight; Basophils % (A) 1 %; Eosinophils # (A) 0.2 k/uL (0-0.7); Eosinophils % (A) 4 %; HCT 25.2 % (39.0-53.0); HGB 8.2 gm/dL (13.0-17.5); Hypochromasia Slight; Lymphocytes # (A) 1.1 k/uL (1.0-4.8); Lymphocytes % (A) 23 %; MCH 29.4 pg (25.0-35.0); MCHC 32.6 g/dL (31.0-37.0); MCV 90.2 fL (80.0-100.0); Mean Platelet Volume 6.7; Monocytes # (A) 0.3 k/uL (0-1.0); Monocytes % (A) 6 %; Neutrophils % (A) 63 %; Platelet Count 322 k/uL (150-450); RDW 16.3 % (11.5-15.5); WBC 4.7 k/uL (3.8-10.6)
[2019-06-03 17:06] LABS: INR 0.9 (<1.2); Partial Thromboplastin Time 22.6 sec (22.0-30.0); Prothrombin Time 9.7 sec (9.0-12.0)
[2019-06-03 17:07] LABS: Calcium 8.9 mg/dL (8.4-10.2); Potassium 4.9 mmol/L (3.5-5.1); Total Bilirubin 0.4 mg/dL (0.2-1.3); Total Protein 6.6 g/dL (6.3-8.2)
[2019-06-03 17:24] VITALS: RESP 16
--- NOTE | 2019-06-03 18:46 | ED ---
GI Bleed HPI - General Chief complaint: GI Bleed Stated complaint: Hemoglobin 7.8, Dizziness, Blurred Vision Time Seen by Provider: 06/03/19 16:05 Source: patient Mode of arrival: ambulatory Limitations: no limitations - History of Present Illness Initial comments: The patient is a 68-year-old male who presents to the emergency department with reported abnormal lab studies. He states he was recently hospitalized for a GI bleed. He was on Plavix at that time. States he had a colonoscopy which showed diverticulosis, multiple polyps and gastritis. He was discharged from the hospital on with a hemoglobin of 8.8. He did follow up for repeat blood work this morning. Blood work was obtained at [facility]. He did receive a call this evening stating that his hemoglobin was 7.8 and he needed to go to the closest emergency department for evaluation. He reports that since hospital discharge that he has been continuously short of breath. Today he states that he went out and walked the dog. He does believe that he exerted himself a little bit too hard as he came home and had some presyncopal sensations. He denies any chest pain or chest palpitations. He denies any black or tarry stools. States that his stools have been brown in color. He denies any hematuria. He is not currently taking Plavix. There are no other alleviating, precipitating or modifying factors - Related Data Home Medications Medication Instructions Recorded Confirmed Multivitamins, Thera [Multivitamin 1 tab PO DAILY 02/08/19 06/03/19 (formulary)] metFORMIN HCL [Glucophage] 850 mg PO BID 02/08/19 06/03/19 Atorvastatin [Lipitor] 80 mg PO HS 05/27/19 06/03/19 Previous Rx's Medication Instructions Recorded Metoprolol Tartrate [Lopressor] 50 mg PO BID #60 tab 02/16/19 Aspirin 81 mg PO DAILY #30 chewable 05/30/19 Omeprazole [PriLOSEC] 40 mg PO LUKE-CATFSGrover #14 capsule. 05/30/19 Allergies Allergy/AdvReac Type Severity Reaction Status Date / Time No Known Allergies Allergy Verified 06/03/19 16:43 Review of Systems ROS Statement: Those systems with pertinent positive or pertinent negative responses have been documented in the HPI. ROS Other: All systems not noted in ROS Statement are negative. Past Medical History Past Medical History: Coronary Artery Disease (CAD), Chest Pain / Angina, Diabetes Mellitus, GI Bleed, Hyperlipidemia, Hypertension Additional Past Medical History / Comment(s): Multivessel coronary artery disease History of Any Multi-Drug Resistant Organisms: None Reported Past Surgical History: Coronary Bypass/CABG, Tonsillectomy Additional Past Surgical History / Comment(s): left hand finger sewed pm 55 yrs ago Past Anesthesia/Blood Transfusion Reactions: No Reported Reaction Past Psychological History: No Psychological Hx Reported Smoking Status: Former smoker Past Alcohol Use History: None Reported Past Drug Use History: None Reported - Past Family History Father Family Medical History: Myocardial Infarction ([place]) Mother Family Medical History: Coronary Artery Disease (CAD), Dementia General Exam Limitations: no limitations General appearance: alert, in no apparent distress Head exam: Present: atraumatic, normocephalic, normal inspection Eye exam: Present: normal appearance, PERRL, EOMI. Absent: scleral icterus, conjunctival injection, periorbital swelling ENT exam: Present: normal exam, mucous membranes moist Neck exam: Present: normal inspection. Absent: tenderness, meningismus, lymphadenopathy Respiratory exam: Present: normal lung sounds bilaterally. Absent: respiratory distress, wheezes, rales, rhonchi, stridor Cardiovascular Exam: Present: regular rate, normal rhythm, normal heart sounds. Absent: systolic murmur, diastolic murmur, rubs, gallop, clicks GI/Abdominal exam: Present: soft, normal bowel sounds. Absent: distended, tenderness, guarding, rebound, rigid Rectal exam: Present: normal inspection, normal rectal tone, heme (-) stool Extremities exam: Present: normal inspection, full ROM, normal capillary refill. Absent: tenderness, pedal edema, joint swelling, calf tenderness Back exam: Present: normal inspection Neurological exam: Present: alert, oriented X3, CN II-XII intact Psychiatric exam: Present: normal affect, normal mood Skin exam: Present: warm, dry, intact, normal color. Absent: rash Course Vital Signs 06/03/19 06/03/19 06/03/19 16:03 17:23 19:04 Temperature 98.2 F 97.9 F Pulse Rate 94 78 76 Respiratory 18 16 16 Rate Blood Pressure 171/88 159/86 141/76 O2 Sat by Pulse 99 99 99 Oximetry Procedures - Stool Hemoccult Hemoccult result: negative Medical Decision Making - Medical Decision Making Upon arrival the patient is placed in room 10. He is hooked up to continuous pulse ox and cardiac monitoring. A rectal exam is performed which demonstrates no gross blood. I did recommend laboratory studies. Upon return of the results I did discuss them with patient. His hemoglobin today is 8.2. He left the hospital at 8.8. He is also fecal occult blood negative. I did discuss these results with the patient. I did call discuss the results with the patient's primary care physician, Dr. Meraz. He does have a appointment tomorrow morning with Dr. Meraz. At this time he will be discharged home and is to follow-up at his scheduled appointment. His blood pressure and heart rate remained stable within normal values. If he has any new or worsening symptoms, he should return to the emergency department. The patient was discharged home in stable condition - Lab Data Result diagrams: 06/03/19 16:24 06/03/19 16:24 Lab Results 06/03/19 06/03/19 06/03/19 Range/Units 16:24 16:24 16:24 WBC 4.7 (3.8-10.6) k/uL RBC 2.80 L (4.30-5.90) m/uL Hgb 8.2 L (13.0-17.5) gm/dL Hct 25.2 L (39.0-53.0) % MCV 90.2 (80.0-100.0) fL MCH 29.4 (25.0-35.0) pg MCHC 32.6 (31.0-37.0) g/dL RDW 16.3 H (11.5-15.5) % Plt Count 322 (150-450) k/uL Neutrophils % 63 % Lymphocytes % 23 % Monocytes % 6 % Eosinophils % 4 % Basophils % 1 % Neutrophils # 3.0 (1.3-7.7) k/uL Lymphocytes # 1.1 (1.0-4.8) k/uL Monocytes # 0.3 (0-1.0) k/uL Eosinophils # 0.2 (0-0.7) k/uL Basophils # 0.0 (0-0.2) k/uL Hypochromasia Slight Anisocytosis Slight PT 9.7 (9.0-12.0) sec INR 0.9 (<1.2) APTT 22.6 (22.0-30.0) sec Sodium 139 (137-145) mmol/L Potassium 4.9 (3.5-5.1) mmol/L Chloride 104 (98-107) mmol/L Carbon Dioxide 24 (22-30) mmol/L Anion Gap 11 mmol/L BUN 16 (9-20) mg/dL Creatinine 1.01 (0.66-1.25) mg/dL Est GFR (CKD-EPI)AfAm 88 (>60 ml/min/1.73 sqM) Est GFR (CKD-EPI)NonAf 76 (>60 ml/min/1.73 sqM) Glucose 205 H (74-99) mg/dL Calcium 8.9 (8.4-10.2) mg/dL Total Bilirubin 0.4 (0.2-1.3) mg/dL AST 39 (17-59) U/L ALT 26 (21-72) U/L Alkaline Phosphatase 66 (38-126) U/L Total Protein 6.6 (6.3-8.2) g/dL Albumin 4.0 (3.5-5.0) g/dL Stool Occult Blood (Negative) Blood Type Blood Type Recheck Bld Type Recheck Status Antibody Screen Spec Expiration Date 06/03/19 06/03/19 Range/Units 16:24 16:42 WBC (3.8-10.6) k/uL RBC (4.30-5.90) m/uL Hgb (13.0-17.5) gm/dL Hct (39.0-53.0) % MCV (80.0-100.0) fL MCH (25.0-35.0) pg MCHC (31.0-37.0) g/dL RDW (11.5-15.5) % Plt Count (150-450) k/uL Neutrophils % % Lymphocytes % % Monocytes % % Eosinophils % % Basophils % % Neutrophils # (1.3-7.7) k/uL Lymphocytes # (1.0-4.8) k/uL Monocytes # (0-1.0) k/uL Eosinophils # (0-0.7) k/uL Basophils # (0-0.2) k/uL Hypochromasia Anisocytosis PT (9.0-12.0) sec INR (<1.2) APTT (22.0-30.0) sec Sodium (137-145) mmol/L Potassium (3.5-5.1) mmol/L Chloride (98-107) mmol/L Carbon Dioxide (22-30) mmol/L Anion Gap mmol/L BUN (9-20) mg/dL Creatinine (0.66-1.25) mg/dL Est GFR (CKD-EPI)AfAm (>60 ml/min/1.73 sqM) Est GFR (CKD-EPI)NonAf (>60 ml/min/1.73 sqM) Glucose (74-99) mg/dL Calcium (8.4-10.2) mg/dL Total Bilirubin (0.2-1.3) mg/dL AST (17-59) U/L ALT (21-72) U/L Alkaline Phosphatase (38-126) U/L Total Protein (6.3-8.2) g/dL Albumin (3.5-5.0) g/dL Stool Occult Blood Negative (Negative) Blood Type A Positive Blood Type Recheck A Pos Bld Type Recheck Status No Antibody Screen NEGATIVE Spec Expiration Date 06/06/20192323 Disposition Clinical Impression: Anemia associated with acute blood loss Disposition: HOME SELF-CARE Condition: Stable Instructions (If sedation given, give patient instructions): Anemia (ED) Additional Instructions: Follow-up at your scheduled appointment tomorrow with Dr. Meraz. Return to the emergency room for any new or worsening symptoms Is patient prescribed a controlled substance at d/c from ED?: No Referrals: Brannon Meraz MD [Primary Care Provider] - 1-2 days Time of Disposition: 18:46
[2019-06-03 19:06] VITALS: BP 141/76; PULSE 76; TEMP 97.9
== END 2019-06-03 19:03 | disposition home or self-care (01) ==
LOC: EC 15:55
DX: D50.0 Iron deficiency anemia secondary to blood loss (chronic) (principal); K92.2 Gastrointestinal hemorrhage, unspecified; H53.8 Other visual disturbances; I25.10 Atherosclerotic heart disease of native coronary artery without angina pectoris; E11.9 Type 2 diabetes mellitus without complications; E78.5 Hyperlipidemia, unspecified; Z95.1 Presence of aortocoronary bypass graft; Z87.891 Personal history of nicotine dependence; Z79.84 Long term (current) use of oral hypoglycemic drugs; Z79.899 Other long term (current) drug therapy
CPT/HCPCS: 36415; 80053; 82272; 85025; 85610; 85730; 86850; 86900; 86901; 99283

== ENCOUNTER 2020-08-05 07:34 | Day surgery (SDC) | payer MEDICARE ==
[2020-08-03 11:09] VITALS: BMI 29.2
[~2020-08-05 07:34] MED LIST: LACTATED RINGERS 1,000 ML IV SCH
[2020-08-05 08:07] VITALS: RESP 16; TEMP 96
[2020-08-05 08:12] LABS: Glucose,Whole Blood 101 mg/dL (75-99)
[2020-08-05] MEDS ORDERED: LIDOCAINE 1% (10MG/ML) FOR IV START INTRADERMA ONE (08:17)
[2020-08-05] MEDS ORDERED: PROPOFOL 10 MG/ML 20 ML VIAL IV ONE (08:59)
--- NOTE | 2020-08-05 09:28 | P.PCN ---
Date of Procedure: 08/05/20 Procedure(s) Performed: BRIEF HISTORY: Patient is a 69-year-old pleasant male scheduled for an elective colonoscopy as a part of evaluation of prior history of colon polyps. Last colonoscopy was a year ago and was noted to have multiple colon polyps which were not removed because of anticoagulation. PROCEDURE PERFORMED: Colonoscopy with snare polypectomy and biopsy. PREOPERATIVE DIAGNOSIS: History of colon polyps. IV sedation per Anesthesia. PROCEDURE: After informed consent was obtained, the patient, was brought into the endoscopy unit. IV sedation was administered by Anesthesia under continuous monitoring. Digital rectal examination was normal. Initially the Olympus CF-160 flexible video colonoscope was then inserted in the rectum, gradually advanced into the cecum without any difficulty. Careful examination was performed as the scope was gradually being withdrawn. Ileocecal valve and the appendiceal orifice were visualized and appeared normal. Prep was poor and several areas of the colon. In the base of the cecum there was a 3 mm polyp that was removed by snare polypectomy. In the ascending colon there was a 3 cm; the lipoma noted which was biopsied. In the transverse colon there was a 3 mm polyp removed by snare polypectomy. In the descending colon there was a 1 cm and 1.5 cm broad- based polyp removed by snare polypectomy. Scattered sigmoid diverticulosis seen. Rest of the sigmoid colon, and rectum appeared normal. Retroflexion was performed in the rectum and no lesions were seen. The patient tolerated the procedure well. IMPRESSION: 5 mm cecal polyp status post polypectomy 3 cm submucosal lipoma in the ascending colon status post biopsy 3 polyps in the hepatic flexure measuring between 4-6 mm in size status post snare polypectomy 2 mm transverse colon polyp status post polypectomy 1 cm and 1.5 cm descending colon polyp status post snare polypectomy Scattered sigmoid diverticulosis RECOMMENDATIONS: Findings of this examination were discussed with the patient as well as his family. He was advised to follow with the biopsy results. If the biopsy shows an adenoma he can have a repeat colonoscopy in 3 years.
[2020-08-05 09:44] VITALS: BP 134/62; PULSE 66
== END 2020-08-05 10:05 | disposition home or self-care (01) ==
LOC: ORWHC2ENDO 07:34
PROVIDERS: ATTEND Internal Medicine Gastroenterology
DX: D12.0 Benign neoplasm of cecum (principal); D12.3 Benign neoplasm of transverse colon; D12.4 Benign neoplasm of descending colon; K57.30 Diverticulosis of large intestine without perforation or abscess without bleeding; D17.5 Benign lipomatous neoplasm of intra-abdominal organs; Z86.010 Personal history of colon polyps; I10 Essential (primary) hypertension; I25.10 Atherosclerotic heart disease of native coronary artery without angina pectoris; E78.5 Hyperlipidemia, unspecified; E11.9 Type 2 diabetes mellitus without complications; Z79.899 Other long term (current) drug therapy; Z79.84 Long term (current) use of oral hypoglycemic drugs; Z79.82 Long term (current) use of aspirin; Z95.1 Presence of aortocoronary bypass graft; Z98.890 Other specified postprocedural states
CPT/HCPCS: 88305; 45380; 45385; J2704

== ENCOUNTER 2024-07-12 17:55 | Inpatient (IN) | payer MEDICARE ==
--- NOTE | 2024-07-12 18:07 | ED ---
General Adult HPI - General Stated complaint: Covid + Time Seen by Provider: 07/12/24 17:55 Source: patient, RN notes reviewed, old records reviewed - History of Present Illness Initial comments: This is a 73-year-old male who presents to the emergency department from [facility]. Patient went in because he was having a sore throat coughing up a lot of sputum and somewhat short of breath. According to [facility] is positive for COVID he had a troponin that was elevated as well as a D-dimer elevated and she was concerned that the patient was having either non-STEMI versus a pericarditis. Patient currently states she only has any chest pain with deep breathing. Patient states she still mildly short of breath. Patient states he did get steroids at the other facility and his throat feels much better - Related Data Home Medications Medication Instructions Recorded Confirmed metFORMIN HCL [Glucophage] 850 mg PO BID 02/08/19 08/05/20 Atorvastatin [Lipitor] 80 mg PO DAILY 05/27/19 08/05/20 Acetaminophen [Tylenol Extra 500 mg PO DIRECTED PRN 08/03/20 08/05/20 Strength] Aspirin 81 mg PO BID 08/03/20 08/05/20 Multivitamin/Iron/Folic Acid 1 each PO DAILY 08/03/20 08/05/20 [Centrum Adults Tablet] Sennosides/Docusate Sodium 1 each PO DAILY PRN 08/03/20 08/05/20 [Senna-S 8.6-50 mg Tablet] glipiZIDE XL [Glucotrol Xl] 5 mg PO PC-SUPPER 08/03/20 08/05/20 lisinopriL [Zestril] 5 mg PO DAILY 08/03/20 08/05/20 Previous Rx's Medication Instructions Recorded Metoprolol Tartrate [Lopressor] 50 mg PO BID #60 tab 02/16/19 Allergies Allergy/AdvReac Type Severity Reaction Status Date / Time No Known Allergies Allergy Verified 07/12/24 18:03 Review of Systems ROS Statement: Those systems with pertinent positive or pertinent negative responses have been documented in the HPI. ROS Other: All systems not noted in ROS Statement are negative. Past Medical History Past Medical History: Coronary Artery Disease (CAD), Chest Pain / Angina, Diabetes Mellitus, GI Bleed, Hyperlipidemia, Hypertension, Myocardial Infarction ([place]) Additional Past Medical History / Comment(s): HX OF GI BLEED MAY 2019 WITH BLOOD TRANSFUSIONS. (PT WAS TAKING PLAVIX AND ASPIRIN AFTER CABG). EGD & COLONOSCOPY-POLYPS, DIVERTICULOSIS AND GASTRITIS. Last Myocardial Infarction Date:: 02/2019 History of Any Multi-Drug Resistant Organisms: None Reported Past Surgical History: Coronary Bypass/CABG, Tonsillectomy Additional Past Surgical History / Comment(s): left hand finger sewed yrs ago, CABG (02/12/2019), EGD & COLONOSCOPY 05/29/19 Past Anesthesia/Blood Transfusion Reactions: No Reported Reaction Past Psychological History: No Psychological Hx Reported Smoking Status: Former smoker Past Alcohol Use History: None Reported Additional Past Alcohol Use History / Comment(s): QUIT SMOKING OVER 25 YEARS AGO, SMOKED 2 PPD. Past Drug Use History: None Reported - Past Family History Father Family Medical History: Myocardial Infarction ([place]) Mother Family Medical History: Coronary Artery Disease (CAD), Dementia General Exam - General Exam Comments Initial Comments: GENERAL: Patient is well-developed and well-nourished. Patient is nontoxic and well- hydrated and is in mild distress. ENT: Neck is soft and supple. No significant lymphadenopathy is noted. Oropharynx is clear. Moist mucous membranes. Neck has full range of motion without eliciting any pain. EYES: The sclera were anicteric and conjunctiva were pink and moist. Extraocular movements were intact and pupils were equal round and reactive to light. Eyelids were unremarkable. PULMONARY: Unlabored respirations. Good breath sounds bilaterally. No audible rales rhonchi or wheezing was noted. CARDIOVASCULAR: There is a regular rate and rhythm without any murmurs gallops or rubs. ABDOMEN: Soft and nontender with normal bowel sounds. SKIN: Skin is clear with no lesions or rashes and otherwise unremarkable. NEUROLOGIC: Patient is alert and oriented x3. Cranial nerves II through XII are grossly intact. Motor and sensory are also intact. Normal speech, volume and content. Symmetrical smile. MUSCULOSKELETAL: Normal extremities with adequate strength and full range of motion. No lower extremity swelling or edema. No calf tenderness. LYMPHATICS: No significant lymphadenopathy is noted PSYCHIATRIC: Normal psychiatric evaluation. Course Vital Signs 07/12/24 07/12/24 18:03 18:20 Temperature 98.6 F Pulse Rate 102 H 99 Respiratory 18 18 Rate Blood Pressure 143/74 143/71 O2 Sat by Pulse 97 97 Oximetry Medical Decision Making - Medical Decision Making EKG is interpreted by myself. EKG shows a sinus rhythm with occasional PAC at 96 bpm MN 143 QRS is 138 QT interval is 383 QTc is 436. Was pt. sent in by a medical professional or institution ([facility], [facility], urgent care, hospital, or snf...) When possible be specific @ -[facility] transfer the patient to our institution. Did you speak to anyone other than the patient for history (EMS, parent, family, police, friend...)? What history was obtained from this source @ -I spoke with the [facility] emergency room physician prior to transfer to get a history and lab results as well as radiological results Did you review nursing and triage notes (agree or disagree)? Why? @ -I reviewed and agree with nursing and triage notes Were old charts reviewed (outside hosp., previous admission, EMS record, old EKG, old radiological studies, urgent care reports/EKG's, snf records)? Report findings @ -No old charts were reviewed Differential Diagnosis? @ -Differential Dyspnea: Coronary syndrome, arrhythmia, tamponade, asthma, COPD, pulmonary embolism, pneumonia, pneumothorax, pulmonary effusion, anaphylaxis, diabetic ketoacidosis, flailed chest, pulmonary contusion, diaphragmatic rupture, anemia, neuromuscular, this is not meant to be an all-inclusive list. EKG interpreted by me (3pts min.). @ -As above X-rays interpreted by me (1pt min.). @ -None done CT interpreted by me (1pt min.). @ -CT scan shows no PE U/S interpreted by me (1pt. min.). @ -None done What testing was considered but not performed or refused? (CT, X-rays, U/S, labs)? Why? @ -None What meds were considered but not given or refused? Why? @ -None Did you discuss the management of the patient with other professionals (professionals i.e. [facility], [employer], lab, RT, psych nurse, hospice social worker, music therapist public school system, teacher, juvenile corrections officer, residential case manager)? Give summary @ -I spoke with Dr. Deng he agreed to admit the patient admit the patient I wrote admitting orders Was smoking cessation discussed for >3mins.? @ -No Was critical care preformed (if so, how long)? @ -No Were there social determinants of health that impacted care today? How? (Homelessness, low income, unemployed, alcoholism, drug addiction, transportation, low edu. Level, literacy, decrease access to med. care, correction, rehab)? @ -No Was there de-escalation of care discussed even if they declined (Discuss DNR or withdrawal of care, Hospice)? DNR status @ -No What co-morbidities impacted this encounter? (DM, HTN, Smoking, COPD, CAD, Cancer, CVA, ARF, Chemo, Hep., AIDS, mental health diagnosis, sleep apnea, morbid obesity)? @ -None Was patient admitted / discharged? Hospital course, mention meds given and route, prescriptions, significant lab abnormalities, going to OR and other pertinent info. @ -Patient had already received steroids at [facility] and I will continue them for tomorrow and thereafter. Patient is lab work otherwise showed an elevated D-dimer which is why the CAT scan of the chest was done and showed no PE CAT scan did show an infiltrate in the left lower lobe so I put the patient on antibiotics Undiagnosed new problem with uncertain prognosis? @ -No Drug Therapy requiring intensive monitoring for toxicity (Heparin, Nitro, Insulin, Cardizem)? @ -No Were any procedures done? @ -No Diagnosis/symptom? @ -COVID Acute, or Chronic, or Acute on Chronic? @ -Acute Uncomplicated (without systemic symptoms) or Complicated (systemic symptoms)? @ -Complicated Side effects of treatment? @ -No Exacerbation, Progression, or Severe Exacerbation? @ -No Poses a threat to life or bodily function? How? (Chest pain, [place], [place], pneumonia, PE, COPD, DKA, ARF, appy, cholecystitis, CVA, Diverticulitis, Homicidal, Suicidal, threat to staff... and all critical care pts) @ -No Diagnosis/symptom? @ -Elevated troponin Acute, or Chronic, or Acute on Chronic? @ -Acute Uncomplicated (without systemic symptoms) or Complicated (systemic symptoms)? @ -Complicate Side effects of treatment? @ -None Exacerbation, Progression, or Severe Exacerbation] @ -No Poses a threat to life or bodily function? @ -Yes this could lead to an [place] and endorgan dysfunction Diagnosis/symptom? @ -Pneumonia Acute, or Chronic, or Acute on Chronic? @ -Acute Uncomplicated (without systemic symptoms) or Complicated (systemic symptoms)? @ -K Side effects of treatment? @ -[none] Exacerbation, Progression, or Severe Exacerbation] @ -[no] Poses a threat to life or bodily function? @ -Yes this could lead to sepsis and endorgan dysfunction - Lab Data Lab Results 07/12/24 07/12/24 Range/Units 18:57 18:57 D-Dimer 1.71 H (<0.60) mg/L FEU Troponin I 0.090 H* (0.000-0.034) ng/mL Disposition Clinical Impression: Elevated troponin, COVID-19, Pneumonia Disposition: ADMITTED IP TO THIS [facility] Time of Disposition: 20:36
[2024-07-12] MEDS ORDERED: NITROGLYCERIN SL TABS 0.4 MG TAB SUBLINGUAL PRN (20:36)
--- NOTE | 2024-07-12 20:53 | CT ---
CTA CHEST EXAMINATION TYPE: CT chest angio for PE DATE OF EXAM: 07/12/2024 INDICATION: Elevated D-dimer, YOSELIN and dx with covid. CT DLP: 516.1 mGycm, Automated exposure control for dose reduction was used. CONTRAST: Patient injected with 100 ml mL of Isovue 370. COMPARISON: TECHNIQUE: CT of the chest is performed on a spiral scan at 2 mm thick sections. Study is performed with intravenous contrast timed for evaluation for pulmonary embolism. This will limit additional po rtions of the evaluation. 3-D MIP images reconstructed by the technologist are reviewed on the compu ter in the coronal and sagittal planes. FINDINGS: No persistent filling defects are evident to suggest an acute pulmonary embolism. No mediastinal or hilar adenopathy enlarged by CT criteria is evident. The ascending aorta diameter at the level of the main pulmonary artery is 3.6 cm. The main pulmonary artery diameter at the bifurcation is 2.8 cm. Left lower lobe consolidation is present. Correlate for pneumonia. There is a faint nodular density along the lateral left lung, series 401 image 60, measuring 0.6 cm. Follow-up exam in 6 months is recommended. Limited CT sections were through the upper abdomen. Upper abdomen appears unremarkable. IMPRESSION: 1. Left lower lobe consolidation. Correlate for pneumonia. Atypical pneumonia should be considered. 2. Small nodule lateral left lung. Follow-up exam in 6 months is recommended. [facility], Workstation: [email or web address], 07/12/2024 8:51 PM
[2024-07-12] MEDS: SODIUM CHLORIDE 0.9% 1,000 ML IV SCH (21:04)
[2024-07-12] MEDS: AZITHROMYCIN 500 MG in SODIUM CHLORIDE 0.9% 250 ML IVPB STA (23:03)
[2024-07-12] MEDS: NITROGLYCERIN OINT 1 INCH/GM PACKET TOPICAL SCH (23:08)
[2024-07-12] MEDS ORDERED: DEXTROSE 50% SYRINGE 50 ML IVP PRN ×2 (23:12)
[2024-07-12] MEDS ORDERED: ACETAMINOPHEN TAB 325 MG TAB PO PRN (23:19)
--- NOTE | 2024-07-12 23:19 | P.HPIM ---
History of Present Illness H&P Date: 07/12/24 Chief Complaint: Shortness of breath Patient is a 73-year-old male ED with shortness of breath, coughing and weakness. The patient mentions he he started feeling of weak and shaky 3 days ago when he was on a family trip near [place] where he had walked a lot. The next couple of days he experienced shortness of breath, coughing with white phlegm production, swelling in his throat, lips and hoarseness of voice. Yesterday he went to [facility] where he was found to test positive for COVID-19 and received some steroids which helped with hoarseness of voice. His troponins were elevated which is when they sent him to the ER here at [facility]. The patient complains of pleuritic chest pain located in the center of the chest, no radiation. She reports that he has not eaten anything since 3 days because of the swelling in his throat and has lost 15 pounds. Denies fever, chills, abdominal pain, nausea, vomiting, dysuria, muscle aches. Also denies having COVID-19 infection previously. ED documentation reviewed. Labs show troponin 0.09, 0.08 and D-dimer 1.71. EKG shows sinus rhythm, LVH, rate 96 bpm, QTc 436 ms. Chest CTA shows left lower lobe consolidation. In the ED he was treated with azithromycin and ceftriaxone as well as dexamethasone. Review of systems: Pertinent positives and negatives as discussed in HPI, a complete review of systems was performed and all other systems are negative. PMH: CAD, hypertension, hyperlipidemia, diabetes, GI bleed PSH: CABG Allergies: None Social history: Tobacco: Former smoker Alcohol: Occasional Recreational drugs: Denies use Travel: [place] Physical examination: Vitals: T 98.6 F, P 102 bpm, RR 18, BP 143/74, O2 sat 97% on 2 L nasal cannula General: non toxic, no distress, appears at stated age, normal BMI Derm: no unusual rashes/lesions, warm Head: atraumatic, normocephalic, symmetric Eyes: EOMI, anicteric sclera ENT: Nose and ears atraumatic Cardiovascular: S1S2 reg, no murmur, no edema Lungs: no accessory muscle use Abdominal: soft, nontender to palpation, no guarding Ext: muscle strength 5 out of 5 in all 4 extremities grossly, no gross muscle atrophy, no contractures, Neuro: CN II-XI grossly intact, no gross focal neuro deficits Psych: Alert, oriented, appropriate affect Assessment/Plan: The patient is a 73-year-old male who presented to the ED with shortness of breath, coughing and weakness. Case discussed with the ED provider and admission is accepted for COVID-19 pneumonia. with anticipated length of stay > 2 midnights #. COVID-19 pneumonia, with hypoxic respiratory failure elevated Troponin 0.09, trending down 0.08 and elevated D-dimer 1.71, most likely acute phase reactant related to COVID infection Chest CTA shows left lower lobe consolidation, no PE found Continue supplemental oxygen, currently on 3 L of via nasal cannula, will attempt to wean off to assess for oxygen requirement , no documented hypoxemia since presentation dexamethasone 6 mg p.o. given in the ED, will assess oxygen requirement to decide wether to continue this or no patient empirically started on rocephine and azithro for suspected pneumonia , follow up blood cultures , check procalcitonin to rule out underlying possible bacterial pneumonia , discontinue antibiotics if negative Start on Robitussin 200 mg every 6 hours and Tessalon pearls for persistent cough Obtain CRP, LDH, procalcitonin for prognostic evaluation Encouraged to use incentive spirometry Continue trending inflammatory markers Droplet plus contact precautions Telemetry monitoring DVT prophylaxis with Lovenox #. Hyperlipidemia Continue with atorvastatin 80 mg p.o. daily Lipid panel ordered in the ED #. Hypertension Continue lisinopril 5 mg p.o. daily #. History of CAD with CABG Continue aspirin 81 mg p.o. twice daily, metoprolol 50 mg p.o. twice daily Discontinue aspirin 325 mg due to history of GI bleed Cardiology and cardiac rehab consulted for elevated troponin in the ED #. [id number] diabetes mellitus Insulin sliding scale and blood glucose monitoring ACHS HbA1c ordered F: 0.9 normal saline 100 mL/h E: Replete as required N: Heart healthy diet A: Bedrest, advance activity as tolerated on day 2 per clinical pathway DVT prophylaxis: Lovenox 40 mg SQ daily GI prophylaxis: Protonix 40 mg IVP daily The patient is admitted with an anticipated more than 2 midnight stay for evaluation of shortness of breath CODE STATUS: Full code Discussed with: Patient and Anticipated discharge place: Home Past Medical History Past Medical History: Coronary Artery Disease (CAD), Chest Pain / Angina, Diabetes Mellitus, GI Bleed, Hyperlipidemia, Hypertension, Myocardial Infarction ([place]) Additional Past Medical History / Comment(s): HX OF GI BLEED MAY 2019 WITH BLOOD TRANSFUSIONS. (PT WAS TAKING PLAVIX AND ASPIRIN AFTER CABG). EGD & COLONOSCOPY-POLYPS, DIVERTICULOSIS AND GASTRITIS. Last Myocardial Infarction Date:: 02/2019 History of Any Multi-Drug Resistant Organisms: None Reported Past Surgical History: Coronary Bypass/CABG, Tonsillectomy Additional Past Surgical History / Comment(s): left hand finger sewed yrs ago, CABG (02/12/2019), EGD & COLONOSCOPY 05/29/19 Past Anesthesia/Blood Transfusion Reactions: No Reported Reaction Past Psychological History: No Psychological Hx Reported Smoking Status: Former smoker Past Alcohol Use History: None Reported Additional Past Alcohol Use History / Comment(s): QUIT SMOKING OVER 25 YEARS AGO, SMOKED 2 PPD. Past Drug Use History: None Reported - Past Family History Father Family Medical History: Myocardial Infarction ([place]) Mother Family Medical History: Coronary Artery Disease (CAD), Dementia Medications and Allergies Home Medications Medication Instructions Recorded Confirmed Type metFORMIN HCL [Glucophage] 850 mg PO BID 02/08/19 08/05/20 History Metoprolol Tartrate [Lopressor] 50 mg PO BID #60 tab 02/16/19 08/05/20 Rx Atorvastatin [Lipitor] 80 mg PO DAILY 05/27/19 08/05/20 History Acetaminophen [Tylenol Extra 500 mg PO DIRECTED PRN 08/03/20 08/05/20 History Strength] Aspirin 81 mg PO BID 08/03/20 08/05/20 History Multivitamin/Iron/Folic Acid 1 each PO DAILY 08/03/20 08/05/20 History [Centrum Adults Tablet] Sennosides/Docusate Sodium 1 each PO DAILY PRN 08/03/20 08/05/20 History [Senna-S 8.6-50 mg Tablet] glipiZIDE XL [Glucotrol Xl] 5 mg PO PC-SUPPER 08/03/20 08/05/20 History lisinopriL [Zestril] 5 mg PO DAILY 08/03/20 08/05/20 History Allergies Allergy/AdvReac Type Severity Reaction Status Date / Time No Known Allergies Allergy Verified 07/12/24 18:03 Physical Exam Vitals: Vital Signs Temp Pulse Pulse Resp BP BP Pulse Ox 07/12/24 21:33 98.6 F 97 18 166/81 98 07/12/24 21:04 96 18 139/91 96 07/12/24 18:20 99 18 143/71 97 07/12/24 18:03 98.6 F 102 H 18 143/74 97 Intake and Output 07/12/24 07/12/24 07/12/24 06:59 14:59 22:59 Other: Weight 74.389 kg Results Labs: Abnormal Lab Results - Last 24 Hours (Table) 07/12/24 07/12/24 Range/Units 18:57 18:57 D-Dimer 1.71 H (<0.60) mg/L FEU Troponin I 0.090 H* (0.000-0.034) ng/mL Thrombosis Risk Factor Assmnt - Choose All That Apply Each Factor Represents 1 point: Obesity (BMI >25) Each Risk Factor Represents 2 Points: Age 61-74 years Thrombosis Risk Factor Assessment Total Risk Factor Score: 3 Thrombosis Risk Factor Assessment Level: Moderate Risk Assessment and Plan Assessment: I have seen and evaluated the patient today. I Discussed the case with the resident and agree with the resident's findings I edited the assessment and plan as necessary as documented in the resident's note.
[2024-07-13 00:36] LABS: C Reactive Protein 13.9 mg/dL (<1.0)
[2024-07-13 06:09] LABS: Glucose,Whole Blood 223 mg/dL (70-110)
[2024-07-13] MEDS: INSULIN ASPART (NovoLOG) 100 UNIT/ML VIAL SQ SCH (06:49)
[2024-07-13 07:14] LABS: Basophils % (A) 0 %; Eosinophils % (A) 0 %; HCT 37.3 % (39.0-53.0); HGB 12.2 gm/dL (13.0-17.5); Lymphocytes # (A) 0.4 k/uL (1.0-4.8); Lymphocytes % (A) 10 %; MCH 31.4 pg (25.0-35.0); MCHC 32.7 g/dL (31.0-37.0); Mean Platelet Volume 7.8; Monocytes # (A) 0.3 k/uL (0-1.0); Monocytes % (A) 8 %; Neutrophils # (A) 3.3 k/uL (1.3-7.7); Neutrophils % (A) 79 %; Platelet Count 185 k/uL (150-450); RBC 3.88 m/uL (4.30-5.90); RDW 12.7 % (11.5-15.5); WBC 4.1 k/uL (3.8-10.6)
[2024-07-13 07:37] LABS: ALT 26 U/L (4-49); AST 31 U/L (17-59); African American GFR (CKD) >90 (>60 ml/min/1.73 sqM); Albumin 3.1 g/dL (3.5-5.0); Alkaline Phosphatase 62 U/L (38-126); Anion Gap 6 mmol/L; Blood Urea Nitrogen 21 mg/dL (9-20); Calcium 8.2 mg/dL (8.4-10.2); Carbon Dioxide 28 mmol/L (22-30); Chloride 105 mmol/L (98-107); Glucose 242 mg/dL (74-99); Non-African American GFR(CKD) 85 (>60 ml/min/1.73 sqM); Potassium 4.2 mmol/L (3.5-5.1); Sodium 139 mmol/L (137-145); Total Bilirubin 0.8 mg/dL (0.2-1.3); Total Protein 5.5 g/dL (6.3-8.2)
[2024-07-13] MEDS ORDERED: ASPIRIN 325 MG TAB PO SCH (09:00)
[2024-07-13] MEDS ORDERED: ASPIRIN 81 MG PO SCH (09:00)
[2024-07-13] MEDS: METOPROLOL TARTRATE 50 MG TAB PO SCH ×2 (09:48→09:58)
[2024-07-13] MEDS: lisinopriL 5 MG TAB PO SCH (09:48)
[2024-07-13] MEDS: ENOXAPARIN 40 MG/0.4 ML SYRINGE SQ SCH (09:59)
[2024-07-13] MEDS: ATORVASTATIN 80 MG TAB PO SCH (09:59)
[2024-07-13] MEDS: dexAMETHasone 2 MG TAB PO SCH (09:59)
[2024-07-13] MEDS: lisinopriL 20 MG TAB PO SCH (09:59)
[2024-07-13] MEDS: PANTOPRAZOLE 40 MG/10 ML VIAL IVP SCH (10:00)
[2024-07-13 11:54] LABS: Glucose,Whole Blood 237 mg/dL (70-110)
[2024-07-13 12:52] LABS: Chol/HDL Ratio 2.52 Ratio; LDL Cholesterol,Calculated 50.1 mg/dL (0.0-131.0); VLDL Calculation 17.46 mg/dL (5.00-40.00)
[2024-07-13 13:48] VITALS: BMI 26.0
--- NOTE | 2024-07-13 14:18 | P.CRDCN ---
History of Present Illness Consult date: 07/13/24 Consult reason: shortness of breath, other (elevated trop) Chief complaint: SOB, cough, COVID+ History of present illness: History of present illness: Patient is a pleasant 73-year-old male with significant past medical history of CAD status post triple-vessel CABG in 2019, hypertension, diabetes, hyperlipidemia, GI bleed who presented to the ER in [place] with complaints of shortness of breath, cough, and weakness. He was diagnosed positive for COVID- 19. His troponins were elevated therefore he was transferred to [facility]. He does follow with Dr. Bourne in the office and has saw him last month. Reports his last echo was over a year ago and last stress test was a couple years ago. Prior to this illness he has been active with no issues. He began not feeling well 4 days ago with cough, sore throat, shortness of breath, fatigue. CTA of the chest shows no PE, left lower lobe consolidation. Labs reviewed: WBC 4.1, hemoglobin 12.2, potassium 4.2, creatinine 0.89, troponin 0.090, 0.080, 0.088, CRP 13.9. He was having some chest pain in the ER and nitro patch was placed. No records from [facility] available at this time. Denies any chest pain or pressure at this time. REVIEW OF SYSTEMS: No fever or chills. Reports cough and expectoration. No diaphoresis. Patient denies headache, dizziness, blurred vision, double vision. Patient denies any stomach discomfort. No nausea, vomiting. No hematochezia. No hematemesis. Denies any black stools or blood in his stools. Denies dysuria or hematuria. No muscle weakness or numbness. No chest pain or pressure. + SOB. PHYSICAL EXAMINATION: This is a 73-year-old male in no apparent distress at the time of my examination. HEENT: Head is atraumatic, normocephalic. Pupils are equal, round. Sclerae anicteric. Conjunctivae are clear. Mucous membranes of the mouth are moist. Neck is supple. There is no jugular venous distention. No carotid bruit is heard. CHEST EXAMINATION: Lungs with rhonichi L>R. No chest wall tenderness is noted on palpation or with deep breathing. HEART EXAMINATION: Heart regular rate and rhythm. S1, S2 heard. No murmurs, ga llops or rub. ABDOMEN: Soft, nontender. Bowel sounds are heard. EXTREMITIES: 2+ peripheral pulses with no evidence of peripheral edema and no calf tenderness noted. NEUROLOGIC EXAMINATION: Patient is awake, alert and oriented x3. IMPRESSION AND PLAN: CAD Status post CABG in 2018 Hypertension Hyperlipidemia Diabetes type 2 History of GI bleed NSTEMI likely type II related to COVID infection Positive COVID infection Dyspnea PLAN: We will check limited ECHO to eval EF. NSTEMI likely related to infection. Continue current cardiac medications. Monitor blood pressure. Further recommendations based on clinical course. I am dictating on behalf of Dr. Myron Parnell's history/physical and assessment/plan. Past Medical History Past Medical History: Coronary Artery Disease (CAD), Chest Pain / Angina, Diabetes Mellitus, GI Bleed, Hyperlipidemia, Hypertension, Myocardial Infarction ([place]) Additional Past Medical History / Comment(s): HX OF GI BLEED MAY 2019 WITH BLOOD TRANSFUSIONS. (PT WAS TAKING PLAVIX AND ASPIRIN AFTER CABG). EGD & COLONOSCOPY-POLYPS, DIVERTICULOSIS AND GASTRITIS. Last Myocardial Infarction Date:: 02/2019 History of Any Multi-Drug Resistant Organisms: None Reported Past Surgical History: Coronary Bypass/CABG, Tonsillectomy Additional Past Surgical History / Comment(s): left hand finger sewed yrs ago, CABG (02/12/2019), EGD & COLONOSCOPY 05/29/19 Past Anesthesia/Blood Transfusion Reactions: No Reported Reaction Past Psychological History: No Psychological Hx Reported Smoking Status: Former smoker Past Alcohol Use History: None Reported Additional Past Alcohol Use History / Comment(s): QUIT SMOKING OVER 25 YEARS AGO, SMOKED 2 PPD. Past Drug Use History: None Reported - Past Family History Father Family Medical History: Myocardial Infarction ([place]) Mother Family Medical History: Coronary Artery Disease (CAD), Dementia Medications and Allergies Home Medications Medication Instructions Recorded Confirmed Type metFORMIN HCL [Glucophage] 850 mg PO BID 02/08/19 07/13/24 History Atorvastatin [Lipitor] 80 mg PO DAILY 05/27/19 07/13/24 History glipiZIDE XL [Glucotrol Xl] 5 mg PO BID 08/03/20 07/13/24 History Metoprolol Tartrate [Lopressor] 100 mg PO BID 07/13/24 07/13/24 History lisinopriL [Zestril] 20 mg PO DAILY 07/13/24 07/13/24 History Allergies Allergy/AdvReac Type Severity Reaction Status Date / Time No Known Allergies Allergy Verified 07/13/24 09:03 Physical Exam Vitals: Vital Signs Temp Pulse Pulse Resp BP BP Pulse Ox 07/13/24 03:15 80 18 129/56 98 07/12/24 23:04 94 18 161/67 98 07/12/24 21:33 98.6 F 97 18 166/81 98 07/12/24 21:04 96 18 139/91 96 07/12/24 18:20 99 18 143/71 97 07/12/24 18:03 98.6 F 102 H 18 143/74 97 Intake and Output 07/12/24 07/13/24 07/13/24 22:59 06:59 14:59 Intake Total 240 Balance 240 Intake: Oral 240 Other: Voiding Method Toilet Weight 74.389 kg 75.4 kg Results 07/13/24 06:49 07/13/24 06:49 Cardiac Enzymes 07/12/24 07/12/24 07/12/24 Range/Units 18:57 21:49 23:13 AST (17-59) U/L Lactate Dehydrogenase (120-246) U/L Troponin I 0.090 H* 0.080 H* 0.088 H* (0.000-0.034) ng/mL 07/12/24 07/13/24 Range/Units 23:19 06:49 AST 31 (17-59) U/L Lactate Dehydrogenase 202 (120-246) U/L Troponin I (0.000-0.034) ng/mL CBC 07/13/24 Range/Units 06:49 WBC 4.1 (3.8-10.6) k/uL RBC 3.88 L (4.30-5.90) m/uL Hgb 12.2 L (13.0-17.5) gm/dL Hct 37.3 L (39.0-53.0) % Plt Count 185 (150-450) k/uL Comprehensive Metabolic Panel 07/13/24 Range/Units 06:49 Sodium 139 (137-145) mmol/L Potassium 4.2 (3.5-5.1) mmol/L Chloride 105 (98-107) mmol/L Carbon Dioxide 28 (22-30) mmol/L BUN 21 H (9-20) mg/dL Creatinine 0.89 (0.66-1.25) mg/dL Glucose 242 H (74-99) mg/dL Calcium 8.2 L (8.4-10.2) mg/dL AST 31 (17-59) U/L ALT 26 (4-49) U/L Alkaline Phosphatase 62 (38-126) U/L Total Protein 5.5 L (6.3-8.2) g/dL Albumin 3.1 L (3.5-5.0) g/dL Current Medications Generic Name Dose Route Start Last Admin Trade Name Freq PRN Reason Stop Dose Admin Acetaminophen 650 mg 07/12/24 23:19 Acetaminophen Tab 325 Mg Tab PO Q6HR PRN Fever and/ or Pain Atorvastatin Calcium 80 mg 07/13/24 09:00 Atorvastatin 80 Mg Tab PO DAILY [facility] Azithromycin 500 mg 07/13/24 21:00 Azithromycin 500 Mg Tab PO 07/15/24 21:01 DAILY@2100 [facility] Protocol Dexamethasone 6 mg 07/13/24 09:00 Dexamethasone 2 Mg Tab PO DAILY [facility] Dextrose/Water 50 ml 07/12/24 23:12 Dextrose 50% Syringe 50 Ml IVP PER PROTOCOL PRN Hypoglycemia Protocol Dextrose/Water 25 ml 07/12/24 23:12 Dextrose 50% Syringe 50 Ml IVP PER PROTOCOL PRN Hypoglycemia Protocol Enoxaparin Sodium 40 mg 07/13/24 09:00 Enoxaparin 40 Mg/0.4 Ml Syringe SQ DAILY [facility] Guaifenesin 200 mg 07/13/24 05:58 Guaifenesin Syrup 100mg/5ml 200 Mg/10 Ml Cup PO Q6HR PRN Cough Ceftriaxone Sodium 2 gm/ 50 mls @ 100 mls/hr 07/13/24 09:00 Sodium Chloride IVPB Q24HR [facility] Protocol Insulin Aspart 0 unit 07/13/24 07:30 07/13/24 06:49 Insulin Aspart (Novolog) 100 Unit/Ml Vial SQ 4 unit ACHS [facility] Administration Protocol Lisinopril 20 mg 07/13/24 09:30 Lisinopril 20 Mg Tab PO DAILY [facility] Metoprolol Tartrate 100 mg 07/13/24 09:30 Metoprolol Tartrate 50 Mg Tab PO BID [facility] Nitroglycerin 0.4 mg 07/12/24 20:36 Nitroglycerin Sl Tabs 0.4 Mg Tab SUBLINGUAL Q5M PRN Chest Pain Nitroglycerin 1 inch 07/13/24 00:00 07/13/24 06:49 Nitroglycerin Oint 1 Inch/Gm Packet TOPICAL 1 inch Q6HR [facility] Administration Pantoprazole Sodium 40 mg 07/13/24 09:00 Pantoprazole 40 Mg/10 Ml Vial IVP DAILY [facility] Intake and Output 07/12/24 07/13/24 07/13/24 22:59 06:59 14:59 Intake Total 240 Balance 240 Intake: Oral 240 Other: Voiding Method Toilet Weight 74.389 kg 75.4 kg 07/13/24 06:49 07/13/24 06:49
--- NOTE | 2024-07-13 15:34 | CA ---
Transthoracic Echo Report Name: Andres Mi Age: 73 Gender: M : 1950 Exam Date: 07/13/2024 14:37 Exam Location: [facility] Ht (in): 67 Wt (lb): 166 Ordering Physician: Netta Wade Attending/Referring Phys: Cut Filer Lisseth Wong RDCS Procedure CPT: Indications: sob Cardiac Hx: CABG Technical Quality: Good Contrast 1: Total Dose (mL): Contrast 2: Total Dose (mL): MEASUREMENTS (Male / Female) Normal Values 2D ECHO LV Diastolic Diameter PLAX 4.0 cm 4.2 - 5.9 / 3.9 - 5.3 cm LV Systolic Diameter PLAX 3.4 cm IVS Diastolic Thickness 1.4 cm 0.6 - 1.0 / 0.6 - 0.9 cm LVPW Diastolic Thickness 1.1 cm 0.6 - 1.0 / 0.6 - 0.9 cm LV Relative Wall Thickness 0.6 RV Internal Dim ED PLAX 3.2 cm LA Systolic Diameter LX 3.8 cm 3.0 - 4.0 / 2.7 - 3.8 cm LV Diastolic Volume MOD BP 93.2 cm??? 67 - 155 / 56 - 104 cm??? LV Systolic Volume MOD BP 47.2 cm??? 22 - 58 / 19 - 49 cm??? LV Ejection Fraction MOD BP 49.3 % >= 55 % LV Cardiac Index MOD BP 1862.5 cm???/min???m??? LV Diastolic Volume MOD 4C 104.5 cm??? LV Systolic Volume MOD 4C 59.0 cm??? LV Ejection Fraction MOD 4C 43.5 % LV Cardiac Index MOD 4C 1843.8 cm???/min???m??? LV Diastolic Length 4C 7.7 cm LV Systolic Length 4C 6.6 cm LV Diastolic Volume MOD 2C 77.2 cm??? LV Systolic Volume MOD 2C 37.5 cm??? LV Ejection Fraction MOD 2C 51.4 % LV Cardiac Index MOD 2C 1608.7 cm???/min???m??? LV Diastolic Length 2C 6.8 cm LV Systolic Length 2C 6.7 cm LA Volume 45.8 cm??? 18 - 58 / 22 - 52 cm??? LA Volume Index 24.1 cm???/m??? 16 - 28 cm???/m??? M-MODE LV Diastolic Diameter MM 4.6 cm 4.2 - 5.9 / 3.9 - 5.3 cm LV Systolic Diameter MM 3.1 cm LV Cardiac Index MM Ashu[place] 2488.5 cm???/min???m??? IVS Diastolic Thickness MM 1.3 cm 0.6 - 1.0 / 0.6 - 0.9 cm LVPW Diastolic Thickness MM 1.1 cm 0.6 - 1.0 / 0.6 - 0.9 cm LV Relative Wall Thickness MM 0.5 0.24 - 0.42 / 0.22 - 0.42 LV Mass Index MM 108.4 g/m??? 49 - 115 / 43 - 95 g/m??? Aortic Root Diameter MM 3.4 cm AV Cusp Separation MM 1.9 cm DOPPLER MV Peak Velocity 158.6 cm/s MV Peak Gradient 10.1 mmHg MV Mean Velocity 78.3 cm/s MV Mean Gradient 3.1 mmHg MV Velocity Time Integral 39.3 cm MV Area PHT 4.5 cm??? Mitral E Point Velocity 136.2 cm/s Mitral A Point Velocity 115.9 cm/s Mitral E to A Ratio 1.2 MV Deceleration Time 167.8 ms FINDINGS Left Ventricle Left ventricular ejection fraction is estimated at 45-50 %. Left ventricular cavity size normal. Mildly increased septal wall thickness. Mildly increased posterior wall thickness. Mildly decreased midwall fractional shortening. Moderately increased left ventricular relative wall thickness. Mildly decreased left ventricular ejection fraction. Right Ventricle Normal right ventricular size. Normal right ventricular global systolic function. Right Atrium Normal right atrial size. No right atrial thrombus or mass seen. Left Atrium Normal left atrial size. No left atrial thrombus or mass present. Mitral Valve Mitral valve thickened. Mild mitral annular calcification. Mild mitral stenosis. Moderate mitral regurgitation. Aortic Valve Trileaflet aortic valve. Aortic valve sclerosis. Thickened aortic valve without stenosis. Trace to mild aortic regurgitation. Tricuspid Valve Structurally normal tricuspid valve. No tricuspid stenosis, regurgitation or prolapse. Pulmonic Valve Structurally normal pulmonic valve. Trace pulmonic regurgitation. Pericardium No pericardial effusion. Aorta Normal size aortic root and proximal ascending aorta. CONCLUSIONS Left ventricular ejection fraction 45-50% Mildly increased left ventricular wall thickness Moderate mitral regurgitation No pericardial effusion Previewed by: Dr. Myron Parnell DO (Electronically Signed) Final Date: 13 July 2024 15:33
[2024-07-13 16:40] LABS: Glucose,Whole Blood 175 mg/dL (70-110)
--- NOTE | 2024-07-13 18:35 | P.PN ---
Subjective Progress Note Date: 07/13/24 The patient is a 73-year-old male with history of hyperlipidemia, coronary disease who presented with 3 days of shortness of breath cough and weakness. Patient has been seen at [facility] was tested positive for COVID-19. The patient was found to have elevated troponin. The patient was seen by c ardiology in consultation who recommended echocardiogram to evaluate. Clinical assessment was positive troponin likely secondary to COVID. Objective - Vital Signs Vital signs: Vital Signs Temp 98.2 F 07/13/24 17:33 Pulse 69 07/13/24 17:33 Resp 18 07/13/24 17:33 BP 126/62 07/13/24 17:33 Pulse Ox 96 07/13/24 17:33 FiO2 Intake & Output 07/12/24 07/13/24 07/13/24 18:59 06:59 18:59 Intake Total 240 Balance 240 Weight 74.389 kg 75.4 kg 75.4 kg Intake: Oral 240 Other: Voiding Method Toilet Toilet # Voids 2 1 - Constitutional General appearance: Present: no acute distress - Respiratory Respiratory: bilateral: diminished - Cardiovascular Rhythm: regular - Gastrointestinal General gastrointestinal: Present: normal bowel sounds - Integumentary Integumentary: Present: normal - Musculoskeletal Musculoskeletal: Present: strength equal bilaterally - Psychiatric Psychiatric: Present: appropriate affect - Labs CBC & Chem 7: 07/13/24 06:49 07/13/24 06:49 Labs: Abnormal Lab Results - Last 24 Hours (Table) 07/12/24 07/12/24 07/12/24 Range/Units 18:57 18:57 21:49 RBC (4.30-5.90) m/uL Hgb (13.0-17.5) gm/dL Hct (39.0-53.0) % Lymphocytes # (1.0-4.8) k/uL D-Dimer 1.71 H (<0.60) mg/L FEU BUN (9-20) mg/dL Glucose (74-99) mg/dL POC Glucose (mg/dL) (70-110) mg/dL Hemoglobin A1c (<=6.0) % Calcium (8.4-10.2) mg/dL Troponin I 0.090 H* 0.080 H* (0.000-0.034) ng/mL C-Reactive Protein (<1.0) mg/dL Total Protein (6.3-8.2) g/dL Albumin (3.5-5.0) g/dL Procalcitonin (0.02-0.50) ng/mL 07/12/24 07/12/24 07/13/24 Range/Units 23:13 23:19 06:08 RBC (4.30-5.90) m/uL Hgb (13.0-17.5) gm/dL Hct (39.0-53.0) % Lymphocytes # (1.0-4.8) k/uL D-Dimer (<0.60) mg/L FEU BUN (9-20) mg/dL Glucose (74-99) mg/dL POC Glucose (mg/dL) 223 H (70-110) mg/dL Hemoglobin A1c (<=6.0) % Calcium (8.4-10.2) mg/dL Troponin I 0.088 H* (0.000-0.034) ng/mL C-Reactive Protein 13.9 H (<1.0) mg/dL Total Protein (6.3-8.2) g/dL Albumin (3.5-5.0) g/dL Procalcitonin (0.02-0.50) ng/mL 07/13/24 07/13/24 07/13/24 Range/Units 06:44 06:49 06:49 RBC (4.30-5.90) m/uL Hgb (13.0-17.5) gm/dL Hct (39.0-53.0) % Lymphocytes # (1.0-4.8) k/uL D-Dimer (<0.60) mg/L FEU BUN 21 H (9-20) mg/dL Glucose 242 H (74-99) mg/dL POC Glucose (mg/dL) (70-110) mg/dL Hemoglobin A1c 7.6 H (<=6.0) % Calcium 8.2 L (8.4-10.2) mg/dL Troponin I (0.000-0.034) ng/mL C-Reactive Protein (<1.0) mg/dL Total Protein 5.5 L (6.3-8.2) g/dL Albumin 3.1 L (3.5-5.0) g/dL Procalcitonin 1.49 H (0.02-0.50) ng/mL 07/13/24 07/13/24 07/13/24 Range/Units 06:49 11:51 16:38 RBC 3.88 L (4.30-5.90) m/uL Hgb 12.2 L (13.0-17.5) gm/dL Hct 37.3 L (39.0-53.0) % Lymphocytes # 0.4 L (1.0-4.8) k/uL D-Dimer (<0.60) mg/L FEU BUN (9-20) mg/dL Glucose (74-99) mg/dL POC Glucose (mg/dL) 237 H 175 H (70-110) mg/dL Hemoglobin A1c (<=6.0) % Calcium (8.4-10.2) mg/dL Troponin I (0.000-0.034) ng/mL C-Reactive Protein (<1.0) mg/dL Total Protein (6.3-8.2) g/dL Albumin (3.5-5.0) g/dL Procalcitonin (0.02-0.50) ng/mL Assessment and Plan (1) Elevated troponin Narrative/Plan: Cardiology input, patient is status post echocardiogram EF 45 to 50%. Clinical determination of elevated troponin secondary to COVID-19 Current Visit: Yes Status: Acute Code(s): R79.89 - OTHER SPECIFIED ABNORMAL FINDINGS OF BLOOD CHEMISTRY SNOMED Code(s): 328854851 (2) COVID-19 Narrative/Plan: Continue isolation per protocol, IV Rocephin pneumonia, oxygen supplementation, Current Visit: Yes Status: Acute Code(s): U07.1 - COVID-19 SNOMED Code(s): 446275637 (3) Pneumonia Narrative/Plan: Continue Rocephin as stated above Current Visit: Yes Status: Acute Code(s): J18.9 - PNEUMONIA, UNSPECIFIED ORGANISM SNOMED Code(s): 955014025
[2024-07-13 20:10] LABS: Glucose,Whole Blood 243 mg/dL (70-110)
[2024-07-13] MEDS: AZITHROMYCIN 500 MG TAB PO SCH (20:27)
[2024-07-13] MEDS: guaiFENesin SYRUP 100MG/5ML 200 MG/10 ML CUP PO PRN (23:13)
[2024-07-14 06:24] LABS: Glucose,Whole Blood 160 mg/dL (70-110)
[2024-07-14] MEDS ORDERED: BENZOCAINE/MENTHOL LOZENG 1 EACH LOZENGE MUCOUS MEM PRN (11:13)
[2024-07-14 11:51] LABS: Glucose,Whole Blood 143 mg/dL (70-110)
--- NOTE | 2024-07-14 13:40 | P.PN ---
Subjective Progress Note Date: 07/14/24 History of present illness: Patient is a pleasant 73-year-old male with significant past medical history of CAD status post triple-vessel CABG in 2019, hypertension, diabetes, hyperlipidemia, GI bleed who presented to the ER in [place] with complaints of shortness of breath, cough, and weakness. He was diagnosed positive for COVID- 19. His troponins were elevated therefore he was transferred to [facility]. He does follow with Dr. Bourne in the office and has saw him last month. Reports his last echo was over a year ago and last stress test was a couple years ago. Prior to this illness he has been active with no issues. He began not feeling well 4 days ago with cough, sore throat, shortness of breath, fatigue. CTA of the chest shows no PE, left lower lobe consolidation. Labs reviewed: WBC 4.1, hemoglobin 12.2, potassium 4.2, creatinine 0.89, troponin 0.090, 0.080, 0.088, CRP 13.9. He was having some chest pain in the ER and nitro patch was placed. No records from [facility] available at this time. Denies any chest pain or pressure at this time. 07/14/2024 Patient reports ports he is feeling okay. Mild shortness of breath. Denies any chest pain or pressure. Limited echo shows 45 to 50% EF, mild LVH, moderate mitral regurgitation. No prior echo to compare to. PHYSICAL EXAMINATION: This is a 73-year-old male in no apparent distress at the time of my examination. HEENT: Head is atraumatic, normocephalic. Pupils are equal, round. Sclerae anicteric. Conjunctivae are clear. Mucous membranes of the mouth are moist. Neck is supple. There is no jugular venous distention. No carotid bruit is heard. CHEST EXAMINATION: Lungs with rhonichi L>R. No chest wall tenderness is noted on palpation or with deep breathing. HEART EXAMINATION: Heart regular rate and rhythm. S1, S2 heard. No murmurs, gallops or rub. ABDOMEN: Soft, nontender. Bowel sounds are heard. EXTREMITIES: 2+ peripheral pulses with no evidence of peripheral edema and no calf tenderness noted. NEUROLOGIC EXAMINATION: Patient is awake, alert and oriented x3. IMPRESSION AND PLAN: CAD Status post CABG in 2019 Hypertension Hyperlipidemia Diabetes type 2 History of GI bleed NSTEMI likely type II related to COVID infection Positive COVID infection Dyspnea PLAN: Echo does show slightly decreased EF 45-50%, no prior echo to compare to at this time. Continue current cardiac medications. Cardiology to sign off, follow-up in office in [address] Bourne. Please call with any questions or concerns. I am dictating on behalf of Dr. Myron Parenll's history/physical and assessment/plan. Objective - Vital Signs Vital signs: Vital Signs Temp 97.8 F 07/14/24 09:35 Pulse 62 07/14/24 09:35 Resp 16 07/14/24 09:35 BP 127/67 07/14/24 09:35 Pulse Ox 95 07/14/24 09:35 FiO2 Intake & Output 07/13/24 07/14/24 07/14/24 18:59 06:59 18:59 Intake Total 0 Balance 0 Weight 75.4 kg 75.2 kg Intake: Oral 0 Other: Voiding Method Toilet Toilet Toilet # Voids 1 1 - Labs CBC & Chem 7: 07/13/24 06:49 07/13/24 06:49 Labs: Abnormal Lab Results - Last 24 Hours (Table) 07/13/24 07/13/24 07/13/24 Range/Units 06:44 16:38 20:09 POC Glucose (mg/dL) 175 H 243 H (70-110) mg/dL Procalcitonin 1.49 H (0.02-0.50) ng/mL 07/14/24 07/14/24 Range/Units 06:23 11:49 POC Glucose (mg/dL) 160 H 143 H (70-110) mg/dL Procalcitonin (0.02-0.50) ng/mL
[2024-07-14 16:33] LABS: Glucose,Whole Blood 342 mg/dL (70-110)
--- NOTE | 2024-07-14 18:01 | P.PN ---
Subjective Progress Note Date: 07/14/24 (delayed charting seen at 1045) Patient seen and examined at bedside. Feeling much improved, still short of breath, still wheezing, appetite is coming back slowly. present at bedside. All questions answered. Vital signs reviewed General: Nontoxic, no distress, appears at stated age Cardiovascular: S1S2 reg, no murmur Lungs: Wheezing bilateral, , no accessory muscle use Abdominal: Soft, nontender to palpation, no guarding Ext: No gross muscle atrophy, no edema b/l lower extremities, no contractures Neuro: CN II-XI grossly intact, no focal neuro deficits Psych: Alert, oriented, appropriate affect Assessment/Plan: COVID-19 pneumonia with likely acute bacterial component given lobar pneumonia Left lower lobe pneumonia, likely bacterial Acute hypoxic respiratory failure, improving - elevated procalcitonin - Dexamethasone 6 mg oral daily - Zithromax 500 mg daily day #2/3, ceftriaxone 2 g IV daily day #3 - Wean O2 as able Type II non-STEMI secondary to COVID-19 infection and possible bacterial pneumonia Cardiomyopathy with EF 45 to 50% History of CAD with CABG - Cardiology note reviewed: Will sign off. Follow-up with Dr. Alexandre - metoprolol 100 mg p.o. twice daily, lisinopril 20 mg daily, discontinue Nitropatch Hyperlipidemia -atorvastatin 80 mg p.o. daily Hypertension - lisinopril 5 mg p.o. daily Pwo-oaxgozn-rvfvtbivu diabetes mellitus -Insulin sliding scale and blood glucose monitoring ACHS -Hold Glucotrol, hold metformin -A1C 7.6 Imaging: Echocardiogram: Ejection fraction 45 to 50%, mild LVH, moderate MR Data Review: No additional laboratory analysis available for today DVT prophylaxis: Lovenox Anticipated discharge date: 24 to [address]: Home This dictation was prepared using [employer] ([employer]) voice recognition software. Though every attempt is made to correct errors during dictation some may still exist. Objective - Vital Signs Vital signs: Vital Signs Temp 98.3 F 07/14/24 16:00 Pulse 72 07/14/24 16:00 Resp 16 07/14/24 16:00 BP 131/62 07/14/24 16:00 Pulse Ox 94 L 07/14/24 16:00 FiO2 Intake & Output 07/13/24 07/14/24 07/14/24 18:59 06:59 18:59 Intake Total 0 Balance 0 Weight 75.4 kg 75.2 kg Intake: Oral 0 Other: Voiding Method Toilet Toilet Toilet # Voids 1 1 2 - Labs CBC & Chem 7: 07/13/24 06:49 07/13/24 06:49 Labs: Abnormal Lab Results - Last 24 Hours (Table) 07/13/24 07/14/24 07/14/24 Range/Units 20:09 06:23 11:49 POC Glucose (mg/dL) 243 H 160 H 143 H (70-110) mg/dL 07/14/24 Range/Units 16:32 POC Glucose (mg/dL) 342 H (70-110) mg/dL
[2024-07-14 20:28] LABS: Glucose,Whole Blood 331 mg/dL (70-110)
[2024-07-15 06:40] LABS: Glucose,Whole Blood 129 mg/dL (70-110)
[2024-07-15 07:09] LABS: HCT 38.7 % (39.0-53.0); HGB 13.2 gm/dL (13.0-17.5); MCH 32.2 pg (25.0-35.0); MCV 94.7 fL (80.0-100.0); Mean Platelet Volume 7.7; Platelet Count 240 k/uL (150-450); RBC 4.09 m/uL (4.30-5.90); RDW 12.5 % (11.5-15.5); WBC 5.2 k/uL (3.8-10.6)
[2024-07-15 07:20] LABS: African American GFR (CKD) >90 (>60 ml/min/1.73 sqM); Anion Gap 3 mmol/L; Blood Urea Nitrogen 18 mg/dL (9-20); Calcium 8.5 mg/dL (8.4-10.2); Carbon Dioxide 31 mmol/L (22-30); Chloride 103 mmol/L (98-107); Glucose 136 mg/dL (74-99); Non-African American GFR(CKD) 85 (>60 ml/min/1.73 sqM); Potassium 4.6 mmol/L (3.5-5.1); Sodium 137 mmol/L (137-145)
[2024-07-15 11:51] LABS: Glucose,Whole Blood 213 mg/dL (70-110)
--- NOTE | 2024-07-15 15:05 | P.PN ---
Subjective Progress Note Date: 07/15/24 Patient seen and examined at bedside. Feeling much improved, still short of breath. Reports wet cough. present at bedside. All questions answered. Vital signs reviewed General: Nontoxic, no distress, appears at stated age Cardiovascular: S1S2 reg, no murmur Lungs: Decreased BS bilateral, no accessory muscle use Ext: No gross muscle atrophy, no edema b/l lower extremities, no contractures Neuro: no focal neuro deficits Psych: Alert, oriented, appropriate affect COVID-19 pneumonia with likely acute bacterial component given lobar pneumonia Left lower lobe pneumonia, likely bacterial Acute hypoxic respiratory failure, improving - elevated procalcitonin - Dexamethasone 6 mg oral daily - Zithromax 500 mg daily day #3/3, ceftriaxone 2 g IV daily day #4 - Wean O2 as able Type II non-STEMI secondary to COVID-19 infection and possible bacterial pneumonia Cardiomyopathy with EF 45 to 50% History of CAD with CABG -Cardiology note reviewed: Will sign off. Follow-up with Dr. Alexandre -metoprolol 100 mg p.o. twice daily, lisinopril 20 mg daily, discontinue Nitropatch Hyperlipidemia -atorvastatin 80 mg p.o. daily Hypertension -lisinopril 5 mg p.o. daily Uqt-[id number]-crhqkyyzg diabetes mellitus -Insulin sliding scale and blood glucose monitoring ACHS -A1C 7.6 Data Review: CBC and BMP significant for RBC 4.09, Hct 38.7, bicarb 31, glu 136 DVT prophylaxis: Lovenox Anticipated discharge date: 24 to [address]: Home Objective - Vital Signs Vital signs: Vital Signs Temp 98.1 F 07/15/24 08:00 Pulse 58 L 07/15/24 12:00 Resp 18 07/15/24 12:00 BP 153/71 07/15/24 12:00 Pulse Ox 96 07/15/24 12:00 FiO2 Intake & Output 07/14/24 07/15/24 07/15/24 18:59 06:59 18:59 Weight 76.2 kg Other: Voiding Method Toilet Toilet Toilet # Voids 2 1 - Labs CBC & Chem 7: 07/15/24 06:58 07/15/24 06:58 Labs: Abnormal Lab Results - Last 24 Hours (Table) 07/14/24 07/14/24 07/15/24 Range/Units 16:32 20:27 06:36 RBC (4.30-5.90) m/uL Hct (39.0-53.0) % Carbon Dioxide (22-30) mmol/L Glucose (74-99) mg/dL POC Glucose (mg/dL) 342 H 331 H 129 H (70-110) mg/dL 07/15/24 07/15/24 07/15/24 Range/Units 06:58 06:58 11:46 RBC 4.09 L (4.30-5.90) m/uL Hct 38.7 L (39.0-53.0) % Carbon Dioxide 31 H (22-30) mmol/L Glucose 136 H (74-99) mg/dL POC Glucose (mg/dL) 213 H (70-110) mg/dL
[2024-07-15] MEDS: guaiFENesin 600 MG TABLET.ER PO SCH (16:07)
[2024-07-15 16:25] LABS: Glucose,Whole Blood 346 mg/dL (70-110)
[2024-07-15 20:19] LABS: Glucose,Whole Blood 335 mg/dL (70-110)
[2024-07-16 05:50] LABS: Glucose,Whole Blood 139 mg/dL (70-110)
--- NOTE | 2024-07-16 09:47 | P.DS ---
Providers Date of admission: 07/15/24 15:55 Expected date of discharge: 07/16/24 Attending physician: Tanya Deng MD Primary care physician: [facility] Course: 73 year old M with PMH of HTN, DM, HLD presents to the ED for SOB and cough. In the ED he underwent extensive evaluation. BP 143/74, HR 102, RR 18, T 98.6F, 97% on 2L. CBC, CMP significant for RBC 3.88, Hg 12.2, Hct 37.3, BUN 21, glu 242, Ca 8.2, alb 3.1. Troponin 0.09, 0.08, 0.088. D-Dimer 1.71. LDH 202. CRP 13.9. Procal 1.49. EKG sinus rhythm with PVCs. CTA chest LLL infiltrate, small pulmonary nodule (6 month follow up recommended) and no PE. Started on Rocephin and Azithromycin along with Albuterol inhaler and Decadron for COVID 19 PNA and admitted for further workup and management. Cardiology consulted, Echo showed EF 45-50%, mod MR. Cardiology recommended outpatient follow up and no further inpatient workup. His respiratory status improved. 07/16 Patient was seen and examined. He is 97% on RA. Maintained on Rocephin (D3) and completed 3 day course of Azithromycin. Maintained on Decadron 6 mg PO QD (D3). Plans for home O2 eval today. Possible discharge home if able to maintain O2 saturation. Prescribe Augmentin x 4 days (total 7 days) and Decadron x 7 days (total 10 days) along with Albuterol inhaler PRN. Follow up with Cardiology and Pulmonary within 1 week. Will need surveillance of pulmonary nodule with Pulmonary. General: non toxic, no distress, appears at stated age Derm: warm, dry Head: atraumatic, normocephalic, symmetric Eyes: EOMI, no lid lag, anicteric sclera Mouth: no lip lesion, mucus membranes moist Cardiovascular: S1S2 reg, no murmur Lungs: CTA bilateral, no rhonchi, no rales, no accessory muscle use Ext: no gross muscle atrophy, no edema, no contractures Psych: Alert, oriented, appropriate affect Discharge Diagnosis: COVID-19 pneumonia Left lower lobe bacterial pneumonia Acute hypoxic respiratory failure Type II non-STEMI Cardiomyopathy with EF 45 to 50% History of CAD with CABG Hyperlipidemia Hypertension Pos-yhwlork-svfobswwd diabetes mellitus This complex discharge took 35 minutes to complete. Patient Condition at Discharge: Stable Plan - Discharge Summary Discharge Rx Participant: No New Discharge Prescriptions: New dexAMETHasone ORAL [Hexadrol] 6 mg PO DAILY #7 tab guaiFENesin [Mucinex] 1,200 mg PO Q12HR PRN #30 tab PRN Reason: Cough Amoxic-Pot Clav 875-125Mg [Augmentin 875-125] 1 tab PO Q12HR 4 Days #8 tab Albuterol Inhaler [Ventolin Hfa Inhaler] 1 puff INHALATION QID PRN #8 gm PRN Reason: Shortness Of Breath Or Wheezing Continue metFORMIN HCL [Glucophage] 850 mg PO BID Atorvastatin [Lipitor] 80 mg PO DAILY glipiZIDE XL [Glucotrol XL] 5 mg PO BID lisinopriL [Zestril] 20 mg PO DAILY Metoprolol Tartrate [Lopressor] 100 mg PO BID Discharge Medication List metFORMIN HCL [Glucophage] 850 mg PO BID 02/08/19 [History] Atorvastatin [Lipitor] 80 mg PO DAILY 05/27/19 [History] glipiZIDE XL [Glucotrol XL] 5 mg PO BID 08/03/20 [History] Metoprolol Tartrate [Lopressor] 100 mg PO BID 07/13/24 [History] lisinopriL [Zestril] 20 mg PO DAILY 07/13/24 [History] Albuterol Inhaler [Ventolin Hfa Inhaler] 1 puff INHALATION QID PRN #8 gm 07/16/24 [Rx] Amoxic-Pot Clav 875-125Mg [Augmentin 875-125] 1 tab PO Q12HR 4 Days #8 tab 07/16/24 [Rx] dexAMETHasone ORAL [Hexadrol] 6 mg PO DAILY #7 tab 07/16/24 [Rx] guaiFENesin [Mucinex] 1,200 mg PO Q12HR PRN #30 tab 07/16/24 [Rx] Follow up Appointment(s)/Referral(s): Brannon Meraz MD [Primary Care Provider] - 1-2 days Francisco Alexandre MD [STAFF PHYSICIAN] - 1 Week Samanta Harrington MD [STAFF PHYSICIAN] - 1 Week
[2024-07-16 11:31] VITALS: BP 179/82; PULSE 61; RESP 20; TEMP 97.9
[2024-07-16 11:49] LABS: Glucose,Whole Blood 223 mg/dL (70-110)
== END 2024-07-16 13:39 | disposition home or self-care (01) | DRG 177 ==
LOC: EC 17:55 → 3SCARD 20:36 → OBSVTOIN 07-15 15:55
PROVIDERS: ADMIT Internal Medicine; ATTEND Internal Medicine
DX: U07.1 COVID-19 (principal); I21.A1 Myocardial infarction type 2; J12.82 Pneumonia due to coronavirus disease 2019; J96.01 Acute respiratory failure with hypoxia; J15.9 Unspecified bacterial pneumonia; I42.9 Cardiomyopathy, unspecified; E11.9 Type 2 diabetes mellitus without complications; E78.5 Hyperlipidemia, unspecified; I10 Essential (primary) hypertension; I25.10 Atherosclerotic heart disease of native coronary artery without angina pectoris; I34.0 Nonrheumatic mitral (valve) insufficiency; I49.3 Ventricular premature depolarization; I25.2 Old myocardial infarction; Z79.82 Long term (current) use of aspirin; Z79.84 Long term (current) use of oral hypoglycemic drugs; Z79.899 Other long term (current) drug therapy; Z87.891 Personal history of nicotine dependence; Z95.1 Presence of aortocoronary bypass graft; Z82.49 Family history of ischemic heart disease and other diseases of the circulatory system
CPT/HCPCS: 36415; 71275; 80048; 80053; 80061; 83036; 83615; 84145; 84484; 85025; 85027; 85379; 86140; 93005; 93306; 99285